=== PATIENT | male | born 1950 | race Caucasian/White ===

== ENCOUNTER → 2017-09-27 08:00 | Outpatient (CLI) | payer MEDICARE, SELFPAY ==
[2017-09-27 10:34] LABS: Erythrocyte Sedimentation Rate 2 mm/hr (0-20)
[2017-09-27 11:13] LABS: AST(SGOT) 20 U/L (15-37); Alanine Aminotransfer ALT/SGPT 24 U/L (16-61); Albumin, Serum 4.2 g/dL (3.2-5.0); Alkaline Phosphatase 73 U/L (45-117); Anion Gap 7 (5-15); BUN 11 mg/dL (7-18); BUN/Creat Ratio 14.1 RATIO (10-20); Bilirubin, Direct 0.26 mg/dL (0.00-0.30); CRP < 2.90 mg/L (0.0-3.0); Calcium,Total 9.2 mg/dL (8.5-10.1); Chloride 96 mmol/L (98-107); Cholesterol 201 mg/dL (200); Creatinine, Serum 0.78 mg/dL (0.70-1.30); EST Glomerular Filtration Rate 105 mL/min (>60); Est Glom Filt Rate - Afr Amer 127 mL/min (>60); Globulin 3.5 g/dL (2.2-4.2); Glucose 101 mg/dL (74-106); High Density Lipoprotein 72 mg/dL; Potassium 4.3 mmol/L (3.5-5.1); Protein, Total 7.7 g/dL (6.4-8.2); Sodium Level 134 mmol/L (136-145); Thyroid Stim Hormone (TSH) 2.61 uIU/mL (0.358-3.74); Triglycerides 58 mg/dL; Very Low Density Lipoprotein 12 mg/dL (5-40)
--- NOTE | 2017-09-27 13:57 | PFT ---
INTRODUCTION: The patient is a 67-year-old male currently under the care of Dr. Santosh Robbins the presents for pulmonary function testing secondary to a diagnosis of shortness of breath. Respiratory therapy reports good patient effort reports no other concerns. Bronchodilators were used during testing. INTERPRETATION: Forced expiration spirometry demonstrates the presence of a mild large airways obstructive ventilatory defect. There was a significant response to aerosolized bronchodilators, based upon overall change in FEV1. Spirograms are of good quality and do not plateau indicating slow emptying of the lungs. Body plethysmography was performed and reveals an increased TLC and RV, indicative of hyperinflation and air-trapping. Diffusing capacity by single breath CO is within normal limits. When compared to previous pulmonary function studies dated February 2009, there has been a 15% reduction in the patient's FEV1 and a 13% reduction in DLCO. IMPRESSION: These pulmonary function studies demonstrate the presence of a partially reversible mild large airways obstructive ventilatory defect with associated hyperinflation and air-trapping. There has been worsening in the patient's FEV1 and DLCO since PFTs were last completed in February 2009.
--- NOTE | 2017-09-27 14:00 | PFT_ITS ---
INTRODUCTION: The patient is a 67-year-old male currently under the care of Dr. Santosh Robbins the presents for pulmonary function testing secondary to a diagnosis of shortness of breath. Respiratory therapy reports good patient effort reports no other concerns. Bronchodilators were used during testing. INTERPRETATION: Forced expiration spirometry demonstrates the presence of a mild large airways obstructive ventilatory defect. There was a significant response to aerosolized bronchodilators, based upon overall change in FEV1. Spirograms are of good quality and do not plateau indicating slow emptying of the lungs. Body plethysmography was performed and reveals an increased TLC and RV, indicative of hyperinflation and air-trapping. Diffusing capacity by single breath CO is within normal limits. When compared to previous pulmonary function studies dated February 2009, there has been a 15% reduction in the patient's FEV1 and a 13 % reduction in DLCO. IMPRESSION: These pulmonary function studies demonstrate the presence of a partially reversible mild large airways obstructive ventilatory defect with associated hyperinflation and air-trapping. There has been worsening in the patient's FEV1 and DLCO since PFTs were last completed in February 2009.
== END ==
PROVIDERS: Internal Medicine Cardiovascular Disease; Family Provider Family Medicine; PCP Family Medicine; Visit Provider Orthopaedic Surgery
DX: I25.10 Atherosclerotic heart disease of native coronary artery without angina pectoris (principal); I10 Essential (primary) hypertension; E78.00 Pure hypercholesterolemia, unspecified; R06.02 Shortness of breath; M25.562 Pain in left knee; Z96.652 Presence of left artificial knee joint; M25.062 Hemarthrosis, left knee; Z79.899 Other long term (current) drug therapy
CPT/HCPCS: 36415; 80048; 80061; 80076; 84443; 85652; 86140; 94060; 94726; 94729

== ENCOUNTER 2018-01-24 05:58 | Inpatient (IN) | payer MEDICARE, SELFPAY ==
--- NOTE | 2018-01-05 10:33 | EKG12_ITS ---
Test Reason : Blood Pressure : / mmHG Vent. Rate : 064 BPM Atrial Rate : 064 BPM P-R Int : 152 ms QRS Dur : 140 ms QT Int : 436 ms P-R-T Axes : 012 -35 044 degrees QTc Int : 449 ms Normal sinus rhythm Left axis deviation Left bundle branch block Abnormal ECG Confirmed by PRESLEY PONCE, MARY ([id number]), features editor JUAN QUILES ([id number]) on 01/10/2018 6:31:25 PM Referred By: Maximilian Tucker Confirmed By:MARY SHERWOOD MD
[2018-01-05 13:59] LABS: Hemoglobin 14.5 g/dl (13.0-16.5); Mean Corpuscular Volume 97.4 fL (80-94); Red Blood Count 4.21 M/mm3 (4.6-6.2); White Blood Count 5.3 K/mm3 (4.4-11.0)
[2018-01-05 14:00] LABS: Absolute Lymphocyte Count 1.54 X10^3/ul (0.83-4.51); Absolute Neutrophil Count 2.6 X10^3/uL (2.0-7.7); Basophil% 1.3 % (0-1); Eosinophil# 0.27 X10^3/uL; Eosinophils% 5.1 % (0-5); Lymphocyte # 1.54 X10^3/ul (4.0); Lymphocyte % 29.1 % (19-41); Mean Corp Hgb Conc 35.4 g/gl (32-36); Mean Corpuscular Hgb 34.4 pg (27.0-32.0); Mean Platelet Vol. 9.4 fl (6.2-12.0); Monocyte# 0.84 X10^3/uL; Monocyte% 15.9 % (0-10); Neutrophil # 2.56 X10^3/uL (2.7-7.7); Neutrophil % 48.4 % (47-70); POSITIVE COUNT NO; POSITIVE DIFFERENTIAL NO; POSITIVE MORPHOLOGY NO; Platelet Count 307 K/mm3 (150-450); RBC Distribution Width CV 12.4 % (11.6-14.6); RBC Distribution Width SD 44.1 fl (35.1-43.9)
[2018-01-05 14:01] LABS: Basophil# 0.07 X10^3/uL
[2018-01-05 15:41] LABS: Anion Gap 12 (5-15); BUN 14 mg/dL (7-18); BUN/Creat Ratio 18.2 RATIO (10-20); Calcium,Total 9.1 mg/dL (8.5-10.1); Chloride 97 mmol/L (98-107); Creatinine, Serum 0.77 mg/dL (0.70-1.30); EST Glomerular Filtration Rate 107 mL/min (>60); Est Glom Filt Rate - Afr Amer 130 mL/min (>60); Glucose 90 mg/dL (74-106); Potassium 4.4 mmol/L (3.5-5.1); Sodium Level 135 mmol/L (136-145)
[2018-01-24] VITALS (11 sets, daily range): BP systolic 104–157; BP diastolic 60–88; PULSE 56–82; RESP 14–16; TEMP 35.9–36.6; O2SAT 94–99; BMI 27.7
[2018-01-24] MEDS: Acetaminophen 500 MG Tablet 1000 MG PO ×3 (07:00→21:45)
[2018-01-24] MEDS: Celecoxib 200 MG Capsule 400 MG PO (07:00)
[2018-01-24] MEDS: oxyCODONE HCl Cr 10 MG Tablet PO (07:00)
[2018-01-24] MEDS: Scopolamine 1mg/72hr Patch 1 PATCH TD (07:45)
--- NOTE | 2018-01-24 07:59 | RAD_ITS ---
STUDY: X-RAY - LEFT KNEE REASON FOR EXAM: Male, 67 years old. Total knee replacement. TECHNIQUE: AP and lateral view(s) of the knee. COMPARISON: None. FINDINGS: Normal visualized distal femur. Normal visualized proximal tibia and fibula. Normal proximal tibiofibular articulation. The patient is status post total knee replacement. There is good alignment. Postoperative soft tissue changes. RAD/Knee 1 or 2 Views IMPRESSION: Total knee replacement. There is good alignment. Postoperative soft tissue changes. Electronically Signed: Wilberto Powell MD at 10:00 EDT Tel [phone], Service support ,
[2018-01-24] MEDS: Cefazolin 2 GM in 0.9% Normal Saline 100 ML IV (08:00)
--- NOTE | 2018-01-24 08:51 | PCM.OPRPT ---
Report of Operation Date of Procedure: 01/24/18 Pre-Operative Diagnosis: Painful left total knee replacement with crepitus and cement debris Post-Operative Diagnosis: 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 newsagent: Tay Strauss Type of Anesthesia:: Spinal Anesthesiologist: Santosh Palafox Special Medications: 2 g Ancef, 1 g TXA at incision, 1 g TXA closure, 10 mg Decadron, joint cocktail (5 mg Duramorph, 30 mL of 0.5% Ropivicaine, 1000 units of epinephrine, 30 mg of Toradol) Specimen's removed: Cement debris Estimated Blood Loss (mL): 20 Fluids Replaced: 1 L crystalloid Description of Procedure: Brief history operative indications: 67-year-old male with left total knee replacement roughly 1 year ago with persistent lateral sided pain and crepitus. X-rays revealed an area of cement from the lateral condyle of the femur. Discussed with the patient I felt this was a source of pain and crepitus. Patient noted understanding and elected to proceed with revision of the knee polyethylene component and removal of the excess cement. Risks and benefits of the procedure were discussed with the patient including but not limited to blood loss, DVTs, PEs, neurovascular damage, infection, general risk of anesthesia including loss of life. Patient demonstrated understanding was able to sign for consent. Procedure: On the date of procedure patient's left lower extremity was marked in the preoperative area. The patient was then taken back to the operating room where the patient was placed on the table in the supine position. All bony prominences were identified a well-padded. Anesthesia assumed control of the C-spine and airway and remained controlled throughout the remainder of the procedure. A tourniquet was placed on the left upper thigh and the leg was prepped in a sterile fashion. The surgeon then scrubbed at this time .Upon reentering the room left lower extremity was draped in a standard orthopedic fashion. A timeout was then called and everyone agreed upon the side, the site, the procedure to be performed, patient's identity and antibiotics given. A midline skin incision was made and sharp dissection was taken down through skin subcutaneous tissue and fat. Appropriate medial lateral flaps were raised. The standard medial parapatellar incision was made and the patella was subluxed laterally. The standard deep MCL release was done and complete synovectomy was performed re-creating the medial gutter, lateral gutter and suprapatellar pouch. In the lateral gutter we noted significant irritation and atrophy of the synovium. Knee was taken through range of motion and the crepitus laterally was verified At this time an osteotome was used to remove the polyethylene component. Patella was then subluxed laterally exposing an irregular shaped pieces cement on the lateral distal femoral condyle which was irritating the tissue. Osteotome was used to remove this foreign body. Previous polyethylene was then put into place for a trial component. Knee was taken through range of motion and crepitus was no longer there. Trial polyethylene was removed hemostasis was obtained using bipolar. Wound was copiously irrigated out with 1 L normal saline. Tourniquet was let down. A size 7, 9 mm polyethylene component was placed. Once the final components were placed a 500 mL dilute Betadine 3 minute lavage was performed and the wound was copiously irrigated with normal saline solution and the remainder of the periarticular injection was given. The wound was closed in a layer mark fashion using #1 vicryl interrupted sutures for the arthrotomy, 2-0 interrupted Vicryl for the subcuticular layer and fab for final skin closure. A sterile compressive dressing was then placed. The patient was then awakened from anesthesia, transferred to [facility] and transferred to the PACU for recovery. Post op plan DVT ppx: ASA 81mg BID , thigh high compression stockings Follow up: in office in 2 weeks for wound check PT: to start POD #0 at hospital, outpatient PT should be arranged. Dr. Strauss played a vital role in this case. He was important during positioning the patient. He was important during protection of soft tissue structures. There was no other instruction assistant principal provided for me during this case therefore I used a another skilled set of hands. He was helpful and protecting soft tissues during the case as we used instrumentation at the neurovascular structures at risk. Finally he was helpful during final reduction of the polyethylene and closure of the wound. Grafts/Implants Used: [place] X3, 9 millimeters size 7 polyethylene PS - Complications None - Admit VTE Documentation VTE Present on Admission: No VTE Mechan Device Prophylaxis: SCD's, Thigh High DEJAN Hose VTE Pharm Prophylaxis ordered?: Yes
--- NOTE | 2018-01-24 09:00 | OP.PCM_ITS ---
Report of Operation Date of Procedure: 01/24/18 Pre-Operative Diagnosis: Painful left total knee replacement with crepitus and cement debris Post-Operative Diagnosis: 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 [employer] assistant principal: Tay Strauss Type of Anesthesia:: Spinal Anesthesiologist: Santosh Palafox Special Medications: 2 g Ancef, 1 g TXA at incision, 1 g TXA closure, 10 mg Decadron, joint cocktail (5 mg Duramorph, 30 mL of 0.5% Ropivicaine, 1000 units of epinephrine, 30 mg of Toradol) Specimen's removed: Cement debris Estimated Blood Loss (mL): 20 Fluids Replaced: 1 L crystalloid Description of Procedure: Brief history operative indications: 67-year-old male with left total knee replacement roughly 1 year ago with persistent lateral sided pain and crepitus. X-rays revealed an area of cement from the lateral condyle of the femur. Discussed with the patient I felt this was a source of pain and crepitus. Patient noted understanding and elected to proceed with revision of the knee polyethylene component and removal of the excess cement. Risks and benefits of the procedure were discussed with the patient including but not limited to blood loss, DVTs, PEs, neurovascular damage , infection, general risk of anesthesia including loss of life. Patient demonstrated understanding was able to sign for consent. Procedure: On the date of procedure patient's left lower extremity was marked in the preoperative area. The patient was then taken back to the operating room where the patient was placed on the table in the supine position. All bony prominences were identified a well-padded. Anesthesia assumed control of the C- spine and airway and remained controlled throughout the remainder of the procedure. A tourniquet was placed on the left upper thigh and the leg was prepped in a sterile fashion. The surgeon then scrubbed at this time .Upon reentering the room left lower extremity was draped in a standard orthopedic fashion. A timeout was then called and everyone agreed upon the side, the site, the procedure to be performed, patient's identity and antibiotics given. A midline skin incision was made and sharp dissection was taken down through skin subcutaneous tissue and fat. Appropriate medial lateral flaps were raised. The standard medial parapatellar incision was made and the patella was subluxed laterally. The standard deep MCL release was done and complete synovectomy was performed re-creating the medial gutter, lateral gutter and suprapatellar pouch. In the lateral gutter we noted significant irritation and atrophy of the synovium. Knee was taken through range of motion and the crepitus laterally was verified At this time an osteotome was used to remove the polyethylene component. Patella was then subluxed laterally exposing an irregular shaped pieces cement on the lateral distal femoral condyle which was irritating the tissue. Osteotome was used to remove this foreign body. Previous polyethylene was then put into place for a trial component. Knee was taken through range of motion and crepitus was no longer there. Trial polyethylene was removed hemostasis was obtained using bipolar. Wound was copiously irrigated out with 1 L normal saline. Tourniquet was let down. A size 7, 9 mm polyethylene component was placed. Once the final components were placed a 500 mL dilute Betadine 3 minute lavage was performed and the wound was copiously irrigated with normal saline solution and the remainder of the periarticular injection was given. The wound was closed in a layer mark fashion using #1 vicryl interrupted sutures for the arthrotomy, 2-0 interrupted Vicryl for the subcuticular layer and fab for final skin closure. A sterile compressive dressing was then placed. The patient was then awakened from anesthesia, transferred to the [facility] and transferred to the PACU for recovery. Post op plan DVT ppx: ASA 81mg BID , thigh high compression stockings Follow up: in office in 2 weeks for wound check PT: to start POD #0 at hospital, outpatient PT should be arranged. Dr. Strauss played a vital role in this case. He was important during positioning the patient. He was important during protection of soft tissue structures. There was no other training program assistant provided for me during this case therefore I used a another skilled set of hands. He was helpful and protecting soft tissues during the case as we used instrumentation at the neurovascular structures at risk. Finally he was helpful during final reduction of the polyethylene and closure of the wound. Grafts/Implants Used: [place] X3, 9 millimeters size 7 polyethylene PS - Complications None - Admit VTE Documentation VTE Present on Admission: No VTE Mechan Device Prophylaxis: SCD's, Thigh High DEJAN Hose VTE Pharm Prophylaxis ordered?: Yes
[2018-01-24] MEDS: Lactated Ringers 1,000 ML 999 ML IV (09:30)
[2018-01-24] MEDS: Aspirin 81 MG TAB.CHEW PO ×2 (13:32→18:48)
[2018-01-24] MEDS: Famotidine 20 MG Tablet PO (13:32)
[2018-01-24] MEDS: Senna/Docusate Sodium 1 Tablet 2 TABLET PO ×2 (13:32→21:46)
[2018-01-24] MEDS: Cefazolin 1 GM/50 ML BAG IV (16:24)
[2018-01-25] MEDS: Cefazolin 1 GM/50 ML BAG IV (00:31)
[2018-01-25] MEDS: 0.9% NaCl Peripheral Flush Adult/Peds IV (00:32)
[2018-01-25 02:08] VITALS: BP 149/48; PULSE 98; RESP 16; TEMP 36.5; O2SAT 98
[2018-01-25] MEDS: oxyCODONE 5 MG Tablet PO ×2 (02:23→09:58)
[2018-01-25 06:15] LABS: Hematocrit 35.6 % (40-54); Hemoglobin 12.9 g/dl (13.0-16.5); Mean Corp Hgb Conc 36.2 g/gl (32-36); Mean Corpuscular Hgb 35.6 pg (27.0-32.0); Mean Corpuscular Volume 98.3 fL (80-94); Mean Platelet Vol. 9.7 fl (6.2-12.0); Platelet Count 263 K/mm3 (150-450); RBC Distribution Width CV 11.5 % (11.6-14.6); Red Blood Count 3.62 M/mm3 (4.6-6.2); White Blood Count 13.1 K/mm3 (4.4-11.0)
[2018-01-25 06:22] LABS: Scan Indicated on CBC? Y/N NO
[2018-01-25 06:31] LABS: Anion Gap 8 (5-15); BUN 15 mg/dL (7-18); BUN/Creat Ratio 15.6 RATIO (10-20); Calcium,Total 8.7 mg/dL (8.5-10.1); Chloride 101 mmol/L (98-107); Creatinine, Serum 0.96 mg/dL (0.70-1.30); EST Glomerular Filtration Rate 83 mL/min (>60); Est Glom Filt Rate - Afr Amer 100 mL/min (>60); Estimated Creatinine Clearance 73.65 ml/min; Glucose 106 mg/dL (74-106); Potassium 3.9 mmol/L (3.5-5.1); Sodium Level 135 mmol/L (136-145)
[2018-01-25] MEDS: Acetaminophen 500 MG Tablet 1000 MG PO (06:53)
--- NOTE | 2018-01-25 08:56 | PCM.PN.ORT ---
Subjective: The patient was sitting in bed upon examination. Patient denies any chest pain, shortness of breath, dizziness, lightheadedness, nausea or vomiting, or calf pain. Pain is controlled on medications. No adverse overnight events. Patient is ready for discharge home this morning. Patient states the pain is well controlled. Objective: Vital signs stable and afebrile. Patient is able to plantarflex and dorsiflex actively. Sensation is intact to light touch to saphenous, sural, superficial and deep peroneal, and tibial distribution. Dressing is clean dry and intact. Negative Homans bilaterally, negative signs and symptoms of DVT. - Physical Exam General: Alert, Oriented x3, Cooperative, No apparent distress Vital Signs Temp Pulse Resp BP Pulse Ox 97.7 F L 98 16 149/48 H 98 01/25/18 02:08 01/25/18 02:08 01/25/18 02:08 01/25/18 02:08 01/25/18 02:08 Oxygen Delivery Method Room Air Weight: 85.275 kg Body Mass Index (BMI) 27.7 Intake and Output for Last 24 Hours 01/23/18 01/24/18 01/25/18 23:59 23:59 23:59 Intake Total 2982 / 2982 1048.6 / 1048.6 Output Total 250 / 250 Balance 2732 / 2732 1048.6 / 1048.6 Laboratory Tests Past 24 Hrs 01/25/18 01/25/18 05:45 05:45 WBC 13.1 H RBC 3.62 L Hgb 12.9 L Hct 35.6 L MCV 98.3 H MCH 35.6 H MCHC 36.2 H RDW 11.5 L RDW Differential 40.0 Plt Count 263 MPV 9.7 Sodium 135 L Potassium 3.9 Chloride 101 Carbon Dioxide 26.0 Anion Gap 8 BUN 15 Creatinine 0.96 Estim Creat Clear Calc 73.65 Est GFR (MDRD) Af Amer 100 Est GFR (MDRD) Non-Af 83 BUN/Creatinine Ratio 15.6 Glucose 106 Calcium 8.7 Medical Necessity - Tobacco Use Smoking Status: Former smoker Assessment/Plan All Active Problems (Last Reviewed 09/26/17 @ 10:53 by Ryan Benson MD) Precordial chest pain (Acute) 1. S/P left knee revision polyethylene tibial component with removal of foreign body POD #1 2. Continue Pain Medications: Tylenol and OxyIR 3. DVT Prophylaxis: Aspirin 81 mg twice daily 4. PT/OT: Weightbearing as tolerated 5. H & H: 12.9/35.6, asymptomatic 6. Leukocytosis: Currently 13.1, afebrile. Patient did receive Decadron intraoperatively 7. Encouraged Incentive Spirometry 8. Disposition: Plan will be for discharge home today. Prescriptions will be E scribed to [facility]. Patient will follow-up per postop instructions. Patient will need physical therapy scheduled outpatient.
--- NOTE | 2018-01-25 09:04 | PCM.DC.TKR ---
Discharge Diet: No Restrictions Discharge Activity: May Not Drive May shower in (days): 1 - Turned dressing away from water Ice area for (Minutes): 20 - every hour while awake. Weight Bearing Status: Weight bearing as tolerated Elevate: Operative Extremity Additional Activity Instructions:: Wear elastic stockings for 2 weeks after your surgery. Call your doctor if your incision/area has: Continuous Slow Oozing, Sudden Increased Bleeding, Increased Pain/ Swelling, Increased Redness, Foul Smelling Discharge Call your doctor if you observe: Fever of 101 or Higher, Coldness, Increased Pain, Numbness or Tingling, Change in Color, Calf discomfort, Uncontrolled pain Remove Dressing in (days):: 4 - Remove dressing on August 01, 2017 Additional Instructions: Follow [facility] postop instruction Allergies/Adverse Reactions: Allergies adhesive tape Allergy (Verified 09/22/17 10:38) Rash BEE STINGS Allergy (Uncoded 09/20/16 11:14) Anaphylaxis Medications to take at Discharge Multivitamin with Folic Acid [Thera Tablet] 1 each PO DAILY 09/20/16 cetirizine 10 mg capsule 10 mg PO QDAY cap 09/22/17 Umeclidinium Brm/Vilanterol Tr [Anoro Ellipta 62.5-25 Mcg INH] 1 puff INHALATION DAILY 01/24/18 Valsartan [Diovan] 160 mg PO DAILY 01/24/18 Acetaminophen [Tylenol] 1,000 mg PO Q8 #90 tab 01/25/18 Aspirin [Aspirin, Baby] 81 mg PO BIDCM #60 tab 01/25/18 Famotidine [Pepcid] 20 mg PO DAILY #30 tab 01/25/18 Meloxicam [Mobic] 7.5 mg PO BID #30 tab 01/25/18 Oxycodone [Oxyir] 5 - 10 mg PO Q4H PRN PRN 5 Days #60 tablet 01/25/18 Senna/Docusate Sodium [Senokot-S] 2 tab PO BID #20 tab 01/25/18 The following prescriptions were given: Oxycodone [Oxyir] 5 - 10 mg PO Q4H PRN PRN 5 Days #60 tablet PRN Reason: Mod-Severe Pain (4-05/09) Acetaminophen [Tylenol] 1,000 mg PO Q8 #90 tab Famotidine [Pepcid] 20 mg PO DAILY #30 tab Aspirin [Aspirin, Baby] 81 mg PO BIDCM #60 tab Meloxicam [Mobic] 7.5 mg PO BID #30 tab Senna/Docusate Sodium [Senokot-S] 2 tab PO BID #20 tab Primary Care Physician: Santosh Robbins MD [Primary Care Provider] - Please Follow Up With: Physical Therapy When: to be scheduled before leaving hospital Please Follow Up With: Isaac William PA-C When: 02/07/18 @ 9:00 am
[2018-01-25 09:47] VITALS: BP 152/77; PULSE 59; RESP 18; TEMP 36.7; O2SAT 100
[2018-01-25] MEDS: Famotidine 20 MG Tablet PO (09:59)
[2018-01-25] MEDS: Meloxicam 7.5 MG Tablet PO (09:59)
[2018-01-25] MEDS: Senna/Docusate Sodium 1 Tablet 2 TABLET PO (09:59)
[2018-01-25] MEDS: Aspirin 81 MG TAB.CHEW PO (09:59)
== END 2018-01-25 11:34 | disposition home or self-care (01) | DRG 482 ==
PROVIDERS: Admitting Provider Specialist; Family Provider Family Medicine; PCP Family Medicine; Visit Provider Specialist
PROC: 0SPD09Z Removal of Liner from Left Knee Joint, Open Approach (ICD-10-PCS; CPT 27301; principal; 2018-01-24 07:40)
DX: T84.84XA Pain due to internal orthopedic prosthetic devices, implants and grafts, initial encounter (principal); I10 Essential (primary) hypertension; T84.89XA Other specified complication of internal orthopedic prosthetic devices, implants and grafts, initial encounter; Z87.891 Personal history of nicotine dependence; E66.3 Overweight; Z68.27 Body mass index [BMI] 27.0-27.9, adult; Z96.653 Presence of artificial knee joint, bilateral; Y83.1 Surgical operation with implant of artificial internal device as the cause of abnormal reaction of the patient, or of later complication, without mention of misadventure at the time of the procedure
CPT/HCPCS: 36415; 73560; 80048; 85025; 85027; 87081; 93005; 97116; 97162; 97165; 97530; 97535; 99251; C1776; J7120; A4216; G0463

== ENCOUNTER → 2018-08-16 10:46 | Outpatient (CLI) | payer MEDICARE, SELFPAY ==
--- NOTE | 2018-08-16 10:53 | RAD_ITS ---
STUDY: X-RAY - CERVICAL SPINE REASON FOR EXAM: Male, 68 years old. Left arm weakness and tingling. TECHNIQUE: 5 view(s) of the cervical spine were obtained including oblique views. COMPARISON: None FINDINGS: Normal anterior atlantoaxial articulation. Normal odontoid process. Normal cervical lordosis. There is multi-level endplate spondylosis. There is multi-level degenerative disc disease with multilevel disc space narrowing. There is multi-level osseous foraminal stenosis. The soft tissue structures are unremarkable. RAD/Cerv Spine 4 or 5 Views IMPRESSION: Multilevel disc space narrowing and spondylosis. Multilevel foraminal stenosis. Electronically Signed: Wilberto Powell MD at 10:12 EST Tel [phone], Service support ,
[2018-08-16 14:10] LABS: Erythrocyte Sedimentation Rate 8 mm/hr (0-20)
[2018-08-16 14:16] LABS: Absolute Lymphocyte Count 1.57 X10^3/ul (0.83-4.51); Absolute Neutrophil Count 3.8 X10^3/uL (2.0-7.7); Basophil# 0.04 X10^3/uL; Basophil% 0.6 % (0-1); Eosinophil# 0.26 X10^3/uL; Hematocrit 40.9 % (40-54); Hemoglobin 14.2 g/dl (13.0-16.5); Lymphocyte # 1.57 X10^3/ul (4.0); Lymphocyte % 24.1 % (19-41); Mean Corp Hgb Conc 34.7 g/gl (32-36); Mean Corpuscular Hgb 34.4 pg (27.0-32.0); Mean Platelet Vol. 9.7 fl (6.2-12.0); Monocyte# 0.87 X10^3/uL; Monocyte% 13.3 % (0-10); Neutrophil # 3.77 X10^3/uL (2.7-7.7); Neutrophil % 57.8 % (47-70); POSITIVE COUNT NO; POSITIVE DIFFERENTIAL NO; POSITIVE MORPHOLOGY NO; Platelet Count 295 K/mm3 (150-450); RBC Distribution Width CV 12.4 % (11.6-14.6); RBC Distribution Width SD 45.1 fl (35.1-43.9); Red Blood Count 4.13 M/mm3 (4.6-6.2); White Blood Count 6.5 K/mm3 (4.4-11.0)
[2018-08-16 14:27] LABS: Vitamin B12 626 pg/mL (211-911)
[2018-08-16 14:58] LABS: ALB/GLOB Ratio 1.2 RATIO (0.9-2.4); AST(SGOT) 21 U/L (15-37); Alanine Aminotransfer ALT/SGPT 30 U/L (16-61); Albumin, Serum 3.9 g/dL (3.2-5.0); Alkaline Phosphatase 61 U/L (45-117); Anion Gap 8 (5-15); BUN 11 mg/dL (7-18); CRP 7.65 mg/L (0.0-3.0); Calcium,Total 9.1 mg/dL (8.5-10.1); Chloride 98 mmol/L (98-107); Creatinine, Serum 0.79 mg/dL (0.70-1.30); EST Glomerular Filtration Rate 104 mL/min (>60); Est Glom Filt Rate - Afr Amer 126 mL/min (>60); Ferritin 340 ng/mL (26-388); Globulin 3.3 g/dL (2.2-4.2); Glucose 95 mg/dL (74-106); Magnesium 2.1 mg/dL (1.6-2.6); Potassium 4.2 mmol/L (3.5-5.1); Protein, Total 7.2 g/dL (6.4-8.2); Sodium Level 133 mmol/L (136-145); Thyroid Stim Hormone (TSH) 2.33 uIU/mL (0.358-3.74)
[2018-08-17 16:12] LABS: PROEL- A/G Ratio 1.3 (0.7-1.7); PROEL- Albumin 3.9 g/dL (2.9-4.4); PROEL- Alpha-1 Globulin 0.2 g/dL (0.0-0.4); PROEL- Alpha-2 Globulin 0.7 g/dL (0.4-1.0); PROEL- Gamma Globulin 1.1 g/dL (0.4-1.8); PROEL- TOTAL PROTEIN 6.9 g/dL (6.0-8.5)
[2018-08-19 11:37] LABS: ANTINUCLEAR ANTIBODIES DIRECT Negative (Negative)
--- OUTSIDE RECORDS SUMMARY | 2018-10-21 01:36 | XMS RPT_ITS ---
:1950 Author Organization OHIP Support Name Relationship Address Phone R Unavailable Unavailable Unavailable EDDI MENDEZ Unavailable [address] + [place] [address] RON MENDEZ Unavailable Unavailable + [place] [address] NOT GIVEN Unavailable Unavailable Unavailable EDDI MENDEZ Unavailable [address] + [place] [address] EDDI MENDEZ Unavailable [address] [place] [address] NOT GIVEN Unavailable Unavailable Unavailable EDDI MENDEZ Unavailable [address] + [place], [place] [id number] EDDI MENDEZ Unavailable [address] Unavailable [place], [place] [id number] R Unavailable Unavailable Unavailable EDDI MENDEZ Unavailable [address] + [place] [address] RON MENDEZ Unavailable Unavailable + [place] [address] R Unavailable Unavailable Unavailable EDDI MENDEZ Unavailable [address] + [place] [address] RON MENDEZ Unavailable Unavailable + [place] [address] R Unavailable Unavailable Unavailable EDDI MENDEZ Unavailable [address] + [place] [address] RON MENDEZ Unavailable Unavailable + [place] [address] R Unavailable Unavailable Unavailable EDDI MENDEZ Unavailable [address] + [place] [address] RON MENDEZ Unavailable Unavailable + [place] [address] R Unavailable Unavailable Unavailable ZHOU MENDEZDIA Unavailable [address] + [place] [address] NOT GIVEN Unavailable Unavailable Unavailable ZHOU MENDEZDIA Unavailable [address] + [place], [place] [id number] ZHOU MENDEZDIA Unavailable [address] Unavailable [place], [place] [phone] R Unavailable Unavailable Unavailable ZHOU MENDEZDIA Unavailable [address] + [place] [address] Care Team Providers Name Role Phone HOUGHANNA Admitting Unavailable HOUGHANNA Attending Unavailable HOUGHANTONIOY Primary Care Unavailable CLAROS, ARMANDO J Consulting Unavailable PROVIDER, UNKNOWN Consulting Unavailable PROVIDER, UNKNOWN Consulting Unavailable PROVIDER, UNKNOWN Consulting Unavailable PHIL ROBBINSIC A Consulting Unavailable ANDREA, LUCÍA K Primary Care Unavailable ANDREA LUCÍA K Attending Unavailable ANDREA, LUCÍA K Admitting Unavailable PROVIDER, UNKNOWN Consulting Unavailable MAXIMILIAN DE LA PAZ MD Primary Care Unavailable MAXIMILIAN DE LA PAZ MD Attending Unavailable MAXIMILIAN DE LA PAZ MD Admitting Unavailable ROBBINSEUGENE A Consulting Unavailable PROVIDER, UNKNOWN Consulting Unavailable Robbins, Eugene Attending Unavailable Robbins, Eugene Referring Unavailable Robbins, Eugene Primary Care Unavailable Nurse, Surgery Attending Unavailable CLAROS, ARMANDO Referring Unavailable CLAROS, ARMANDO Primary Care Unavailable Kelley, Ryan Attending Unavailable CLAROS, ARMANDO Referring Unavailable Robbins, Eugene Primary Care Unavailable Robbins, Eugene Primary Care Unavailable Robbins, Eugene Referring Unavailable ANDREA, LUCÍA Attending Unavailable Kelley, [place] Consulting Unavailable Dylan Ivory D.O. Attending Unavailable Rosendo, Eugene Referring Unavailable Maximilian De La Paz Admitting Unavailable Maximilian De La Paz Attending Unavailable Maximilian De La Paz Referring Unavailable Robbins, Eugene Primary Care Unavailable Kelley, Ryan Attending Unavailable Maximilian De La Paz Referring Unavailable PROBLEMS PROBLEMS DATE TYPE CONDITION / CODE ATTENDING STATUS SOURCE Unknown M62.81 - Muscle weakness Eugene Robbins Active [facility] 9 (generalized) / Community M62.81(ICD-10) Hospital Repository Principle Allergic rhinitis, ANNA HOUGH Active [facility] Pomcathy 8 Diagnosis unspecified / [facility] J309(ICD-10) Hospital Repository Secondary Presence of left ANA CRISTINA, Active [facility] Pom[facility] 8 Diagnosis artificial knee joint / MAXIMILIAN PONCE [facility] T10808(ICD-10) Hospital Repository Admitting Aftercare following joint ANA CRISTINA, Active [facility] 8 Diagnosis replacement surgery / MAXIMILIAN PONCE [facility] Z471(ICD-10) Hospital Repository Principle Aftercare following joint ANA CRISTINA, Active [facility] Pom[place]ine 8 Diagnosis replacement surgery / MAXIMILIAN PONCE [facility] Z471(ICD-10) Hospital Repository Unknown T84.84XA - Pain due to Ana Cristina, Active [facility] 8 internal orthopedic [facility] prosthetic devices, Hospital implants and grafts, Repository initial encounter / T84.84XA(ICD-10) Unknown I10 - Essential (primary) Kelley, Ryan Active [facility] 8 hypertension / Community I10(ICD-10) Hospital Repository Unknown R94.31 - Abnormal Kelley, [place] Active [facility] 8 electrocardiogram [ECG] Community [EKG] / R94.31(ICD-10) Hospital Repository Unknown I44.7 - Left Kelley, [place] Active [facility] 8 bundle-branch block, Community unspecified / Hospital I44.7(ICD-10) Repository Unknown 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, [place]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 / Repository I25.10(ICD-10) Unknown Z79.899 - Other chcf Kelley, Ryan Active [facility] 8 (current) drug therapy / Community Z79.899(ICD-10) Hospital Repository Unknown E78.00 - Pure Kelley, [place] Active [facility] 8 hypercholesterolemia, Community unspecified / Hospital E78.00(ICD-10) Repository Unknown E78.0 - Pure Kelley, Ryan Active [facility] 8 hypercholesterolemia / Community E78.0(ICD-10) Hospital Repository Unknown I35.0 - Nonrheumatic Kelley, Ryan Active [facility] 8 aortic (valve) stenosis / Community I35.0(ICD-10) Hospital Repository Admitting Pain in left knee / ANDREALUCÍA MADRID Active [facility] 8 Diagnosis T70384(ICD-10) [facility] Repository Principle Pain in left knee / ANDREA, LUCÍA Powell Active [facility] 8 Diagnosis W33836(ICD-10) [facility] Repository PROCEDURES PROCEDURES No Procedure Records FoundRESULTS RESULTS ERYTHROCYTE SED RATE Collected: 08/16/2018 Status: F Source: [place] 11:35 AM [facility] REPOSITORY TYPE CODE TESTS RESULT OUT OF RANGE REFERENCE UNITS LAB L102.0000 0-20 mm/hr Normal SED RATE 8 Performed By: #### L101.9900, L100.0100, L501.9985, L503.0105, L509.1000, L500.4050, L501.5200, L501.9520, L503.6550, L506.0250 #### [facility] [address] [place], [place], [address] #### L3100.3450, L3100.5475 #### [facility] (refer to report for specific site) refer to report for address and phone number CBC W/DIFF, AUTOMATED Collected: 08/16/2018 Status: F Source: [place] 11:35 AM [facility] REPOSITORY TYPE CODE TESTS RESULT OUT OF RANGE REFERENCE UNITS LAB L100.1000 4.4-11.0 K/mm3 Normal WBC 6.5 LAB L100.1200 4.6-6.2 M/mm3 Low RBC 4.13 LAB L100.1300 13.0-16.5 g/dl Normal HGB 14.2 LAB L100.1400 40-54 % Normal HCT 40.9 LAB L100.1500 80-94 fL High MCV 99.0 LAB L100.1600 27.0-32.0 pg High MCH 34.4 LAB L100.1700 32-36 g/gl Normal MCHC 34.7 LAB L100.1810 11.6-14.6 % Normal RDW CV 12.4 LAB L100.1820 35.1-43.9 fl High RDW SD 45.1 LAB L100.1900 150-450 K/mm3 Normal PLT 295 LAB L100.2000 6.2-12.0 fl Normal MPV 9.7 LAB L100.2100 47-70 % Normal NEUT% 57.8 LAB L100.2200 19-41 % Normal LY% 24.1 LAB L100.2300 0-10 % High MONO% 13.3 LAB L100.2400 0-5 % Normal EO% 4.0 LAB L100.2500 0-1 % Normal BASO% 0.6 LAB L100.2550 0.0-0.9 % Normal IM GRAN % 0.200 Result Comment: IG% - Immature Granulocytes (promyelocytes, myelocytes and metamyelocytes) > 1% indicates that a LEFT SHIFT is Present. LAB L100.2620 2.0-7.7 X10 3/uL Normal Absolute Neut 3.8 LAB L100.2720 0.83-4.51 X10 3/ul Normal Absolute Lymph 1.57 Performed By: #### L101.9900, L100.0100, L501.9985, L503.0105, L509.1000, L500.4050, L501.5200, L501.9520, L503.6550, L506.0250 #### [facility] [address] [place], [address] #### L3100.3450, L3100.5475 #### [facility] (refer to report for specific site) refer to report for address and phone number HEMOGLOBIN A1C Collected: 08/16/2018 Status: F Source: [place] 11:35 AM [facility] REPOSITORY TYPE CODE TESTS RESULT OUT OF RANGE REFERENCE UNITS LAB L501.9985 4.2-6.3 % Normal HGB A1C 5.0 Performed By: #### L101.9900, L100.0100, L501.9985, L503.0105, L509.1000, L500.4050, L501.5200, L501.9520, L503.6550, L506.0250 #### [facility] [address] [facility] [place], [address] #### L3100.3450, L3100.5475 #### [facility] (refer to report for specific site) refer to report for address and phone number VITAMIN B12 Collected: 08/16/2018 Status: F Source: [place] 11:35 AM [facility] REPOSITORY TYPE CODE TESTS RESULT OUT OF RANGE REFERENCE UNITS LAB L503.0105 211-911 pg/mL Normal Vitamin B12 626 Performed By: #### L101.9900, L100.0100, L501.9985, L503.0105, L509.1000, L500.4050, L501.5200, L501.9520, L503.6550, L506.0250 #### [facility] [address] [place], [place], [address] #### L3100.3450, L3100.5475 #### [facility] (refer to report for specific site) refer to report for address and phone number PTHIN Collected: 08/16/2018 Status: F Source: [place] 11:35 AM [facility] REPOSITORY TYPE CODE TESTS RESULT OUT OF RANGE REFERENCE UNITS LAB L509.1000 18.4-80.1 pg/mL Normal PTHIN 19.0 Performed By: #### L101.9900, L100.0100, L501.9985, L503.0105, L509.1000, L500.4050, L501.5200, L501.9520, L503.6550, L506.0250 #### [facility] [address] [facility]. [place], [place], [id number] #### L3100.3450, L3100.5475 #### [facility] (refer to report for specific site) refer to report for address and phone number COMPREHENSIVE METABOLIC Collected: 08/16/2018 Status: F Source: [facility] 11:35 AM [facility] REPOSITORY Order Comment: Is Patient Taking Vitamins or Folic Acid Supplements? N TYPE CODE TESTS RESULT OUT OF RANGE REFERENCE UNITS LAB L501.0100 74-106 mg/dL Normal GLU 95 Result Comment: Please note revised GLUCOSE reference range effective 2017. LAB L501.1000 7-18 mg/dL Normal BUN 11 LAB L501.1100 0.70-1.30 mg/dL Normal CREAT,SERUM 0.79 Result Comment: The validity of the calculated GFR AND GFRAA in patients over 70 years has not been determined. Clinical correlation is essential. LAB L501.1110 >60 mL/min Normal EST GFR 104 Result Comment: Non- GFR Calc LAB L501.1115 >60 mL/min Normal EST GFR - AA 126 Result Comment: GFR Calc LAB L501.1300 10-20 RATIO Normal BUN/CRE 14.0 LAB L501.1500 6.4-8.2 g/dL T Normal PROT 7.2 LAB L501.1800 3.2-5.0 g/dL Normal ALB 3.9 LAB L501.1950 2.2-4.2 g/dL Normal GLOB 3.3 LAB L501.2000 0.9-2.4 RATIO Normal A/G 1.2 LAB L501.2200 8.5-10.1 mg/dL CA Normal 9.1 LAB L501.4100 15-37 U/L Normal AST 21 LAB L501.4305 45-117 U/L Normal ALK P 61 LAB L501.4405 16-61 U/L Normal ALT 30 LAB L501.4600 0.20-1.00 mg/dL High T BILI 1.40 LAB L501.5300 136-145 mmol/L Low NA 133 LAB L501.5600 3.5-5.1 mmol/L K Normal 4.2 LAB L501.5900 98-107 mmol/L CL Normal 98 LAB L501.6100 21.0-32.0 mmol/L Normal CO2 27.0 LAB L501.6200 5-15 Normal GAP 8 Performed By: #### L101.9900, L100.0100, L501.9985, L503.0105, L509.1000, L500.4050, L501.5200, L501.9520, L503.6550, L506.0250 #### [facility] [address] [place], [address] #### L3100.3450, L3100.5475 #### [facility] (refer to report for specific site) refer to report for address and phone number MAGNESIUM Collected: 08/16/2018 Status: F Source: [place] 11:35 AM [facility] REPOSITORY Order Comment: Is Patient Taking Vitamins or Folic Acid Supplements? N TYPE CODE TESTS RESULT OUT OF RANGE REFERENCE UNITS LAB L501.5200 1.6-2.6 mg/dL Normal MG 2.1 Performed By: #### L101.9900, L100.0100, L501.9985, L503.0105, L509.1000, L500.4050, L501.5200, L501.9520, L503.6550, L506.0250 #### [facility] [address] [facility]. [place], [place], [id number] #### L3100.3450, L3100.5475 #### [facility] (refer to report for specific site) refer to report for address and phone number THYROID STIM HORMONE Collected: 08/16/2018 Status: F Source: [place] ([facility]) 11:35 AM [facility] REPOSITORY Order Comment: Is Patient Taking Vitamins or Folic Acid Supplements? N TYPE CODE TESTS RESULT OUT OF RANGE REFERENCE UNITS LAB L501.9520 0.358-3.74 uIU/mL Normal TSH 2.33 Performed By: #### L101.9900, L100.0100, L501.9985, L503.0105, L509.1000, L500.4050, L501.5200, L501.9520, L503.6550, L506.0250 #### [facility] [address] [place] [address], [id number] #### L3100.3450, L3100.5475 #### [facility] (refer to report for specific site) refer to report for address and phone number FERRITIN Collected: 08/16/2018 Status: F Source: [place] 11:35 AM [facility] REPOSITORY Order Comment: Is Patient Taking Vitamins or Folic Acid Supplements? N TYPE CODE TESTS RESULT OUT OF RANGE REFERENCE UNITS LAB L503.6550 26-388 ng/mL Normal FERRITIN 340 Performed By: #### L101.9900, L100.0100, L501.9985, L503.0105, L509.1000, L500.4050, L501.5200, L501.9520, L503.6550, L506.0250 #### [facility] [address] [facility] [place], [id number] #### L3100.3450, L3100.5475 #### [facility] (refer to report for specific site) refer to report for address and phone number FOLATES, (FOLIC ACID) Collected: 08/16/2018 Status: F Source: [place] 11:35 AM [facility] REPOSITORY Order Comment: Is Patient Taking Vitamins or Folic Acid Supplements? N TYPE CODE TESTS RESULT OUT OF RANGE REFERENCE UNITS LAB L506.0250 3.1-55.4 ng/mL Normal FOLATES 35.10 Performed By: #### L101.9900, L100.0100, L501.9985, L503.0105, L509.1000, L500.4050, L501.5200, L501.9520, L503.6550, L506.0250 #### [facility] [address] [place] [address]. [place], [place], [address] #### L3100.3450, L3100.5475 #### [facility] (refer to report for specific site) refer to report for address and phone number PROTEIN ELECTROPH, S Collected: 08/16/2018 Status: F Source: [place] 11:35 AM [facility] REPOSITORY TYPE CODE TESTS RESULT OUT OF RANGE REFERENCE UNITS LAB L3100.3500 6.0-8.5 g/dL Normal PROTEIN,TOTAL 6.9 LAB L3100.3600 2.9-4.4 g/dL Normal ALBUMIN 3.9 LAB L3100.3700 0.0-0.4 g/dL Normal ALPHA-1 GLOBUL 0.2 LAB L3100.3800 0.4-1.0 g/dL Normal ALPHA-2 GLOBUL 0.7 LAB L3100.3900 0.7-1.3 g/dL Normal BETA GLOBULIN 1.0 LAB L3100.4000 0.4-1.8 g/dL Normal GAMMA GLOBULIN 1.1 LAB L3100.4110 Normal M-SPIKE Result Comment: Not Observed LAB L3100.4200 2.2-3.9 g/dL GLOBULIN, TOTAL Normal 3.0 LAB L3100.4300 0.7-1.7 A/G RATIO Normal 1.3 LAB L3100.4320 . INTERPRETATION Normal Comment Result Comment: Protein electrophoresis scan will follow via computer, mail, or rfid technician delivery. LAB L3100.4340 . Normal NOTE: Comment Result Comment: The SPE pattern appears essentially unremarkable. Evidence of monoclonal protein is not apparent. Performed at: [facility] [id number] Sprinkler Installer: Juan Hansen PhD, Phone: [phone] Performed By: #### L101.9900, L100.0100, L501.9985, L503.0105, L509.1000, L500.4050, L501.5200, L501.9520, L503.6550, L506.0250 #### [facility] [address] [place] [address]. [place], [address] #### L3100.3450, L3100.5475 #### [facility] (refer to report for specific site) refer to report for address and phone number ANTINUCLEAR ANTIBODIES Collected: 08/16/2018 Status: F Source: [place] DIRECT 11:35 AM [facility] REPOSITORY TYPE CODE TESTS RESULT OUT OF RANGE REFERENCE UNITS LAB L3100.5475 Negative Normal Negative DOV-DIRECT Result Comment: Performed at: [facility] [id number] Sprinkler Installer: Juan Hansen PhD, Phone: [phone] Performed By: #### L101.9900, L100.0100, L501.9985, L503.0105, L509.1000, L500.4050, L501.5200, L501.9520, L503.6550, L506.0250 #### [facility] [address] [facility] [place], [address] #### L3100.3450, L3100.5475 #### [facility] (refer to report for specific site) refer to report for address and phone number CRP Collected: 08/16/2018 Status: F Source: [place] 11:35 AM [facility] REPOSITORY Order Comment: Is Patient Taking Vitamins or Folic Acid Supplements? N TYPE CODE TESTS RESULT OUT OF RANGE REFERENCE UNITS LAB L501.6710 0.0-3.0 mg/L High 7.65 C-REACTIVE PROT Result Comment: C-Reactive Protein (CRP) provides useful information for the diagnosis, therapy and monitoring of inflammatory processes and associated diseases. For the evaluation of Relative Risk for Cardiovascular Disease, a High Sensitivity CRP (HSCRP) should be ordered. Performed By: #### L501.6710 #### [facility] [address] [place], [address] CERV SPINE 4 OR 5 Observed: 08/16/2018 Status: F Source: [place] VIEWS 10:56 AM [facility] REPOSITORY [facility] Imaging Services [address] [place] [address] Cerv Spine 4 or 5 Views MR#: [id number] Acct: [id number] Name: SYL MENDEZ Rep #: [id number] : 1950 M 68 From: Wilberto Powell MD PCP: Eugene Robbins MD Status: REG CLI Study: Cerv Spine 4 or 5 Views Date of Exam: 08/16/18 Exam# [id number] Ordering Dr: Eugene Robbins MD STUDY: X-RAY - CERVICAL SPINE REASON FOR EXAM: Male, 68 years old. Left arm weakness and tingling. TECHNIQUE: 5 view(s) of the cervical spine were obtained including oblique views. COMPARISON: None FINDINGS: Normal anterior atlantoaxial articulation. Normal odontoid process. Normal cervical lordosis. There is multi-level endplate spondylosis. There is multi-level degenerative disc disease with multilevel disc space narrowing. There is multi-level osseous foraminal stenosis. The soft tissue structures are unremarkable. RAD/Cerv Spine 4 or 5 Views IMPRESSION: Multilevel disc space narrowing and spondylosis. Multilevel foraminal stenosis. Electronically Signed: Wilberto Powell MD at 10:12 EST Tel [phone], Service support , CC: Eugene Robbins MD [place]: Signed DISCHARGE INSTRUCTION Observed: 01/25/2018 Status: F Source: [place] 9:06 AM [facility] REPOSITORY [facility] Medical Records Department [address] [place] [address] Instructions for Home/Discharge Instructions 01/25/18 0904 MR#: [id number] Acct: [id number] Name: SYL MENDEZ Rep #: [id number] : 1950 67 From: Isaac William PA-C PCP: Rosendo PONCE,Eugene Status: ADM IN Discharge Diet: No Restrictions Discharge Activity: May Not Drive May shower in (days): 1 - Turned dressing away from water Ice area for (Minutes): 20 - every hour while awake. Weight Bearing Status: Weight bearing as tolerated Elevate: Operative Extremity Additional Activity Instructions:: Wear elastic stockings for 2 weeks after your surgery. Call your doctor if your incision/area has: Continuous Slow Oozing, Sudden Increased Bleeding, Increased Pain/ Swelling, Increased Redness, Foul Smelling Discharge Call your doctor if you observe: Fever of 101 or Higher, Coldness, Increased Pain, Numbness or Tingling, Change in Color, Calf discomfort, Uncontrolled pain Remove Dressing in (days):: 4 - Remove dressing on August 01, 2017 Additional Instructions: Follow [facility] postop instruction Allergies/Adverse Reactions: Allergies adhesive tape Allergy (Verified 09/22/17 10:38) Rash BEE STINGS Allergy (Uncoded 09/20/16 11:14) Anaphylaxis Medications to take at Discharge Multivitamin with Folic Acid [Thera Tablet] 1 each PO DAILY 09/20/16 cetirizine 10 mg capsule 10 mg PO QDAY cap 09/22/17 Umeclidinium Brm/Vilanterol Tr [Anoro Ellipta 62.5-25 Mcg INH] 1 puff INHALATION DAILY 01/24/18 Valsartan [Diovan] 160 mg PO DAILY 01/24/18 Acetaminophen [Tylenol] 1,000 mg PO Q8 #90 tab 01/25/18 Aspirin [Aspirin, Baby] 81 mg PO BIDCM #60 tab 01/25/18 Famotidine [Pepcid] 20 mg PO DAILY #30 tab 01/25/18 Meloxicam [Mobic] 7.5 mg PO BID #30 tab 01/25/18 Oxycodone [Oxyir] 5 - 10 mg PO Q4H PRN PRN 5 Days #60 tablet 01/25/18 Senna/Docusate Sodium [Senokot-S] 2 tab PO BID #20 tab 01/25/18 The following prescriptions were given: Oxycodone [Oxyir] 5 - 10 mg PO Q4H PRN PRN 5 Days #60 tablet PRN Reason: Mod-Severe Pain (-05/09) Acetaminophen [Tylenol] 1,000 mg PO Q8 #90 tab Famotidine [Pepcid] 20 mg PO DAILY #30 tab Aspirin [Aspirin, Baby] 81 mg PO BIDCM #60 tab Meloxicam [Mobic] 7.5 mg PO BID #30 tab Senna/Docusate Sodium [Senokot-S] 2 tab PO BID #20 tab Primary Care Physician: Eugene Robbins MD [Primary Care Provider] - Please Follow Up With: Physical Therapy When: to be scheduled before leaving hospital Please Follow Up With: Isaac William PA-C When: 02/07/18 @ 9:00 am 01/25/18 09 <Electronically signed by Isaac William PA-C> Date Isaac William PA-C CC: Eugene Robbins MD CBC-COMPLETE BLOOD CNT Collected: 01/25/2018 Status: F Source: [place] NO DIFF 5:45 AM [facility] REPOSITORY TYPE CODE TESTS RESULT OUT OF RANGE REFERENCE UNITS LAB L100.1000 4.4-11.0 K/mm3 High WBC 13.1 LAB L100.1200 4.6-6.2 M/mm3 Low RBC 3.62 LAB L100.1300 13.0-16.5 g/dl Low HGB 12.9 LAB L100.1400 40-54 % Low HCT 35.6 LAB L100.1500 80-94 fL High MCV 98.3 LAB L100.1600 27.0-32.0 pg High MCH 35.6 LAB L100.1700 32-36 g/gl High MCHC 36.2 LAB L100.1810 11.6-14.6 % Low RDW CV 11.5 LAB L100.1820 35.1-43.9 fl Normal RDW SD 40.0 LAB L100.1900 150-450 K/mm3 Normal PLT 263 LAB L100.2000 6.2-12.0 fl Normal MPV 9.7 Performed By: #### L100.0500 #### [facility] [address] [facility] [place], [address] BASIC METABOLIC Collected: 01/25/2018 Status: F Source: [place] PROFILE (BMP) 5:45 AM [facility] REPOSITORY TYPE CODE TESTS RESULT OUT OF RANGE REFERENCE UNITS LAB L501.0100 74-106 mg/dL Normal GLU 106 Result Comment: Fasting Glucose result from 100 to 125 mg/dL suggests IMPAIRED HOMEOSTASIS per A.D.A. criteria. Please note revised GLUCOSE reference range effective 2017. LAB L501.1000 7-18 mg/dL Normal BUN 15 LAB L501.1100 0.70-1.30 mg/dL Normal CREAT,SERUM 0.96 Result Comment: The validity of the calculated GFR AND GFRAA in patients over 70 years has not been determined. Clinical correlation is essential. LAB L501.1110 >60 mL/min Normal EST GFR 83 Result Comment: Non- GFR Calc LAB L501.1115 >60 mL/min Normal EST GFR - AA 100 Result Comment: GFR Calc LAB L501.1255 ml/min Normal Estimated CRCL 73.65 LAB L501.1300 10-20 RATIO Normal BUN/CRE 15.6 LAB L501.2200 8.5-10 mg/dL Normal .1 CA 8.7 LAB L501.5300 136-14 mmol/L Low 5 NA 135 LAB L501.5600 3.5-5. mmol/L Normal 1 K 3.9 LAB L501.5900 98-107 mmol/L Normal CL 101 LAB L501.6100 21.0-3 mmol/L Normal 2.0 CO2 26.0 LAB L501.6200 5-15 Normal GAP 8 Performed By: #### L500.2500 #### [facility] [address] 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 social human services assistants: Tay Strauss Type of Anesthesia:: Spinal Anesthesiologist: Eugene Palafox Special Medications: 2 g Ancef, 1 g TXA at incision, 1 g TXA closure, 10 mg Decadron, joint cocktail (5 mg Duramorph, 30 mL of 0.5% Ropivicaine, 1000 units of epinephrine, 30 mg of Toradol) Specimen's removed: Cement debris Estimated Blood Loss (mL): 20 Fluids Replaced: 1 L crystalloid Description of Procedure: Brief history operative indications: 67-year-old male with left total knee replacement roughly 1 year ago with persistent lateral sided pain and crepitus. X-rays revealed an area of cement from the lateral condyle of the femur. Discussed with the patient I felt this was a source of pain and crepitus. Patient noted understanding and elected to proceed with revision of the knee polyethylene component and removal of the excess cement. Risks and benefits of the procedure were discussed with the patient including but not limited to blood loss, DVTs, PEs, neurovascular damage, infection, general risk of anesthesia including loss of life. Patient demonstrated understanding was able to sign for consent. Procedure: On the date of procedure patient's left lower extremity was marked in the preoperative area. The patient was then taken back to the operating room where the patient was placed on the table in the supine position. All bony prominences were identified a well-padded. Anesthesia assumed control of the C-spine and airway and remained controlled throughout the remainder of the procedure. A tourniquet was placed on the left upper thigh and the leg was prepped in a sterile fashion. The surgeon then scrubbed at this time .Upon reentering the room left lower extremity was draped in a standard orthopedic fashion. A timeout was then called and everyone agreed upon the side, the site, the procedure to be performed, patient's identity and antibiotics given. A midline skin incision was made and sharp dissection was taken down through skin subcutaneous tissue and fat. Appropriate medial lateral flaps were raised. The standard medial parapatellar incision was made and the patella was subluxed laterally. The standard deep MCL release was done and complete synovectomy was performed re- creating the medial gutter, lateral gutter and suprapatellar pouch. In the lateral gutter we noted significant irritation and atrophy of the synovium. Knee was taken through range of motion and the crepitus laterally was verified At this time an osteotome was used to remove the polyethylene component. Patella was then subluxed laterally exposing an irregular shaped pieces cement on the lateral distal femoral condyle which was irritating the tissue. Osteotome was used to remove this foreign body. Previous polyethylene was then put into place for a trial component. Knee was taken through range of motion and crepitus was no longer there. Trial polyethylene was removed hemostasis was obtained using bipolar. Wound was copiously irrigated out with 1 L normal saline. Tourniquet was let down. A size 7, 9 mm polyethylene component was placed. Once the final components were placed a 500 mL dilute Betadine 3 minute lavage was performed and the wound was copiously irrigated with normal saline solution and the remainder of the periarticular injection was given. The wound was closed in a layer mark fashion using #1 vicryl interrupted sutures for the arthrotomy, 2-0 interrupted Vicryl for the subcuticular layer and fab for final skin closure. A sterile compressive dressing was then placed. The patient was then awakened from anesthesia, transferred to the [facility] and transferred to the PACU for recovery. Post op plan DVT ppx: ASA 81mg BID , thigh high compression stockings Follow up: in office in 2 weeks for wound check PT: to start POD #0 at hospital, outpatient PT should be arranged. Dr. Strauss played a vital role in this case. He was important during positioning the patient. He was important during protection of soft tissue structures. There was no other web production assistant provided for me during this case therefore I used a another skilled set of hands. He was helpful and protecting soft tissues during the case as we used instrumentation at the neurovascular structures at risk. Finally he was helpful during final reduction of the polyethylene and closure of the wound. Grafts/Implants Used: [place] X3, 9 millimeters size 7 polyethylene PS - Complications None - Admit VTE Documentation VTE Present on Admission: No VTE Mechan Device Prophylaxis: SCD's, Thigh High DEJAN Hose VTE Pharm Prophylaxis ordered?: Yes 01/24/18 0900 <Electronically signed by Maximilian De La Paz MD> Date Maximilian De La Paz MD CC: Eugene Robbins MD; Maximilian De La Paz MD Signed KNEE 1 OR 2 VIEWS Observed: 01/24/2018 Status: F Source: [place] 8:02 AM [facility] REPOSITORY [facility] Imaging Services [address] [place] [address] Knee 1 or 2 Views MR#: [id number] Acct: [id number] Name: SYL MENDEZ Rep #: [id number] : 1950 M 67 From: Wilberto Powell MD PCP: Eugene Robbins MD Status: ADM IN Study: Knee 1 or 2 Views Date of Exam: 01/24/18 Exam# [id number] Ordering Dr: Maximilian De La Paz MD STUDY: X-RAY - LEFT KNEE REASON FOR EXAM: Male, 67 years old. Total knee replacement. TECHNIQUE: AP and lateral view(s) of the knee. COMPARISON: None. FINDINGS: Normal visualized distal femur. Normal visualized proximal tibia and fibula. Normal proximal tibiofibular articulation. The patient is status post total knee replacement. There is good alignment. Postoperative soft tissue changes. RAD/Knee 1 or 2 Views IMPRESSION: Total knee replacement. There is good alignment. Postoperative soft tissue changes. Electronically Signed: Wilberto Powell MD at 10:00 EDT Tel [phone], Service support , CC: Eugene Robbins MD; Maximilian De La Paz MD [place]: Signed 12 LEAD ELECTROCARDIOGRAM Observed: 01/15/2018 Status: F Source: [place] 8:47 AM [facility] REPOSITORY [facility] Cardiovascular Services [address] [place], [place] [address] [address] 12 Lead EKG 01/05/18 1033 MR#: [id number] Acct: [id number] Name: SYL MENDEZ Rep #: [id number] : 1950 67 From: Ryan Benson MD Attending Dr: Maximilian De La Paz MD Status: PRE IN Ordering Dr: Maximilian De La Paz MD Date: 01/05/18 [place] [facility] [place]: M C Admitted: Test Reason : Blood Pressure : / mmHG Vent. Rate : 064 BPM Atrial Rate : 064 BPM P-R Int : 152 ms QRS Dur : 140 ms QT Int : 436 ms P-R-T Axes : 012 -35 044 degrees QTc Int : 449 ms Normal sinus rhythm Left axis deviation Left bundle branch block Abnormal ECG Confirmed by RYAN BENSON MD ([id number]), editorial specialist JUAN QUILES ([id number]) on 01/10/2018 6:31:25 PM Referred By: Maximilian De La Paz Confirmed By:RYAN BENOSN MD 01/10/18 1831 Date Ryan Benson MD CC: Eugene Robbins MD; Maximilian De La Paz MD Signed CBC W/DIFF, AUTOMATED Collected: 01/05/2018 Status: F Source: [place] 11:47 AM [facility] REPOSITORY TYPE CODE TESTS RESULT OUT OF RANGE REFERENCE UNITS LAB L100.1000 4.4-11.0 K/mm3 Normal WBC 5.3 LAB L100.1200 4.6-6.2 M/mm3 Low RBC 4.21 LAB L100.1300 13.0-16.5 g/dl Normal HGB 14.5 LAB L100.1400 40-54 % Normal HCT 41.0 LAB L100.1500 80-94 fL High MCV 97.4 LAB L100.1600 27.0-32.0 pg High MCH 34.4 LAB L100.1700 32-36 g/gl Normal MCHC 35.4 LAB L100.1810 11.6-14.6 % Normal RDW CV 12.4 LAB L100.1820 35.1-43.9 fl High RDW SD 44.1 LAB L100.1900 150-450 K/mm3 Normal PLT 307 LAB L100.2000 6.2-12.0 fl Normal MPV 9.4 LAB L100.2100 47-70 % Normal NEUT% 48.4 LAB L100.2200 19-41 % Normal LY% 29.1 LAB L100.2300 0-10 % High MONO% 15.9 LAB L100.2400 0-5 % High EO% 5.1 LAB L100.2500 0-1 % High BASO% 1.3 LAB L100.2550 0.0-0.9 % Normal IM GRAN % 0.200 Result Comment: IG% - Immature Granulocytes (promyelocytes, myelocytes and metamyelocytes) > 1% indicates that a LEFT SHIFT is Present. LAB L100.2620 2.0-7.7 X10 3/uL Normal Absolute Neut 2.6 LAB L100.2720 0.83-4.51 X10 3/ul Normal Absolute Lymph 1.54 Performed By: #### L100.0100 #### [facility] [place], [address] BASIC METABOLIC Collected: 01/05/2018 Status: F Source: [place] PROFILE (BMP) 11:47 AM [facility] REPOSITORY Order Comment: 49 TYPE CODE TESTS RESULT OUT OF RANGE REFERENCE UNITS LAB L501.0100 74-106 mg/dL Normal GLU 90 Result Comment: Please note revised GLUCOSE reference range effective 2017. LAB L501.1000 7-18 mg/dL Normal BUN 14 LAB L501.1100 0.70-1.30 mg/dL Normal CREAT,SERUM 0.77 Result Comment: The validity of the calculated GFR AND GFRAA in patients over 70 years has not been determined. Clinical correlation is essential. LAB L501.1110 >60 mL/min Normal EST GFR 107 LAB L501.1115 >60 mL/min Normal EST GFR - AA 130 LAB L501.1300 10-20 RATIO Normal BUN/CRE 18.2 LAB L501.2200 8.5-10.1 mg/dL Normal CA 9.1 LAB L501.5300 136-145 mmol/L Low NA 135 LAB L501.5600 3.5-5.1 mmol/L Normal K 4.4 LAB L501.5900 98-107 mmol/L Low CL 97 LAB L501.6100 21.0-32.0 mmol/L Normal CO2 26.0 LAB L501.6200 5-15 Normal GAP 12 Performed By: #### L500.2500 #### [facility] [address] [place], [address] Observed: 01/05/2018 Status: F Source: [place] MRSA/SAID SCREEN 11:47 AM [facility] REPOSITORY MRSA/SAID SCRN S. AUREUS S. aureus Negative MRSA MRSA Negative Performed By: #### M100.651 #### [facility] [address] [place], [address] PULMONARY FUNCTION Observed: 09/27/2017 Status: F Source: [place] TEST 2:00 PM [facility] REPOSITORY [facility] Pulmonary Services/Neurology [address] [place] [address] MR#: [id number] Acct: [id number] Name: SYL MENDEZ Rep #: [id number] : 1950 67 From: Dylan Ivory DO Referring Dr: LUCÍA MENDEZ Status: REG CLI Ordering Dr: Date: Location: [facility] Sex: M C INTRODUCTION: The patient is a 67-year-old male currently under the care of Dr. Eugene Robbins the presents for pulmonary function testing secondary to a diagnosis of shortness of breath. Respiratory therapy reports good patient effort reports no other concerns. Bronchodilators were used during testing. INTERPRETATION: Forced expiration spirometry demonstrates the presence of a mild large airways obstructive ventilatory defect. There was a significant response to aerosolized bronchodilators, based upon overall change in FEV1. Spirograms are of good quality and do not plateau indicating slow emptying of the lungs. Body plethysmography was performed and reveals an increased TLC and RV, indicative of hyperinflation and air-trapping. Diffusing capacity by single breath CO is within normal limits. When compared to previous pulmonary function studies dated February 2009, there has been a 15% reduction in the patient's FEV1 and a 13% reduction in DLCO. IMPRESSION: These pulmonary function studies demonstrate the presence of a partially reversible mild large airways obstructive ventilatory defect with associated hyperinflation and air-trapping. There has been worsening in the patient's FEV1 and DLCO since PFTs were last completed in February 2009. 09/27/17 1400 <Electronically signed by Dylan Ivory DO> Date Dylan Ivory DO CC: Eugene Robbins MD Date Dictated: 09/27/17 1357 Date Transcribed: [id number]/27/[id number] [place]: MEDHAT Signed ERYTHROCYTE SED RATE Collected: 09/27/2017 Status: F Source: [place] 9:13 AM [facility] REPOSITORY Order Comment: CRP AND SED FOR DR ANDREA RODRIGUEZ TESTS RESULT OUT OF RANGE REFERENCE UNITS LAB L102.0000 0-20 mm/hr Normal SED RATE 2 Performed By: #### L101.9900 #### [facility] [address] [place], [address] BASIC METABOLIC Collected: 09/27/2017 Status: F Source: [place] PROFILE (BMP) 9:13 AM [facility] REPOSITORY Order Comment: CRP AND SED FOR DR ANDREA RODRIGUEZ TESTS RESULT OUT OF RANGE REFERENCE UNITS LAB L501.0100 74-106 mg/dL Normal GLU 101 Result Comment: Fasting Glucose result from 100 to 125 mg/dL suggests IMPAIRED HOMEOSTASIS per A.D.A. criteria. Please note revised GLUCOSE reference range effective 2017. LAB L501.1000 7-18 mg/dL Normal BUN 11 LAB L501.1100 0.70-1.30 mg/dL Normal CREAT,SERUM 0.78 Result Comment: The validity of the calculated GFR AND GFRAA in patients over 70 years has not been determined. Clinical correlation is essential. LAB L501.1110 >60 mL/min Normal EST GFR 105 Result Comment: Non- GFR Calc LAB L501.1115 >60 mL/min Normal EST GFR - AA 127 Result Comment: GFR Calc LAB L501.1300 10-20 RATIO Normal BUN/CRE 14.1 LAB L501.2200 8.5-10.1 mg/dL CA Normal 9.2 LAB L501.5300 136-145 mmol/L Low NA 134 LAB L501.5600 3.5-5.1 mmol/L K Normal 4.3 LAB L501.5900 98-107 mmol/L Low CL 96 LAB L501.6100 21.0-32.0 mmol/L Normal CO2 31.0 LAB L501.6200 5-15 Normal GAP 7 Performed By: #### L500.2500, L500.3400, L500.4100, L501.6710, L501.9520 #### [facility] [address] [place], [place], [id number] LIVER PROFILE Collected: 09/27/2017 Status: F Source: [place] 9:13 AM [facility] REPOSITORY Order Comment: CRP AND SED FOR DR MENDEZ TYPE CODE TESTS RESULT OUT OF RANGE REFERENCE UNITS LAB L501.1500 6.4-8.2 g/dL Normal T PROT 7.7 LAB L501.1800 3.2-5.0 g/dL Normal ALB 4.2 LAB L501.1950 2.2-4.2 g/dL Normal GLOB 3.5 LAB L501.4100 15-37 U/L Normal AST 20 LAB L501.4305 45-117 U/L Normal ALK P 73 LAB L501.4405 16-61 U/L Normal ALT 24 Result Comment: Please note revised ALT reference range effective 2017. LAB L501.4600 0.20-1.00 mg/dL High T BILI 1.40 LAB L501.4700 0.00-0.30 mg/dL Normal D BILI 0.26 Performed By: #### L500.2500, L500.3400, L500.4100, L501.6710, L501.9520 #### [facility] [address] [place], [place], [id number] LIPID PROFILE Collected: 09/27/2017 Status: F Source: [place] 9:13 AM [facility] REPOSITORY Order Comment: CRP AND SED FOR DR ANDREA RODRIGUEZ TESTS RESULT OUT OF RANGE REFERENCE UNITS LAB L501.4900 200 mg/dL High CHOL 201 Result Comment: <200 mg/dL Desirable 200-240 mg/dL Borderline >240 mg/dL High Risk LAB L501.5000 mg/dL Normal TRIG 58 Result Comment: The drugs N-Acetylcysteine and Metamizole may falsely depress this assay. Serum Triglycerides Reference Interval Normal <150 mg/dL Borderline high 150 - 199 mg/dL High 200 - 499 mg/dL Very High > or = 500 mg/dL LAB L501.6400 mg/dL Normal HDL 72 Result Comment: The drugs N-Acetylcysteine and Metamizole may falsely depress this assay. Reference Range HDL <40 mg/dL Low HDL Cholesterol HDL >or= 60 mg/dL High HDL Cholesterol LAB L501.6500 0-130 mg/dL Normal LDL 117 LAB L501.6600 5-40 mg/dL Normal VLDL 12 Performed By: #### L500.2500, L500.3400, L500.4100, L501.6710, L501.9520 #### [facility] [address] [place], [place], [id number] CRP Collected: 09/27/2017 Status: F Source: [place] 9:13 AM [facility] REPOSITORY Order Comment: CRP AND SED FOR DR ANDREA RODRIGUEZ TESTS RESULT OUT OF RANGE REFERENCE UNITS LAB L501.6710 0.0-3.0 mg/L Normal < 2.90 C-REACTIVE PROT Result Comment: C-Reactive Protein (CRP) provides useful information for the diagnosis, therapy and monitoring of inflammatory processes and associated diseases. For the evaluation of Relative Risk for Cardiovascular Disease, a High Sensitivity CRP (HSCRP) should be ordered. Performed By: #### L500.2500, L500.3400, L500.4100, L501.6710, L501.9520 #### [facility] [address] [place], [address] THYROID STIM HORMONE Collected: 09/27/2017 Status: F Source: [place] (TSH) 9:13 AM [facility] REPOSITORY Order Comment: CRP AND SED FOR DR MENDEZ TYPE CODE TESTS RESULT OUT OF RANGE REFERENCE UNITS LAB L501.9520 0.358-3.74 uIU/mL Normal TSH 2.61 Performed By: #### L500.2500, L500.3400, L500.4100, L501.6710, L501.9520 #### [facility] [address] [place], [address] CARDIOLOGY VISIT Observed: 09/26/2017 Status: F Source: [place] REPORT 11:14 AM [facility] REPOSITORY [facility] [address] [place] [address] OFFICE VISIT Date of Service: 09/26/17 MR#: [id number] Acct: [id number] Name: SYL MENDEZ Rep #: [id number] : 1950 Provider: Ryan Benson MD Age/Sex: 67/M [place] [facility] [place]: Signed [facility] Chief Complaint: Follow-up visit. Details: SYL MENDEZ, is a 67 M who presents to the office today for a follow-up visit. He is a gentleman with a history of no previous obstructive coronary disease history of hyperlipidemia hypertension who returns for follow-up visit. His left knee issues were sorted out after he saw the orthopedic surgeon who drained some blood. He has remained fairly active denying any dizziness shortness breath paroxysmal nocturnal dyspnea or pedal edema. As you know he does have mild aortic stenosis which is asymptomatic. His physical exam demonstrates clear lung rodrigez regular rate and rhythm and no pedal edema. Intake Vital Signs09/26/17 Height 5 ft 8 in 09/26/17 Weight: 189 lb 09/26/17 Body Mass Index (BMI) 28.7 09/26/17 Blood Pressure 120/60 Intake Visit Reasons: 1 Y FU Is patient in pain?: No Allergies adhesive tape Allergy (Verified 09/22/17 10:38) Rash BEE STINGS Allergy (Uncoded 09/20/16 11:14) Anaphylaxis Medications Multivitamin with Folic Acid [Thera Tablet] 1 ea PO DAILY 09/20/16 [History Confirmed 12/12/16] Valsartan [Diovan] 160 mg PO DAILY 09/20/16 [History Confirmed 09/21/17] aspirin 81 mg tablet,delayed release 81 mg PO .q day tab 09/22/17 [History Confirmed 09/22/17] cetirizine 10 mg capsule 10 mg PO QDAY PRN cap 09/22/17 [History Confirmed 09/22/17] Ejection fraction %: 55 to 59 PFSH Medical History Atherosclerotic heart disease of [place] coronary artery without angina pectoris (Chronic) Other chcf (current) drug therapy (Chronic) Hypertension (Chronic) Hyperlipidemia (Chronic) Left bundle branch block (Chronic) Palpitations (Inactive) Nonspecific abnormal unspecified cardiovascular function study (Inactive) Surgical History History of left heart catheterization (Chronic) Family History Father , age 90, complications of dementia Dementia Mother Cardiac pacemaker in situ Social History Smoking Status: Former smoker quit date: 07/31/04 ROS Const Const: Negative for fatigue, weakness, body ache, fever(s), headache(s), chills, frequent falls, night sweats, daytime sleepiness, difficulty sleeping, excessive sweating, weight gain, weight loss, increased appetite, poor appetite, anorexia or other Eyes Eyes: Negative for blind spots, loss of peripheral vision, transient loss of vision, blurry vision, change in vision, double vision, floaters, tunnel vision or other ENT ENT: Negative for headache(s), dizziness, hearing loss, tinnitus, Nosebleed/epistaxis, balance problems, post nasal drip, lip swelling, tongue swelling, bleeding gums, hoarseness, neck pain, dry mouth or other Cardio Chest Pain: No Resp Respiratory: Negative for SOB with activity, SOB at rest, SOB orthopnea\SOB lying down, Coughing up blood/hemoptysis, chest congestion, pain on inspiration, snoring, stridor, wheezing, crackles, paroxysmal nocturnal dyspnea or other GI GI: Negative nausea, vomiting, heartburn, constipation, belching, bloating, cramping, vomiting blood/hematemesis, bright, red blood in stools, black,tarry stools, loose stools, Difficulty Swallowing or other : Negative for hematuria, frequent nighttime urination/ nocturia, erectile dysfunction or abnormal vaginal bleeding Musc Musc: Negative for balance problems, muscle aches/ myalgia, muscle weakness or joint pain Skin Skin: Negative redness, non-healing lesions, rash, unusual bruising, skin ulcer, wounds, jaundice or other Neuro Neuro: Negative for weakness, headache(s), frequent falls, blurry vision, double vision, dizziness, lightheadedness, near syncope, syncope, orthostatic symptoms, confusion, memory loss, restless legs, vertigo, seizures, lack of coordination or other Lucio Hematologic/Lymphatic: Negative for easy bleeding, easy bruising, enlarged lymph nodes or other Endo Endo: Negative for fatigue, excessive sweating, cold intolerance, heat intolerance, flushing, increased thirst/drinking, increased hunger, hair loss, hair growth or other Psych Psych: Negative for anxiety, depression, thoughts of harming anyone, thoughts of harming yourself, visual hallucinations, panic attacks or audible hallucinations Allergy Allergy/Immunology: Negative for lip swelling, Negative for tongue swelling, Negative for rash, Negative for throat swelling, Negative for hives Cardiology Exam Const Appearance: cooperative, healthy appearing, well developed, well groomed and no acute distress Nutritional Appearance: well nourished and average body habitus Orientation: alert, awake and oriented x3 Head Head: normal to inspection, normocephalic and atraumatic Ears: hearing grossly normal bilaterally and external ears normal Nose: external nose normal, nasal mucous membranes and turbinates normal, nares normal, septum normal, no nasal discharge Face and Sinus: face symmetric Mouth: oral mucosae normal, tongue normal, oropharynx normal and moist mucous membranes Teeth and gingiva: dentition normal Throat: posterior oropharynx normal, tonsils normal and uvula midline Eyes General: appearance normal, both eyes and all related structures Eyelids: eyelids normal Conjunctivae: conjunctivae normal Pupils: PERRL, normal by confrontation and accommodation normal EOM: EOM intact bilaterally Neck Neck: normal visual inspection, trachea midline and no JVD JVD: +5 Carotids: normal carotid upstroke and bounding pulses Chest Chest inspection: normal inspection of the chest, symmetric chest movement and normal respiratory effort Auscultation: Bilateral: Clear to Auscultation Cardio Palpation: normal PMI Rate: regular rate Rhythm: regular rhythm Heart sounds: S1 normal, S2 normal and normal, physiologic split S2; negative rub, gallop or murmur GI GI: normal to inspection, soft, no hepatosplenomegaly and bowel sounds present Neuro General: alert, awake, oriented x3, no focal sensory deficit, gait normal and moves all extremities Skin Skin: no rashes or lesions noted Extremities Pulses: Normal: Right Femoral Pulse, Left Femoral Pulse, Right Dorsalis Pedis Pulse, Left Dorsalis Pedis Pulse, Right Posterior Tibial Pulse, Left Posterior Tibial Pulse, Right Radial Pulse, Left Radial Pulse Lower Extremity Edema: None: Bilateral Musculoskel Musculoskeletal: No joint tenderness Psych Psychological: normal affect Assessment AND Plan 1. Essential hypertension I10 Plan His blood pressure is under good control on the current medical therapy with the valsartan my recommendation was for him to remain on the same. In addition I am asking him to hold off on the aspirin for at least a month as he did appear to have a hematoma in his knee. Orders Orders: 2. Pure hypercholesterolemia E78.00; E78.0 Plan He is due to have a repeat lipid profile and this would be obtained at this visit. Orders Orders: 3. Aortic stenosis I35.0 Plan He does have a history of mild aortic stenosis with preserved ejection fraction but no heart failure symptoms. At this time as he is asymptomatic I do not think there is a reason to repeat this. I would recommend that we obtain this at his next visit in a year. Plan Detail Other Orders Orders: Follow Up 1 Year (buck swamper) 6 Months Coding Level of Care Code Off vis,est,level 3 Diagnoses Essential hypertension I10 Hypertension type: essential hypertension Pure hypercholesterolemia E78.00; E78.0 Hyperlipidemia type: pure hypercholesterolemia Aortic stenosis I35.0 Coding Level of Care Code Off vis,est,level 3 Diagnoses Essential hypertension I10 Hypertension type: essential hypertension Pure hypercholesterolemia E78.00; E78.0 Hyperlipidemia type: pure hypercholesterolemia Aortic stenosis I35.0 09/26/17 1114 <Electronically signed by Ryan Benson MD> Date Ryan Tejadaigner Signature: Date (if applicable) CC: Eugene Robbins MD ALLERGIES ALLERGIES DATE TYPE / CODE NAME / CODE REACTION SEVERITY SOURCE 09/22/2017 Drug adhesive Rash Unknown Cathleen Allergy/[id number]( tape/[id number] [facility] SNOMED CT) 54(RXNORM) Hospital Repository 09/20/2016 Miscellaneous BEE STINGS Anaphylaxis Unknown Cathleen Allergy/[id number]( [facility]) Hospital Repository ENCOUNTERS ENCOUNTERS ADMIT/DISCHARGE ACCOUNT ADMITTING ENCOUNTER LOCATION SOURCE NUMBER CLASS 08/16/2018 [id number] Ambulatory Cathleen [place] 0 [facility] ing:MTRAD Repository 04/18/2018 [id number] ANNA HOUGH Ambulatory [facility] Repository 01/29/2018/ [id number] ANA CRISTINA Ambulatory [address] Repository 01/24/2018/ [id number] Ana Cristina, Inpatient Cathleen [place] 8 3 [facility] ing:OI3Ttci: Repository CM206Psi: 1 01/05/2018/ [id number] Ambulatory BMSBuilding:W [place] 8 2 [facility] Repository 09/27/2017 [id number] Ambulatory Cathleen [place] 7 [facility] ing:PSN Repository 09/27/2017 [id number] Ambulatory BMSBuilding:W Cathleen 8 [facility] Repository 09/26/2017/ [id number] Ambulatory BMSBuilding:B [place] [facility] 09/01/2017/ [id number] LUCÍA MENDEZ Ambulatory [address] Repository 08/31/2017/ [id number] Ambulatory BMSBuilding:B Cathleen 8 4 [facility] Repository PAYERS PAYERS ENCOUNTER GUARANTOR PAYER SUBSCRIBER SOURCE 08/16/2018 SYL Casillas Primary Insurance:JEANE [id number] [employer]IME [employer] RAMSEYERDOB: [address] Number: [id number] [facility] [place] [address]Ezm: [id number] Repository Date:8810-61-74FC [address]) [address], [place] [address]ZG: 08/16/2018 Secondary NOT GIVENUNK Cathleen Insurance:SELF PAY [facility] Number: Effective Repository Date:2018-08-16 04/18/2018 SYL Casillas Primary SYL Davies RAMSEYERDOB: Insurance:PRIMETIME RAMSEYERDOB: [facility] MEDICARE [id number] [facility] EL[address] OUTPAT[address]Policy [address] Repository [address] [place] [address], Number: [address], [place] [id number] [id number]: Date:Plan Name: () 01/29/2018 SYL Casillas Primary SYL Davies RAMSEYERDOB: Insurance:PRIMETIME RAMSEYERDOB: [facility] [id number] MEDICARE [id number] [facility] [address] RT RECUR[facility]Pol[facility] [address] Repository [address] [place] [address], Number: [place], [place] [id number] [place] [phone] [id number]: Date:Plan Name:P1 () 01/24/2018 SLY Casillas Primary Insurance:JEANE Connolly [id number] [employer]AN RAMSEYERDOB: [address] Number: [id number] [facility] [place] [address]Mqh: [id number] Repository Date:8742-28-50NJ [address] ([address]) [address], [place] [address]OV: 01/24/2018 Secondary NOT GIVENUNK Cathleen Insurance:SELF PAY [facility] Number: Effective Repository Date:2017-11-16 01/05/2018 SYL Casillas Primary Insurance:JEANE Casillas [place] [id number] [facility] [address] Number: [id number] [address]Hto: [id number] Repository Date:9718-05-53SJ [address]) [address], [place] [address]AZ: 01/05/2018 Secondary NOT GIVENUNK [place] Insurance:SELF PAY [facility] Number: Effective Repository Date:2018-01-05 09/27/2017 SYL Casillas Primary Insurance:JEANE Casillas Cathleen [id number] [facility]: [address] Number: [id number] Medical Center [address]Xdx: [id number] Repository [phone] Date:5107-35-07VM [address] ([address]) [address], [place] [address]XF: 09/27/2017 Secondary NOT GIVENUNK [place] Insurance:SELF PAY [facility] Number: Effective Repository Date:2017-09-01 09/27/2017 SYL Casillas Primary Insurance:JEANE Salesoster [id number] [facility] [address] Number: [id number] Medical Center [address]Kxf: [id number] Repository Date:1742-29-46ZV [address] ([address]) [address] [address]AA: 09/27/2017 Secondary NOT GIVENUNK Cathleen Insurance:SELF PAY [facility] Number: Effective Repository Date:2017-09-27 09/26/2017 SYL Primary Insurance:JEANE [facility]LMay[facility] HospitalSEYER9419 [facility] HEALTH PLAN BEAVERTONERDOB: [address] Number: [id number] Medical Center [address]Zfz: [id number] Repository [phone] Date:6910-36-09QZ [address] () [address] [address]HF: 09/26/2017 Secondary NOT GIVENUNK [place] Insurance:SELF PAY [facility] Number: Effective Repository Date:2017-07-06 09/01/2017 SYL Casillas Primary SYL [place] [facility] Insurance:PRIMETIME RAMLAKESIDE WOMEN[facility] – OKLA[facility]OMA CITYERB: [facility] [id number] MEDICARE [id number] [facility] 9 [facility] Repository [address] [place] [address], Number: [place], [place] [id number] [place] [phone] [id number]: Date:Plan Name:P1 () 08/31/2017 SYL Altamirano Insurance:SELF NOT GIVENUNK [place] [id number] [facility] ROUTE Number: Effective Hospital [address] [place] [address], Date:2017-08-[address] [place] [id number]: ()
== END ==
PROVIDERS: Family Provider Family Medicine; PCP Family Medicine; Referring Provider Family Medicine; Visit Provider Family Medicine
DX: M62.81 Muscle weakness (generalized) (principal); M25.50 Pain in unspecified joint; R20.2 Paresthesia of skin
CPT/HCPCS: 36415; 72050; 80053; 82607; 82728; 82746; 83036; 83735; 83970; 84165; 84443; 85025; 85652; 86038; 86140

== ENCOUNTER → 2018-08-27 13:05 | Outpatient (CLI) | payer MEDICARE, SELFPAY ==
--- NOTE | 2018-08-27 13:23 | MRI_ITS ---
STUDY: MRI CERVICAL SPINE WITHOUT CONTRAST REASON FOR EXAM: Male, 68 years old. Left upper kidney weakness and bilateral hand paresthesias with neck stiffness for 3 months TECHNIQUE: Standardized fat and water weighted pulse sequences were obtained in the sagittal and axial planes. COMPARISON: Radiographs 08/16/2018 FINDINGS: Normal foramen magnum and brainstem-cervical cord junction. Normal craniovertebral junction. There are degenerative changes of the anterior atlantoaxial articulation. Normal odontoid process. Normal cervical lordosis. Normal vertebral bodies and posterior osseous elements. C2-3: Disc osteophyte complex with severe left foraminal stenosis. C3-4: Disc osteophyte complex with mild central canal and severe bilateral foraminal stenoses. C4-5: Disc osteophyte complex with moderate to severe central canal and severe bilateral foraminal stenoses. C5-6: Disc osteophyte complex with severe central canal stenosis and severe bilateral foraminal stenoses. Mild cord compression. C6-7: Disc osteophyte complex with moderate to severe central canal and severe bilateral foraminal stenoses. C7-T1: Disc osteophyte complex with mild central canal and severe bilateral foraminal stenoses. No intrinsic cord signal abnormalities are seen at this time. Normal visualized soft tissue structures. MRI/Spine Cervical (Routine) IMPRESSION: Multilevel degenerative disease as described. Severe foraminal stenoses on the left at C2-3 and bilaterally from C3-4 through C7-T1. Severe central canal stenosis at C5-6 with mild cord compression. Electronically Signed: Hitesh Reid MD at 15:14 EST Tel , Service support ,
== END ==
PROVIDERS: Family Provider Family Medicine; PCP Family Medicine; Referring Provider Family Medicine; Visit Provider Family Medicine
DX: M62.81 Muscle weakness (generalized) (principal); R20.2 Paresthesia of skin
CPT/HCPCS: 72141

== ENCOUNTER → 2018-11-06 09:37 | Outpatient (CLI) | payer MEDICARE, SELFPAY ==
[2018-10-12 11:28] VITALS: BMI 29.3
--- NOTE | 2018-11-06 09:39 | ECHOD_ITS ---
Reason For Study: ABN EKG Procedure This was a 2D Doppler, Color Flow transthoracic echocardiogram. Exam performed in department. Left Ventricle Normal LV size. Left ventricular systolic function is normal. The estimated ejection fraction is 55 %. Stage 1 diastolic dysfunction. No regional wall motion abnormalities noted. Right Ventricle Normal RV size. Normal systolic function. Atria Normal left atrium. Normal right atrium. Mitral Valve Normal mitral valve. Tricuspid Valve Normal tricuspid valve. Mild (1+) tricuspid valve insufficiency. Pulmonary artery systolic pressure is 24 mmHg. Aortic Valve Trisinus/trileaflet aortic valve. Mild focal aortic valve calcification. Peak aortic valve gradient 28 mmHg. Mean aortic valve gradient 17 mmHg. Mild to moderate aortic stenosis. Pulmonic Valve Normal pulmonic valve. Great Vessels Normal aortic root. The pulmonary artery is normal size. Normal inferior vena cava. Pericardium/Pleural No pericardial effusion. MMode/2D Measurements & Calculations LVIDd: 4.9 cm IVSd: 1.3 cm LVOT diam: 2.0 cm LVIDs: 3.8 cm LVPWd: 1.1 cm LVOT area: 3.1 cm2 RVDd: 3.0 cm FS: 22.2 % Ao root diam: 3.9 cm LAV(MOD-bp): 57.3 ml EDV(MOD-sp4): 114.1 ml LAV(MOD-bp) Indexed: 28.5 ml/m2 ESV(MOD-sp4): 54.8 ml LAV(MOD-sp2): 69.4 ml EF(MOD-sp4): 52.0 % LAV(MOD-sp4): 46.3 ml SV(MOD-sp4): 59.3 ml Aortic Valve Planimetry: 1.8 cm2 LA A4 area: 17.2 cm2 LA dimension(2D): 4.0 cm RA A4 area: 17.1 cm2 Time Measurements MV dec time: 0.31 sec Doppler Measurements & Calculations MV E max ryan: 44.8 cm/sec Lat Peak E' Ryan: 6.8 cm/sec Med Peak E' Ryan: 3.9 cm/sec MV A max ryan: 67.5 cm/sec E/E' lat: 6.6 E/E' med: 11.4 MV E/A: 0.66 Ao V2 max: 264.1 cm/sec LV V1 max: 87.9 cm/sec SV(LVOT): 66.4 ml Ao max P.9 mmHg LV V1 max P.1 mmHg Ao V2 mean: 200.8 cm/sec LV V1 mean P.9 mmHg Ao mean P.3 mmHg LV V1 mean: 65.2 cm/sec Ao V2 VTI: 59.5 cm LV V1 VTI: 21.2 cm SAYDA(I,D): 1.1 cm2 SAYDA(V,D): 1.0 cm2 TR max ryan: 228.8 cm/sec TR max P.9 mmHg Interpretation Summary Normal LV size. Left ventricular systolic function is normal. The estimated ejection fraction is 55 %. Stage 1 diastolic dysfunction. Mild focal aortic valve calcification. Mean aortic valve gradient 17 mmHg. Mild to moderate aortic stenosis. Ordering Physician: Ryan Benson Referring Physician: EUGENE SWANSON Performed By: Aga Trujillo, RDCS, RVT
== END ==
PROVIDERS: Family Provider Family Medicine; PCP Family Medicine; Referring Provider Internal Medicine Cardiovascular Disease; Visit Provider Internal Medicine Cardiovascular Disease
DX: Z01.810 Encounter for preprocedural cardiovascular examination (principal); I10 Essential (primary) hypertension; I35.0 Nonrheumatic aortic (valve) stenosis; I44.7 Left bundle-branch block, unspecified; E78.00 Pure hypercholesterolemia, unspecified
CPT/HCPCS: 93306

== ENCOUNTER → 2019-04-10 12:12 | Outpatient (CLI) | payer MEDICARE, SELFPAY ==
[2019-04-10 08:13] VITALS: BMI 27.9
--- NOTE | 2019-04-10 12:15 | CT_ITS ---
We are attempting to reach an attending provider to discuss findings. An addendum with communication details will be sent when the communication is complete. STUDY: CT CHEST WITH CONTRAST REASON FOR EXAM: Male, 68 years old. Follow-up bacterial pneumonia [place]. COPD. RADIATION DOSAGE (If Supplied By Facility): CTDIvol = ( 12.04 ) mGy, DLP = ( 458.91 ) mGycm TECHNIQUE: Transaxial imaging was performed following intravenous administration of 100 IV Isovue 300. Multiplanar coronal and sagittal images were reformatted. Individualized dose optimization techniques were used for this CT. COMPARISON: None. FINDINGS: HEART: Coronary artery disease. No pericardial effusion. Trace fluid within the pericardial sleeve. AORTA/GREAT VESSELS: Normal caliber aorta. Vascular calcifications. No dissection. PULMONARY ARTERIES: Normal caliber central pulmonary arteries. Mild narrowing of the left lower lobe pulmonary artery secondary to lesion (axial image 59 series 1002). LUNGS/AIRWAYS: Left perihilar lesion measuring 3.4 cm x 4.7 cm x 3.7 cm (coronal image 54 series 601 and axial image 58 series 1004). Lesion extends across the left pleural surface involving the upper and lower lobes. Adjacent airway narrowing and vascular narrowing secondary to the lesions mass effect. No obvious vascular occlusion given contrast phase. No airway occlusion identified. Right upper lobe nodule measuring 2.6 x 1 cm (axial image 42 series 1002). COPD. Mild bronchiectasis. No additional lesions identified. Mild atelectasis/scar. PLEURA: No pleural effusion. No pneumothorax. MEDIASTINUM/THYROID: Normal thyroid. Subcarinal mildly enlarged lymph node measuring up to 1.2 cm (axial image 54 series 1002). SOFT TISSUES: No acute soft tissue process. OSSEOUS STRUCTURES: Multilevel degenerative changes at the spine. Chronic appearing L2 vertebral body compression deformity (sagittal image 84 series 602). No acute process. UPPER ABDOMEN/ESOPHAGUS: Large centrally hypodense right hepatic lobe lesion measuring 6.8 cm x 6 m (axial image 122 series, 2). Mild hepatic steatosis. Left hepatic lobe lesion measuring 1.5 cm (axial image 23 series 1002). Both of the aforementioned lesions demonstrate somewhat nodular peripheral enhancement. Bilateral symmetric renal parenchymal enhancement. CT/Chest WITH Contrast IMPRESSION: Left perihilar lesion with adjacent mass effect concerning for potential lung neoplasm/metastatic disease (PET/CT and biopsy recommended) Right upper lobe large nodule concerning for possible lung neoplasm/metastatic disease (PET CT and biopsy recommended) Large hepatic lesions with peripheral nodularity with differential diagnosis for large hemangiomas versus metastatic disease (multiphasic CT/MRI recommended for further characterization) Mildly enlarged subcarinal lymph node Mild COPD Electronically Signed: Santosh Hammond DO at 14:12 EDT Tel , Service support ,
[2019-04-10 13:00] LABS: CREATININE FINGERSTICK 0.8 mg/dL (0.70-1.30); EGFR FINGERSTICK > 60.0000 mL/min (>60)
== END ==
PROVIDERS: Family Provider Family Medicine; PCP Family Medicine; Referring Provider Internal Medicine Cardiovascular Disease; Visit Provider Internal Medicine Cardiovascular Disease
DX: I35.0 Nonrheumatic aortic (valve) stenosis (principal)
CPT/HCPCS: 71260; Q9967

== ENCOUNTER → 2019-04-19 08:32 | Outpatient (CLI) | payer MEDICARE, SELFPAY ==
[2019-04-12 10:07] VITALS: BMI 27.4
[2019-04-19] VITALS (11 sets, daily range): BP systolic 126–164; BP diastolic 56–89; PULSE 64–71; RESP 16–18; TEMP 36.6–36.7; O2SAT 94–99; BMI 28.1
--- NOTE | 2019-04-19 | IMM_PTH ---
PATIENT: SYL MENDEZ LOC: CT U#:[id number] AGE/SX: 74/M ROOM: RE04/19/[address]: Dr. Morris Morejon MD : 1950 BED: DIS: SPEC #: [id number] RECD: 04/22/19 11:45 STATUS: YUMIKO REQ #: [id number] PONCHO: 04/19/19 00:[address]: Morris Morejon DEPT: IMMUNOHISTOCHEMISTRY RECD BY: Ingrid Mueller ENTERED: 04/22/19 11:46 SP TYPE: IMMUNO OTHR DR: Dr. Santosh Robbins MD Tissues: Liver, NOS Procedures: RCC (add) NAPSIN A (add) CK20 (add) CK5-6 (add) CK7 (add) CK8 (add) HEP PAR (add) TTF1 (add) Pankeratin (initial) P40 (add) PSAP (add) PHYSICIAN & INSTITUTION [place] [phone] SPECIMEN INFORMATION: Tissue Source: Liver, CT-guided core biopsy Clinical Info: Liver mass Specimen Number: [id number] CPT code: 33188, 23300 x10 METHODOLOGY: Deparaffinized sections of prefer/formalin-fixed tissue or PAP/DQ stained slides are incubated with monoclonal/polyclonal antibodies/oligonucleotide probes. Localization is made via biotin free immunoperoxidase method. Appropriate controls are performed and reacted as expected. Results on target cell population are indicated in the following table: RESULTS: ANTIBODY / CLONE RESULT AE1-3 (AE1/AE3/PCK26) positive CK7 (OV-TL12/30) positive CK8 (33njncH10) positive CK20 (KS20.8) negative TTF-1 (8G7G3/1) positive, focal Napsin A (Rabbit Polyclonal) positive HepPar (OCh1E5) negative RCC (PN-15) negative PSAP (PASE/4LJ) negative CK5-6 (D5 & 1684) positive, rare cells P40 (BC28) negative These tests were developed and their performance characteristics determined by [facility]. They may not have been cleared or approved by the U.S. Food and Drug Administration. The FDA has determined that such clearance or approval is not necessary. INTERPRETATION: Liver, CT-guided core biopsy: Metastatic poorly differentiated non-small cell carcinoma, favor adenocarcinoma. See comment. Chelita 04/22/19 Comment: IHC profile favors lung primary. Clinical correlation necessary. Case has been reviewed in consultation with Dr. Christina who concurs with the above diagnosis. IDC:AM
--- NOTE | 2019-04-19 | ASPIGT_PTH ---
PATIENT: SYL MENDEZ LOC: AL U#:[id number] AGE/SX: 74/M ROOM: RE04/19/[address]: Dr. Morris Morejon MD : 1950 BED: DIS: SPEC #: [id number] RECD: 04/19/19 13:00 STATUS: YUMIKO ANGELA #: [id number] PONCHO: 04/19/19 00:[address]: Morris Morejon DEPT: SURGICAL PATHOLOGY RECD BY: Cristhian Steele ENTERED: 04/19/19 13:01 SP TYPE: ASP RAD OTHR DR: Dr. Santosh Robbins MD Tissues: Liver, NOS Procedures: FNA Specimen Adequacy Special Stain Group II Surgery Specimen Level V Imprint (control) HEADER OPERATION: Liver mass, CT-guided core biopsy PRE-OP DIAGNOSIS: Liver mass TISSUE SUBMITTED: Liver 18 gauge core MICROSCOPIC DIAGNOSIS Liver mass, CT-guided core biopsy: Metastatic poorly differentiated non-small cell carcinoma, favor adenocarcinoma. SJ:patricia 04/22/19 COMMENT The specimen is evaluated at the time of biopsy by Dr. Loya. Immediate Evaluation = Malignant cells present derived from non-small cell carcinoma. This case was reviewed and diagnosis discussed with Dr. Morejon on 04/24/19. Immunohistochemistry ([id number]) supports the above diagnosis and favors lung primary. Molecular studies on the tumor can be performed, if clinically indicated. Please notify the laboratory if they are needed. Correlation with clinical, endoscopic findings and appropriate follow up are necessary. Case has been reviewed in consultation with Dr. Christina who concurs with the above diagnosis. IDC:AM MICROSCOPIC DESCRIPTION Slides are reviewed. GROSS DESCRIPTION Received in fixative is one container labeled with the patient's name and designated liver, CT-guided core biopsy. The specimen consists of three fragments of dominguez soft tissue each measuring 1.3 cm in length and 0.1 cm in diameter. The entire specimen is submitted in one cassette. / JACQUES:patricia 04/19/19 TC:0 [facility]: [id number], [id number] ADDENDUM ADDENDUM ADDENDUM ADDENDUM ADDENDUM ADDENDUM ADDENDUM 05/06/2019 12:32 ADDENDUM 05/31/2019 08:54 ADDENDUM 08/18/2020 08:47 ADDENDUM 05/06/2019 12:32 ADDENDUM 05/06/2019 12:32 ADDENDUM 05/06/2019 12:32 ADDENDUM 05/06/2019 12:32 PD-L1 (KEYTRUDA) [facility]STRY [facility] INTERPRETATION: High expression Tumor proportion score: 80% Please see complete report in e-chart or EMR for complete details [facility] KERI/MARTHA REFLEX TO BRAF KRAS RESULTS: KRAS mutation was identified in the provided specimen. KRAS RESULTS: No NRAS mutation was detected in the provided specimen. ALK FISH REFLEX RET + ROS1 FISH RESULT: No result INTERPRETATION: Repeated FISH testing on the sample submitted was unsuccessful. RET + ROS1 ONCOLOGY FISH FISH RESULT: No result INTERPRETATION: Repeated FISH testing on the sample submitted was unsuccessful. EGFR ONCOLOGY FISH FISH RESULT: No EGFR amplification observed INTERPRETATION: Low trisomy Please see complete report in e-chart or EMR for further details ONKOSIT NGS SOLID TUMOR SEQUENCING REPORT FROM [employer] RESULT SUMMARY: Abnormal DETECTED GENOMIC ALTERATIONS: Tier II: Variants of Potential Clinical Significance KRAS p.Pbv12Rgq TP53 p.Jgx029Sijmz*10 Tier III: Variants of Unknown Clinical Significance PTEN p.Xyj905Ibj PERTINENT NEGATIVE RESULTS: The following genes are NEGATIVE for clinically relevant mutations. Mutational hotspots and surrounding exonic regions were interrogated for DNA level point mutations and indels (fusions not assayed). AKT1, ALK, BRAF, CTNNB1, DDR2, EGFR, EPHA2, ERBB2, ESR1, FGFR1, FGFR2, FGFR3, GNA11, GNAQ, HRAS, IDH1, IDH2, KIT, MAP2K1, MET, MTOR, NOTCH1, NRAS, PDGFRA, PIK3CA, RAC1, RET, ROS1. Please see complete report in e-chart or EMR
--- NOTE | 2019-04-19 08:43 | CT_ITS ---
PROCEDURE: CT DIRECTED CORE LIVER BIOPSY INDICATION: Male, 68 years old. Patient has a mass in the right lobe of the liver. PHYSICIAN: Dr. Powell. CONSENT: Written informed consent was obtained having explained the risks, benefits and alternatives in detail with the patient who accepted the risks and agreed to proceed. Laboratory review and clinical assessment was performed. CONSCIOUS SEDATION PROTOCOL: The Drugs used were: 2 mg Versed, IV., and 50 mcg Fentanyl, IV. The sedation time was: 5 minutes. Conscious sedation was started at 9:55 AM and terminated at 10:00 AM. The conscious sedation protocol was independently monitored. RADIATION DOSAGE (If Supplied By Facility): CTDIvol = ( 10 ) mGy, DLP = ( 382.53 ) mGycm Individualized dose optimization techniques were used for this CT. TECHNIQUE: Using CT image guidance with image documentation, a suitable location in the right lobe of the liver was identified. Using a right anterior approach, puncture of the liver was uneventful with an 18-gauge core needle system. 3, 18-gauge core samples were obtained, and submitted in formalin to the pathologist for further assessment. Followup CT scan revealed no distinct sequelae. CT/Biopsy/Inj or Needle Placement IMPRESSION: 1. CT directed core needle biopsy of the liver, using CT image guidance with image documentation as described. 2. Conscious Sedation protocol utilized with independent monitoring. Electronically Signed: Wilberto Powell, at 10:58 EDT , Service support ,
[2019-04-19 08:47] LABS: Absolute Lymphocyte Count 1.96 X10^3/uL (0.83-4.51); Absolute Neutrophil Count 3.1 X10^3/uL (2.0-7.7); Basophil# 0.08 X10^3/uL; Basophil% 1.2 % (0-1); Eosinophil# 0.42 X10^3/uL; Eosinophils% 6.5 % (0-5); Hematocrit 42.3 % (40-54); Hemoglobin 14.7 g/dL (13.0-16.5); Lymphocyte # 1.96 X10^3/ul (4.0); Lymphocyte % 30.2 % (19-41); Mean Corp Hgb Conc 34.8 g/dL (32-36); Mean Corpuscular Hgb 33.9 pg (27.0-32.0); Mean Corpuscular Volume 97.7 fL (80-94); Mean Platelet Vol. 8.8 fl (6.2-12.0); Monocyte# 0.95 X10^3/uL; Monocyte% 14.7 % (0-10); NRBC Flagged by Analyzer 0 % (0-5); Neutrophil # 3.06 X10^3/uL (2.7-7.7); Neutrophil % 47.2 % (47-70); Platelet Count 302 K/mm3 (150-450); RBC Distribution Width CV 12.1 % (11.6-14.6); RBC Distribution Width SD 43.8 fl (35.1-43.9); Red Blood Count 4.33 M/mm3 (4.6-6.2); White Blood Count 6.5 K/mm3 (4.4-11.0)
[2019-04-19 08:54] LABS: Prothrombin Time (Protime)PT. 13.4 SECONDS (11.7-14.9)
[2019-04-19 08:55] LABS: Partial Thromboplast Time 32.5 Seconds (24.1-36.2)
[2019-04-19] MEDS: Midazolam 2 MG/2 ML Syringe IV (09:54)
[2019-04-19] MEDS: fentaNYL 100 MCG/2 ML Ampul IV (09:54)
== END ==
PROVIDERS: Family Provider Family Medicine; PCP Family Medicine; Referring Provider Internal Medicine Medical Oncology; Visit Provider Internal Medicine Medical Oncology
DX: Z01.818 Encounter for other preprocedural examination (principal); C78.7 Secondary malignant neoplasm of liver and intrahepatic bile duct; R91.1 Solitary pulmonary nodule; I25.10 Atherosclerotic heart disease of native coronary artery without angina pectoris; J44.9 Chronic obstructive pulmonary disease, unspecified; I10 Essential (primary) hypertension; E78.5 Hyperlipidemia, unspecified; M19.90 Unspecified osteoarthritis, unspecified site
CPT/HCPCS: 47000; 36415; 77012; 85025; 85610; 85730; 88172; 88305; 88307; 88313; 88341; 88342; 99156; J7040

== ENCOUNTER → 2019-04-25 09:37 | Outpatient (CLI) | payer MEDICARE, SELFPAY ==
[2019-04-12 10:07] VITALS: BMI 27.4
[2019-04-19 09:01] VITALS: BMI 28.1
--- NOTE | 2019-04-25 09:47 | MRI_ITS ---
STUDY: MRI BRAIN WITH AND WITHOUT CONTRAST REASON FOR EXAM: Male, 68 years old. New cancer diagnosis. Staging of bronchogenic carcinoma. TECHNIQUE: Standardized multiplanar fat and water weighted pulse sequences were obtained. 17 ml of IV Dotarem was administered for the contrast portion of the examination. COMPARISON: Prior comparable comparison studies are not available for review at this time. FINDINGS: There is mild cerebral atrophy with widening of the extra-axial spaces and ventricular dilatation. There are a limited number of small white matter hyperintensities, distributed throughout the deep white matter tracts of the cerebral hemispheres, consistent with mild chronic white matter ischemic changes. Normal T2* images of the brain without demonstrated susceptibility artifact. There is no demonstrated hemosiderin stain. There is no evidence for recent intracranial ischemia or other cause of cytotoxic edema on diffusion weighted imaging (DWI). Normal bilateral basal ganglia. Normal thalami. There is no extra-axial fluid accumulation. Normal flow voids within the major intracranial circulation suggesting patency by spin echo criteria. Normal venous enhancement. There is no enhancing intra-axial or extra-axial abnormality. Normal sella turcica, pituitary gland, infundibular stalk, optic chiasm and hypothalamus. Normal tectal plate and pineal gland. Normal midbrain, azam and medulla. Normal cerebellum. Normal basal cisterns. Normal bilateral temporal bones. Normal bilateral internal auditory canals. No demonstrated orbital abnormality, within the constraints of a routine brain study. There is mucoperiosteal thickening present in the maxillary sinuses. Normal calvarium and skull base. Normal visualized soft tissue structures. Normal visualized upper cervical spine. MRI/Brain W/WO Contrast IMPRESSION: 1. Involutional changes of the brain, as described above. 2. No MR evidence for acute infarcts or metastasis. Electronically Signed: Radha Barrera MD at 12:07 EDT , Service support ,
== END ==
PROVIDERS: Family Provider Family Medicine; PCP Family Medicine; Referring Provider Internal Medicine Medical Oncology; Visit Provider Internal Medicine Medical Oncology
DX: K76.89 Other specified diseases of liver (principal); R91.8 Other nonspecific abnormal finding of lung field
CPT/HCPCS: 70553; A9575

== ENCOUNTER 2019-05-17 05:34 | Day surgery (SDC) | payer MEDICARE, SELFPAY ==
[2019-05-03 08:56] VITALS: BMI 27.7
--- NOTE | 2019-05-04 09:28 | HP_ITS ---
Intake Vital Signs 05/03/19 Height 5 ft 8.5 in 05/03/19 Weight: 185 lb 05/03/19 Body Mass Index (BMI) 27.7 05/03/19 Blood Pressure 130/75 H 05/03/19 Blood Pressure Location Lt brachial 05/03/19 Blood Pressure Position Sitting 05/03/19 Respiratory Rate 18 04/25/19 Body Mass Index (BMI) 28.1 Intake Visit Reasons: Port Placement Consult Chief Complaint: F/U for chemotherapy and Keytruda. Offset Press Assistant Required: No Is patient in pain?: No Allergies adhesive tape Allergy (Verified 05/03/19 08:57) Rash BEE STINGS Allergy (Uncoded 05/03/19 08:57) Anaphylaxis Medications Multivitamin with Folic Acid [Thera Tablet] 1 ea PO DAILY 09/20/16 [History Confirmed 05/03/19] Umeclidinium Brm/Vilanterol Tr [Anoro Ellipta 62.5-25 Mcg INH] 1 puff INHALATION DAILY 01/24/18 [History Confirmed 05/03/19] Acetaminophen [Tylenol] 1,000 mg PO Q8 #90 tab 01/25/18 [Rx Confirmed 05/03/19] aspirin 81 mg chewable tablet 81 mg PO DAILY tab 04/10/19 [History Confirmed 05/03/19] cetirizine 10 mg capsule 10 mg PO QDAY PRN cap 04/10/19 [History Confirmed 05/03/19] losartan 100 mg tablet 100 mg PO DAILY #90 tab 04/10/19 [Rx Confirmed 05/03/19] Folic Acid 1 mg PO DAILY #120 tab 04/25/19 [Rx Confirmed 05/03/19] Dexamethasone [Decadron] 4 mg PO BID 21 Days #3 tab 04/29/19 [Rx Confirmed 05/03/19] Ondansetron [Ondansetron Odt] 8 mg PO Q8H PRN PRN 10 Days #30 tab.rapdis 04/29/19 [Rx Confirmed 05/03/19] PFSH Medical History Lung cancer, primary, with metastasis from lung to other site (Chronic) Disseminated malignancy (Chronic) Non-rheumatic aortic stenosis (Chronic) Essential (primary) hypertension (Chronic) Atherosclerotic heart disease of [place] coronary artery without angina pectoris (Chronic) Hyperlipidemia (Chronic) Left bundle branch block (Chronic) AC (acromioclavicular) joint bone spurs (Chronic) COPD (chronic obstructive pulmonary disease) (Chronic) Osteoarthritis (Chronic) Abnormal CT scan of lung (Inactive) Lung mass (Inactive) Nonspecific abnormal unspecified cardiovascular function study (Inactive) Palpitations (Inactive) Surgical History H/O arthroscopic knee surgery (Resolved) History of back surgery (Resolved) History of carpal tunnel release (Resolved) History of herniorrhaphy (Resolved) History of left heart catheterization (Resolved 03/25/09) History of right knee joint replacement (Resolved) Family History Father , age 90, complications of dementia Dementia Mother Cardiac pacemaker in situ Social History (Updated 05/04/19 @ 09:28 by Enrico Valentin MD) Smoking Status: Former smoker quit date: 07/31/04 Tobacco: How many years used: 30 HPI HPI HPI: SYL MENDEZ, is a 68 M who presents to the office today for HPI HPI Surgical H&P: Yes HPI: SYL MENDEZ, is a 68 M who presents to the office today for Evaluation for port placement. Patient was diagnosed with lung cancer and will be starting chemotherapy and will need to have his port placed approximately 05 14-05 20 of this month. ROS General General: Yes fatigue; no weight change, appetite, colon cancer, breast cancer or weakness HEENT HEENT: No difficulty swallowing, eye injury, eye surgery, swollen glands or hoarseness Endo Endocrine: No thyroid disease, diabetes mellitus, thyroid cancer, Hair loss, heat intolerance or cold intolerance Skin Skin: Yes rash; no changing moles Breast Breast: No left breast lump, right breast lump, nipple discharge, breast pain, abnormal mammogram, abnormal US or breast enlargement Musc Musculoskeletal: Yes arthritis; no back problems, rheumatoid arthritis, gout or joint pain Cardio Cardiovascular: Yes murmur and high blood pressure; no pacemaker, heart disease, atrial fibrillation, heart attack, heart stent, palpitations, shortness of breat with exertion or chest pain Psych Psychiatric: No depression, anxiety or hearing voices Resp Respiratory: Yes shortness of breath, No sleep apnea, Yes cough, Yes COPD, No asthma, Yes emphysema, No wheezing Gastro Gastrointestinal: No abdominal pain, No nausea or vomiting, No diarrhea, Yes constipation, No blood in stool, No acid reflux, Yes hemorrhoids, No ulcers, No gallbladder problem, No black,tarry stools Lucio Hematologic: No blood thinners, No blood disorders, No bleeding, No anemia, No blood clots Neuro Neurologic: No system reviewed and no additional complaints, except as docu, No as per HPI, No abnormal walking, No abnormal hearing, No abnormal movements, No abnormal speech, No behavioral changes, No burning sensations, No confusion, No seizure-like activity, No unsteadiness, No dizziness, No localized weakness, No frequent falls, No headache(s), No lack of coordination, No loss of vision, No memory loss, No numbness, No other visual disturbances, No radiating pain, No restless legs, No sensory deficit, No fainting, No tingling, No tremor(s), No weakness, No other Exam Const General: no acute distress, well developed, well hydrated Orientation: oriented to person, oriented to place, oriented to time [facility] Head: normocephalic, atraumatic Ears: external ears normal Mouth: moist mucous membranes Eyes Sclera: sclerae normal Pupils: normal by confrontation Neck Neck: no lymphadenopathy noted Neck mass: No Thyroid: thyroid normal, symmetrical Chest Chest palpation & inspection: normal inspection of the chest Breast Palpation: No nipple discharge Resp Effort & Inspection: normal respiratory effort Auscultation: clear to auscultation bilaterally Percussion: percussion normal Cardio Rate: regular rate Rhythm: regular rhythm Heart Sounds: murmur GI Palpation: soft, no hepatosplenomegaly, no masses, nontender Rectal Exam: other Other: Rectal exam deferred. Extrem General: normal to inspection, no clubbing, cyanosis or edema Assessment & Plan Problems 1. Vascular catheter fitting or adjustment Z45.2 Plan I have discussed above with the patient- Port-a-Cath placement. Patient has been counseled as to the risks/benefits of the procedure. I have explained the risks of the surgery, including but not limited to: infection, bleeding, injury to any blood vessels/nerves, injury to lungs (such as pneumothorax or hemothorax and need for chest tube), not having any access, nonfunctioning of port due to thrombosis, infection of port, etc. the patient understands and agrees to proceed. I have answered all the patient's questions to the patient?s satisfaction and the patient has no further questions. Coding Level of Care Code Off vis,est,level 3 Diagnoses Vascular catheter fitting or adjustment Z45.2 05/04/19 0928 <Electronically signed by Enrico porras MD> Date _ Enrico Valentin MD I have re-examined the patient. There are no clinical changes since date of exam.
[2019-05-13 10:22] VITALS: BMI 27.7
[2019-05-17 05:54] VITALS: BP 143/73; PULSE 72; RESP 16; TEMP 36.6; O2SAT 99; BMI 28.0
[2019-05-17] MEDS: Lactated Ringers 1,000 ML 100 ML IV (06:03)
[2019-05-17] MEDS: Cefazolin 2 GM in 0.9% Normal Saline 100 ML IV (07:22)
[2019-05-17] MEDS: Bupivacaine Mpf 0.5% 30 ML VIAL (07:34)
--- NOTE | 2019-05-17 07:50 | PCM.OPRPT ---
Problem List (1) Encounter for adjustment and management of vascular access device Status: Acute Report of Operation Date of Procedure: 05/17/19 Pre-Operative Diagnosis: Vascular fitting and adjustment Post-Operative Diagnosis: Same Surgery/Procedure Performed:: Placement of a right IJ PowerPort reference #[id number] lot number [id number] Type of Anesthesia:: Local MAC Anesthesiologist: Jamel Ghotra Estimated Blood Loss (mL): < 5 cc Description of Procedure: She was brought into the operating room. Placed in the supine position. Ultrasound was used to identify the internal jugular vein the neck and chest were then marked then sterilely prepped and draped in usual fashion local was injected into the neck Seldinger's technique was used to gain access into the internal jugular vein. Guidewire was placed through the needle needle was removed fluoroscopy was used to confirm placement of the wire. I injected local in the chest made an incision created a pocket for the port with the use of electrocautery injected local over the collarbone into the neck skin renato was made into the neck dilator and sheath were placed over the guidewire the guidewire and dilator were removed single lumen catheter was placed through the sheath and the sheath was removed. I used fluoroscopy to confirm proper length. I tunneled from the pocket on the chest over the collarbone into the neck and brought the catheter down I cut to length. I placed the locking up on the catheter. I placed the port under the catheter. The tube was secured with a locking hub. It was flushed and irrigated with 4 cc of heparin flush. It flushed well. It was sutured into the pocket created with 2 sutures of 0 Prolene skin incisions were brought together with deep dermal stitches of 3-0 Vicryl then running 4-0 Monocryl. Dermabond was applied sterile dressings were applied and the patient tolerated the procedure well. - Admit VTE Documentation VTE Present on Admission: No VTE Mechan Device Prophylaxis: SCD's VTE Pharm Prophylaxis ordered?: No Reason prophylaxis not ordered:: Treatment Not Indicated
--- NOTE | 2019-05-17 07:54 | DCINST_ITS ---
Discharge Diet: No Restrictions - Pain medication may cause nausea. You should typically eat light foods as you take your pain medication. Discharge Activity: May Shower - with the bandage in place 1-2 days after surgery. DO NOT SHOWER WHEN YOUR PORT IS ACCESSED. Additional Activity Instructions:: May not drive, work with heavy equipment, or sign legal documents for [address] if you are no longer taking narcotic pain medications. You may drive when you are no longer taking pain medications. Additional Dressing/Incision Instructions:: Leave the bandage on for 2-3 days. When you remove the bandage, leave the steri-strips intact until they fall off. Allergies/Adverse Reactions: Allergies adhesive tape Allergy (Verified 05/17/19 05:46) Rash BEE STINGS Allergy (Uncoded 05/17/19 05:46) Anaphylaxis Medications to take at Discharge Multivitamin with Folic Acid [Thera Tablet] 1 ea PO DAILY 09/20/16 Umeclidinium Brm/Vilanterol Tr [Anoro Ellipta 62.5-25 Mcg INH] 1 puff INHALATION DAILY 01/24/18 aspirin 81 mg chewable tablet 81 mg PO DAILY tab 04/10/19 cetirizine 10 mg capsule 10 mg PO QDAY PRN cap 04/10/19 losartan 100 mg tablet 100 mg PO DAILY #90 tab 04/10/19 Folic Acid 1 mg PO DAILY #120 tab 04/25/19 Dexamethasone [Decadron] 4 mg PO BID 21 Days #3 tab 04/29/19 Ondansetron [Ondansetron Odt] 8 mg PO Q8H PRN PRN 10 Days #30 tab.rapdis 04/29/19 Dexamethasone [Decadron] 4 mg PO BIDCM 3 Days #6 tab 05/13/19 Oxycodone HCl/Acetaminophen [Percocet 5/325] 1 - 2 tab PO Q4H PRN PRN 6 Days #30 tab 05/17/19 The following prescriptions were given: Oxycodone HCl/Acetaminophen [Percocet 5/325] 1 - 2 tab PO Q4H PRN PRN 6 Days #30 tab PRN Reason: Pain Prescription Printed Primary Care Physician: Santosh Robbins MD [Primary Care Provider] - Test Results: Test results from this visit will be discussed in further detail at your follow- up appointment, if applicable. Please Follow Up With: Morris Morejon MD - [phone] When: Please plan to follow up in 7 days in the office.
--- NOTE | 2019-05-17 07:55 | RAD_ITS ---
STUDY: X-RAY CHEST REASON FOR EXAM: Male, 68 years old. Port placement. TECHNIQUE: Single AP portable view of the chest. COMPARISON: None. FINDINGS: A right-sided portacatheter has been placed. The tip is in the midportion of the superior vena cava. EKG electrodes are seen. Hyperinflation. The lungs are clear. There is no demonstrated pleural abnormality. Normal size heart. Normal mediastinum and merlyn. Normal visualized pulmonary arteries. There is atherosclerotic tortuosity of the aortic arch and descending thoracic aorta. Normal visualized thoracic spine. Normal visualized ribs, clavicles, and shoulders. There is no demonstrated abnormality of the visualized soft tissue structures of the upper abdomen. RAD/CXR for Line Placement IMPRESSION: A right-sided portacatheter has been placed. The tip is in the midportion of the superior vena cava. Electronically Signed: Wilberto Powell, at 8:35 EDT , Service support ,
[2019-05-17 08:12] VITALS: BP 132/78; BP 143/73; PULSE 68; RESP 16; TEMP 36.1; O2SAT 96
[2019-05-17 08:15] VITALS: BP 141/76; BP 143/73; PULSE 65; RESP 16; O2SAT 95
[2019-05-17 08:20] VITALS: BP 142/77; BP 143/73; PULSE 63; RESP 16; O2SAT 95
[2019-05-17 08:25] VITALS: BP 129/71; BP 143/73; PULSE 61; RESP 16; TEMP 36.2; O2SAT 97
[2019-05-17 09:08] VITALS: BP 143/73
== END 2019-05-17 09:21 | disposition home or self-care (01) ==
LOC: SDC 05:34 → AC 05:35
PROVIDERS: Family Provider Family Medicine; PCP Family Medicine; Referring Provider Surgery; Visit Provider Surgery
PROC: (CPT 36561; principal; 2019-05-17 07:00)
DX: Z45.2 Encounter for adjustment and management of vascular access device (principal); C34.90 Malignant neoplasm of unspecified part of unspecified bronchus or lung; C79.9 Secondary malignant neoplasm of unspecified site; I25.10 Atherosclerotic heart disease of native coronary artery without angina pectoris; I35.0 Nonrheumatic aortic (valve) stenosis; I44.7 Left bundle-branch block, unspecified; J44.9 Chronic obstructive pulmonary disease, unspecified; I10 Essential (primary) hypertension; E78.5 Hyperlipidemia, unspecified; M19.90 Unspecified osteoarthritis, unspecified site; Z79.82 Long term (current) use of aspirin; Z79.899 Other long term (current) drug therapy; Z87.891 Personal history of nicotine dependence; Z86.718 Personal history of other venous thrombosis and embolism
CPT/HCPCS: 36561; 71045; 77001; J7120; C1788

== ENCOUNTER → 2019-06-03 16:21 | Outpatient (CLI) | payer MEDICARE, SELFPAY ==
[2019-05-20 10:30] VITALS: BMI 28.1
[2019-06-03 14:57] VITALS: BMI 28.0
--- NOTE | 2019-06-03 16:22 | CT_ITS ---
STUDY: CT ABDOMEN AND PELVIS WITH CONTRAST REASON FOR EXAM: Male, 68 years old. Restaging of nonsquamous cell lung cancer RADIATION DOSAGE (If Supplied By Facility): CTDIvol = ( 12.81 ) mGy, DLP = ( 1184.31 ) mGycm TECHNIQUE: Transaxial images were obtained from the dome of the diaphragm to the symphysis pubis without oral contrast. IV Isovue 300 100 was administered. Sagittal and coronal images were reconstructed. Individualized dose optimization techniques were used for this CT. COMPARISON: None. FINDINGS: The visualized lung bases are unremarkable. The visualized portions of the heart are within normal limits. There is a low-density lesion with minimal peripheral enhancement of the inferior right hepatic lobe measuring 4.1 x 4.1 cm. Normal gallbladder and extrahepatic biliary system. Normal spleen. Normal pancreas. Normal bilateral adrenal glands. Normal right kidney. Left renal parapelvic cysts. Normal visualized stomach. Normal small intestine. Normal colon. The appendix is visualized and appears normal. There are calcified plaques of the abdominal aorta and common iliac arteries. Normal inferior vena cava. Normal retroperitoneum. There is a moderately well filled urinary bladder. There is diffuse bladder wall thickening. The prostate is mildly enlarged and contains dense calcifications. There is a moderate-sized fat-containing left femoral hernia. There are findings suggestive of right abdominal wall/right inguinal hernia repair. There is a tiny fat-containing umbilical hernia. There are diffuse degenerative changes of the visualized thoracolumbar spine. There is a grade 1 anterolisthesis of L5 relative to S1 with no associated spondylolysis. There is old compression deformity at L2. CT/Abdomen/Pelvis W IV Cont ONLY IMPRESSION: 1. Low-density lesion with minimal peripheral enhancement of the inferior right hepatic lobe measuring 4.1 x 4.1 cm. The differential diagnosis would include but not be limited to hemangioma and metastatic lesion. Ultrasound and/or MRI correlation may be helpful. 2. Left renal parapelvic cysts. 3. Diffuse bladder wall thickening. 4. Enlarged prostate containing dense calcifications. 5. Diffuse degenerative changes of the visualized thoracolumbar spine. Grade 1 anterolisthesis of L5 relative to S1 with no associated spondylolysis. Old compression deformity of L2. Electronically Signed: Phu Petty MD at 21:04 EST , Service support ,
--- NOTE | 2019-06-03 16:22 | CT_ITS ---
STUDY: CT CHEST WITH CONTRAST REASON FOR EXAM: Male, 68 years old. Nonsquamous cell lung cancer restaging RADIATION DOSAGE (If Supplied By Facility): CTDIvol = ( 12.81 ) mGy, DLP = ( 1184.31 ) mGycm TECHNIQUE: Transaxial imaging was performed following intravenous administration of IV Isovue 300 100. Individualized dose optimization techniques were used for this CT. COMPARISON: 15 April 2019, 10 April 2019 FINDINGS: There is a 1.5 cm elongated right upper lobe posterior superior segment nodule with extensions to the adjacent fissure and pleura. There is a left upper lobe perihilar spiculated nodule with an approximate central 1.2 cm solid core. However, due to spiculated appearance exact size measurements are imprecise. There is broad contact with the pleura and extensions are cross the pleura into the left lower lobe. Remainder of the lungs are clear with minor scattered atelectasis. There are no pleural effusions. There are barely perceptible multiple foci of right pleural thickening. These are too small to measure and characterize and can be seen with prior inflammatory change versus pleural tumor spread. Central airways are patent. Mediastinal contents are normal with lymph nodes measuring less than 1 cm and nonpathologic by CT criteria. Previous PET demonstrated metabolically active malignancy in the merlyn. Compared to March 2019 the left upper lobe tumor and hilar lymph nodes have decreased more than 50% in size. Right upper lobe nodule is stable. Aorta and pulmonary arteries are patent and normal. There is at least moderate coronary artery disease. Cardiac chambers are normal in size and shape. Infusion port is present in the right upper chest entering the jugular and terminating with its tip at the junction of the right atrium and SVC. Osseous structures are intact with expected degenerative changes in the thoracic spine. Refer to separate abdominal report for details regarding status of abdominal disease. CT/Chest WITH Contrast IMPRESSION: 1. Partial treatment response. 2. More than 50% reduction in size of left upper lobe tumor and adjacent hilar lymphadenopathy. 3. Refer to CT PET for evaluation of metabolic response which can be discordant with anatomic CT findings. 4. Questionable findings in the right pleura, this can be assessed at the time of the subsequent scheduled follow-up. Electronically Signed: Vida Crockett, at 17:30 EST Tel , Service support ,
== END ==
PROVIDERS: Family Provider Family Medicine; PCP Family Medicine; Referring Provider Internal Medicine Medical Oncology; Visit Provider Internal Medicine Medical Oncology
DX: C34.90 Malignant neoplasm of unspecified part of unspecified bronchus or lung (principal)
CPT/HCPCS: 71260; 74177; 80053; 83615; 85025; Q9967; A4216

== ENCOUNTER 2019-06-23 19:43 | Emergency (ER) | payer MEDICARE, SELFPAY ==
[2019-06-10 15:29] VITALS: BMI 28.6
[2019-06-23 19:43] VITALS: BP 165/76; PULSE 104; RESP 16; TEMP 38.2; O2SAT 95; BMI 29.6
[2019-06-23 20:53] LABS: Absolute Lymphocyte Count 0.64 X10^3/uL (0.83-4.51); Absolute Neutrophil Count 1.9 X10^3/uL (2.0-7.7); Basophil# 0.01 X10^3/uL; Basophil% 0.3 % (0-1); Eosinophil# 0.02 X10^3/uL; Eosinophils% 0.7 % (0-5); Hematocrit 33.8 % (40-54); Hemoglobin 12.4 g/dL (13.0-16.5); Lymphocyte # 0.64 X10^3/ul (4.0); Mean Corp Hgb Conc 36.7 g/dL (32-36); Mean Corpuscular Hgb 34.7 pg (27.0-32.0); Mean Corpuscular Volume 94.7 fL (80-94); Mean Platelet Vol. 9.2 fl (6.2-12.0); Monocyte# 0.34 X10^3/uL; Monocyte% 11.7 % (0-10); NRBC Flagged by Analyzer 0 % (0-5); Neutrophil # 1.89 X10^3/uL (2.7-7.7); POSITIVE COUNT YES; Platelet Count 99 K/mm3 (150-450); RBC Distribution Width CV 12.9 % (11.6-14.6); RBC Distribution Width SD 43.6 fl (35.1-43.9); Red Blood Count 3.57 M/mm3 (4.6-6.2); White Blood Count 2.9 K/mm3 (4.4-11.0)
[2019-06-23 20:54] LABS: Bacteria 0 SEEN /hpf (None Seen); Mucous, Urine 0 SEEN /hpf (<or=2+); Squamous Epithelial Cells - UA 0 SEEN /hpf (0-5)
[2019-06-23 21:03] LABS: Differential Indicated SCAN CRITERIA MET
[2019-06-23 21:03] LABS: Color, Urine Yellow (Yellow); Glucose, Dipstick Normal (Normal); Ketone-Dipstick Negative (Negative); Leukocyte Esterase-Dipstick 25 /ul (Negative); Nitrite-Dipstick Negative (Negative); Occult Blood-Urine 10 /ul (Negative); Protein-Dipstick 15 mg/dl (Negative); Specific Gravity, Urine 1.015 (1.002-1.030); Urine Bilirubin Dipstick Negative (Negative); Urine Clarity Clear (Clear); Urine Urobilinogen Normal (Normal)
[2019-06-23 21:09] LABS: AST(SGOT) 49 U/L (15-37); Alanine Aminotransfer ALT/SGPT 90 U/L (16-61); Albumin, Serum 3.5 g/dL (3.2-5.0); Alkaline Phosphatase 94 U/L (45-117); Anion Gap 8 (5-15); BUN 18 mg/dL (7-18); BUN/Creat Ratio 19.9 RATIO (10-20); Chloride 99 mmol/L (98-107); EST Glomerular Filtration Rate 88 mL/min (>60); Est Glom Filt Rate - Afr Amer 107 mL/min (>60); Estimated Creatinine Clearance 74.94 ml/min; Globulin 3.5 g/dL (2.2-4.2); Glucose 109 mg/dL (74-106); Sodium Level 134 mmol/L (136-145)
[2019-06-23 21:13] LABS: Red Blood Cells-Urine 0-5 SEEN /hpf (0-5); White Blood Cells 0-5 SEEN /hpf (0-5)
[2019-06-23 21:18] VITALS: BP 157/71; PULSE 92; RESP 16; TEMP 39.3; O2SAT 94
[2019-06-23 21:30] LABS: Differential Comment SCANNED
--- NOTE | 2019-06-23 21:30 | RAD_ITS ---
STUDY: X-RAY CHEST REASON FOR EXAM: Male, 68 years old. Fever. TECHNIQUE: PA and lateral views of the chest. COMPARISON: May 17, 2019. FINDINGS: There is a stable left perihilar ill-defined opacity. The lungs remain hyperinflated. There is a vague nodular opacity within the right posterior upper lung. There is no new focal consolidation. There is a right-sided Mediport in place terminating within the superior vena cava. Normal size heart. Normal mediastinum and merlyn. Normal visualized pulmonary arteries. Normal visualized aortic arch and descending thoracic aorta. There are diffuse degenerative changes of the visualized thoracic spine. Normal visualized ribs, clavicles, and shoulders. There is no demonstrated abnormality of the visualized soft tissue structures of the upper abdomen. RAD/Chest PA and Lateral IMPRESSION: No new focal consolidation. Ill-defined opacities within the right upper and left perihilar region may be secondary to an underlying neoplastic process. Electronically Signed: Emili Byrne MD at 22:16 EST Tel , Service support ,
[2019-06-23 21:31] LABS: Platelet Estimate MOD DEC (ADEQ)
[2019-06-23 21:45] LABS: Lactic Acid 0.8 mmol/L (0.4-2.0)
[2019-06-23 22:10] VITALS: BP 158/82; PULSE 90; RESP 18; TEMP 38.7; O2SAT 97
--- NOTE | 2019-06-23 22:18 | ED.RN ---
DR CHUGN MADE AWARE PT TRIGGERED THE SEPSIS ALERT.
[2019-06-23] MEDS: Acetaminophen 500 MG Tablet 1000 MG PO (22:25)
--- NOTE | 2019-06-23 23:00 | ED.DCSUM_ITS ---
- ER Visit Summary Date of Service: 06/23/19 Chief Complaint: Fever History of Present Illness: The patient is a 68 M who presents with a fever that began last night. Patient states his fever was up to 102 at home. Patient is on chemotherapy for stage IV lung cancer. Patient called his oncologist who ref erred him to the emergency department for further evaluation. Patient admits to some nausea and some rhinorrhea. Patient admits to myalgias. Patient also admits to a headache. Physical Examination: Vital signs are stable. Patient has a temperature 100.7 here. Patient is in no acute distress. Oral mucosa is pink and moist. Neck is supple. Trachea is midline. There is no JVD. Heart was regular rate and rhythm. Lungs are clear and equal bilaterally. Abdomen is soft and nontender. Cranial nerves II through XII are intact. There are no focal motor or sensory deficits noted. Test Results: CBC shows a white blood cell count of 2.9 with an absolute neutrophil count of 1.9. Comprehensive metabolic profile was essentially within normal limits. Urinalysis does not show any evidence of urinary tract infection. Lactate was normal at 0.8. PA and lateral chest x-ray was obtained. There is no acute infiltrate. This was interpreted by the radiologist and myself. Emergency Department Course and Treatment: Patient was given a dose of Tylenol here. Case was discussed with Dr. Morejon. He recommended giving the patient a dose of Cipro here. He also recommended obtaining respiratory swabs for viral infections. This was obtained. Patient was given a prescription for Cipro. Patient was instructed to follow-up with Dr. Morejon tomorrow as scheduled. Patient understood and was agreeable with the plan. All questions were answered. Disposition: Discharge home Impression: 1. Fever This note was generated with ivi[employer] dictation software. It may contain incorrect words, spelling, and punctuation that were not noted in review of the chart prior to signing ED Disposition - Plan for ED Patient: Disposition: Home or Assisted Living Diagnosis: Fever Instructions: FEBRILE ILLNESS, Uncertain Cause (Adult) Prescriptions: Ciprofloxacin [Cipro] 500 mg PO BID #20 tab Prescription Printed Referrals: Santosh Robbins MD [Primary Care Provider] - Morris Morejon MD [NON-STAFF] - Keep Garret appointment
[2019-06-23] MEDS: Ciprofloxacin 250 MG Tablet 500 MG PO (23:16)
[2019-06-23 23:17] VITALS: BP 149/67; PULSE 90; RESP 18; TEMP 38.3; O2SAT 94
[2019-06-23 23:33] VITALS: BP 149/67; PULSE 90; RESP 18; TEMP 38.3; O2SAT 99
== END 2019-06-23 23:36 | disposition home or self-care (01) ==
PROVIDERS: Emergency Provider Emergency Medicine; Family Provider Family Medicine; PCP Family Medicine
DX: R50.9 Fever, unspecified (principal); C34.90 Malignant neoplasm of unspecified part of unspecified bronchus or lung; I10 Essential (primary) hypertension; R51 Headache; M79.10 Myalgia, unspecified site; Z79.899 Other long term (current) drug therapy; Z87.891 Personal history of nicotine dependence
CPT/HCPCS: 36415; 71046; 80053; 81001; 83605; 85025; 87040; 87633; 87804; 99282; A4216

== ENCOUNTER → 2019-07-15 07:59 | Outpatient (CLI) | payer MEDICARE, SELFPAY ==
[2019-07-01 08:32] VITALS: BMI 28.0
--- NOTE | 2019-07-15 08:00 | CT_ITS ---
HISTORY: Chemotherapy surveillance. Last chemotherapy 2 weeks ago. Lung cancer. Hernia surgery. Emphysema. Hypertension. Previous smoking history TECHNIQUE: Helically acquired images were obtained of the abdomen and pelvis following the intravenous administration of 100 ML of Isovue-370 Iodinated contrast. Delayed helical images through the kidneys ureters and bladder. 2D reformats. Oral contrast was administered. A radiation dose optimization technique was used for this scan. COMPARISON: Most recent comparison CT scan of the abdomen and pelvis is June 03, 2019 FINDINGS: # of images incl. paperwork: [id number] LUNG BASES: Just above the left hemidiaphragm, within the left lower lobe there is a 4 mm pulmonary nodule. This was present previously but is more conspicuous on today's study due to imaging differences, not due to an increasing growth in size. CT abdomen: Multilevel degenerative disc disease. Severe facet arthropathy at the L5-S1 level with anterior subluxation of L5 on S1 that is chronic. Superior endplate fracture to the L2 vertebral body is unchanged. Some degenerative disease with Modic type sclerosis is present within the abutting endplates of the T11-T12 level. That was present previously. The gallbladder remains. Within the posterior segment of the right hepatic lobe there remains a well-defined hypodense lesion. On the axial images, on today's study, I measure it at 3.4 x 3.5 cm, with a central density of 63 Hounsfield units. It is the same in appearance since the previous study in the same in size. Within the lateral segment of the left hepatic lobe, anteriorly, within a subcapsular location, there is a rim-enhancing hypodense lesion centrally measuring 14 mm in diameter. On delayed imaging this lesion becomes isodense to the adjacent parenchyma. It was more uniformly hyperdense on the previous study. On the previous study there was also smaller. On the April 19, 2019 CT scan, the lesion within the right hepatic lobe was larger. The left hepatic lobe lesion was hypodense and present. PET CT from April 15, 2019 fail to demonstrate any pathological increased activity within the lesion within the left hepatic lobe, but did demonstrate activity within the lesion within the right hepatic lobe. This lesion remains of unknown etiology, but possibly a benign hemangioma. The spleen, pancreas, and adrenal glands, are normal. Prominent left extrarenal pelvis with mild left hydronephrosis is the same. No hydroureter.. The aorta is degenerative atherosclerotic plaque within the abdominal aorta without aneurysm or dissection is similar.. CT pelvis: No ascites is present. The prostate gland contains dystrophic calcifications and is slightly enlarged, but unchanged. The appendix is normal. Series 3 image 72. The patient has had a hernia repair left inguinal region with a mesh. A fatty hernia remains on the other side of the mesh. This is unchanged.. The bladder is normal. The ingested oral contrast is all the way to the rectum. No bowel obstruction. CT/Abdomen/Pelvis WITH Contrast IMPRESSION: Stable appearance to the metastatic lesion within the posterior segment of right hepatic lobe. Rim-enhancing appearance slightly larger to the lesion within the anterior segment of the left hepatic lobe that was more uniformly filling in the later stage of the contrast bolus from the June 03, 2019 study, on today's study is isodense to adjacent hepatic parenchyma on the delayed imaging, and did not demonstrate abnormal increased activity on the PET/CT of April 15, 2019, this may represent a benign hemangioma. Metastatic disease is still within the differential, but considered much less likely. Individualized dose optimization techniques were used for this CT. at 0132 Reported and signed by: Alil Wooten MD Electronically Signed: Alli Wooten MD at 1:31 EST Tel , Service support ,
--- NOTE | 2019-07-15 08:00 | CT_ITS ---
HISTORY: CHEMO SURVIELANCE--LAST CHEMO X2 WKS AGO LUNG CASURG-DOUBLE HERNIAHX-EMPHYSEMA,HTNPRIOR SMOKER TECHNIQUE: Helically acquired images were obtained of the chest following the intravenous administration of 100 ML of Isovue-370 Iodinated contrast. as per pulmonary angiogram protocol with 2D MIP reconstructions. A radiation dose optimization technique was used for this scan. COMPARISON: CT scan of the abdomen and pelvis from June 03, 2019, and PET/CT from April 15, 2019. Chest CT is also available from April 10, 2019 FINDINGS: # of images incl. paperwork: [phone] Within the left upper lobe, perihilar region, abutting the pleura, series 6 image 61, there is a spiculated pulmonary nodule. It appears to penetrate through the fissure into the left lower lobe. It measures 2 x 1.4 cm. It has significantly diminished in size since the PET/CT and the April [address] It is lower than was imaged on the June 03, 2019 study. Within the right upper lobe there is another spiculated nodule. This nodule measures 1.6 x 0.8 cm. It is also smaller than the previous study of April 10, 2019, and smaller than the PET/CT of April 15. Minimal basilar scarring. Pulmonary hyperexpansion. . No effusions. Within the thoracic spinethere is a mild kyphosis. Multilevel degenerative disc disease with endplate sclerosis, Schmorl's node invaginations, and small anterior enthesophytes. Vertebral body height mostly preserved with minimal midthoracic wedging Facets are well aligned. No rib lesions are perceived. Heart is borderline enlarged. The left ventricle may be slightly dilated. It is similar in appearance to April 10, 2019. Thoracic aorta diseased with calcific atherosclerotic plaque in the elongated. No aneurysms, stenoses, dissections, nor occlusions. Lymph nodes are present within the mediastinum. Lymphoid tissue is present within the left hilum. The mediastinal lymph nodes are smaller. The left hilar tissue is much less prominent. No pulmonary emboli. The 2 liver lesions are again demonstrated. The right hepatic lobe lesion is similar to that of June 03, 2019. The left hepatic lobe lesion has some peripheral enhancement with central lucency. This could be due to necrosis and response to chemotherapy, or due to differences in timing of bolus and that it is a hemangioma. More inferiorly within the left hepatic lobe, series 2 image 122 there is a tiny focus of hyperenhancing tissue not perceived on the previous CT of June 03, 2019. End is not perceived on the CT of April 15, [address] portion of the study, and not perceived on the arterial phase imaging of April 10, 2019, when the left hepatic lobe lesion was demonstrated with peripheral enhancement. CT/Chest WITH Contrast IMPRESSION: No pulmonary embolism, aortic aneurysm, or aortic dissection. Decrease in size of left hilar region now with a smaller left upper lobe pulmonary nodule that does extend across the fissure and to the left lower lobe. Decrease in size of metastatic lesion within the right upper lobe. Decrease in size since the initial imaging, but stable since most recent CT of the right hepatic lobe metastatic lesion. Similar appearance to the CT of April 10, 2019 and a rim-enhancing lesion within the left hepatic lobe that was not discerned as avid on the PET/CT. New 3 mm area of enhancement within the lateral segment left hepatic lobe more inferiorly. This third liver lesion is not identified on the portal venous phase imaging of the CT scan of the abdomen and pelvis from today, and not identified on the delayed imaging of the CT scan of the abdomen and pelvis performed today. It is not identified on that CT scan and pelvis from June 03, 2019, which was performed at a different phase of imaging. It is not identified on the CT scan of the chest from April 10, 2019 which was a similar arterial phase of imaging. It is feasible that this is a new metastasis. Individualized dose optimization techniques were used for this CT. at 0147 Reported and signed by: Alli Wooten MD Electronically Signed: Alli Wooten MD at 1:46 EST Tel , Service support ,
[2019-07-15] MEDS: 0.9% Saline Lock 10 ML Syringe IV (08:40)
== END ==
PROVIDERS: Family Provider Family Medicine; PCP Family Medicine; Referring Provider Internal Medicine Medical Oncology; Visit Provider Internal Medicine Medical Oncology
DX: C34.12 Malignant neoplasm of upper lobe, left bronchus or lung (principal)
CPT/HCPCS: 71260; 74177; Q9967; A4216

== ENCOUNTER → 2019-12-02 08:17 | Outpatient (CLI) | payer MEDICARE, SELFPAY ==
[2019-11-25 09:16] VITALS: BMI 29.3
--- NOTE | 2019-12-02 08:19 | CT_ITS ---
STUDY: CT CHEST WITH CONTRAST REASON FOR EXAM: Male, 69 years old. R SIDED ABD PAIN, HX-LUNG CA WITH CHEMO, LAST CHEMO JUN 2019, PREV SMOKER-QUIT 16 YRS AGO, HTN, EMPHYSEMA, HTN, SURG-HERNIA REPAIR RADIATION DOSAGE (If Supplied By Facility): CTDIvol = ( 16.7 ) mGy, DLP = ( 1410.49 ) mGycm TECHNIQUE: Transaxial imaging was performed following intravenous administration of Oral and amp; IV Readi-CAT and amp; 100mL Isovue-300. Multiplanar coronal and sagittal images were reformatted. Individualized dose optimization techniques were used for this CT. COMPARISON: Comparison is made with prior examination dated July 15, 2019. FINDINGS: A right-sided portacatheter is seen with the tip in the superior vena cava. Stable small benign-appearing bilateral axillary lymph nodes. Stable mild degree of emphysematous changes. There is a persistent 1.7 cm x 0.9 cm stellate nodule in the left upper lobe as seen on axial image #54. This abuts the left major fissure. This has decreased in size as compared to prior study. It previously measured 2 cm x 1.4 cm. There is a stable 1.3 cm spiculated nodule in the posterior aspect of the right upper lobe. This is seen on axial image #43. There is no demonstrated pleural abnormality. There are calcifications of the coronary arteries. Normal mediastinum. Normal hilar regions. Normal enhanced pulmonary arteries. Normal aorta arch and descending thoracic aorta. There are multi-level degenerative changes of the thoracic spine. Stable 9.4 mm hypodense nodule in the anterior left lobe of the liver with peripheral enhancement suggestive of a small hemangioma. CT/Chest WITH Contrast IMPRESSION: The previously seen spiculated nodule in the left upper lobe abutting the left major fissure has further decreased in size. Stable appearance of the spiculated nodule in the right upper lobe. Stable tiny nodule in the left lobe of the liver. Electronically Signed: Wilberto Powell, at 9:25 EDT , Service support ,
--- NOTE | 2019-12-02 08:19 | CT_ITS ---
STUDY: CT ABDOMEN AND PELVIS WITH CONTRAST REASON FOR EXAM: Male, 69 years old. R SIDED ABD PAIN, HX-LUNG CA WITH CHEMO, LAST CHEMO JUN 2019, PREV SMOKER-QUIT 16 YRS AGO, HTN, EMPHYSEMA, HTN, SURG-HERNIA REPAIR RADIATION DOSAGE (If Supplied By Facility): CTDIvol = ( 16.7 ) mGy, DLP = ( 1410.49 ) mGycm TECHNIQUE: Transaxial images were obtained from the dome of the diaphragm to the symphysis pubis with oral contrast. Oral and amp; IV Readi-CAT and amp; 100mL Isovue-300 was administered. Sagittal and coronal images were reconstructed. Individualized dose optimization techniques were used for this CT. COMPARISON: Comparison is made with prior examination dated July 15, 2019. FINDINGS: Stable 4 mm nodule in the left lower lobe just above the left hemidiaphragm. Coronary artery calcification. Stable 8.8 mm hypodensity in the anterior aspect of the left lobe of the liver with peripheral enhancement. There is a 2.6 cm x 2.5 cm hypodense nodule in the inferior aspect of the right lobe of the liver with minimal peripheral enhancement. This has decreased in size as compared to prior study. It previously measured 3.4 cm x 3.5 cm. Normal gallbladder and extrahepatic biliary system. Normal spleen. Normal pancreas. Normal bilateral adrenal glands. Normal right kidney. Normal left kidney. There is a small hiatal hernia. Normal small intestine. There are scattered colonic diverticula consistent with diverticulosis. The appendix is visualized and appears normal. There is diffuse atherosclerotic calcification of the abdominal aorta, without a demonstrated aneurysm. Normal inferior vena cava. Normal retroperitoneum. Mild degree of diffuse bladder wall thickening. There are prostatic calcifications. Stable enlargement of the prostate. There is a small umbilical hernia containing fat. Small left inguinal hernia containing fat. Normal osseous structures. CT/Abdomen/Pelvis WITH Contrast IMPRESSION: Since prior study, there has been a decrease in size of the hypodense nodule in the inferior aspect of the right lobe of the liver. The remainder of the examination is unchanged. Electronically Signed: Wilberot Powell, at 9:29 EDT , Service support ,
[2019-12-02] MEDS: 0.9% Saline Lock 10 ML Syringe IV (08:40)
== END ==
PROVIDERS: PCP Family Medicine; Referring Provider Internal Medicine Medical Oncology; Visit Provider Internal Medicine Medical Oncology
DX: C34.12 Malignant neoplasm of upper lobe, left bronchus or lung (principal); R10.11 Right upper quadrant pain
CPT/HCPCS: 71260; 74177; Q9967; A4216

== ENCOUNTER → 2020-02-11 10:36 | Outpatient (CLI) | payer MEDICARE, SELFPAY ==
[2020-01-27 10:04] VITALS: BMI 28.8
--- NOTE | 2020-02-11 10:37 | RAD_ITS ---
STUDY: X-RAY - RIGHT HAND REASON FOR EXAM: Middle finger triggers bilaterally. TECHNIQUE: 3 view(s) of the hand. COMPARISON: None. FINDINGS: Normal radiocarpal articulation. Normal distal radioulnar joint. Normal visualized carpal bones. Normal carpal articulations There is mild joint space narrowing of the carpometacarpal articulation of the thumb. Normal second through fifth carpometacarpal joints. Normal metacarpi. Normal metacarpophalangeal joint of the thumb. Normal interphalangeal joint of the thumb. Normal proximal and distal phalanges of the thumb. Normal metacarpophalangeal joints of the second through fifth fingers. Normal proximal and distal interphalangeal joints of the second through fifth fingers. Normal phalanges of the second through fifth fingers. The soft tissue structures are unremarkable. RAD/Hand Min 3 Views IMPRESSION: Mild arthrosis of the first carpometacarpal joint. Electronically Signed: Dionisio Mar MD at 15:26 EDT Tel , Service support ,
--- NOTE | 2020-02-11 10:37 | RAD_ITS ---
STUDY: X-RAY - LEFT HAND REASON FOR EXAM: Middle finger triggers bilaterally. TECHNIQUE: 3 view(s) of the hand. COMPARISON: None. FINDINGS: Normal radiocarpal articulation. Normal distal radioulnar joint. Normal visualized carpal bones. Normal carpal articulations There is moderate joint space narrowing of the carpometacarpal articulation of the thumb. Normal second through fifth carpometacarpal joints. Normal metacarpi. Normal metacarpophalangeal joint of the thumb. Normal interphalangeal joint of the thumb. Normal proximal and distal phalanges of the thumb. Normal metacarpophalangeal joints of the second through fifth fingers. Normal proximal and distal interphalangeal joints of the second through fifth fingers. Normal phalanges of the second through fifth fingers. There is a small capsular calcification at the radial base of the third proximal phalanx. RAD/Hand Min 3 Views IMPRESSION: Arthrosis of the first carpometacarpal joint. Small capsular calcification at the radial aspect of the third metacarpophalangeal joint. Electronically Signed: Dionisio Mar MD at 15:30 EDT Tel , Service support ,
== END ==
PROVIDERS: PCP Family Medicine; Referring Provider Orthopaedic Surgery; Visit Provider Orthopaedic Surgery
DX: M79.641 Pain in right hand (principal); M79.642 Pain in left hand
CPT/HCPCS: 73130

== ENCOUNTER → 2020-03-23 07:13 | Outpatient (CLI) | payer MEDICARE, SELFPAY ==
[2020-03-09 09:54] VITALS: BMI 28.3
--- NOTE | 2020-03-23 07:14 | CT_ITS ---
STUDY: CT CHEST WITH CONTRAST REASON FOR EXAM: Male, 69 years old. LUNG CA FOLLOW UP RADIATION DOSAGE (If Supplied By Facility): CTDIvol = ( 14.25 ) mGy, DLP = ( 1958.24 ) mGycm TECHNIQUE: Transaxial imaging was performed following intravenous administration of IV 100mL Isovue-370. Multiplanar coronal and sagittal images were reformatted. Individualized dose optimization techniques were used for this CT. COMPARISON: 12/02/[address], 09/02/2019 PET scan FINDINGS: Right jugular chest port identified with tip extending to the cavoatrial junction. 8 x 11 mm noncalcified nodule in the posterior left upper lobe abutting the left major fissure (with anterior pleural retraction) on image 56 of series 6 has decreased in size since the prior study (previously measured 17 x 9 mm). 7 x 13 mm noncalcified nodule in the posterior right upper lobe on image 40 of series 6 is stable since the prior study. No new pulmonary nodule. No pleural effusion or pleural mass. Normal heart and pericardium. There are calcifications of the coronary arteries. Normal mediastinum. Normal hilar regions. Normal enhanced pulmonary arteries. There is mild atherosclerosis of the thoracic aorta. No destructive bony process. Upper abdomen described on abdomen/pelvis CT, performed concurrently. CT/Chest WITH Contrast IMPRESSION: 1. Since 12/02/2019, FAVORABLE change. DECREASED size of posterior left upper lobe nodule. 2. STABLE right upper lobe pulmonary nodule. Electronically Signed: Jovany Bell MD (Brooks) at 8:08 EDT , Service support ,
--- NOTE | 2020-03-23 07:14 | CT_ITS ---
STUDY: CT ABDOMEN AND PELVIS WITH CONTRAST REASON FOR EXAM: Male, 69 years old. LUNG CA FOLLOW UP RADIATION DOSAGE (If Supplied By Facility): CTDIvol = ( 14.25 ) mGy, DLP = ( 1958.24 ) mGycm TECHNIQUE: Transaxial images were obtained from the dome of the diaphragm to the symphysis pubis with oral contrast. IV 100mL Isovue-370 was administered. Sagittal and coronal images were reconstructed. Individualized dose optimization techniques were used for this CT. COMPARISON: 11/2019 abdomen/pelvis CT and 07/15/2019. FINDINGS: Base of the chest described on chest CT report. Hypodense nodule in the left hepatic lobe with peripheral (right lateral dominant) enhancement measures 8 mm, stable since the prior study, compatible with a small hemangioma, stable since 07/15/2019 hypodense lesion in the posterior right hepatic lobe on image 21 of series 3 measuring 2.1 x 2.1 cm (previously measured 2.6 x 2.5 cm) and is inconspicuous on delayed imaging, stable. Normal gallbladder and extrahepatic biliary system. Normal spleen. Normal pancreas. Normal bilateral adrenal glands. Normal right kidney. Benign parapelvic cyst of the left kidney are stable. Benign, incidental finding; no specific imaging workup recommended according to current ACR guidelines. Normal visualized stomach. Normal small intestine. Normal colon. The appendix is visualized and appears normal. There is diffuse atherosclerotic calcification of the abdominal aorta, without a demonstrated aneurysm. Normal inferior vena cava. Normal retroperitoneum. Urinary bladder is not well distended. Bladder wall thickening cannot be excluded. There are prostatic calcifications. There are operative changes of the anterior abdominal wall. Left inguinal fat-containing hernia is stable. No destructive bony process. There are degenerative changes of the lumbar spine with stable anterolisthesis of L5-S1 due to facet arthropathy. CT/Abdomen/Pelvis W IV Cont ONLY IMPRESSION: 1. Since 12/02/2019, stable exam. Mild decreased hypodense lesion of the right hepatic lobe measuring 2.1 x 2.1 cm on the current exam. Electronically Signed: Jovany Bell MD ([place]) at 8:15 EDT , Service support ,
[2020-03-23] MEDS: 0.9% Saline Lock 10 ML Syringe IV (07:35)
== END ==
PROVIDERS: PCP Family Medicine; Referring Provider Nurse Practitioner Family; Visit Provider Nurse Practitioner Family
DX: C34.90 Malignant neoplasm of unspecified part of unspecified bronchus or lung (principal); C79.9 Secondary malignant neoplasm of unspecified site
CPT/HCPCS: 71260; 74177; Q9967; A4216

== ENCOUNTER → 2020-05-08 11:12 | Outpatient (CLI) | payer MEDICARE, SELFPAY ==
[2020-04-28 13:30] VITALS: BMI 28.6
[2020-05-06 12:59] VITALS: BMI 28.3
--- NOTE | 2020-05-08 11:23 | MRI_ITS ---
STUDY: MRI LEFT SHOULDER REASON FOR EXAM: Left shoulder pain after lifting a heavy object. TECHNIQUE: Standardized fat and water weighted pulse sequences were obtained in all 3 orthogonal planes. COMPARISON: Radiographs 04/28/2020. FINDINGS: There is supraspinatus and infraspinatus tendinosis (T2 coronal images 7-15) without discrete tendon tear. Normal subscapularis tendon. Normal teres minor tendon. Normal supraspinatus muscle. There is mild atrophy with mild partial fat replacement of the infraspinatus muscle (T2 axial image 11). Normal subscapularis muscle. There is atrophy with partial fat replacement of the teres minor muscle (T2 axial image 19). There is a very small glenohumeral joint effusion. There is a small subchondral cyst in the posterior superior glenoid. There is a small cyst in the posterior aspect of the greater tuberosity. Normal biceps labral complex. There is tendinosis of the intracapsular long biceps tendon (T2 sagittal images 13-16) and a small intrasubstance partial tear of the extracapsular long biceps tendon (T2 coronal image 6). There is a tear of the posterior labrum (proton-density axial images 15-18) with a very small paralabral cyst (T2 axial image 13). Normal capsulo- ligamentous complex. There is acromioclavicular arthrosis with capsular thickening effacing the subacromial fat (T2 sagittal image 12). There is a Type II morphology (curved), with a neutral orientation. There is a signal void in the subacromial-subdeltoid bursa at the anterior aspect of the greater tuberosity measuring 0.8 cm in length (T2 coronal image 4) consistent with calcific bursitis. There is thickening of the coracoacromial ligament (T2 sagittal image 15). Normal deltoid muscle. Normal trapezius muscle. MRI/Upper Ext Joint Only(Routine) IMPRESSION: Supraspinatus and infraspinatus tendinosis without demonstrated rotator cuff tear. Atrophy of the teres minor muscle and mild atrophy of the infraspinatus muscle. Tendinosis of the long biceps tendon and small intrasubstance partial tear of the extracapsular long biceps tendon. Posterior labral tear. Acromioclavicular arthrosis. Anterior subacromial-subdeltoid calcific bursitis. Thickening of the coracoacromial ligament. Electronically Signed: Dionisio Mar MD at 12:52 EDT Tel , Service support ,
== END ==
PROVIDERS: PCP Family Medicine; Referring Provider Orthopaedic Surgery; Visit Provider Orthopaedic Surgery
DX: M75.32 Calcific tendinitis of left shoulder (principal)
CPT/HCPCS: 73221

== ENCOUNTER → 2020-05-22 10:45 | Outpatient (CLI) | payer MEDICARE, SELFPAY ==
[2020-05-06 12:59] VITALS: BMI 28.3
[2020-05-11 10:29] VITALS: BMI 28.3
--- NOTE | 2020-05-22 10:47 | ECHODONC_ITS ---
Reason For Study: MURMUR Procedure This was a 2D Doppler, Color Flow transthoracic echocardiogram. Myocardial strain analysis was performed in this exam to aid in the assessment of cardiac function. Exam performed in department. Left Ventricle Normal LV size. Mid cavitary false tendon noted. Left ventricular systolic function is lower limits of normal. The estimated ejection fraction is 50 %. Stage 1 diastolic dysfunction. No regional wall motion abnormalities noted. Right Ventricle Normal RV size. Normal systolic function. Atria Normal left atrium. Normal right atrium. Mitral Valve Normal mitral valve. Mild (1+) mitral valve insufficiency. Tricuspid Valve Normal tricuspid valve. Mild tricuspid valve insufficiency. Pulmonary artery systolic pressure is 35 mmHg. Aortic Valve Trisinus/trileaflet aortic valve. Moderate focal aortic valve calcification. Peak aortic valve gradient 62 mmHg. Mean aortic valve gradient 40 mmHg. Moderate aortic stenosis. Trivial aortic valve insufficiency. Pulmonic Valve Normal pulmonic valve. Trivial pulmonic valve insufficiency identified. Great Vessels Mildly dilated aortic root. The pulmonary artery is normal size. Inferior vena cava collapse with respiration. Pericardium/Pleural No pericardial effusion. MMode/2D Measurements & Calculations LVIDd: 4.8 cm IVSd: 1.3 cm LVOT diam: 2.0 cm LVIDs: 3.4 cm LVPWd: 1.1 cm LVOT area: 3.0 cm2 RVDd: 2.7 cm FS: 28.4 % Ao root diam: 4.1 cm LAV(MOD-bp): 42.3 ml LVAd ap4: 35.5 cm2 LAV(MOD-bp) Indexed: 21.0 ml/m2 EDV(MOD-sp4): 111.8 ml LAV(MOD-sp2): 55.6 ml EDV(sp4-el): 114.4 ml LAV(MOD-sp4): 32.4 ml LVAs ap4: 23.1 cm2 ESV(MOD-sp4): 59.3 ml ESV(sp4-el): 58.6 ml EF(MOD-sp4): 46.9 % EF(sp4-el): 48.7 % SV(MOD-sp4): 52.5 ml SV(sp4-el): 55.7 ml LA A4 area: 13.5 cm2 LA dimension(2D): 4.4 cm RA A4 area: 13.0 cm2 Time Measurements MV dec time: 0.26 sec Doppler Measurements & Calculations MV E max ryan: 54.9 cm/sec Lat Peak E' Ryan: 7.0 cm/sec Med Peak E' Ryan: 2.9 cm/sec MV A max ryan: 98.4 cm/sec E/E' lat: 7.9 E/E' med: 18.9 MV E/A: 0.56 Ao V2 max: 395.7 cm/sec LV V1 max: 91.4 cm/sec SV(LVOT): 59.9 ml Ao max P.7 mmHg LV V1 max P.3 mmHg Ao V2 mean: 306.1 cm/sec LV V1 mean P.1 mmHg Ao mean P.0 mmHg LV V1 mean: 67.1 cm/sec Ao V2 VTI: 92.0 cm LV V1 VTI: 19.9 cm SAYDA(I,D): 0.65 cm2 SAYDA(V,D): 0.70 cm2 PA V2 max: 104.7 cm/sec TR max ryan: 281.4 cm/sec TR max P.7 mmHg Interpretation Summary Normal LV size. Left ventricular systolic function is lower limits of normal. The estimated ejection fraction is 50 %. Stage 1 diastolic dysfunction. Mean aortic valve gradient 40 mmHg. Moderate aortic stenosis. Compared to the previous the is mildly worse. Moderate focal aortic valve calcification. The global longitudinal strain = -15.6% (abnormal). Ordering Physician: Ryan Benson Referring Physician: EUGENE SWANSON Performed By: Aga Trujillo, RDCS, RVT
== END ==
PROVIDERS: PCP Family Medicine; Referring Provider Internal Medicine Cardiovascular Disease; Visit Provider Internal Medicine Cardiovascular Disease
DX: I25.10 Atherosclerotic heart disease of native coronary artery without angina pectoris (principal); C34.90 Malignant neoplasm of unspecified part of unspecified bronchus or lung; C80.0 Disseminated malignant neoplasm, unspecified; E78.5 Hyperlipidemia, unspecified; I10 Essential (primary) hypertension; I35.0 Nonrheumatic aortic (valve) stenosis; I44.7 Left bundle-branch block, unspecified; M75.32 Calcific tendinitis of left shoulder; R10.9 Unspecified abdominal pain; R68.2 Dry mouth, unspecified; Z29.8 Encounter for other specified prophylactic measures
CPT/HCPCS: 93306; 93356

== ENCOUNTER → 2020-07-09 07:43 | Outpatient (CLI) | payer MEDICARE, SELFPAY ==
[2020-05-25 16:09] VITALS: BMI 28.6
--- NOTE | 2020-07-09 07:45 | CT_ITS ---
STUDY: CT ABDOMEN WITH CONTRAST REASON FOR EXAM: Male, 69 years old. LUNG CA-CHEMO CHECK, LUNG CA WITH LIVER METS, SURG-HERNIA REPAIR X 2, HTN RADIATION DOSAGE (If Supplied By Facility): CTDIvol = ( 15.27 ) mGy, DLP = ( 1053.67 ) mGycm TECHNIQUE: Transaxial images were obtained post I.V. administration of IV 100mL Isovue-300, and oral contrast. Sagittal and coronal images were reconstructed. Individualized dose optimization techniques were used for this CT. COMPARISON: Comparison is made with prior study dated 03/23/2020. FINDINGS: The visualized lung bases are unremarkable. Coronary artery calcification. Stable 8 mm hypodense nodule with peripheral enhancement is seen in the anterior aspect of the left lobe of the liver. Stable 2.1 cm x 2.2 cm hypodense nodule in the posterior aspect of the right lobe of the liver as seen on axial image #22. Normal gallbladder and extrahepatic biliary system. Normal spleen. Normal pancreas. Normal bilateral adrenal glands. Normal right kidney. Stable left parapelvic cysts. Normal visualized stomach. Normal small intestine. Normal colon. The appendix is visualized and appears normal. There is diffuse atherosclerotic calcification of the abdominal aorta, without a demonstrated aneurysm. Normal inferior vena cava. Normal retroperitoneum. There is a small umbilical hernia containing fat. There are degenerative changes of the visualized lumbar spine. Stable mild anterior listhesis of L5 on S1 most likely secondary to facet joint osteoarthritis. CT/Abdomen WITH IV Contrast IMPRESSION: Stable examination. Electronically Signed: Wilberto Powell, at 9:06 EST , Service support ,
--- NOTE | 2020-07-09 07:45 | CT_ITS ---
STUDY: CT CHEST WITH CONTRAST REASON FOR EXAM: Male, 69 years old. LUNG CA-CHEMO CHECK, LUNG CA WITH LIVER METS, SURG-HERNIA REPAIR X 2, HTN RADIATION DOSAGE (If Supplied By Facility): CTDIvol = ( 15.27 ) mGy, DLP = ( 1053.67 ) mGycm TECHNIQUE: Transaxial imaging was performed following intravenous administration of IV 100mL Isovue-300. Multiplanar coronal and sagittal images were reformatted. Individualized dose optimization techniques were used for this CT. COMPARISON: Comparison is made with prior study dated 03/23/2020. FINDINGS: A right-sided portacatheter is seen with the tip in the superior vena cava. Since prior study, there has been increased size of the irregular nodule in the posterior aspect of the right upper lobe as seen on axial image #44 and coronal image #165. It presently measures 1.4 cm x 1.8 cm by 1.1 cm. Minimal decrease in size of the spiculated nodule in the posterior medial aspect of the left upper lobe as seen on axial image #60 and coronal image #139. It presently measures 7.2 mm. There is no demonstrated pleural abnormality. There are calcifications of the coronary arteries. Normal mediastinum. Normal hilar regions. Normal enhanced pulmonary arteries. Mild atherosclerotic calcification. There are degenerative changes of the thoracic spine. Liver findings are described on the concurrent CT scan of the abdomen and pelvis. CT/Chest WITH Contrast IMPRESSION: Since prior study, there has been an increase in size of the irregular nodule in the posterior aspect of the right upper lobe presently measuring 1.4 cm x 1.8 cm x 1.1 cm. Minimal decreased size of the previously seen nodule in the posterior medial aspect of the left upper lobe. Electronically Signed: Wilberto Powell, at 9:12 EST , Service support ,
[2020-07-09] MEDS: 0.9% Saline Lock 10 ML Syringe IV (08:10)
== END ==
PROVIDERS: PCP Family Medicine; Referring Provider Internal Medicine Medical Oncology; Visit Provider Internal Medicine Medical Oncology
DX: C34.12 Malignant neoplasm of upper lobe, left bronchus or lung (principal); C78.7 Secondary malignant neoplasm of liver and intrahepatic bile duct; Z79.899 Other long term (current) drug therapy; I10 Essential (primary) hypertension
CPT/HCPCS: 71260; 74160; Q9967; A4216

== ENCOUNTER → 2020-08-11 08:09 | Outpatient (CLI) | payer MEDICARE, SELFPAY ==
[2020-08-03 10:47] VITALS: BMI 27.8
[2020-08-11] VITALS (10 sets, daily range): BP systolic 122–162; BP diastolic 71–94; PULSE 62–86; RESP 12–20; TEMP 36.7; O2SAT 93–100; BMI 28.5
--- NOTE | 2020-08-11 | IMM_PTH ---
PATIENT: SYL MENDEZ LOC: CT U#:[id number] AGE/SX: 74/M ROOM: RE08/11/[address]: Dr. Morris Morejon MD : 1950 BED: DIS: SPEC #: [id number] RECD: 08/12/20 10:15 STATUS: YUMIKO REQ #: [id number] PONCHO: 08/11/20 00:[address]: Morris Morejon DEPT: IMMUNOHISTOCHEMISTRY RECD BY: Ingrid Mueller ENTERED: 08/12/20 10:17 SP TYPE: IMMUNO OTHR DR: Dr. Rosemary Warren DO Tissues: Right lung, NOS Procedures: RCC (add) NAPSIN A (add) CK20 (add) CK5-6 (add) CK7 (add) CK8 (add) HEP PAR (add) TTF1 (add) Pankeratin (initial) P40 (add) PSAP (add) PHYSICIAN & [address] [address] SPECIMEN INFORMATION: Tissue Source: Right upper lung Clinical Info: Mass Specimen Number: [id number] CPT code: 91250, 14352 x8 METHODOLOGY: Deparaffinized sections of prefer/formalin-fixed tissue or PAP/DQ stained slides are incubated with monoclonal/polyclonal antibodies/oligonucleotide probes. Localization is made via biotin free immunoperoxidase method. Appropriate controls are performed and reacted as expected. Results on target cell population are indicated in the following table: RESULTS: ANTIBODY / CLONE RESULT AE1-3 (AE1/AE3/PCK26) positive CK7 (OV-TL12/30) positive CK8 (76scchS76) positive CK20 (KS20.8) negative TTF-1 (8G7G3/1) positive Napsin A (Rabbit Polyclonal) positive HepPar (OCh1E5) positive RCC (PN-15) negative PSAP (PASE/4LJ) negative CK5-6 (D5 & 1684) negative P40 (BC28) negative These tests were developed and their performance characteristics determined by [facility]. They may not have been cleared or approved by the U.S. Food and Drug Administration. The FDA has determined that such clearance or approval is not necessary. The above immunohistochemical/dualISH markers are ordered and reviewed by the Pathologist. INTERPRETATION: Right upper lung, CT-guided core biopsy: Non-small cell carcinoma, favor adenocarcinoma, consistent with lung primary. See comment. SJ:patricia 08/13/2020 Comment: Aberrant HepPar staining is noted. Case has been reviewed in consultation with Dr. Christina who concurs with the above diagnosis. IDC:AM
--- NOTE | 2020-08-11 08:24 | CT_ITS ---
PROCEDURE: CT GUIDED CORE NEEDLE BIOPSY OF A right upper lobe LUNG LESION INDICATION: Male, 70 years old. Right lung mass biopsy PHYSICIAN: Dr. FRANSISCO Bowman CONSENT: Written informed consent was obtained having explained the risks, benefits and alternatives in detail with the patient who accepted the risks and agreed to proceed. Laboratory review and clinical assessment was performed. CONSCIOUS SEDATION PROTOCOL: The Drugs used were: 2 mg Versed, IV., and 50 mcg Fentanyl, IV. The sedation time was: 18 minutes. Conscious sedation was started at 9:20 AM and terminated at 9:38 AM. The conscious sedation protocol was independently monitored. RADIATION DOSAGE (If Supplied By Facility): CTDIvol = ( 18.5 ) mGy, DLP = ( 412.04 ) mGycm. Individualized dose optimization techniques were utilized. Individualized dose optimization techniques were used for this CT. TECHNIQUE: The patient was placed in the prone position. A noncontrast CT was performed to localize the lesion in the posterior aspect of the right upper lobe . The skin surface was prepped and draped in a sterile fashion. 1% lidocaine was used for local anesthesia. Using CT guidance, a 20-gauge coaxial biopsy device was advanced to the periphery of the lesion. A total of 4 core specimens were obtained. The specimens were placed in a formalin solution. A post procedure CT demonstrated no adverse sequelae or pneumothorax. The patient tolerated the procedure well without adverse event. A negative biopsy does not exclude malignancy. Further imaging or clinical followup based on patient condition and degree of clinical suspicion for malignancy. Suggest rebiopsy, if biopsy results do not match with clinical scenario. CT/Biopsy/Inj or Needle Placement IMPRESSION: 1. CT directed core needle biopsy of the right upper lobe pulmonary nodule using CT image guidance with image documentation as described. Pathology results are pending. 2. Conscious Sedation protocol utilized with independent monitoring. Electronically Signed: Wilberto Powell, at 10:24 EST , Service support ,
[2020-08-11 08:27] LABS: Absolute Lymphocyte Count 1.96 X10^3/uL (0.83-4.51); Absolute Neutrophil Count 1.8 X10^3/uL (2.0-7.7); Basophil# 0.09 X10^3/uL; Basophil% 1.7 % (0-1); Eosinophil# 0.75 X10^3/uL; Eosinophils% 14.3 % (0-5); Hematocrit 40.8 % (40-54); Hemoglobin 14.6 g/dL (13.0-16.5); Lymphocyte # 1.96 X10^3/ul (4.0); Lymphocyte % 37.3 % (19-41); Mean Corp Hgb Conc 35.8 g/dL (32-36); Mean Corpuscular Hgb 35.1 pg (27.0-32.0); Mean Corpuscular Volume 98.1 fL (80-94); Mean Platelet Vol. 8.9 fl (6.2-12.0); Monocyte# 0.69 X10^3/uL; Monocyte% 13.1 % (0-10); NRBC Flagged by Analyzer 0 % (0-5); Neutrophil # 1.76 X10^3/uL (2.7-7.7); Neutrophil % 33.4 % (47-70); Platelet Count 256 K/mm3 (150-450); RBC Distribution Width CV 11.6 % (11.6-14.6); RBC Distribution Width SD 41.8 fl (35.1-43.9); Red Blood Count 4.16 M/mm3 (4.6-6.2); White Blood Count 5.3 K/mm3 (4.4-11.0)
[2020-08-11 08:42] LABS: Prothrombin Time (Protime)PT. 12.6 SECONDS (11.7-14.9)
[2020-08-11] MEDS: Midazolam 2 MG/2 ML Syringe IV (09:20)
[2020-08-11] MEDS: fentaNYL 100 MCG/2 ML Ampul IV (09:22)
--- NOTE | 2020-08-11 09:45 | RAD_ITS ---
STUDY: X-RAY CHEST REASON FOR EXAM: Male, 70 years old. Immediate post lung biopsy right upper TECHNIQUE: AP inspiration and expiration views. COMPARISON: None. FINDINGS: No evidence of a pneumothorax following the right lung biopsy. RAD/Chest Insp/Exp 2 View IMPRESSION: No evidence of pneumothorax on the immediate post right lung biopsy radiograph. Electronically Signed: Wilberto Powell, at 14:01 EST , Service support ,
--- NOTE | 2020-08-11 10:00 | ASPIGT_PTH ---
PATIENT: SYL MENDEZ LOC: [place] U#:[id number] AGE/SX: 74/M ROOM: RE08/11/[address]: Dr. Morris Morejon MD : 1950 BED: DIS: SPEC #: [id number] RECD: 08/11/20 10:20 STATUS: YUMIKO RERosetta #: [id number] PONCHO: 08/11/20 10:[address]: Morris Morejon DEPT: SURGICAL PATHOLOGY RECD BY: Dasia Singer ENTERED: 08/11/20 10:20 SP TYPE: ASP RAD OTHR DR: Dr. Rosemary Warren DO Tissues: Lung, NOS Procedures: FNA Specimen Adequacy Special Stain Group II Surgery Specimen Level IV Imprint (control) HEADER OPERATION: CT-guided right lung biopsy PRE-OP DIAGNOSIS: Mass TISSUE SUBMITTED: Right upper lung 20-gauge core x4 MICROSCOPIC DIAGNOSIS Right upper lung mass, CT-guided core biopsy: Non-small cell carcinoma, favor adenocarcinoma, consistent with lung primary. See comment. JACQUES:patricia 08/12/2020 COMMENT The specimen is evaluated at the time of biopsy by Dr. Loya. Immediate Evaluation = Atypical cells noted. Immunohistochemistry ([id number]) supports the above diagnosis. Molecular studies on the tumor can be performed if clinically indicated. Please notify the laboratory if they are needed. Please make reference to previous specimen ([id number]) liver mass, CT-guided core biopsy with diagnosis of metastatic poorly differentiated non-small cell carcinoma, favor adenocarcinoma. Case has been reviewed in consultation with Dr. Chrsitina who concurs with the above diagnosis. IDC:AM MICROSCOPIC DESCRIPTION Slides are reviewed. GROSS DESCRIPTION Received in fixative is one container labeled with the patient's name and designated right upper lung. The specimen consists of multiple irregular fragments of dominguez soft tissue that in aggregate measure 1 x 0.1 x 0.1 cm. The specimen is totally submitted in one cassette. Two touch imprints are prepared at the time of core biopsy. / JACQUES:patricia 1/12/21 TC:0 CPT: 12111, 15679 ADDENDUM ADDENDUM ADDENDUM ADDENDUM ADDENDUM ADDENDUM ADDENDUM ADDENDUM ADDENDUM ADDENDUM ADDENDUM ADDENDUM ADDENDUM 09/08/2020 10:39 ADDENDUM 09/08/2020 10:39 ADDENDUM 09/08/2020 10:39 ADDENDUM 09/08/2020 10:39 ADDENDUM 09/08/2020 10:39 [facility] GENE FUSION PANEL FROM [place] INTERPRETATION: NEGATIVE: No pathogenic gene fusions detected involving AKT1, ALK, BENJAMÍN, BRAF, CCND1, EGFR, FGFR1, FGFR2, FGFR3, MET, NRG1, NTRK1, NTRK2, NTRK3, PPARG, RAF1, RET, ROS1 or THADA. RESULTS: Tumor Cellularity: 10-20% PD-L1 (KEYTRUDA) IMMUNOHISTOCHEMICAL ANALYSIS Test canceled due to insufficient tumor cells. Please see complete report in e-chart or EMR
--- NOTE | 2020-08-11 11:55 | RAD_ITS ---
STUDY: X-RAY CHEST REASON FOR EXAM: Male, 70 years old. 2 hrs post lung bx TECHNIQUE: AP inspiration and expiration views. COMPARISON: Comparison is made with prior examination done earlier today. FINDINGS: No evidence of pneumothorax on the delayed postright lung biopsy radiographs. RAD/Chest Insp/Exp 2 View IMPRESSION: No evidence of pneumothorax. Electronically Signed: Wilberto Powell, at 14:00 EST , Service support ,
[2020-08-11] MEDS: 0.9% Saline Lock 10 ML Syringe IV (12:06)
== END ==
PROVIDERS: PCP Family Medicine; Referring Provider Internal Medicine Medical Oncology; Visit Provider Internal Medicine Medical Oncology
DX: Z01.818 Encounter for other preprocedural examination (principal); C34.92 Malignant neoplasm of unspecified part of left bronchus or lung; Z87.891 Personal history of nicotine dependence
CPT/HCPCS: 32408; 36415; 71046; 77012; 85025; 85610; 85730; 88172; 88305; 88313; 88341; 88342; 99155; 99156; 99157; J7040; A4216

== ENCOUNTER → 2020-09-22 08:07 | Outpatient (CLI) | payer MEDICARE, SELFPAY ==
[2020-09-14 10:01] VITALS: BMI 28.2
--- NOTE | 2020-09-22 08:07 | CT_ITS ---
STUDY: CT CHEST WITH CONTRAST REASON FOR EXAM: Male, 70 years old. Lung cancer follow up, currently getting infusions, lung biopsy 07/2020, [facility]. RADIATION DOSAGE (If Supplied By Facility): CTDIvol = ( 13.01 ) mGy, DLP = ( 496.53 ) mGycm TECHNIQUE: Transaxial imaging was performed following intravenous administration of IV 100mL Isovue-300. Multiplanar coronal and sagittal images were reformatted. Individualized dose optimization techniques were used for this CT. COMPARISON: Comparison is made with prior examination dated 07/09/2020. FINDINGS: A right-sided portacatheter is seen with the tip in the superior vena cava. Mild degree of emphysematous changes in the upper lobes. Since prior study, there has been mild increased size of the irregular spiculated nodule in the posterior aspect of the right upper lobe as seen on axial image #42 and coronal image #164. It presently measures 1.7 cm x 1.8 cm by 2.3 cm. There has been a slight increase in size of the spiculated nodule in the posterior medial aspect of the left upper lobe abutting the major fissure. This is seen on axial image #60 and coronal image #142. It presently measures 1 cm x 0.8 cm. There are calcifications of the coronary arteries. Normal mediastinum. Normal hilar regions. Normal enhanced pulmonary arteries. Normal aorta arch and descending thoracic aorta. There are degenerative changes of the thoracic spine. There is a 2 cm x 2.2 cm enhancing nodule in the inferior aspect of the right lobe of the liver. CT/Chest WITH Contrast IMPRESSION: Slight increase in size of the previously seen nodule in the right upper lobe as well as in the posterior aspect of the left upper lobe. Electronically Signed: Wilberto Powell MD at 9:57 EST , Service support ,
[2020-09-22] MEDS: 0.9% Saline Lock 10 ML Syringe IV (08:25)
== END ==
PROVIDERS: PCP Family Medicine; Referring Provider Internal Medicine Medical Oncology; Visit Provider Internal Medicine Medical Oncology
DX: C34.12 Malignant neoplasm of upper lobe, left bronchus or lung (principal)
CPT/HCPCS: 71260; Q9967; A4216

== ENCOUNTER → 2020-11-11 09:58 | Outpatient (CLI) | payer MEDICARE, SELFPAY ==
[2020-11-02 09:48] VITALS: BMI 27.5
--- NOTE | 2020-11-11 09:59 | ECHODONC_ITS ---
Version 2 Reason For Study: Valve Evaluation Procedure This was a 2D Doppler, Color Flow transthoracic echocardiogram. Myocardial strain analysis was performed in this exam to aid in the assessment of cardiac function. Exam performed in department. Left Ventricle Normal LV size. Moderate concentric left ventricular hypertrophy. The estimated ejection fraction is 50 %. Stage 1 diastolic dysfunction. No regional wall motion abnormalities noted. Right Ventricle Normal RV size. Normal systolic function. Atria Normal left atrium. Normal right atrium. Mitral Valve Normal mitral valve. Tricuspid Valve Normal tricuspid valve. Mild to moderate (1-2+) tricuspid valve insufficiency. Pulmonary artery systolic pressure is 53 mmHg. Aortic Valve Trisinus/trileaflet aortic valve. Severe focal aortic valve calcification. Peak aortic valve gradient 65 mmHg. Mean aortic valve gradient 42 mmHg. Severe aortic stenosis. Pulmonic Valve Normal pulmonic valve. Great Vessels Normal aortic root. The pulmonary artery is normal size. Normal inferior vena cava. Pericardium/Pleural No pericardial effusion. MMode/2D Measurements & Calculations LVIDd: 4.4 cm IVSd: 1.8 cm LVOT diam: 2.0 cm LVIDs: 3.2 cm LVPWd: 1.3 cm LVOT area: 3.0 cm2 FS: 28.7 % Ao root diam: 4.1 cm LAV(MOD-bp): 41.8 ml LA A4 area: 14.7 cm2 LA dimension: 3.8 cm LAV(MOD-bp) Indexed: 21.1 ml/m2 LAV(MOD-sp2): 47.6 ml LAV(MOD-sp4): 38.1 ml RA A4 area: 13.2 cm2 Time Measurements MV dec time: 0.31 sec Doppler Measurements & Calculations MV E max ryan: 45.0 cm/sec Lat Peak E' Ryan: 5.8 cm/sec Med Peak E' Ryan: 4.3 cm/sec MV A max ryan: 80.2 cm/sec E/E' lat: 7.7 E/E' med: 10.6 MV E/A: 0.56 MV V2 max: 85.4 cm/sec MV P1/2t max ryan: 52.4 cm/sec Ao V2 max: 403.5 cm/sec MV max P.9 mmHg MV P1/2t: 104.3 msec Ao max P.1 mmHg MV V2 mean: 42.7 cm/sec MV dec slope: 147.2 cm/sec2 Ao V2 mean: 308.5 cm/sec MV mean P.88 mmHg Ao mean P.0 mmHg MV V2 VTI: 21.4 cm MVA(P1/2t): 2.1 cm2 Ao V2 VTI: 103.5 cm MVA(VTI): 2.9 cm2 SAYDA(I,D): 0.60 cm2 SAYDA(V,D): 0.60 cm2 LV V1 max: 79.5 cm/sec SV(LVOT): 62.6 ml PA V2 max: 94.4 cm/sec LV V1 max P.5 mmHg LV V1 mean P.4 mmHg LV V1 mean: 55.3 cm/sec LV V1 VTI: 20.7 cm TR max ryan: 352.7 cm/sec TR max P.7 mmHg ECHO/ONC Echo Complete Interpretation Summary Normal LV size. The estimated ejection fraction is 50 %. Trisinus/trileaflet aortic valve. Severe focal aortic valve calcification. Moderate concentric left ventricular hypertrophy. Stage 1 diastolic dysfunction. Severe aortic stenosis. Mean aortic valve gradient 42 mmHg. Compared to the previous the aortic valve gradient is minimally worse. The ejec tion fraction is the same. The global longitudinal strain is moderately abnormal. The global longitu dinal strain = -13.4% (abnormal). Ordering Physician: Ryan Benson Referring Physician: Ryan Benson Performed By: Crow Fry RCS
== END ==
PROVIDERS: PCP Family Medicine; Referring Provider Internal Medicine Cardiovascular Disease; Visit Provider Internal Medicine Cardiovascular Disease
DX: I35.0 Nonrheumatic aortic (valve) stenosis (principal); C34.90 Malignant neoplasm of unspecified part of unspecified bronchus or lung; C80.0 Disseminated malignant neoplasm, unspecified; E78.5 Hyperlipidemia, unspecified; I10 Essential (primary) hypertension; I25.10 Atherosclerotic heart disease of native coronary artery without angina pectoris; I44.7 Left bundle-branch block, unspecified
CPT/HCPCS: 93306; 93356

== ENCOUNTER → 2020-11-18 08:25 | Outpatient (CLI) | payer MEDICARE, SELFPAY ==
[2020-11-02 09:48] VITALS: BMI 27.5
--- NOTE | 2020-11-18 08:29 | CT_ITS ---
STUDY: CT ABDOMEN WITH CONTRAST REASON FOR EXAM: Male, 70 years old. ASSESS TREATMENT RESPONCE-LUNG CANCER RADIATION DOSAGE (If Supplied By Facility): CTDIvol = ( 13.46 ) mGy, DLP = ( 885.46 ) mGycm TECHNIQUE: Transaxial images were obtained post I.V. administration of IV 100mL Isovue-300, and without oral contrast. Sagittal and coronal images were reconstructed. Individualized dose optimization techniques were used for this CT. COMPARISON: None. FINDINGS: The visualized lung bases are unremarkable. The visualized portions of the heart are within normal limits. There is a 1.3 cm right hepatic nodule, slightly smaller than on previous study. A relatively stable 9 mm left hepatic nodule is also noted. Normal gallbladder and extrahepatic biliary system. Normal spleen. Normal pancreas. Normal bilateral adrenal glands. Normal right kidney. Dilated pelvicalyceal system or parapelvic cysts of the left kidney. Normal visualized stomach. Normal visualized small intestine and colon. The appendix is visualized and appears normal. Calcified abdominal aorta. Normal inferior vena cava. Normal retroperitoneum. Normal abdominal wall. Degenerative vertebral changes. Grade 1 spondylolisthesis at L5-S1. Mild compression of L2. CT/Abdomen WITH IV Contrast IMPRESSION: Slightly smaller right hepatic nodule. Stable left hepatic nodule. Electronically Signed: Sal Apodaca DO at 22:48 EDT Tel [phone], Service support ,
--- NOTE | 2020-11-18 08:29 | CT_ITS ---
STUDY: CT CHEST WITH CONTRAST REASON FOR EXAM: Male, 70 years old. ASSESS TREATMENT RESPONCE-LUNG CANCER RADIATION DOSAGE (If Supplied By Facility): CTDIvol = ( 13.46 ) mGy, DLP = ( 885.46 ) mGycm TECHNIQUE: Transaxial imaging was performed following intravenous administration of IV 100mL Isovue-300. Individualized dose optimization techniques were used for this CT. COMPARISON: None. FINDINGS: The lungs are expanded. A speculated right upper lobe 1.3 x 1.9 x 1.4 cm nodule is noted, minimally smaller than on previous study. A spiculated left upper lobe nodule along the major fissure appears stable measuring approximately 9 x 10 mm since the previous study. Normal heart and pericardium. Normal mediastinum. Normal hilar regions. Normal enhanced pulmonary arteries. Normal aorta arch and descending thoracic aorta. Normal osseous structures. CT/Chest WITH Contrast IMPRESSION: Minimally smaller right upper lobe spiculated nodule since the previous study.. Stable left upper lobe nodule. Electronically Signed: Sal Apodaca DO at 23:47 EDT Tel [phone], Service support ,
[2020-11-18] MEDS: 0.9% Saline Lock 10 ML Syringe IV (09:21)
== END ==
PROVIDERS: PCP Family Medicine; Referring Provider Internal Medicine Medical Oncology; Visit Provider Internal Medicine Medical Oncology
DX: C34.12 Malignant neoplasm of upper lobe, left bronchus or lung (principal); C78.7 Secondary malignant neoplasm of liver and intrahepatic bile duct
CPT/HCPCS: 71260; 74160; Q9967; A4216

== ENCOUNTER → 2021-01-18 08:08 | Outpatient (CLI) | payer MEDICARE, SELFPAY ==
[2020-12-21 09:53] VITALS: BMI 28.5
[2021-01-11 09:35] VITALS: BMI 28.1
--- NOTE | 2021-01-18 08:13 | CT_ITS ---
STUDY: CT CHEST T ABDOMEN WITH CONTRAST REASON FOR EXAM: Male, 70 years old. Assess treatment response RADIATION DOSAGE (If Supplied By Facility): CTDIvol = ( 14.83 ) mGy, DLP = ( 1010.08 ) mGycm TECHNIQUE: Transaxial imaging was performed following intravenous administration of IV 100mL Isovue-300. Individualized dose optimization techniques were used for this CT. COMPARISON: 11/18/2020 FINDINGS: CHEST The previously described spiculated lesion in the right upper lobe is still noted without significant change so is the spiculated lesion in the left midlung field that showed no evidence of any change as well. Otherwise no evidence of consolidation or atelectasis in either lung rodrigez. No pleural effusion or pneumothorax. The cardiac silhouette is not enlarged. ABDOMEN The liver is not enlarged but the previously described enhancing lesion in the right lobe measures 2 cm and within the left lobe that measures 1.5 cm felt to represent hemangiomas these did not change significantly since the previous examination. The gallbladder is unremarkable. The pancreas is within normal limits. The spleen is not enlarged. The adrenal glands and both kidneys are normal in size, shape and position no hydronephrosis on the right but there is a fullness of the collecting system and renal pelvis on the left. Calcified atheromas is noted within the abdominal aorta. The IVC is unremarkable. There are a few small para-aortic lymphadenopathy. Minimal diverticulosis present but no diverticulitis. The appendix is visualized. The pelvis is not included in the study Hypertrophic degenerative changes involving the lumbar spine with loss of volume involving L2 Minimal slippage noted of L5 on S1 with tiny calcified disc at this. CT/CT Chest AND Abd W/ Contrast IMPRESSION: No significant change in the spiculated lesions involving both right and left lung rodrigez. No significant change in the enhancing lesions involving the right and left lobe of the liver which are felt to represent hemangiomas. Electronically Signed: Damion Morales, at 12:40 EDT Tel , Service support ,
[2021-01-18] MEDS: 0.9% Saline Lock 10 ML Syringe IV (08:35)
== END ==
PROVIDERS: PCP Family Medicine; Referring Provider Nurse Practitioner Family; Visit Provider Nurse Practitioner Family
DX: C34.90 Malignant neoplasm of unspecified part of unspecified bronchus or lung (principal)
CPT/HCPCS: 71260; 74160; Q9967; A4216

== ENCOUNTER → 2021-02-09 08:49 | Outpatient (CLI) | payer MEDICARE, SELFPAY ==
[2021-02-02 10:36] VITALS: BMI 28.2
[2021-02-09] VITALS (13 sets, daily range): BP systolic 127–172; BP diastolic 51–98; PULSE 60–78; RESP 10–22; TEMP 36.7; O2SAT 92–99; BMI 28.1
--- NOTE | 2021-02-09 | ASPIGT_PTH ---
PATIENT: SYL MENDEZ LOC: [place] U#:[id number] AGE/SX: 74/M ROOM: RE02/09/[address]: Dr. Morris Morejon MD : 1950 BED: DIS: SPEC #: [id number] RECD: 02/09/21 11:22 STATUS: YUMIKO ANGELA #: [id number] PONCHO: 02/09/21 00:[address]: Morris Morejon DEPT: SURGICAL PATHOLOGY RECD BY: Adina Quiroz ENTERED: 02/09/21 11:23 SP TYPE: ASP RAD OTHR DR: Dr. Rosemary Warren DO Tissues: Lung, NOS Procedures: FNA Specimen Adequacy Special Stain Group II Surgery Specimen Level IV Imprint (control) HEADER OPERATION: Right lung, CT-guided biopsy PRE-OP DIAGNOSIS: Right lung nodule TISSUE SUBMITTED: Right lung nodule, 20-gauge x4 MICROSCOPIC DIAGNOSIS Right lung mass, CT-guided biopsy: Adenocarcinoma consistent with lung primary. See comment. AM:patricia 02/10/2021 COMMENT The specimen is evaluated at the time of biopsy by Dr. Christina. Immediate Evaluation = Non-small cell carcinoma, adenocarcinoma. Immunohistochemistry ([id number]) supports the above diagnosis. Block has been submitted for PD-L1 study. Reference is made to the patient's previous right upper lobe lung mass, CT-guided biopsy ([id number]) in which non-small cell carcinoma, favor adenocarcinoma consistent with lung primary was identified. Case has been reviewed in consultation with Dr. Loya who concurs with the above diagnosis. IDC:SJ MICROSCOPIC DESCRIPTION Slides are reviewed. GROSS DESCRIPTION Received in fixative is one container labeled with the patient's name and designated right lung. The specimen consists of multiple irregular and elongated fragments of light dominguez soft tissue that in aggregate measure 1 x 0.5 x <0.1 cm. The specimen is totally submitted in one cassette. 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
--- NOTE | 2021-02-09 | IMM_PTH ---
PATIENT: SYL MENDEZ LOC: CT U#:[id number] AGE/SX: 74/M ROOM: RE02/09/[address]: Dr. Morris Morejon MD : 1950 BED: DIS: SPEC #: [id number] RECD: 02/10/21 14:03 STATUS: YUMIKO RERosetta #: [id number] PONCHO: 02/09/21 00:[address]: Morris Morejon DEPT: IMMUNOHISTOCHEMISTRY RECD BY: Ingrid Mueller ENTERED: 02/10/21 14:04 SP TYPE: IMMUNO OTHR DR: Dr. Rosemary Warren DO Tissues: Right lung, NOS Procedures: NAPSIN A (add) CK20 (add) CK7 (add) TTF1 (initial) PHYSICIAN & INSTITUTION [place] [id number] SPECIMEN INFORMATION: Tissue Source: Right lung nodule Clinical Info: Right lung nodule Specimen Number: [id number] CPT code: 99267, 83313 x3 METHODOLOGY: Deparaffinized sections of prefer/formalin-fixed tissue or PAP/DQ stained slides are incubated with monoclonal/polyclonal antibodies/oligonucleotide probes. Localization is made via biotin free immunoperoxidase method. Appropriate controls are performed and reacted as expected. Results on target cell population are indicated in the following table: RESULTS: ANTIBODY / CLONE RESULT TTF-1 (8G7G3/1) positive Napsin A (Rabbit Polyclonal) positive CK7 (OV-TL12/30) positive CK20 (KS20.8) negative These tests were developed and their performance characteristics determined by [facility]. They may not have been cleared or approved by the U.S. Food and Drug Administration. The FDA has determined that such clearance or approval is not necessary. The above immunohistochemical/dualISH markers are ordered and reviewed by the Pathologist. INTERPRETATION: Right lung nodule, CT-guided biopsy: Consistent with adenocarcinoma of lung origin. AM:patricia 02/11/2021
--- NOTE | 2021-02-09 08:09 | RAD_ITS ---
STUDY: X-RAY CHEST REASON FOR EXAM: Male, 70 years old. PNEUMOTHORAX -- 2 hours post lung biopsy TECHNIQUE: AP inspiration and expiration views. COMPARISON: Comparison is made with prior examination done earlier today. FINDINGS: There is a tiny right apical pneumothorax. The patient is asymptomatic. RAD/Chest Insp/Exp 2 View IMPRESSION: Tiny right apical pneumothorax. Electronically Signed: Wilberto Powell MD at 13:24 EDT , Service support ,
--- NOTE | 2021-02-09 08:52 | CT_ITS ---
PROCEDURE: CT GUIDED CORE NEEDLE BIOPSY OF A left upper lobe LUNG LESION INDICATION: Male, 70 years old. RIGHT LUNG NODULE BX PHYSICIAN: Dr. FRANSISCO Bowman CONSENT: Written informed consent was obtained having explained the risks, benefits and alternatives in detail with the patient who accepted the risks and agreed to proceed. Laboratory review and clinical assessment was performed. CONSCIOUS SEDATION PROTOCOL: The Drugs used were: 2 mg Versed, IV., and 50 mcg Fentanyl, IV. The sedation time was: 18 minutes. Conscious sedation was started at 10:31 AM and terminated at 10:49 AM. The conscious sedation protocol was independently monitored. RADIATION DOSAGE (If Supplied By Facility): CTDIvol = ( 18 ) mGy, DLP = ( 363.04 ) mGycm Individualized dose optimization techniques were used for this CT. TECHNIQUE: The patient was placed in the prone position. A noncontrast CT was performed to localize the lesion in the posterior right upper lobe . The skin surface was prepped and draped in a sterile fashion. 1% lidocaine was used for local anesthesia. Using CT guidance, a 20-gauge coaxial biopsy device was advanced to the periphery of the lesion. A total of 4 core specimens were obtained. The specimens were placed in a formalin solution. A post procedure CT demonstrated no adverse sequelae or pneumothorax. The patient tolerated the procedure well without adverse event. A negative biopsy does not exclude malignancy. Further imaging or clinical followup based on patient condition and degree of clinical suspicion for malignancy. Suggest rebiopsy, if biopsy results do not match with clinical scenario. CT/Biopsy/Inj or Needle Placement IMPRESSION: 1. CT directed core needle biopsy of the posterior right upper lobe using CT image guidance with image documentation as described. Pathology results are pending. 2. Conscious Sedation protocol utilized with independent monitoring. Electronically Signed: Wilberto Powell MD at 11:24 EDT , Service support ,
[2021-02-09 09:12] LABS: Absolute Lymphocyte Count 1.39 X10^3/uL (0.83-4.51); Absolute Neutrophil Count 1.7 X10^3/uL (2.0-7.7); Basophil# 0.07 X10^3/uL; Basophil% 1.6 % (0-1); Eosinophil# 0.47 X10^3/uL; Eosinophils% 10.9 % (0-5); Hematocrit 39.9 % (40-54); Lymphocyte # 1.39 X10^3/ul (0.83-4.51); Lymphocyte % 32.2 % (19-41); Mean Corp Hgb Conc 35.1 g/dL (32-36); Mean Corpuscular Hgb 36.6 pg (27.0-32.0); Mean Corpuscular Volume 104.5 fL (80-94); Mean Platelet Vol. 8.7 fl (6.2-12.0); Monocyte% 16.2 % (0-10); NRBC Flagged by Analyzer 0 % (0-5); Neutrophil # 1.69 X10^3/uL (2.7-7.7); Neutrophil % 39.1 % (47-70); Platelet Count 273 K/mm3 (150-450); RBC Distribution Width CV 12.9 % (11.6-14.6); RBC Distribution Width SD 49.9 fl (35.1-43.9); Red Blood Count 3.82 M/mm3 (4.6-6.2); White Blood Count 4.3 K/mm3 (4.4-11.0)
[2021-02-09 09:23] LABS: Prothrombin Time (Protime)PT. 12.7 SECONDS (11.7-14.9)
[2021-02-09 09:27] LABS: Partial Thromboplast Time 32.5 Seconds (24.1-36.2)
[2021-02-09] MEDS: Midazolam 2 MG/2 ML Syringe IV (10:31)
[2021-02-09] MEDS: fentaNYL 100 MCG/2 ML Ampul IV (10:33)
[2021-02-09] MEDS: Lidocaine 2% (20 ml mdv) 20 ML Vial INFILT (10:35)
--- NOTE | 2021-02-09 11:00 | RAD_ITS ---
STUDY: X-RAY CHEST REASON FOR EXAM: Male, 70 years old. PNEUMOTHORAX -- immediately post lung biopsy TECHNIQUE: AP inspiration and expiration views. COMPARISON: Comparison is made with prior study dated 08/11/2020. FINDINGS: Immediate postright lung biopsy radiographs. No evidence of pneumothorax. RAD/Chest Insp/Exp 2 View IMPRESSION: No evidence of pneumothorax on the immediate post right lung biopsy radiographs. Electronically Signed: Wilberto Powell MD at 13:15 EDT , Service support ,
[2021-02-09] MEDS: 0.9% Saline Lock 10 ML Syringe IV (13:14)
--- NOTE | 2021-02-10 13:53 | NURSING ---
Pt reports heaviness and pressure in chest are feeling better than yesterday, took Aleve today.
== END | disposition home or self-care (01) ==
PROVIDERS: Nurse Practitioner Family; PCP Family Medicine; Referring Provider Internal Medicine Medical Oncology; Visit Provider Internal Medicine Medical Oncology
DX: Z01.818 Encounter for other preprocedural examination (principal); C34.92 Malignant neoplasm of unspecified part of left bronchus or lung; R91.1 Solitary pulmonary nodule; Z79.82 Long term (current) use of aspirin
CPT/HCPCS: 32408; 71046; 77012; 85025; 85610; 85730; 88172; 88305; 88313; 88341; 88342; 99156; J7040; A4216

== ENCOUNTER → 2021-02-12 07:55 | Outpatient (CLI) | payer MEDICARE, SELFPAY ==
[2021-02-02 10:36] VITALS: BMI 28.2
[2021-02-09 09:32] VITALS: BMI 28.1
--- NOTE | 2021-02-12 07:55 | MRI_ITS ---
STUDY: MRI BRAIN WITH AND WITHOUT CONTRAST REASON FOR EXAM: Male, 70 years old. LUNG CANCER-HEADACHES TECHNIQUE: Standardized multiplanar fat and water weighted pulse sequences were obtained. IV 17ml Dotarem was administered for the contrast portion of the examination. COMPARISON: April 25 2019 FINDINGS: There are minor scattered white matter age-related/ischemic lytic foci. There is no acute infarct, mass effect, shift or hydrocephalus. There are no metastases. MRI/Brain W/WO Contrast IMPRESSION: 1. No acute findings. 2. No intracranial metastases. 3. Unremarkable brain. Electronically Signed: Vida Crockett MD at 17:42 EDT Tel , Service support ,
[2021-02-12] MEDS: 0.9% Saline Lock 10 ML Syringe IV (09:05)
== END ==
PROVIDERS: PCP Family Medicine; Referring Provider Internal Medicine Medical Oncology; Visit Provider Internal Medicine Medical Oncology
DX: R51.9 Headache, unspecified (principal); C34.90 Malignant neoplasm of unspecified part of unspecified bronchus or lung
CPT/HCPCS: 70553; A9575; A4216

== ENCOUNTER → 2021-05-10 08:20 | Outpatient (CLI) | payer MEDICARE, SELFPAY ==
--- NOTE | 2021-05-10 08:25 | CT_ITS ---
STUDY: CT CHEST WITH CONTRAST REASON FOR EXAM: Male, 70 years old. MONITORING LUNG CANCER RADIATION DOSAGE (If Supplied By Facility): CTDIvol = ( 13.03 ) mGy, DLP = ( 472.40 ) mGycm TECHNIQUE: Transaxial imaging was performed following intravenous administration of 100CC ISOVUE 300. Multiplanar coronal and sagittal images were reformatted. Individualized dose optimization techniques were used for this CT. COMPARISON: Comparison is made with prior study dated 01/18/2021. FINDINGS: A right-sided portacatheter is once again seen with the tip in the superior vena cava. Persistent 1.7 cm x 1.3 cm spiculated nodule in the posterior aspect of the right upper lobe abutting the right major fissure as seen on axial image #41 and coronal image #159. This has increased slightly in size as compared to prior examination. Stable 9 mm nodule in the posterior medial aspect of the left upper lobe abutting the left major fissure. There is no demonstrated pleural abnormality. There are calcifications of the coronary arteries. Normal mediastinum. Normal hilar regions. Normal enhanced pulmonary arteries. Normal aorta arch and descending thoracic aorta. There are multi-level degenerative changes of the thoracic spine. Stable 1.7 cm enhancing nodule in the inferior aspect of the right lobe of the liver as well as a 9 mm enhancing nodule in the anterior aspect of the left lobe of the liver. CT/Chest WITH Contrast IMPRESSION: Slight increase in size of the spiculated nodule in the posterior aspect of the right upper lobe abutting the major fissure. The remainder of the examination is unchanged. Electronically Signed: Wilberto Powell MD at 9:33 EDT , Service support ,
[2021-05-10 08:56] LABS: CREATININE FINGERSTICK 0.6 mg/dL (0.70-1.30); EGFR FINGERSTICK > 60.0000 mL/min (>60)
[2021-05-10] MEDS: 0.9% Saline Lock 10 ML Syringe IV (09:05)
== END ==
PROVIDERS: PCP Family Medicine; Referring Provider Internal Medicine Medical Oncology; Visit Provider Internal Medicine Medical Oncology
DX: Z01.812 Encounter for preprocedural laboratory examination (principal); C34.90 Malignant neoplasm of unspecified part of unspecified bronchus or lung; C34.12 Malignant neoplasm of upper lobe, left bronchus or lung
CPT/HCPCS: 71260; Q9967; A4216

== ENCOUNTER → 2021-07-05 07:12 | Outpatient (CLI) | payer MEDICARE, SELFPAY ==
--- NOTE | 2021-07-05 07:12 | MRI_ITS ---
STUDY: MRI BRAIN WITH AND WITHOUT CONTRAST REASON FOR EXAM: Male, 70 years old. HEADACHES TECHNIQUE: Standardized multiplanar fat and water weighted pulse sequences were obtained. IV Yes YES was administered for the contrast portion of the examination. COMPARISON: 02/12/2021 FINDINGS: Normal size of the ventricles and extra-axial spaces for the patient''s age. There are a limited number of small white matter hyperintensities, distributed throughout the deep white matter tracts of the cerebral hemispheres, consistent with mild chronic white matter ischemic changes. Normal bilateral basal ganglia. Normal thalami. There is no extra-axial fluid accumulation. There is no enhancing intra-axial or extra-axial abnormality. Normal sella turcica, pituitary gland, infundibular stalk, optic chiasm and hypothalamus. Normal tectal plate and pineal gland. Normal midbrain, azam and medulla. Normal cerebellum. MRI/Brain W/WO Contrast IMPRESSION: No acute intracranial abnormality or masses. Mild chronic microvascular ischemic changes. Electronically Signed: Josias Lynch MD at 15:22 EST Tel , Service support ,
[2021-07-05 08:05] LABS: CREATININE FINGERSTICK 0.9 mg/dL (0.70-1.30); EGFR FINGERSTICK > 60.0000 mL/min (>60)
[2021-07-05] MEDS: 0.9% Saline Lock 10 ML Syringe IV (08:40)
== END ==
PROVIDERS: PCP Family Medicine; Referring Provider Internal Medicine Medical Oncology; Visit Provider Internal Medicine Medical Oncology
DX: R51.9 Headache, unspecified (principal); C34.92 Malignant neoplasm of unspecified part of left bronchus or lung
CPT/HCPCS: 70553; A9575; A4216

== ENCOUNTER → 2021-07-19 10:56 | Outpatient (CLI) | payer MEDICARE, SELFPAY ==
--- NOTE | 2021-07-19 10:57 | ECHOD_ITS ---
Reason For Study: HTN Procedure This was a 2D Doppler, Color Flow transthoracic echocardiogram. Exam performed in department. Left Ventricle Normal LV size. Mid cavitary false tendon noted. Moderate concentric left ventricular hypertrophy. Left ventricular systolic function is lower limits of normal. Stage 1 diastolic dysfunction. No regional wall motion abnormalities noted. Right Ventricle Normal RV size. Normal systolic function. Atria Normal left atrium. Normal right atrium. Mitral Valve Normal mitral valve. Mild (1+) eccentric mitral valve insufficiency. Tricuspid Valve Normal tricuspid valve. Aortic Valve Trisinus/trileaflet aortic valve. Moderate focal aortic valve calcification. Peak aortic valve gradient 91 mmHg. Mean aortic valve gradient 55 mmHg. Critical aortic stenosis. Pulmonic Valve Normal pulmonic valve. Great Vessels Normal aortic root. The pulmonary artery is normal size. Normal inferior vena cava. Pericardium/Pleural No pericardial effusion. MMode/2D Measurements & Calculations LVIDd: 4.5 cm IVSd: 1.6 cm LVOT diam: 2.0 cm LVIDs: 3.6 cm LVPWd: 1.3 cm LVOT area: 3.0 cm2 RVDd: 3.0 cm FS: 20.3 % Ao root diam: 3.5 cm LAV(MOD-bp): 55.8 ml LVAd ap4: 35.3 cm2 LAV(MOD-bp) Indexed: 28.0 ml/m2 LVLd ap4: 9.1 cm LAV(MOD-sp2): 58.4 ml EDV(MOD-sp4): 111.1 ml LAV(MOD-sp4): 45.6 ml EDV(sp4-el): 116.6 ml LVAs ap4: 23.0 cm2 LVLs ap4: 8.0 cm ESV(MOD-sp4): 57.5 ml ESV(sp4-el): 55.8 ml EF(MOD-sp4): 48.3 % EF(sp4-el): 52.2 % LVAd ap2: 31.7 cm2 SV(MOD-sp4): 53.7 ml SV(MOD-sp2): 41.1 ml LVLd ap2: 8.6 cm EDV(MOD-sp2): 95.6 ml EDV(sp2-el): 98.9 ml LVAs ap2: 21.0 cm2 LVLs ap2: 7.4 cm ESV(MOD-sp2): 54.5 ml ESV(sp2-el): 50.8 ml EF(MOD-sp2): 43.0 % SV(sp4-el): 60.8 ml LA dimension(2D): 4.4 cm LA A4 area: 15.6 cm2 RA A4 area: 16.6 cm2 Doppler Measurements & Calculations MV E max ryan: 42.2 cm/sec Lat Peak E' Ryan: 4.1 cm/sec Med Peak E' Ryna: 5.5 cm/sec MV A max ryan: 87.5 cm/sec E/E' lat: 10.4 E/E' med: 7.7 MV E/A: 0.48 Ao V2 max: 476.8 cm/sec LV V1 max: 95.8 cm/sec SV(LVOT): 66.0 ml Ao max P.1 mmHg LV V1 max P.7 mmHg Ao V2 mean: 353.9 cm/sec LV V1 mean P.2 mmHg Ao mean P.1 mmHg LV V1 mean: 71.4 cm/sec Ao V2 VTI: 111.6 cm LV V1 VTI: 22.0 cm SAYDA(I,D): 0.59 cm2 SAYDA(V,D): 0.60 cm2 ECHO/Echo Complete Interpretation Summary Left ventricular systolic function is lower limits of normal. Normal LV size. Moderate concentric left ventricular hypertrophy. Stage 1 diastolic dysfunction. Moderate focal aortic valve calcification. Critical aortic stenosis. Mean aortic valve gradient 55 mmHg. The global longitudinal strain is moderately abnormal. The global longitudinal strain = -10.2% (abnormal). Ordering Physician: Ryan Benson Referring Physician: Ryan Benson Performed By: Halina Pickering, RDCS, RVT
== END ==
PROVIDERS: PCP Family Medicine; Referring Provider Internal Medicine Cardiovascular Disease; Visit Provider Internal Medicine Cardiovascular Disease
DX: I44.7 Left bundle-branch block, unspecified (principal); I10 Essential (primary) hypertension
CPT/HCPCS: 93306

== ENCOUNTER → 2021-07-26 11:48 | Outpatient (CLI) | payer MEDICARE, SELFPAY ==
[2021-07-26 12:41] LABS: Absolute Neutrophil Count 2.3 X10^3/uL (2.0-7.7); Basophil# 0.12 X10^3/uL; Basophil% 2.2 % (0-1); Eosinophil# 1.02 X10^3/uL; Eosinophils% 18.3 % (0-5); Hematocrit 39.6 % (40-54); Lymphocyte % 25.2 % (19-41); Mean Corp Hgb Conc 35.4 g/dL (32-36); Mean Corpuscular Hgb 35.2 pg (27.0-32.0); Mean Corpuscular Volume 99.5 fL (80-94); Mean Platelet Vol. 8.7 fl (6.2-12.0); Monocyte# 0.69 X10^3/uL; Monocyte% 12.4 % (0-10); NRBC Flagged by Analyzer 0 % (0-5); Neutrophil # 2.32 X10^3/uL (2.7-7.7); Neutrophil % 41.7 % (47-70); Platelet Count 320 K/mm3 (150-450); RBC Distribution Width CV 11.1 % (11.6-14.6); RBC Distribution Width SD 41.1 fl (35.1-43.9); Red Blood Count 3.98 M/mm3 (4.6-6.2); White Blood Count 5.6 K/mm3 (4.4-11.0)
[2021-07-26 12:58] LABS: AST(SGOT) 22 U/L (15-37); Alanine Aminotransfer ALT/SGPT 30 U/L (16-61); Albumin, Serum 3.4 g/dL (3.2-5.0); Alkaline Phosphatase 66 U/L (45-117); Anion Gap 6 (5-15); BUN 15 mg/dL (7-18); BUN/Creat Ratio 16.8 RATIO (10-20); Bilirubin, Direct 0.24 mg/dL (0.00-0.30); Calcium,Total 9.6 mg/dL (8.5-10.1); Chloride 96 mmol/L (98-107); Creatinine, Serum 0.89 mg/dL (0.70-1.30); EST Glomerular Filtration Rate 89 mL/min (>60); Est Glom Filt Rate - Afr Amer 108 mL/min (>60); Globulin 3.5 g/dL (2.2-4.2); Glucose 105 mg/dL (74-106); Potassium 4.3 mmol/L (3.5-5.1); Protein, Total 6.9 g/dL (6.4-8.2); Sodium Level 132 mmol/L (136-145)
== END ==
PROVIDERS: PCP Family Medicine; Referring Provider Internal Medicine Cardiovascular Disease; Visit Provider Internal Medicine Cardiovascular Disease
DX: I10 Essential (primary) hypertension (principal); E78.00 Pure hypercholesterolemia, unspecified; I25.10 Atherosclerotic heart disease of native coronary artery without angina pectoris; I27.21 Secondary pulmonary arterial hypertension; I35.0 Nonrheumatic aortic (valve) stenosis; I44.7 Left bundle-branch block, unspecified
CPT/HCPCS: 36415; 80048; 80076; 85025; 96523; A4216

== ENCOUNTER 2021-08-02 08:59 | Day surgery (SDC) | payer MEDICARE, SELFPAY ==
[2021-07-29 07:30] VITALS: BMI 29.6
[2021-08-02 09:42] LABS: Anion Gap 5 (5-15); BUN 10 mg/dL (7-18); BUN/Creat Ratio 14.1 RATIO (10-20); Calcium,Total 9.2 mg/dL (8.5-10.1); Chloride 95 mmol/L (98-107); Cholesterol 210 mg/dL (200); Creatinine, Serum 0.71 mg/dL (0.70-1.30); EST Glomerular Filtration Rate 116 mL/min (>60); Est Glom Filt Rate - Afr Amer 140 mL/min (>60); Glucose 92 mg/dL (74-106); High Density Lipoprotein 70 mg/dL; Potassium 4.5 mmol/L (3.5-5.1); Sodium Level 131 mmol/L (136-145); Triglycerides 57 mg/dL; Very Low Density Lipoprotein 11 mg/dL (5-40)
--- NOTE | 2021-08-02 11:05 | CL.D_ITS ---
Patient Name: SYL MENDEZ Study Date: 08/02/2021 Performing: Ryan Benson MD Ht: 68.11 inches 173 cm : 1950 Wt: 194.01 lbs 88 kg Age: 71 Gender: male BSA: 2.02 PROCEDURE(S) PERFORMED DC02-(39310)LHC/COR DC11-(36656)AO ROOT ANGIO WITH HEART CATH CLINICAL PROFILE AND INDICATIONS Indications: Valvular Disease Heart Failure: None Stress/Imaging Stress/Image Study Performed: No CAD Presentations: Symptom unlikely to be ischemic. CONCLUSIONS Non obstructive coronary arteries RECOMMENDATIONS TAVR consideration. DESCRIPTION OF PROCEDURE The patient arrived to the procedure lab. The risks and benefits of the procedure as well as a full d escription of our services here and current unavailability of surgical backup were fully explained to the patient and/or their significant other prior to the catheterization. The Timeout was completed, verifying the correct patient and procedure. The patient's procedural site was prepped and draped in the usual fashion. Local anesthetic was given subcutaneously to right radial region with Lidocaine 2% . Using a modified Seldinger technique, arterial access was obtained via the right radial artery, a 6 Fr sheath was inserted. Right Coronary Artery selective angiography was then performed in multiple v iews using a 5 Fr. 4.0 Stillmore catheter. Left Coronary Artery selective angiography was performed in mu ltiple views using a 5 Fr. 4.0 Stillmore catheter. Left Coronary Artery selective angiography was perform ed in multiple views using a 5 Fr. JL4 catheter.The arterial sheath was pulled and a TR Band was applied for hemostasis CORONARY ANGIOGRAPHY DOMINANCE: Right Dominant LEFT HEART ASSESSMENT Left Ventricular Ejection Fraction: by Echo 65 % Normal LV wall motion Normal Left Ventricular systolic function LEFT MAIN: Mild calcification, Mild luminal irregularities LEFT ANTERIOR DESCENDING ARTERY: Moderate calcification, Mild luminal irregularities CIRCUMFLEX ARTERY: Mild luminal irregularities less than 30% RIGHT CORONARY ARTERY: No significant disease noted VALVE FINDINGS: Aortic Valve Calcification - severe Aortic Valve Insufficiency: Grade 2 Aortic Valve Stenosis - severe AORTIC ROOT: Dilated COMPLICATIONS No Complications PROCEDURE MEDICATIONS Fentanyl 50 mcg IV Versed 1 mg IV Versed 1 mg IV Oxygen: 2 L/min via nasal cannula Heparin given IA 08/02/2021 10:35:39 SUMMARY OF HEMODYNAMIC DATA Time AIR REST ECG 09:28:07 ECG 09:28:45 Art 123/48 (75) 10:23:17 AO 122/49 (77) SA 10:36:42 AO 122/54 (80) 10:36:55 RM AIR REST 11:00:05 Signed By Ryan Benson MD On 08/02/2021 11:04:01 AM Ryan Benson MD
== END 2021-08-02 23:59 | disposition home or self-care (01) ==
LOC: CLSP 09:00
PROVIDERS: PCP Family Medicine; Visit Provider Internal Medicine Cardiovascular Disease
DX: I35.2 Nonrheumatic aortic (valve) stenosis with insufficiency (principal); C34.90 Malignant neoplasm of unspecified part of unspecified bronchus or lung; J44.9 Chronic obstructive pulmonary disease, unspecified; I27.21 Secondary pulmonary arterial hypertension; I25.10 Atherosclerotic heart disease of native coronary artery without angina pectoris; I10 Essential (primary) hypertension; E78.5 Hyperlipidemia, unspecified; Z79.899 Other long term (current) drug therapy; M19.90 Unspecified osteoarthritis, unspecified site; Z96.651 Presence of right artificial knee joint; Z87.891 Personal history of nicotine dependence
CPT/HCPCS: 36415; 80048; 80061; 93454; 93567; 99152; 99153; J7040; Q9967; C1769; C1894

== ENCOUNTER 2021-09-17 09:33 | Outpatient (CLI) | payer MEDICARE, SELFPAY | END 2021-09-17 23:59 | disposition home or self-care (01) | LOC: PSN 09:33 | PROVIDERS: PCP Family Medicine; Referring Provider Internal Medicine Cardiovascular Disease; Visit Provider Internal Medicine Cardiovascular Disease | DX: R00.2 Palpitations (principal); I35.2 Nonrheumatic aortic (valve) stenosis with insufficiency; I25.10 Atherosclerotic heart disease of native coronary artery without angina pectoris; Z95.2 Presence of prosthetic heart valve | CPT/HCPCS: 93225; 93226 ==

== ENCOUNTER 2021-10-29 10:01 | Outpatient (CLI) | payer MEDICARE, SELFPAY ==
--- NOTE | 2021-10-29 10:04 | ECHOD_ITS ---
Reason For Study: S/P TAVR Procedure This was a 2D Doppler, Color Flow transthoracic echocardiogram. Exam performed in department. Left Ventricle Normal LV size. Mild concentric left ventricular hypertrophy. Left ventricular systolic function is normal. Stage 1 diastolic dysfunction. The estimated ejection fraction is 60 %. No regional wall motion abnormalities noted. Right Ventricle Normal RV size. Normal systolic function. Atria Normal left atrium. Normal right atrium. Mitral Valve Normal mitral valve. Trivial mitral valve insufficiency. Tricuspid Valve Normal tricuspid valve. Mild (1+) tricuspid valve insufficiency. Pulmonary artery systolic pressure is 33 mmHg. Aortic Valve Peak aortic valve gradient 27 mmHg. Mean aortic valve gradient 16 mmHg. Stable appearing bioprosthetic aortic valve apparatus. Pulmonic Valve Normal pulmonic valve. Great Vessels Mildly dilated aortic root. The pulmonary artery is normal size. Normal inferior vena cava. Pericardium/Pleural No pericardial effusion. MMode/2D Measurements & Calculations LVIDd: 4.5 cm IVSd: 1.3 cm LVOT diam: 2.0 cm RVDd: 3.5 cm LVPWd: 1.2 cm LVOT area: 3.1 cm2 Ao root diam: 4.4 cm LAV(MOD-bp): 46.7 ml LVAd ap4: 33.3 cm2 LAV(MOD-bp) Indexed: 23.3 ml/m2 LVLd ap4: 9.3 cm LAV(MOD-sp2): 49.9 ml EDV(MOD-sp4): 98.7 ml LAV(MOD-sp4): 42.7 ml EDV(sp4-el): 101.4 ml LVAs ap4: 20.2 cm2 LVLs ap4: 7.7 cm ESV(MOD-sp4): 47.8 ml ESV(sp4-el): 45.3 ml EF(MOD-sp4): 51.6 % EF(sp4-el): 55.3 % SV(MOD-sp4): 50.9 ml SV(sp4-el): 56.0 ml LA A4 area: 16.0 cm2 LA dimension(2D): 4.2 cm RA A4 area: 14.0 cm2 Doppler Measurements & Calculations MV E max ryan: 82.6 cm/sec Lat Peak E' Ryan: 8.7 cm/sec Med Peak E' Ryan: 5.5 cm/sec MV A max ryan: 119.8 cm/sec E/E' lat: 9.5 E/E' med: 15.1 MV E/A: 0.69 Ao V2 max: 263.2 cm/sec LV V1 max: 105.3 cm/sec SV(LVOT): 66.3 ml Ao max P.7 mmHg LV V1 max P.4 mmHg Ao V2 mean: 192.4 cm/sec LV V1 mean P.6 mmHg Ao mean P.0 mmHg LV V1 mean: 77.1 cm/sec Ao V2 VTI: 53.8 cm LV V1 VTI: 21.6 cm SAYDA(I,D): 1.2 cm2 SAYDA(V,D): 1.2 cm2 PA V2 max: 133.7 cm/sec TR max ryan: 273.4 cm/sec TR max P.0 mmHg ECHO/Echo Complete Interpretation Summary Normal LV size. Left ventricular systolic function is normal. Trivial mitral valve insufficiency. Stable appearing bioprosthetic aortic valve apparatus. Stage 1 diastolic dysfunction. Compared to the previous echo there has been an interval replacement of his aor tic valve which is well-functioning. Mild concentric left ventricular hypertrophy. The global longitudinal strain is borderline abnormal. The global longitudinal strain = -16.5% (abnormal). Ordering Physician: Ryan Benson Referring Physician: DAPHNE CURRAN Performed By: Aga Trujillo, RDCS, RVT
== END 2021-10-29 23:59 | disposition home or self-care (01) ==
LOC: CVS 10:02
PROVIDERS: PCP Family Medicine; Referring Provider Internal Medicine Cardiovascular Disease; Visit Provider Internal Medicine Cardiovascular Disease
DX: I35.2 Nonrheumatic aortic (valve) stenosis with insufficiency (principal); I27.21 Secondary pulmonary arterial hypertension; I25.10 Atherosclerotic heart disease of native coronary artery without angina pectoris; Z95.2 Presence of prosthetic heart valve
CPT/HCPCS: 93306

== ENCOUNTER → 2022-01-13 | Outpatient (CLI) | payer MEDICARE, SELFPAY ==
--- NOTE | 2022-01-13 13:55 | CT_ITS ---
STUDY: CT CHEST T ABDOMEN WITH CONTRAST REASON FOR EXAM: Male, 71 years old. MONITORING LUNG CANCER. New onset of cough. RADIATION DOSAGE (If Supplied By Facility): CTDIvol = ( 12.98 ) mGy, DLP = ( 799.77 ) mGycm TECHNIQUE: Transaxial imaging was performed following intravenous administration of 100 CC ISOVUE 300 . Multiplanar coronal and sagittal images were reformatted. Individualized dose optimization techniques were used for this CT. COMPARISON: Comparison is made with prior study dated 05/10/2021. FINDINGS: A right-sided portacatheter is seen with the tip in the superior vena cava. CHEST There is a new small to moderate size right pleural effusion as compared to prior study. The previously seen mass lesion in the right upper lobe has increased in size. It presently measures 3.5 cm x 2 cm. Is also evidence of a new 1.7 cm x 0.8 cm nodule in the anterior aspect of the right middle lobe. There is also evidence of a 2 adjacent nodular density in the medial aspect of the right middle lobe measuring 1.8 cm x 1.2 cm. These are new as compared to prior study. Increased reticular nodular density also seen in the medial aspect of the right middle lobe adjacent to the cardiac border. This measures 2.2 cm x 1.2 cm. Mild degree of atelectasis at the right lung base. Normal heart and pericardium. The patient is status post aortic valve replacement. Coronary calcification. Normal mediastinum. Normal hilar regions. Normal unenhanced pulmonary arteries. There is atherosclerotic calcification of the aortic arch with tortuosity and elongation of the aortic arch and descending thoracic aorta. There are multi-level degenerative changes of the thoracic spine. There is no demonstrated abnormality of the visualized upper abdomen. ABDOMEN Normal liver. Normal gallbladder and extrahepatic biliary system. Normal spleen. Normal pancreas. Normal bilateral adrenal glands. Normal right kidney. Left parapelvic renal cysts. Normal visualized stomach. Normal small intestine. Normal colon. The appendix is visualized and appears normal. There is diffuse atherosclerotic calcification of the abdominal aorta, without a demonstrated aneurysm. Normal inferior vena cava. Normal retroperitoneum. Normal abdominal wall. There are mild degenerative changes of the visualized lumbar spine. 50% loss of height of the superior endplate of the L2 vertebrae. CT/CT Chest AND Abd W/ Contrast IMPRESSION: There is a new small to moderate size right pleural effusion with right basilar atelectasis. Progressive size of the previously seen nodular density in the right upper lobe with new nodular densities in the right lung as described. Electronically Signed: Wilberto Powell MD at 15:04 EDT ,
[2022-01-13 14:25] LABS: CREATININE FINGERSTICK < 0.9 mg/dL (0.70-1.30); EGFR FINGERSTICK > 60.0000 mL/min (>60)
[2022-01-13] MEDS: 0.9% Saline Lock 10 ML Syringe IV (14:32)
== END | disposition home or self-care (01) ==
LOC: CT 13:53
PROVIDERS: PCP Family Medicine; Referring Provider Internal Medicine Medical Oncology; Visit Provider Internal Medicine Medical Oncology
DX: C34.90 Malignant neoplasm of unspecified part of unspecified bronchus or lung (principal); R05.9 Cough, unspecified
CPT/HCPCS: 71260; 74160; Q9967; A4216

== ENCOUNTER → 2022-04-11 | Outpatient (CLI) | payer MEDICARE, SELFPAY ==
--- NOTE | 2022-04-11 12:45 | CT_ITS ---
STUDY: CT CHEST T ABDOMEN WITH CONTRAST REASON FOR EXAM: Male, 71 years old. MONITOR LUNG CA-IV ONLY RADIATION DOSAGE (If Supplied By Facility): CTDIvol = ( 14.08 ) mGy, DLP = ( 1058.79 ) mGycm TECHNIQUE: Transaxial imaging was performed following intravenous administration of IV 100mL Isovue-370. Multiplanar coronal and sagittal images were reformatted. Individualized dose optimization techniques were used for this CT. COMPARISON: Comparison is made with prior study dated 01/13/2022. FINDINGS: CHEST A right-sided portacatheter is in place with the tip in the superior vena cava. There now is evidence of a large right pleural effusion with almost complete collapse of the right lower lobe. There is evidence of a 5.1 cm x 2.7 cm mass in the medial right upper lobe. There is also evidence of a 2.1 cm x 1.8 cm nodule in the medial aspect of the right middle lobe. This is increased in size as compared to prior study. Prior aortic valve replacement. Normal mediastinum. Enlargement of a right hilar lymph node. Normal unenhanced pulmonary arteries. Normal aorta arch and descending thoracic aorta. There are multi-level degenerative changes of the thoracic spine. ABDOMEN Stable 8.2 mm hypodense nodule in the medial aspect of the left lobe of the liver. The previously seen 1.7 cm enhancing nodule in the inferior aspect of the right lobe of the liver is almost completely resolved.. Normal gallbladder and extrahepatic biliary system. Normal spleen. Normal pancreas. Normal bilateral adrenal glands. Normal right kidney. Normal left kidney. Normal visualized stomach. Normal small intestine. Normal colon. The appendix is visualized and appears normal. There is diffuse atherosclerotic calcification of the abdominal aorta, without a demonstrated aneurysm. Normal inferior vena cava. There is borderline retroperitoneal lymphadenopathy with enlarged nodes no greater than 10mm in the short axis diameter. Normal abdominal wall. There are diffuse degenerative changes of the visualized lumbar spine. CT/CT Chest AND Abd W/ Contrast IMPRESSION: Large right pleural effusion with almost complete collapse of the right lower lobe. Enlarging nodules in the right middle lobe and right upper lobe. Electronically Signed: Wilberto Powell MD at 10:35 EDT ,
[2022-04-11] MEDS: 0.9% Saline Lock 10 ML Syringe IV (13:10)
== END | disposition home or self-care (01) ==
LOC: CT 12:44
PROVIDERS: PCP Family Medicine; Referring Provider Internal Medicine Medical Oncology; Visit Provider Internal Medicine Medical Oncology
DX: C34.90 Malignant neoplasm of unspecified part of unspecified bronchus or lung (principal)
CPT/HCPCS: 71260; 74160; Q9967; A4216

== ENCOUNTER → 2022-04-13 | Outpatient (CLI) | payer MEDICARE, SELFPAY ==
--- NOTE | 2022-04-13 | IMM_PTH ---
PATIENT: SYL MENDEZ LOC: U#:[id number] AGE/SX: 71/M ROOM: RE04/13/[address]: Dr. oMrris Morejon MD : 1950 BED: DIS: 04/13/2022 SPEC #: [id number] RECD: 04/15/22 13:31 STATUS: YUMIKO REQ #: [id number] PONCHO: 04/13/22 00:[address]: Morris Morejon DEPT: IMMUNOHISTOCHEMISTRY RECD BY: Ingrid Mueller ENTERED: 04/15/22 13:33 SP TYPE: IMMUNO OTHR DR: Dr. Rosemary Warren, DO Tissues: THORACIC FLUID Procedures: RCC (add) NAPSIN A (add) Yaakov Ret (add) CK20 (add) CK5-6 (add) CK7 (add) CK8 (add) HEP PAR (add) HER2 HOOD (add) MACRO (add) TTF1 (add) Vimentin (add) Pankeratin (initial) P40 (add) PSAP (add) PHYSICIAN & [address] [address] SPECIMEN INFORMATION: Tissue Source: Thoracentesis fluid Clinical Info: Right pleural effusion Specimen Number: [id number] CPT code: 00420, 47591 x14 METHODOLOGY: Deparaffinized sections of prefer/formalin-fixed tissue or PAP/DQ stained slides are incubated with monoclonal/polyclonal antibodies/oligonucleotide probes. Localization is made via biotin free immunoperoxidase method. Appropriate controls are performed and reacted as expected. Results on target cell population are indicated in the following table: RESULTS: ANTIBODY / CLONE RESULT AE1-3 (AE1/AE3/PCK26) positive CK7 (OV-TL12/30) positive CK8 (00mfupJ98) positive CK20 (KS20.8) negative Vimentin (V9) negative Macro (HAM-56) negative TTF-1 (8G7G3/1) negative Napsin A (Rabbit Polyclonal) positive HepPar (OCh1E5) positive RCC (PN-15) negative PSAP (PASE/4LJ) negative CALRET (polyclonal) negative CK5-6 (D5 & 1684) negative P40 (BC28) negative These tests were developed and their performance characteristics determined by [facility]. They may not have been cleared or approved by the U.S. Food and Drug Administration. The FDA has determined that such clearance or approval is not necessary. The above immunohistochemical/dualISH markers are ordered and reviewed by the Pathologist. INTERPRETATION: Thoracentesis fluid (cell block): Malignant cells present derived from non-small cell carcinoma, favor adenocarcinoma. See comment. SJ:rg 04/18/2022 Comment: IHC profile is compatible with clinical impression of lung primary. Case has been reviewed in consultation with Dr. Christina who concurs with the above diagnosis. IDC:AM ADDENDUM ADDENDUM ADDENDUM ADDENDUM ADDENDUM ADDENDUM ADDENDUM ADDENDUM ADDENDUM ADDENDUM ADDENDUM 05/17/2022 13:09 ADDENDUM 05/17/2022 13:09 ADDENDUM 05/17/2022 13:09 ADDENDUM 05/17/2022 13:09 ADDENDUM 05/17/2022 13:09 ANTIBODY / CLONE RESULT Her-2neu (CB11) negative (0) The above immunohistochemical/dualISH marker is ordered by Dr. Morejon and reviewed by the pathologist. SJ:patricia 05/17/2022 Case has been reviewed in consultation with Dr. Christina who concurs with the above diagnosis. IDC:AM
--- NOTE | 2022-04-13 | FLU_PTH ---
PATIENT: SYL MENDEZ LOC: U#:[id number] AGE/SX: 71/M ROOM: RE04/13/[address]: Dr. Morris Morejon MD : 1950 BED: DIS: 04/13/2022 SPEC #: [id number] RECD: 04/13/22 14:39 STATUS: YUMIKO RERosetta #: [id number] PONCHO: 04/13/22 00:[address]: Morris Morejon DEPT: CYTOLOGY RECD BY: Dasia Singer ENTERED: 04/14/22 08:00 SP TYPE: Fluid OTHR DR: Dr. Rosemary Warren, DO Tissues: THORACIC FLUID Procedures: Special Stain Group II Surgery Specimen Level IV Cytospin Fluid HEADER OPERATION: Ultrasound-guided thoracentesis right PRE-OP DIAGNOSIS: Right pleural effusion TISSUE SUBMITTED: Thoracentesis fluid for cytology DIAGNOSIS CYTOLOGY Thoracentesis fluid for cytology (cytospin and cell block): Malignant cells present derived from metastatic non-small cell carcinoma, favor adenocarcinoma. See comment. SJ:patricia 04/15/2022 COMMENT Immunohistochemistry ([id number]) supports the above diagnosis. IHC profile is compatible with clinical impression of lung primary Please make reference to previous specimens ([id number]) liver mass, CT-guided core biopsy with diagnosis of ?metastatic poorly differentiated non-small cell carcinoma, favor adenocarcinoma? and (S2198) right upper lung mass, CT-guided core biopsy with diagnosis of ?non-small cell carcinoma, favor adenocarcinoma, consistent with lung primary? and ([id number]) right lung mass, CT-guided biopsy with diagnosis of ?adenocarcinoma, consistent with lung primary.? Case has been reviewed in consultation with Dr. Christina who concurs with the above diagnosis. IDC:AM CYTOLOGY STUDY Slides are reviewed. CYTOLOGY GROSS Received is 100 ml of shwetha cloudy fluid labeled with the patient's name and and designated per the requisition as thoracentesis. Submitted for cytology preparation including cell block. / patricia 04/14/2022 TC:0 CPT: 82405, 53118 ADDENDUM ADDENDUM ADDENDUM ADDENDUM ADDENDUM ADDENDUM ADDENDUM ADDENDUM ADDENDUM ADDENDUM ADDENDUM ADDENDUM ADDENDUM ADDENDUM ADDENDUM ADDENDUM 05/09/2022 09:55 ADDENDUM 05/09/2022 09:55 ADDENDUM 05/09/2022 09:55 ADDENDUM 05/09/2022 09:55 ADDENDUM 05/09/2022 09:55 ONKOSIGHT ADVANCED LUNG CANCER NGS REPORT FROM [employer] RESULT SUMMARY: Normal IMMUNOTHERAPY BIOMARKERS: Tumor Mutation [place]: Low (1.6 Mutations / MB) Microsatellite Instability: MSI Negative PERTINENT NEGATIVE RESULTS: The following genes are NEGATIVE for clinically relevant mutations. Mutational hotspots and surrounding exonic regions were interrogated for DNA level point mutations and indels (fusions not assayed). AKT1, ALK, ATR, BRAF, CHEK1, DDR2, EGFR, ERBB2, ERBB3, FGFR1, KRAS, MAP2K1, MET, NRAS, NTRK1, PIK3CA, POLD1, POLE, ROS1, STK11, TERT, TP53 Please see complete report in e-chart or EMR
--- NOTE | 2022-04-13 13:56 | US_ITS ---
PROCEDURE: ULTRASOUND GUIDED THORACENTESIS. DATE: 04/13/2022. INDICATION: Male, 71 years old. Right pleural effusion. PHYSICIAN: Wilberto Powell M.D. PROCEDURE: The risks, benefits, and alternatives to the procedure were explained to the patient. The specific risks of bleeding, infection, and pneumothorax requiring chest tube insertion were discussed and accepted. Written informed consent was obtained. Ultrasonographic evaluation of the right lower pleural space was carried out. An adequate pocket was identified. The patient was placed in the sitting, upright position. The overlying skin was prepped and draped in sterile fashion. 1% lidocaine was administered subcutaneously for local anesthesia. Under ultrasound guidance, a 5 Colombian thoracentesis needle/catheter system was advanced into the right posterior lower pleural fluid collection. Approximately 1650 mL of shwetha-colored fluid was drained. The catheter was removed, and a sterile dressing was applied. A specimen was collected and sent to the laboratory for analysis, as requested by the referring clinician. The patient tolerated the procedure well. A chest x-ray was ordered. US/Thoracentesis W US IMPRESSION: Ultrasound-guided right thoracentesis. Electronically Signed: Wilberto Powell MD at 15:08 EDT ,
[2022-04-13 14:20] VITALS: BP 150/77; BP 156/87; BP 165/76; BP 169/76; BP 188/85; PULSE 61; PULSE 68; PULSE 70; PULSE 71; RESP 16; RESP 18; TEMP 36.3; O2SAT 96; O2SAT 97; O2SAT 98
[2022-04-13 14:39] LABS: Cytology, Body Fluid / CSF SEE PATHOLOGY REPORT
--- NOTE | 2022-04-13 14:40 | RAD_ITS ---
STUDY: X-RAY CHEST REASON FOR EXAM: Male, 71 years old. Post thoracentesis TECHNIQUE: AP inspiration and expiration views. COMPARISON: Comparison is made with prior study dated 02/09/2021. FINDINGS: A right-sided portacatheter is seen with the tip at the junction of the superior vena cava and right atrium. No evidence of pneumothorax on the posterior right thoracentesis image. Residual pleural parenchymal changes at the right lung base. RAD/Chest Insp/Exp 2 View IMPRESSION: Status post right thoracentesis. No evidence of pneumothorax. Residual pleural parenchymal changes at the right lung base. Electronically Signed: Wilberto Powell MD at 15:05 EDT ,
== END | disposition home or self-care (01) ==
PROVIDERS: PCP Family Medicine; Referring Provider Internal Medicine Medical Oncology; Visit Provider Internal Medicine Medical Oncology
DX: J90 Pleural effusion, not elsewhere classified (principal); C34.92 Malignant neoplasm of unspecified part of left bronchus or lung; C34.11 Malignant neoplasm of upper lobe, right bronchus or lung
CPT/HCPCS: 32555; 36591; 71046; 80053; 83615; 85025; 88108; 88305; 88313; 88341; 88342; A4216

== ENCOUNTER → 2022-04-20 | Outpatient (CLI) | payer MEDICARE, SELFPAY ==
--- NOTE | 2022-04-20 09:00 | US_ITS ---
PROCEDURE: ULTRASOUND GUIDED THORACENTESIS. CLINICAL INDICATION: Right pleural fluid.. PHYSICIAN: Clarence Napier MD MEDICATIONS: 1% lidocaine administered subcutaneously for local anesthesia. ACCESS SITE: Right lower thorax, posterior approach. CATHETER: 5 Togolese thoracentesis needle/catheter system. FLUID: Approximately 1700 mL of straw-colored right pleural fluid removed. COMPLICATIONS: None immediate. The risks, benefits, and alternatives to the procedure and sedation were explained to the patient. The specific risks of bleeding, infection, and pneumothorax requiring chest tube insertion were discussed and accepted. Written informed consent was obtained. PROCEDURE: Ultrasonographic evaluation of the right lower pleural space was carried out. An adequate pocket was identified. The patient was placed in the sitting, upright position. The overlying skin was prepped and draped in sterile fashion. 1% lidocaine was administered subcutaneously for local anesthesia. Under ultrasound guidance, a 5 Togolese thoracentesis needle/catheter system was advanced into the right posterior lower pleural fluid collection. The inner stylet was removed and there was spontaneous flow of pleural fluid. Approximately 1700 mL of fluid was manually aspirated. The catheter was removed. Hemostasis was achieved and a sterile dressing was applied. A specimen was collected and sent to the laboratory for analysis, as requested by the referring clinician. The patient tolerated the procedure well, without immediate complications. A chest x-ray was ordered. US/Thoracentesis W US IMPRESSION: Successful ultrasound-guided right thoracentesis. Electronically Signed: Leonel Napier MD at 15:16 EDT ,
--- NOTE | 2022-04-20 09:10 | RAD_ITS ---
INDICATION: POST THORACENTISIS EXAMINATION/TECHNIQUE: X-RAY - XR Chest 2 Views COMPARISON: 04/13/2022. FINDINGS: LINES/DEVICES: Right chest port visualized with catheter tip in the SVC. LUNGS: Peribronchial cuffing bilateral hilar prominence is seen. Prominence of the bronchovascular interstitial lung markings is visualized bilaterally, large right pleural effusion is seen that demonstrates slight prominence in comparison to the prior study. 2.3 cm soft tissue density/masses visualized in the left upper lung field is suboptimally evaluated due to superimposed the chest port. No evidence of left pleural effusion is seen. No evidence of pneumothorax is seen. MEDIASTINUM AND CARDIOVASCULAR STRUCTURES: Cardiac silhouette not enlarged. Cardiac valvular prosthesis is seen. BONES AND SOFT TISSUES: Unremarkable. RAD/Chest PA and Lateral IMPRESSION: Right pleural fluid demonstrates prominence in comparison to the prior study. 2. 0.3 cm soft tissue density/mass in the left upper lobe is seen. Electronically Signed: Leonel Napier MD at 12:07 EDT ,
[2022-04-20 12:37] VITALS: BP 116/73; BP 122/74; BP 126/78; BP 133/80; BP 141/67; BP 145/81; BP 145/82; BP 158/82; PULSE 76; PULSE 77; PULSE 78; PULSE 80; PULSE 81; PULSE 83; RESP 16; TEMP 36.3; O2SAT 95; O2SAT 96; O2SAT 97
[2022-04-20] MEDS: Lidocaine 2% (10 ml mdv) 10 ML Vial INFILT (12:49)
--- NOTE | 2022-04-20 13:05 | RAD_ITS ---
INDICATION: post thoracentesis EXAMINATION/TECHNIQUE: X-RAY - XR Chest 2 Views COMPARISON: 04/13/2022.. FINDINGS: LINES/DEVICES: Right chest port visualizes catheter tip in the SVC. LUNGS: Right pleural effusion is visualized that demonstrates decrease in comparison to the prior study. No evidence of pneumothorax is seen. Peribronchial cuffing bilateral hilar prominence is seen more prominent in the right hilar region. No evidence of left pleural effusion. MEDIASTINUM AND CARDIOVASCULAR STRUCTURES: Cardiac silhouette is unremarkable in size. BONES AND SOFT TISSUES: Unremarkable. RAD/Chest Insp/Exp 2 View IMPRESSION: Decreased right pleural effusion is seen in comparison to the prior study. No evidence of right pneumothorax is seen. Electronically Signed: Leonel Napier MD at 13:49 EDT ,
== END | disposition home or self-care (01) ==
PROVIDERS: PCP Family Medicine; Referring Provider Internal Medicine Medical Oncology; Visit Provider Internal Medicine Medical Oncology
DX: J90 Pleural effusion, not elsewhere classified (principal); C34.92 Malignant neoplasm of unspecified part of left bronchus or lung; E87.1 Hypo-osmolality and hyponatremia
CPT/HCPCS: 32555; 36591; 71046; 80053; 83615; 83930; 84550; 85025; A4216

== ENCOUNTER → 2022-05-04 | Outpatient (CLI) | payer MEDICARE, SELFPAY ==
--- NOTE | 2022-05-04 | FLU_PTH ---
PATIENT: SYL MENDEZ LOC: U#:[id number] AGE/SX: 71/M ROOM: RE05/04/[address]: Dr. Morris Morejon MD : 1950 BED: DIS: 05/04/2022 SPEC #: [id number] RECD: 05/04/22 13:05 STATUS: YUMIKO ANGELA #: [id number] PONCHO: 05/04/22 00:[address]: Morris Morejon DEPT: CYTOLOGY RECD BY: Dasia Singer ENTERED: 05/04/22 13:27 SP TYPE: Fluid OTHR DR: Dr. Rosemary Warren, DO Tissues: THORACIC FLUID Procedures: Special Stain Group II Mucicarmine Stain (control) Surgery Specimen Level IV Cytospin Fluid HEADER OPERATION: Ultrasound-guided right thoracentesis PRE-OP DIAGNOSIS: Right pleural effusion TISSUE SUBMITTED: Thoracentesis fluid for cytology DIAGNOSIS CYTOLOGY Thoracentesis fluid for cytology (cytospin and cell block): Positive for malignant cells. See comment. AM:patricia 05/05/2022 COMMENT Immunohistochemical profile ([id number]) is consistent with metastatic non-small cell carcinoma. A lung primary is favored. Mucin stain with matched control was used in the evaluation of this case and is positive in tumor cells. Case has been reviewed in consultation with Dr. Loya who concurs with the above diagnosis. IDC:SJ CYTOLOGY STUDY Slides are reviewed. CYTOLOGY GROSS Received is 50 ml of yellow cloudy fluid labeled with the patient's name and and designated per the requisition as thoracentesis. Submitted for cytology preparation including cell block. / patricia 05/04/2022 TC:0 CPT: 00102, 69703, 58231
--- NOTE | 2022-05-04 | IMM_PTH ---
PATIENT: SYL MENDEZ LOC: U#:[id number] AGE/SX: 71/M ROOM: RE05/04/[address]: Dr. Morris Morejon MD : 1950 BED: DIS: 05/04/2022 SPEC #: [id number] RECD: 05/05/22 11:30 STATUS: YUMIKO REQ #: [id number] PONCHO: 05/04/22 00:[address]: Morris Morejon DEPT: IMMUNOHISTOCHEMISTRY RECD BY: Ingrid Mueller ENTERED: 05/05/22 11:33 SP TYPE: IMMUNO OTHR DR: Dr. Rosemary Warren, DO Tissues: THORACIC FLUID Procedures: NAPSIN A (add) CK20 (add) CK7 (add) P53 (add) TTF1 (add) Pankeratin (initial) PSAP (add) S-100 (add) PHYSICIAN & INSTITUTION [place] [address] SPECIMEN INFORMATION: Tissue Source: Thoracentesis fluid Clinical Info: Right pleural effusion Specimen Number: [id number] CPT code: 82796, 32897 x7 METHODOLOGY: Deparaffinized sections of prefer/formalin-fixed tissue or PAP/DQ stained slides are incubated with monoclonal/polyclonal antibodies/oligonucleotide probes. Localization is made via biotin free immunoperoxidase method. Appropriate controls are performed and reacted as expected. Results on target cell population are indicated in the following table: RESULTS: ANTIBODY / CLONE RESULT AE1-3 (AE1/AE3/PCK26) positive CK7 (OV-TL12/30) positive CK20 (KS20.8) negative S-100 (4C4.9) negative TTF-1 (8G7G3/1) negative Napsin A (Rabbit Polyclonal) positive PSAP (PASE/4LJ) negative P53 (DO-7) negative These tests were developed and their performance characteristics determined by [facility]. They may not have been cleared or approved by the U.S. Food and Drug Administration. The FDA has determined that such clearance or approval is not necessary. The above immunohistochemical/dualISH markers are ordered and reviewed by the Pathologist. INTERPRETATION: Thoracentesis fluid (cell block): Metastatic non-small cell carcinoma. See comment. AM:patricia 05/06/2022 Comment: A lung primary is favored.
--- NOTE | 2022-05-04 08:18 | US_ITS ---
PROCEDURE: ULTRASOUND GUIDED THORACENTESIS. DATE: 05/04/2022. INDICATION: Male, 71 years old. Right pleural effusion. PHYSICIAN: Wilberto Powell M.D. PROCEDURE: The risks, benefits, and alternatives to the procedure were explained to the patient. The specific risks of bleeding, infection, and pneumothorax requiring chest tube insertion were discussed and accepted. Written informed consent was obtained. Ultrasonographic evaluation of the right lower pleural space was carried out. An adequate pocket was identified. The patient was placed in the sitting, upright position. The overlying skin was prepped and draped in sterile fashion. 1% lidocaine was administered subcutaneously for local anesthesia. Under ultrasound guidance, a 5 Turkish thoracentesis needle/catheter system was advanced into the right posterior lower pleural fluid collection. Approximately 1550 mL of shwetha-colored fluid was drained. The catheter was removed, and a sterile dressing was applied. A specimen was collected and sent to the laboratory for analysis, as requested by the referring clinician. The patient tolerated the procedure well. A chest x-ray was ordered. US/Thoracentesis W US IMPRESSION: Ultrasound-guided right thoracentesis. Electronically Signed: Wilberto Powell MD at 13:59 EDT ,
--- NOTE | 2022-05-04 09:30 | RAD_ITS ---
STUDY: X-RAY CHEST REASON FOR EXAM: Male, 71 years old. MONITOR PLEURAL EFFUSION TECHNIQUE: PA and lateral views of the chest. COMPARISON: Comparison is made with prior study dated 04/20/2022. FINDINGS: A right-sided portacatheter is seen with the tip at the junction of the superior vena cava and right atrium. Since prior study, there is increasing right pleural effusion with right basilar infiltration and/or atelectasis. Stable soft tissue density in the right midlung. The left lung is clear. There is no demonstrated pleural abnormality. Normal size heart. Normal mediastinum and merlyn. Normal visualized pulmonary arteries. There is atherosclerotic tortuosity of the aortic arch and descending thoracic aorta. There are diffuse degenerative changes of the visualized thoracic spine. Normal visualized ribs, clavicles, and shoulders. There is no demonstrated abnormality of the visualized soft tissue structures of the upper abdomen. RAD/Chest PA and Lateral IMPRESSION: Increasing right pleural effusion with right basilar atelectasis and/or infiltration. Soft tissue density in the right midlung. Electronically Signed: Wilberto Powell MD at 8:46 EDT ,
[2022-05-04 12:40] VITALS: BP 140/71; BP 154/98; BP 158/85; PULSE 71; PULSE 73; PULSE 74; RESP 16; RESP 18; O2SAT 97; O2SAT 98
[2022-05-04] MEDS: Lidocaine 2% (10 ml mdv) 10 ML Vial INFILT (12:40)
--- NOTE | 2022-05-04 12:55 | RAD_ITS ---
STUDY: X-RAY CHEST REASON FOR EXAM: Male, 71 years old. Pneumothorax -- immediately post thoracentesis TECHNIQUE: AP inspiration and expiration views. COMPARISON: Comparison is made with prior study done earlier today. FINDINGS: The patient is status post right thoracentesis. There is no evidence of pneumothorax. Mild degree of residual pleural-parenchymal changes persist at the right lung base. The left lung is clear. RAD/Chest Insp/Exp 2 View IMPRESSION: Status post right thoracentesis. No evidence of pneumothorax. Mild degree of residual pleural parenchymal changes at the right lung base. Electronically Signed: Wilberto Powell MD at 13:09 EDT ,
== END | disposition home or self-care (01) ==
PROVIDERS: PCP Family Medicine; Referring Provider Internal Medicine Medical Oncology; Visit Provider Internal Medicine Medical Oncology
DX: C34.90 Malignant neoplasm of unspecified part of unspecified bronchus or lung (principal); J91.0 Malignant pleural effusion
CPT/HCPCS: 32555; 71046; 88108; 88305; 88313; 88341; 88342

== ENCOUNTER → 2022-05-11 | Outpatient (CLI) | payer MEDICARE, SELFPAY ==
--- NOTE | 2022-05-11 08:52 | RAD_ITS ---
STUDY: X-RAY CHEST REASON FOR EXAM: Male, 71 years old. LUNG CA TECHNIQUE: PA and lateral views of the chest. COMPARISON: Comparison is made with prior examination dated 05/04/2022. FINDINGS: A right-sided yana catheter seen with the tip at the junction of the superior vena cava and right atrium. Persistent pleural-parenchymal changes at the right lung base. The right pleural effusion as increased slightly as compared to prior study. The left lung is clear. Normal size heart. Normal mediastinum and merlyn. Normal visualized pulmonary arteries. There is atherosclerotic calcification of the aortic arch with tortuosity. There are diffuse degenerative changes of the visualized thoracic spine. Normal visualized ribs, clavicles, and shoulders. There is no demonstrated abnormality of the visualized soft tissue structures of the upper abdomen. RAD/Chest PA and Lateral IMPRESSION: Slight increase in the right pleural effusion. Electronically Signed: Wilberto Powell MD at 9:02 EDT ,
== END | disposition home or self-care (01) ==
LOC: US 08:50
PROVIDERS: PCP Family Medicine; Referring Provider Internal Medicine Medical Oncology; Visit Provider Internal Medicine Medical Oncology
DX: C34.90 Malignant neoplasm of unspecified part of unspecified bronchus or lung (principal)
CPT/HCPCS: 71046

== ENCOUNTER → 2022-05-25 | Outpatient (CLI) | payer MEDICARE, SELFPAY ==
--- NOTE | 2022-05-25 | FLU_PTH ---
PATIENT: SYL MENDEZ LOC: [facility]#:[id number] AGE/SX: 71/M ROOM: RE05/25/[address]: Dr. Morris Morejon MD : 1950 BED: DIS: 05/25/2022 SPEC #: [id number] RECD: 05/25/22 15:33 STATUS: YUMIOK RERosetta #: [id number] PONCHO: 05/25/22 00:[address]: Morris Morejon DEPT: CYTOLOGY RECD BY: Vasyl Mayo ENTERED: 05/26/22 08:41 SP TYPE: Fluid OTHR DR: Dr. Rosemary Warren, DO Tissues: THORACIC FLUID Procedures: Special Stain Group II Surgery Specimen Level IV Cytospin Fluid HEADER OPERATION: Ultrasound-guided thoracentesis PRE-OP DIAGNOSIS: Right pleural effusion TISSUE SUBMITTED: Thoracentesis fluid for cytology DIAGNOSIS CYTOLOGY Thoracentesis fluid for cytology (cytospin and cell block): Positive for malignant cells consistent with metastatic non-small cell carcinoma. See comment. AM:patricia 05/27/2022 COMMENT Immunohistochemistry ([id number]) supports the above diagnosis. A lung primary is favored. Reference is made to the patient?s right lung CT guided biopsy ([id number]) in which adenocarcinoma consistent with lung primary was identified. CYTOLOGY STUDY Slides are reviewed. CYTOLOGY GROSS Received is 45 ml of red cloudy fluid labeled with the patient's name and and designated per the requisition as thoracentesis. Submitted for cytology preparation including cell block. / patricia 05/26/2022 TC:0 CPT: 32642, 36645
--- NOTE | 2022-05-25 | IMM_PTH ---
PATIENT: SYL MENDEZ LOC: U#:[id number] AGE/SX: 71/M ROOM: RE05/25/[address]: Dr. Morris Morejon MD : 1950 BED: DIS: 05/25/2022 SPEC #: [id number] RECD: 05/27/22 11:11 STATUS: YUMIKO REQ #: [id number] PONCHO: 05/25/22 00:[address]: Morris Morejon DEPT: IMMUNOHISTOCHEMISTRY RECD BY: Ingrid Mueller ENTERED: 05/27/22 11:13 SP TYPE: IMMUNO OTHR DR: Dr. Rosemary Warren, DO Tissues: THORACIC FLUID Procedures: NAPSIN A (add) CK20 (add) CK5-6 (add) CK7 (add) CK8 (add) KI-67 (add) P53 (add) TTF1 (add) Pankeratin (initial) P40 (add) PHYSICIAN & [address] [address] SPECIMEN INFORMATION: Tissue Source: Thoracentesis fluid Clinical Info: Right pleural effusion Specimen Number: [id number] CPT code: 51044, 40311 x9 METHODOLOGY: Deparaffinized sections of prefer/formalin-fixed tissue or PAP/DQ stained slides are incubated with monoclonal/polyclonal antibodies/oligonucleotide probes. Localization is made via biotin free immunoperoxidase method. Appropriate controls are performed and reacted as expected. Results on target cell population are indicated in the following table: RESULTS: ANTIBODY / CLONE RESULT AE1-3 (AE1/AE3/PCK26) positive CK7 (OV-TL12/30) positive CK8 (24yesaF90) positive CK20 (KS20.8) negative TTF-1 (8G7G3/1) negative Napsin A (Rabbit Polyclonal) positive CK5-6 (D5 & 1684) negative P40 (BC28) negative P53 (DO-7) negative Ki-67 (30-9) negative These tests were developed and their performance characteristics determined by [facility]. They may not have been cleared or approved by the U.S. Food and Drug Administration. The FDA has determined that such clearance or approval is not necessary. The above immunohistochemical/dualISH markers are ordered and reviewed by the Pathologist. INTERPRETATION: Thoracentesis fluid (cell block): Positive for malignant cells consistent with non-small cell carcinoma. See comment. AM:patricia 05/30/2022 Comment: A lung primary is favored.
--- NOTE | 2022-05-25 14:47 | US_ITS ---
PROCEDURE: ULTRASOUND GUIDED THORACENTESIS. DATE: 05/25/2022. INDICATION: Male, 71 years old. Right pleural effusion PHYSICIAN: Wilberto Powell M.D. PROCEDURE: The risks, benefits, and alternatives to the procedure were explained to the patient. The specific risks of bleeding, infection, and pneumothorax requiring chest tube insertion were discussed and accepted. Written informed consent was obtained. Ultrasonographic evaluation of the right lower pleural space was carried out. An adequate pocket was identified. The patient was placed in the sitting, upright position. The overlying skin was prepped and draped in sterile fashion. 1% lidocaine was administered subcutaneously for local anesthesia. Under ultrasound guidance, a 5 Argentine thoracentesis needle/catheter system was advanced into the right posterior lower pleural fluid collection. Approximately 1950 mL of shwetha-colored fluid was drained. The catheter was removed, and a sterile dressing was applied. A specimen was collected and sent to the laboratory for analysis, as requested by the referring clinician. The patient tolerated the procedure well. A chest x-ray was ordered. US/Thoracentesis W US IMPRESSION: Ultrasound-guided right thoracentesis. Electronically Signed: Wilberto Powell MD at 15:50 EDT ,
[2022-05-25 15:00] VITALS: BP 135/78; BP 139/76; BP 172/99; PULSE 69; PULSE 75; PULSE 76; RESP 18; TEMP 36.6; TEMP 36.8; O2SAT 95; O2SAT 96
[2022-05-25] MEDS: Lidocaine 2% (20 ml mdv) 20 ML Vial (15:04)
--- NOTE | 2022-05-25 15:15 | RAD_ITS ---
STUDY: X-RAY CHEST REASON FOR EXAM: Male, 71 years old. Post thora TECHNIQUE: AP inspiration and expiration views. COMPARISON: Comparison is made with prior study done earlier today. FINDINGS: There is evidence of a loculated right-sided pneumothorax. The right pleural effusion has cleared. The patient is asymptomatic at this time. RAD/Chest Insp/Exp 2 View IMPRESSION: Status post right thoracentesis. Loculated right-sided pneumothorax. Electronically Signed: Wilberto Powell MD at 15:37 EDT ,
== END | disposition home or self-care (01) ==
LOC: US 14:45
PROVIDERS: PCP Family Medicine; Referring Provider Internal Medicine Medical Oncology; Visit Provider Internal Medicine Medical Oncology
DX: J90 Pleural effusion, not elsewhere classified (principal)
CPT/HCPCS: 32555; 71046; 88108; 88305; 88313; 88341; 88342

== ENCOUNTER 2022-05-29 11:12 | Inpatient (IN) | payer MEDICARE, SELFPAY ==
[2022-05-29] VITALS (10 sets, daily range): BP systolic 144–153; BP diastolic 65–99; PULSE 73–106; RESP 13–24; TEMP 36.1–37.3; O2SAT 93–99; BMI 26.6
--- NOTE | 2022-05-29 11:43 | EKG12_ITS ---
Test Reason : CHEST PAIN Blood Pressure : / mmHG Vent. Rate : 088 BPM Atrial Rate : 088 BPM P-R Int : 146 ms QRS Dur : 138 ms QT Int : 368 ms P-R-T Axes : 035 -26 111 degrees QTc Int : 445 ms Normal sinus rhythm Left bundle branch block Abnormal ECG Confirmed by MARIELLE PONCE, BALDO ([id number]), online editor RAFA CORONA ([id number]) on 05/31/2022 1:03:58 PM Referred By: SHELDON/HUGO Confirmed By:BALDO PALOMARES MD
--- NOTE | 2022-05-29 11:50 | RAD_ITS ---
ACR Level 3 findings have been noted. An addendum which confirms receipt of the report will follow. HISTORY: SOB, chest pain, recent thoracentesis. TECHNIQUE: XR Chest 2 Views. COMPARISON: 05/25/2022. FINDINGS: LINES/TUBES: Right chest wall port with catheter tip at the superior vena cava again seen. CARDIOMEDIASTINAL BORDERS: Stable in size and position with valve replacement noted. LUNGS: Focal opacities in the right lung again seen. PLEURA: Moderate right hydropneumothorax increased in size from prior. RAD/Chest PA and Lateral IMPRESSION: Increased size of moderate right hydropneumothorax. Persistent opacities in the right lung. Electronically Signed: Ivonne Laura MD at 12:19 EDT ,
[2022-05-29 11:56] LABS: Hematocrit 35.7 % (40-54); Mean Corp Hgb Conc 36.4 g/dL (32-36); Mean Corpuscular Hgb 34.4 pg (27.0-32.0); Mean Corpuscular Volume 94.4 fL (80-94); POSITIVE COUNT YES; POSITIVE DIFFERENTIAL YES; POSITIVE MORPHOLOGY YES; Platelet Count 177 K/mm3 (150-450); RBC Distribution Width CV 12.2 % (11.6-14.6); RBC Distribution Width SD 42.4 fl (35.1-43.9); Red Blood Count 3.78 M/mm3 (4.6-6.2); White Blood Count 7.1 K/mm3 (4.4-11.0)
[2022-05-29 12:00] LABS: Differential Indicated MANUAL DIFF
[2022-05-29 12:10] LABS: Anion Gap 8 (5-15); BUN 10 mg/dL (7-18); BUN/Creat Ratio 16.1 RATIO (10-20); Calcium,Total 9.3 mg/dL (8.5-10.1); Chloride 93 mmol/L (98-107); Creatinine, Serum 0.62 mg/dL (0.70-1.30); EST Glomerular Filtration Rate 135 mL/min (>60); Est Glom Filt Rate - Afr Amer 163 mL/min (>60); Glucose 121 mg/dL (74-106); Potassium 4.4 mmol/L (3.5-5.1); Sodium Level 128 mmol/L (136-145); Troponin-I HS 43 pg/mL (3.0-78.0)
[2022-05-29 12:20] LABS: Eosinophil 1 % (0-5); Lymphocyte 2 % (19-41); Metamyelocyte 5 % (0-1); Monocyte 3 % (0-10); Myelocyte 5 % (0-0); Neutrophil-Band 8 % (0-5); Neutrophil-Segmented 76 % (47-70); Total Cells Counted 100 (MANUAL DIFF)
[2022-05-29 12:21] LABS: Absolute Lymphocyte Count 0.14 X10^3/uL (0.83-4.51); Lymphocyte # 0.14 X10^3/ul (0.83-4.51); Neutrophil # 5.99 X10^3/uL (2.7-7.7); Plasma Cell 7.1 %; Platelet Estimate ADEQUATE (ADEQ); Red Cell Morphology NORM C+C NORMAL (NORM C&C); Toxic Granulation 1+
[2022-05-29] MEDS: Ondansetron 4 MG/2 ML Vial IV (12:44)
[2022-05-29] MEDS: Ketorolac 15 MG/ML Vial IV (12:44)
[2022-05-29] MEDS: Midazolam 2 MG/2 ML Syringe IV (14:27)
[2022-05-29] MEDS: Lidocaine 1% (20 ml mdv) 20 ML Vial INFILT (14:27)
--- NOTE | 2022-05-29 14:36 | RAD_ITS ---
HISTORY: s/p pigtail, right pneumothorax. TECHNIQUE: XR Chest 1 View. COMPARISON: 12:10. FINDINGS: LINES/TUBES: Right chest wall port again seen. Right pigtail catheter placed CARDIOMEDIASTINAL BORDERS: Stable with valve replacement. LUNGS: Improved expansion of the right lung with persistent opacities in the right mid and lower lung. PLEURA: Decreased size of right pneumothorax with right pleural fluid again noted. RAD/Chest 1 View (Portable) IMPRESSION: Mildly decreased size of moderate right hydropneumothorax post chest tube placement. Electronically Signed: Ivonne Laura MD at 15:01 EDT ,
--- NOTE | 2022-05-29 16:20 | PCM.HP.STD ---
HPI - General General Date of Admission: 05/29/22 HPI Narrative SYL MENDEZ, is a 71 M who presents to the hospital with increased shortness of breath. He had a thoracentesis done on Monday secondary to malignant effusion from stage IV lung cancer due to adenocarcinoma. He had a thoracentesis done and post procedure had a pneumothorax at that time he was discharged home and told that if he had increased shortness of breath return to the hospital. He came in today secondary to increased chest pain on the right side likely from his lung collapse. His pneumothorax has increased in size since the procedure. Pigtail catheter was placed by the ED physician and there has not been complete resolution of the pneumothorax. But he does feel better. [facility] Medical History Abnormal CT scan of lung AC (acromioclavicular) joint bone spurs Calcific tendonitis of left shoulder Cancer Chemotherapy management, encounter for COPD (chronic obstructive pulmonary disease) Depression Disseminated malignancy Emphysema of lung Essential (primary) hypertension Former smoker Hearing loss, left Hearing loss, right Hyperlipidemia Hypertension Hyponatremia Impingement syndrome, shoulder, left Left bundle branch block Lung cancer, primary, with metastasis from lung to other site Lung mass Nonobstructive atherosclerosis of coronary artery Nonrheumatic aortic (valve) stenosis with insufficiency Nonspecific abnormal unspecified cardiovascular function study Osteoarthritis Spinal stenosis in cervical region Trigger finger of both hands Xerostomia Home Medications ascorbic acid (vitamin C) 1,000 mg tablet 1,000 mg PO DAILY 03/09/20 [History Last Taken 08/10/20] multivitamin with minerals 1 ea PO DAILY 06/01/20 [History Last Taken 08/10/20] aspirin 81 mg tablet,delayed release (Adult Low Dose Aspirin) 81 mg PO DAILY 09/15/21 [History Last Taken Unknown] metoprolol succinate 25 mg tablet,extended release 24 hr 25 mg PO DAILY #90 tabs 09/20/21 [Rx Last Taken Unknown] umeclidinium 62.5 mcg-vilanterol 25 mcg/actuation powdr for inhalation 1 ea inhalation DAILY 12/01/21 [History Last Taken Unknown] clobetasol 0.05 % topical ointment 1 applic topical QAM AND QPM #60 grams 02/02/22 [Rx Last Taken Unknown] lisinopril 10 mg tablet 10 mg PO DAILY 02/23/22 [History Last Taken Unknown] sotorasib 120 mg tablet (Lumakras) 960 mg PO DAILY 02/23/22 [History Last Taken Unknown] spironolactone 50 mg tablet 50 mg PO DAILY #30 tabs 04/13/22 [Rx Last Taken Unknown] sodium chloride 1 gram tablet 1,000 mg PO BID electrolyte replenishment #90 tabs 04/20/22 [Rx Last Taken Unknown] mirtazapine 15 mg tablet (Remeron) 15 mg PO QHS 30 days #30 tabs 05/25/22 [Rx Last Taken Unknown] Allergy/AdvReac Type Severity Reaction Status Date / Time adhesive tape Allergy Rash Verified 05/29/22 11:16 bee venom protein (honey bee) Allergy Anaphylaxis Verified 05/29/22 11:16 Family History Father , age 90, complications of dementia Dementia Mother Cardiac pacemaker in situ Surgical History H/O arthroscopic knee surgery History of back surgery History of basal cell carcinoma (BCC) excision History of carpal tunnel release History of herniorrhaphy History of left heart catheterization (08/02/21) History of right knee joint replacement History of transcatheter aortic valve replacement (TAVR) (09/13/21) Social History Smoking Status: Former smoker quit date: 07/31/04 Tobacco: How many years used: 30 ROS Constitutional Constitutional: Denies chills, fatigue, fever(s) or malaise Eyes Eyes: Denies blurry vision ENT HEENT: Denies headache(s) or nasal discharge Cardiovascular Cardiovascular: Denies chest pain, dyspnea on exertion or syncope Respiratory/Chest Respiratory/Chest: Reports shortness of breath at rest; Denies cough or shortness of breath with exertion Gastrointestinal Gastrointestinal: Denies constipation, diarrhea, nausea or vomiting Genitourinary Genitourinary: Denies dysuria Neurologic Neurologic: Denies focal weakness, numbness or tremor(s) Psychiatric Psychiatric: Denies anxiety or depression Vital Signs Vital Signs Vital Signs: 05/29/22 11:13 05/29/22 11:52 05/29/22 13:23 Temperature 97 F L Temperature Source Temporal Pulse Rate 106 H 74 Respiratory Rate 20 H 16 Blood Pressure 153/99 H Blood Pressure Mean 117 Pulse Ox 99 97 Oxygen Delivery Method Room Air Room Air Room Air 05/29/22 14:00 05/29/22 15:00 05/29/22 16:17 Temperature Temperature Source Pulse Rate 73 74 85 Respiratory Rate 15 13 24 H Blood Pressure Blood Pressure Mean Pulse Ox 93 98 96 Oxygen Delivery Method Room Air Room Air Room Air Weight Weight: 175 lb Body Mass Index (BMI) 26.6 Physical Exam Narrative General: Alert, Oriented x3, Cooperative, No apparent distress HEENT: Atraumatic, PERRLA, EOMI, Normocephalic Oral: Moist Mucosa Neck: Supple, No JVD Lungs: Diminished on the right compared to the left, Normal air movement, No rhonchi, No wheeze, No rales Cardiovascular: Regular rate, Regular Rhythm, Normal S1, Normal S2, No murmurs Abdomen: Soft, Non Tender, Non-Distended, No Hepato-splenomegaly Extremities: No edema, Capillary Refill Less than 3 Seconds Skin: No rashes, No breakdown Musculoskeletal: No Tenderness to Palpation of Joints or Extremities Neurological: Cranial nerves II-XII grossly intact, Motor Exam 5/5 strength throughout, Sensory exam intact to light touch and pain Psych/Mental Status: Normal Affect, Appropriate Results Lab / Micro Data Result Diagrams: 05/29/22 11:40 05/29/22 11:40 Labs: Laboratory Results - last 24 hr 05/29/22 11:40: WBC 7.1, RBC 3.78 L, Hgb 13.0, Hct 35.7 L, MCV 94.4 H, MCH 34.4 H, MCHC 36.4 H, RDW Std Deviation 42.4, RDW Coeff of Griffin 12.2, Plt Count 177, MPV 9.0, Neut % (Auto) Not Reportable, Absolute Neuts (auto) 6.0, Absolute Lymphs (auto) 0.14 L, Total Counted 100, Neutrophils % (Manual) 76 H, Band Neutrophils % 8 H, Lymphocytes % (Manual) 2 L, Monocytes % (Manual) 3, Eosinophils % (Manual) 1, Metamyelocytes % 5 H, Myelocytes % 5 H, Plasma Cell % (Manual) 7.1, Diff Path Review May foll, Toxic Granulation 1+, Platelet Estimate ADEQUATE, RBC Morphology NORM C+C 05/29/22 11:40: Sodium 128 L, Potassium 4.4, Chloride 93 L, Carbon Dioxide 27.0, Anion Gap 8, BUN 10, Creatinine 0.62 L, Estim Creat Clear Calc 64.60, Est GFR (MDRD) Af Amer 163, Est GFR (MDRD) Non-Af 135, BUN/Creatinine Ratio 16.1, Glucose 121 H, Calcium 9.3, Troponin I High Sens 43 Radiology Impression Chest X-Ray 05/29/22 11:50 IMPRESSION: Increased size of moderate right hydropneumothorax. Persistent opacities in the right lung. Electronically Signed: Ivonne Laura MD at 12:19 EDT , ADDENDUM: 05/29/22 1234 IMPRESSION: Increased size of moderate right hydropneumothorax. Persistent opacities in the right lung. N.B. : Salena Peters RN, confirmed on 05/29/2022 12:28:02 (ET) that the healthcare facility has received the radiology report. Electronically Signed: Ivonne Laura MD at 12:19 EDT Reading Location ID and State: [facility] / [place] Tel , Service support , Chest X-Ray 05/29/22 14:36 IMPRESSION: Mildly decreased size of moderate right hydropneumothorax post chest tube placement. Electronically Signed: Ivonne Laura MD at 15:01 EDT , Assessment & Plan Assessment/Plan (1) Hydropneumothorax: PLAN: Plan 1. Right-sided pneumothorax secondary to a thoracentesis for 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 due to adenocarcinoma ? Pigtail catheter was placed we will consult general surgery for management ? We will repeat chest x-ray in the morning, will place him on suction ? He states that he is aware that he has stage IV cancer and the current chemotherapy is for cure, I did discuss with him for 20 minutes about advance care planning options in terms of doing palliative care in the setting of significant side effects from chemotherapy, at this time he feels okay ? Continue with Remeron 2. HTN ? Blood pressures are currently stable ? Can resume his home blood pressure medications ? Continue with aspirin 3. Chronic hyponatremia ? His sodium is at baseline ? Continue with his home sodium tab DVT: Lovenox Charges/Coding Visit Charges Inpatient E&M: 29164 Init Hosp L2
--- NOTE | 2022-05-29 16:28 | ED.VIS.CHEST ---
HPI History of Present Illness Chief Complaint: Chest Pain Informant: patient Narrative Narrative: Patient is a 71-year-old male with complex medical history including metastatic lung cancer with recurrent right pleural effusions. He had thoracentesis 4 days ago as well as new chemotherapy regimen. For the past 3 days he has been having episodes of stabbing right-sided chest pain. Today the pain woke him up around 4 AM and he had increased frequency of the pain. He takes ibuprofen with some relief of the pain. He is on any oral anticoagulants. He does take 81 mg aspirin. His oncologist is Dr. Morejon. His breathing is not quite right. Patient thoracentesis was complicated by a pneumothorax however he was sent home with conservative management and just informed to return if his symptoms worsen. Patient reports and started his new chemotherapy regimen he has been having side effects including diarrhea, nausea, headache and neuropathy. [facility] Medical History Abnormal CT scan of lung AC (acromioclavicular) joint bone spurs Calcific tendonitis of left shoulder Chemotherapy management, encounter for COPD (chronic obstructive pulmonary disease) Disseminated malignancy Essential (primary) hypertension Hyperlipidemia Hyponatremia Impingement syndrome, shoulder, left Left bundle branch block Lung cancer, primary, with metastasis from lung to other site Lung mass Nonobstructive atherosclerosis of coronary artery Nonrheumatic aortic (valve) stenosis with insufficiency Nonspecific abnormal unspecified cardiovascular function study Osteoarthritis Spinal stenosis in cervical region Trigger finger of both hands Xerostomia Home Medications ascorbic acid (vitamin C) 1,000 mg tablet 1,000 mg PO DAILY 03/09/20 [History Last Taken 08/10/20] multivitamin with minerals 1 ea PO DAILY 06/01/20 [History Last Taken 08/10/20] aspirin 81 mg tablet,delayed release (Adult Low Dose Aspirin) 81 mg PO DAILY 09/15/21 [History Last Taken Unknown] metoprolol succinate 25 mg tablet,extended release 24 hr 25 mg PO DAILY #90 tabs 09/20/21 [Rx Last Taken Unknown] umeclidinium 62.5 mcg-vilanterol 25 mcg/actuation powdr for inhalation 1 ea inhalation DAILY 12/01/21 [History Last Taken Unknown] clobetasol 0.05 % topical ointment 1 applic topical QAM AND QPM #60 grams 02/02/22 [Rx Last Taken Unknown] lisinopril 10 mg tablet 10 mg PO DAILY 02/23/22 [History Last Taken Unknown] sotorasib 120 mg tablet (Lumakras) 960 mg PO DAILY 02/23/22 [History Last Taken Unknown] spironolactone 50 mg tablet 50 mg PO DAILY #30 tabs 04/13/22 [Rx Last Taken Unknown] sodium chloride 1 gram tablet 1,000 mg PO BID electrolyte replenishment #90 tabs 04/20/22 [Rx Last Taken Unknown] mirtazapine 15 mg tablet (Remeron) 15 mg PO QHS 30 days #30 tabs 05/25/22 [Rx Last Taken Unknown] Allergy/AdvReac Type Severity Reaction Status Date / Time adhesive tape Allergy Rash Verified 05/29/22 11:16 bee venom protein (honey bee) Allergy Anaphylaxis Verified 05/29/22 11:16 Family History Father , age 90, complications of dementia Dementia Mother Cardiac pacemaker in situ Surgical History H/O arthroscopic knee surgery History of back surgery History of basal cell carcinoma (BCC) excision History of carpal tunnel release History of herniorrhaphy History of left heart catheterization (08/02/21) History of right knee joint replacement History of transcatheter aortic valve replacement (TAVR) (09/13/21) Social History Smoking Status: Former smoker quit date: 07/31/04 Tobacco: How many years used: 30 ROS ROS ED Constitutional Constitutional ED: Denies chills or fever(s) Eyes Eyes: Denies change in vision ENT ENT ED: Denies rhinorrhea or sore throat Cardiovascular Cardiovascular: Reports as per HPI and chest pain Respiratory/Chest Respiratory/Chest: Reports cough and dyspnea Gastrointestinal Gastrointestinal: Reports diarrhea, nausea and vomiting; Denies abdominal pain Genitourinary Genitourinary ED: Denies dysuria or hematuria Musculoskeletal Musculoskeletal: Denies arthralgias or myalgias Integumentary Denies rash Neurologic Neurologic: Reports paresthesias; Denies headache(s) Psychiatric Psychiatric: Denies anxiety or depression Hematologic/Lymphatic Hematologic/Lymphatic: Denies easy bleeding or easy bruising EXAM Physical Exam Const Vital Signs: 05/29/22 11:13 05/29/22 11:52 05/29/22 13:23 Temperature 97 F L Temperature Source Temporal Pulse Rate 106 H 74 Respiratory Rate 20 H 16 Blood Pressure 153/99 H Blood Pressure Mean 117 Pulse Ox 99 97 Oxygen Delivery Method Room Air Room Air Room Air 05/29/22 14:00 05/29/22 15:00 05/29/22 16:17 Temperature Temperature Source Pulse Rate 73 74 85 Respiratory Rate 15 13 24 H Blood Pressure Blood Pressure Mean Pulse Ox 93 98 96 Oxygen Delivery Method Room Air Room Air Room Air Positive well nourished and well developed General Appearance ED: well developed and NAD HEENT Reports moist mucous membranes normocephalic and atraumatic Eyes PERRL and EOMs intact bilaterally Neck no JVD Neck Narrative: Trachea is midline Chest Wall inspection of chest normal and palpation of chest normal Resp normal respiratory effort Effort and Inspection: pain with movement Auscultation: diminished lung sounds right Cardio regular rate, regular rhythm and no murmurs GI normal to inspection, nondistended, normoactive bowel sounds and soft to palpation Back/Spine no CVA tenderness Extremity normal to inspection Neuro oriented x3 Sensorium / Orientation: awake and alert Motor Exam: Negative for general weakness Psych mental status grossly normal Skin no rashes or lesions noted MDM MDM MDM Narrative Medical decision making narrative: Patient is evaluated for right-sided chest pain. It is sharp in nature. EKG shows normal sinus rhythm with a left bundle branch block and no acute changes. His high-sensitivity troponin is 43. Chest x-ray 2 view interpreted by myself as well as radiology shows a hydropneumothorax. Pneumothorax appears to be worsening compared to prior chest x-ray. Patient CBC does not show any significant abnormalities. Spoke with surgery on-call, Dr. Rose, who feels that placing a pigtail catheter in the ER is indicated. I am in agreement. This performed by myself. See procedure note. Patient has approximately 100 cc of serosanguineous fluid out as well as persistent air leak with deep breathing and coughing. Patient will be admitted to the hospital service for further observation overnight. Patient and are agreeable with this plan of care. I did discuss the case with Ishaan Bailey, who is aware as well. Patient does have improvement after placement of pigtail catheter. Lab Data Labs: Laboratory Results - last 24 hr 05/29/22 05/29/22 11:40 11:40 WBC 7.1 RBC 3.78 L Hgb 13.0 Hct 35.7 L MCV 94.4 H MCH 34.4 H MCHC 36.4 H RDW Std Deviation 42.4 RDW Coeff of Griffin 12.2 Plt Count 177 MPV 9.0 Neut % (Auto) Not Reportable Absolute Neuts (auto) 6.0 Absolute Lymphs (auto) 0.14 L Total Counted 100 Neutrophils % (Manual) 76 H Band Neutrophils % 8 H Lymphocytes % (Manual) 2 L Monocytes % (Manual) 3 Eosinophils % (Manual) 1 Metamyelocytes % 5 H Myelocytes % 5 H Plasma Cell % (Manual) 7.1 Diff Path Review May foll Toxic Granulation 1+ Platelet Estimate ADEQUATE RBC Morphology NORM C+C Sodium 128 L Potassium 4.4 Chloride 93 L Carbon Dioxide 27.0 Anion Gap 8 BUN 10 Creatinine 0.62 L Estim Creat Clear Calc 64.60 Est GFR (MDRD) Af Amer 163 Est GFR (MDRD) Non-Af 135 BUN/Creatinine Ratio 16.1 Glucose 121 H Calcium 9.3 Troponin I High Sens 43 Radiography Chest X-Ray - ED: 2 View, Read by ED Physician, Read by Radiologist and No Acute Disease Diagnostic Testing: Clinical Impression(s) from Imaging Studies Chest X-Ray 05/29/22 11:50 IMPRESSION: Increased size of moderate right hydropneumothorax. Persistent opacities in the right lung. Electronically Signed: Ivonne Laura MD at 12:19 EDT , ADDENDUM: 05/29/22 1234 IMPRESSION: Increased size of moderate right hydropneumothorax. Persistent opacities in the right lung. N.B. : Salena Peters RN, confirmed on 05/29/2022 12:28:02 (ET) that the healthcare facility has received the radiology report. Electronically Signed: Ivonne Laura MD at 12:19 EDT , Chest X-Ray 05/29/22 14:36 IMPRESSION: Mildly decreased size of moderate right hydropneumothorax post chest tube placement. Electronically Signed: Ivonne Laura MD at 15:01 EDT , Rhythm Strip Rhythm Strip: Sinus Rhythm Rate: 88 Ectopy: None EKG Initial EKG: Attestation: I personally reviewed and interpreted this EKG as follows: Interpretation: Sinus Rhythm Comments: Normal sinus rhythm at a rate of 88 Left bundle branch block No acute abnormalities No change prior to prior EKG on 04/19/2019 Procedures Other Procedures Procedure(s): Pigtail catheter placement?right chest Patient placed on continuous telemetry monitoring and end-tidal CO2. He is given 5 mg IV Versed. Area prepped and draped in normal sterile fashion. Skin cleansed with ChloraPrep. Area anesthetized with 10 cc of 1% lidocaine. Fourth intercostal space anterior clavicular line used. A small stab incision made with a #11 blade. Trocar advanced and once air return achieved with negative pressure, catheter is advanced fully. Catheter secured with sutures. Catheter then hooked up to continuous suction. Patient tolerated procedure well with no immediate complications. Discharge Plan Triage Chief Complaint: Chest Pain ED Provider: Claudia Chatterjee Dx/Rx/DC Orders Clinical Impression: Hydropneumothorax, Lung cancer, primary, with metastasis from lung to other site, Pleural effusion, right, Chest pain Prescriptions: No Action clobetasol 0.05 % ointment 1 applic topical QAM AND QPM Qty: 60 0RF lisinopril 10 mg tablet 10 mg PO DAILY Lumakras 120 mg tablet 960 mg PO DAILY spironolactone 50 mg tablet 50 mg PO DAILY Qty: 30 1RF sodium chloride 1 gram tablet 1,000 mg PO BID Qty: 90 2RF mirtazapine [Remeron] 15 mg tablet 15 mg PO QHS 30 Days Qty: 30 0RF Rx Instructions: 15mg every other day for 2-3 days then daily. ascorbic acid (vitamin C) 1,000 MG tablet 1,000 mg PO DAILY multivitamin with minerals 1 EACH tablet 1 ea PO DAILY umeclidinium-vilanterol 62.5-25 mcg/actuation blister with device 1 ea inhalation DAILY aspirin [Adult Low Dose Aspirin] 81 mg tablet,delayed release (DR/EC) 81 mg PO DAILY metoprolol succinate 25 mg tablet extended release 24 hr 25 mg PO DAILY Qty: 90 3RF Primary Care Provider: Rosemary Warren Referrals: Rosemary Warren DO [Primary Care Provider] - Disposition Disposition: Acute Care Hospital [facility]
--- NOTE | 2022-05-29 18:05 | ED.RN ---
Cannot chart DISPO, Sabine Aldridge in pt chart.
[2022-05-29] MEDS: Ipratropium/Albuterol Sulfate 3 ML AMPUL.NEB INHALATION (20:30)
[2022-05-29] MEDS: Acetaminophen 325 MG Tablet 650 MG PO (22:00)
[2022-05-29] MEDS: MELATONIN 3 MG TABLET PO (22:00)
[2022-05-29] MEDS: Mirtazapine 15 MG Tablet PO (22:01)
[2022-05-29] MEDS: Sodium Chloride 1 GM Tablet PO (22:12)
[2022-05-29] MEDS: 0.9% Saline Lock 10 ML Syringe IV (22:14)
[2022-05-30 03:15] VITALS: BP 147/62; PULSE 75; RESP 18; TEMP 36.6; O2SAT 97
--- NOTE | 2022-05-30 05:55 | RAD_ITS ---
STUDY: X-RAY CHEST REASON FOR EXAM: Male, 71 years old. Right pneumothorax TECHNIQUE: PA and lateral views of the chest. COMPARISON: Comparison is made with prior study 05/29/2022. FINDINGS: A small caliber chest tube is seen in the lower lateral aspect of the right hemithorax. A Port-A-Cath is seen with the tip at the junction of the superior vena cava and right atrium. Essentially stable right-sided pneumothorax. The right pleural effusion has decreased as compared to prior study. Improved aeration at the right lung base. RAD/Chest PA and Lateral IMPRESSION: Stable small right pneumothorax. Interval decrease in size of the right pleural effusion as well as improved aeration at the right lung base. Electronically Signed: Wilberto Powell MD at 11:09 EDT ,
[2022-05-30 06:44] VITALS: PULSE 89; RESP 16; O2SAT 96
[2022-05-30] MEDS: Ipratropium/Albuterol Sulfate 3 ML AMPUL.NEB INHALATION (06:44)
[2022-05-30 06:54] LABS: Hematocrit 36.6 % (40-54); Hemoglobin 12.8 g/dL (13.0-16.5); Mean Corpuscular Hgb 34.2 pg (27.0-32.0); Mean Corpuscular Volume 97.9 fL (80-94); Mean Platelet Vol. 9.7 fl (6.2-12.0); POSITIVE COUNT YES; POSITIVE MORPHOLOGY YES; Platelet Count 197 K/mm3 (150-450); RBC Distribution Width CV 12.4 % (11.6-14.6); RBC Distribution Width SD 44.8 fl (35.1-43.9); Red Blood Count 3.74 M/mm3 (4.6-6.2); White Blood Count 3.7 K/mm3 (4.4-11.0)
[2022-05-30 06:56] LABS: Differential Indicated MANUAL DIFF
[2022-05-30] MEDS: Acetaminophen 325 MG Tablet 650 MG PO ×2 (06:56→22:37)
--- NOTE | 2022-05-30 07:09 | EX.PCM.CON.S ---
Assessment & Plan Assessment/Plan (1) Lung cancer, primary, with metastasis from lung to other site: QUALIFIERS: Laterality: left Qualified Code(s): C34.92 - Malignant neoplasm of unspecified part of left bronchus or lung (2) Pneumothorax after biopsy: PLAN: Plan Patient's percutaneous chest tube has drained about 500 cc of serosanguineous fluid. Patient does not have a leak with deep breathing but does have bubbles with cough. Awaiting morning chest x-ray. We will plan to compare to previous. Addendum: Patient's morning chest x-ray does appear to be better expanded. Patient's superior/middle lobe may always be collapsed when looking back at previous CT due to cancer. We will plan to get chest CT to better evaluate. The chest tube does appear to be pulled out from initial placement but still in the chest. Addendum: Patient CT did show pneumothorax however it is very likely part of the lungs never reexpands completely. 5% pneumo was called. Difficult to see patient's actual baseline for expansion as last CT of the chest had quite a bit of fluid which does not allow the lung to expand as well. Rhonda Rose M.D. Pager: [phone] [facility] [address] [place] [address], [facility], [address] [place] [address] Office: [phone] HPI Consult Data Date of Consult: 05/31/22 HPI Narrative HPI Narrative: SYL MENDEZ, is a 71 M who presents to the ER due to chest pain. Patient previously had thoracentesis due to stage IV lung cancer done on 05/25/2022 where he did have a postoperative pneumothorax. Patient was sent home and told to return if he had pain or any difficulty breathing. Patient's x-ray showed a large pneumothorax partial collapsed lung on the right in the ER. A 8 Bahamian percutaneous chest tube was placed in the ER which did reexpand the lung partially. Patient also got about 500 cc in the Pleur-evac. Patient did have initial leak per ER doctor and still had bubbles with coughing this morning. Patient is complaining of increased pain at the chest tube site this morning. Patient states the pain was not that bad last night. Did appear that the Pleurx tubing was pulling on the 8 Bahamian percutaneous catheter. Patient also had chemotherapy on 05-16-2022 which would preclude any major surgeries due to wound healing. [facility] Medical History (Updated 05/30/22 @ 08:[address] Anushka Gonzalez MD) Abnormal CT scan of lung AC (acromioclavicular) joint bone spurs Calcific tendonitis of left shoulder Cancer Chemotherapy management, encounter for COPD (chronic obstructive pulmonary disease) Depression Disseminated malignancy Emphysema of lung Essential (primary) hypertension Former smoker Hearing loss, left Hearing loss, right Hyperlipidemia Hypertension Hyponatremia Impingement syndrome, shoulder, left Left bundle branch block Lung cancer, primary, with metastasis from lung to other site Lung mass Nonobstructive atherosclerosis of coronary artery Nonrheumatic aortic (valve) stenosis with insufficiency Nonspecific abnormal unspecified cardiovascular function study Osteoarthritis Spinal stenosis in cervical region Trigger finger of both hands Xerostomia Home Medications ascorbic acid (vitamin C) 1,000 mg tablet 1,000 mg PO DAILY 03/09/20 [History Last Taken 08/10/20] multivitamin with minerals 1 ea PO DAILY 06/01/20 [History Last Taken 08/10/20] aspirin 81 mg tablet,delayed release (Adult Low Dose Aspirin) 81 mg PO DAILY 09/15/21 [History Last Taken Unknown] metoprolol succinate 25 mg tablet,extended release 24 hr 25 mg PO DAILY #90 tabs 09/20/21 [Rx Last Taken Unknown] umeclidinium 62.5 mcg-vilanterol 25 mcg/actuation powdr for inhalation 1 ea inhalation DAILY 12/01/21 [History Last Taken Unknown] clobetasol 0.05 % topical ointment 1 applic topical QAM AND QPM #60 grams 02/02/22 [Rx Last Taken Unknown] lisinopril 10 mg tablet 10 mg PO DAILY 02/23/22 [History Last Taken Unknown] sotorasib 120 mg tablet (Lumakras) 960 mg PO DAILY 02/23/22 [History Last Taken Unknown] spironolactone 50 mg tablet 50 mg PO DAILY #30 tabs 04/13/22 [Rx Last Taken Unknown] sodium chloride 1 gram tablet 1,000 mg PO BID electrolyte replenishment #90 tabs 04/20/22 [Rx Last Taken Unknown] mirtazapine 15 mg tablet (Remeron) 15 mg PO QHS 30 days #30 tabs 05/25/22 [Rx Last Taken Unknown] Allergy/AdvReac Type Severity Reaction Status Date / Time adhesive tape Allergy Rash Verified 05/29/22 11:16 bee venom protein (honey bee) Allergy Anaphylaxis Verified 05/29/22 11:16 Family History Father , age 90, complications of dementia Dementia Mother Cardiac pacemaker in situ Surgical History H/O arthroscopic knee surgery History of back surgery History of basal cell carcinoma (BCC) excision History of carpal tunnel release History of herniorrhaphy History of left heart catheterization (08/02/21) History of right knee joint replacement History of transcatheter aortic valve replacement (TAVR) (09/13/21) Social History Smoking Status: Former smoker quit date: 07/31/04 Tobacco: How many years used: 30 ROS Constitutional Constitutional: Denies anorexia or fever(s) Eyes Eyes: Denies blurry vision ENT HEENT: Denies dysphagia Cardiovascular Cardiovascular: Reports chest pain Respiratory/Chest Respiratory/Chest: Reports other Details: Shortness of breath and pain at chest tube site on the right Gastrointestinal Gastrointestinal: Denies abdominal pain Genitourinary Genitourinary: Denies dysuria Musculoskeletal Musculoskeletal: Denies muscle weakness Integumentary Integumentary: Denies jaundice Neurologic Neurologic: Denies dizziness Psychiatric Psychiatric: Denies depression Physical Exam Const alert, oriented x3 and no apparent distress HEENT normocephalic and head/scalp atraumatic Resp normal respiratory effort Resp Narrative: Right chest tube in place, -20 on Pleur-evac, air leak with coughing, no air leak with deep breathing Cardio regular rate GI soft to palpation and non-tender; Negative for non-distended Palpation: Negative for guarding Extremity no clubbing, cyanosis or edema Neuro CN's II-XII intact bilaterally Psych mental status grossly normal Lab / Micro Data Result Diagrams: 05/31/22 04:20 05/31/22 04:20 Labs: Laboratory Results - last 24 hr 05/29/22 11:40: WBC 7.1, RBC 3.78 L, Hgb 13.0, Hct 35.7 L, MCV 94.4 H, MCH 34.4 H, MCHC 36.4 H, RDW Std Deviation 42.4, RDW Coeff of Griffin 12.2, Plt Count 177, MPV 9.0, Neut % (Auto) Not Reportable, Absolute Neuts (auto) 6.0, Absolute Lymphs (auto) 0.14 L, Total Counted 100, Neutrophils % (Manual) 76 H, Band Neutrophils % 8 H, Lymphocytes % (Manual) 2 L, Monocytes % (Manual) 3, Eosinophils % (Manual) 1, Metamyelocytes % 5 H, Myelocytes % 5 H, Plasma Cell % (Manual) 7.1, Diff Path Review May foll, Toxic Granulation 1+, Platelet Estimate ADEQUATE, RBC Morphology NORM C+C 05/29/22 11:40: Sodium 128 L, Potassium 4.4, Chloride 93 L, Carbon Dioxide 27.0, Anion Gap 8, BUN 10, Creatinine 0.62 L, Estim Creat Clear Calc 64.60, Est GFR (MDRD) Af Amer 163, Est GFR (MDRD) Non-Af 135, BUN/Creatinine Ratio 16.1, Glucose 121 H, Calcium 9.3, Troponin I High Sens 43 05/30/22 05:05: WBC 3.7 L, RBC 3.74 L, Hgb 12.8 L, Hct 36.6 L, MCV 97.9 H, MCH 34.2 H, MCHC 35.0, RDW Std Deviation 44.8 H, RDW Coeff of Griffin 12.4, Plt Count 197, MPV 9.7, Neut % (Auto) Not Reportable Rhythm Strip Rhythm Strip: Sinus Rhythm Rate: 88 Ectopy: None Radiology Impression Chest X-Ray 05/29/22 11:50 IMPRESSION: Increased size of moderate right hydropneumothorax. Persistent opacities in the right lung. Electronically Signed: Ivonne Laura MD at 12:19 EDT , ADDENDUM: 05/29/22 2353 IMPRESSION: Increased size of moderate right hydropneumothorax. Persistent opacities in the right lung. N.B. : Salena Peters RN, confirmed on 05/29/2022 12:28:02 (ET) that the healthcare facility has received the radiology report. Electronically Signed: Ivonne Laura MD at 12:19 EDT , Chest X-Ray 05/29/22 14:36 IMPRESSION: Mildly decreased size of moderate right hydropneumothorax post chest tube placement. Electronically Signed: Ivonne Laura MD at 15:01 EDT , Charges/Coding Visit Charges Inpatient E&M: 50765 Init Hosp L3
[2022-05-30 07:14] LABS: Anion Gap 6 (5-15); BUN 11 mg/dL (7-18); BUN/Creat Ratio 17.2 RATIO (10-20); Calcium,Total 9.2 mg/dL (8.5-10.1); Chloride 95 mmol/L (98-107); Creatinine, Serum 0.64 mg/dL (0.70-1.30); EST Glomerular Filtration Rate 131 mL/min (>60); Est Glom Filt Rate - Afr Amer 158 mL/min (>60); Glucose 93 mg/dL (74-106); Sodium Level 131 mmol/L (136-145)
--- NOTE | 2022-05-30 07:29 | PN.HOSP_ITS ---
Subjective Subjective DOS: 05/30/2022 CC:Shortness of breath Mr. Gonzáles reports not feeling very well this morning. Chest tube has been in place, But reports continued shortness of breath. He reports he was told he may need to be seen by thoracic surgeon. Eating and sitting up in bed during exam. Objective Data Objective Data Vital Signs: Vital Signs Temp Pulse Resp BP Pulse Ox O2 Del Method 97.9 F 89 16 147/62 H 96 Room Air 05/30/22 03:15 05/30/22 06:44 05/30/22 06:44 05/30/22 03:15 05/30/22 06:44 05/30/22 06:44 Oxygen Delivery Method Room Air Weight: 79.379 kg Body Mass Index (BMI) 26.6 Intake & Output: Intake and Output for Last 24 Hours 05/28/22 05/29/22 05/30/22 23:59 23:59 23:59 Intake Total 500 / 500 Output Total 250 / 650 530 / 530 Balance -250 / -650 -30 / -30 Lab / Micro Data Result Diagrams: 05/30/22 05:05 05/30/22 05:05 Labs: Laboratory Results - last 24 hr 05/29/22 11:40: WBC 7.1, RBC 3.78 L, Hgb 13.0, Hct 35.7 L, MCV 94.4 H, MCH 34.4 H, MCHC 36.4 H, RDW Std Deviation 42.4, RDW Coeff of Griffin 12.2, Plt Count 177, MPV 9.0, Neut % (Auto) Not Reportable, Absolute Neuts (auto) 6.0, Absolute Lymphs (auto) 0.14 L, Total Counted 100, Neutrophils % (Manual) 76 H, Band Neutrophils % 8 H, Lymphocytes % (Manual) 2 L, Monocytes % (Manual) 3, Eosinophils % (Manual) 1, Metamyelocytes % 5 H, Myelocytes % 5 H, Plasma Cell % (Manual) 7.1, Diff Path Review May foll, Toxic Granulation 1+, Platelet Estimate ADEQUATE, RBC Morphology NORM C+C 05/29/22 11:40: Sodium 128 L, Potassium 4.4, Chloride 93 L, Carbon Dioxide 27.0, Anion Gap 8, BUN 10, Creatinine 0.62 L, Estim Creat Clear Calc 64.60, Est GFR (MDRD) Af Amer 163, Est GFR (MDRD) Non-Af 135, BUN/Creatinine Ratio 16.1, Glucose 121 H, Calcium 9.3, Troponin I High Sens 43 05/30/22 05:05: WBC 3.7 L, RBC 3.74 L, Hgb 12.8 L, Hct 36.6 L, MCV 97.9 H, MCH 34.2 H, MCHC 35.0, RDW Std Deviation 44.8 H, RDW Coeff of Griffin 12.4, Plt Count 197, MPV 9.7, Neut % (Auto) Not Reportable 05/30/22 05:05: Sodium 131 L, Potassium 5.0, Chloride 95 L, Carbon Dioxide 30.0, Anion Gap 6, BUN 11, Creatinine 0.64 L, Estim Creat Clear Calc 64.60, Est GFR (MDRD) Af Amer 158, Est GFR (MDRD) Non-Af 131, BUN/Creatinine Ratio 17.2, Glucose 93, Calcium 9.2 Radiography Diagnostic Testing: Radiology Impression Chest X-Ray 05/29/22 11:50 IMPRESSION: Increased size of moderate right hydropneumothorax. Persistent opacities in the right lung. Electronically Signed: Ivonne Laura MD at 12:19 EDT Reading Location ID and State: [facility] / [place] Tel , Service support , ADDENDUM: 05/29/22 1234 IMPRESSION: Increased size of moderate right hydropneumothorax. Persistent opacities in the right lung. N.B. : Salena Peters RN, confirmed on 05/29/2022 12:28:02 (ET) that the healthcare facility has received the radiology report. Electronically Signed: Ivonne Laura MD at 12:19 EDT , Chest X-Ray 05/29/22 14:36 IMPRESSION: Mildly decreased size of moderate right hydropneumothorax post chest tube placement. Electronically Signed: Ivonne Laura MD at 15:01 EDT , Rhythm Strip Rhythm Strip: Sinus Rhythm Rate: 88 Ectopy: None Physical Exam Const alert and oriented x3 General Appearance: cooperative and comfortable HEENT head/scalp atraumatic Eyes EOMs intact bilaterally Neck supple Resp normal respiratory effort Resp Narrative: Diminished at the base on the right side, somewhat coarse Cardio regular rate and regular rhythm GI non-distended Extremity Extremity Narrative: Moving all extremities Neuro Neuro Narrative: No overt focal deficits noted Psych affect normal Assessment & Plan Assessment/Plan (1) Lung cancer, primary, with metastasis from lung to other site: QUALIFIERS: Laterality: left Qualified Code(s): C34.92 - Malignant neoplasm of unspecified part of left bronchus or lung (2) Pneumothorax after biopsy: PLAN: Plan 71-year-old male with history of COPD, hypertension, lung cancer with metastasis and OA who presented to the hospital 05/29 with increased shortness of breath. Had thoracentesis 05/25 due to malignant effusion from stage IV lung cancer secondary to adenocarcinoma. He had a pneumothorax at the time was discharged home but was told if he had increased shortness of breath to return the hospital. On day of presentation had increased chest pain on the right side and his pneumothorax was found to be increased. Pigtail catheter placed by ED. #1 right-sided pneumothorax secondary to thoracentesis for 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 2/2 adenocarcinoma Pigtail catheter has been placed and general surgery was consulted He was placed on suction Repeat chest x-ray this a.m. pending Awaiting surgery recommendations #2 hypertension Blood pressure currently stable Continue lisinopril, metoprolol, Aldactone #Chronic hyponatremia Sodium at baseline Continue home salt tabs #DVT ppx: Yazan Gonzalez MD Charges/Coding Visit Charges Inpatient E&M: 68955 Subs Hosp L2
[2022-05-30 08:16] LABS: Basophil 1 % (0-1); Eosinophil 2 % (0-5); Lymphocyte 26 % (19-41); Monocyte 7 % (0-10); Neutrophil-Band 4 % (0-5); Neutrophil-Segmented 60 % (47-70); Platelet Estimate ADEQUATE (ADEQ); Red Cell Morphology NORM C+C NORMAL (NORM C&C); Total Cells Counted 100 (MANUAL DIFF)
[2022-05-30 08:17] LABS: Absolute Neutrophil Count 2.4 X10^3/uL (2.0-7.7)
[2022-05-30 08:58] VITALS: BP 141/86; PULSE 109; RESP 18; TEMP 37.2; O2SAT 96
[2022-05-30] MEDS: Spironolactone 50 MG Tablet PO (09:22)
[2022-05-30] MEDS: Enoxaparin 40 MG/0.4 ML Syringe SC (09:23)
[2022-05-30] MEDS: Sodium Chloride 1 GM Tablet PO ×2 (09:23→22:36)
[2022-05-30 09:24] VITALS: PULSE 109
[2022-05-30] MEDS: Lisinopril 10 MG Tablet PO (09:24)
[2022-05-30] MEDS: Metoprolol(XL)Succ 25 MG Tablet PO (09:24)
--- NOTE | 2022-05-30 09:58 | CASEMGMT ---
According to [facility] website, the following tertiary facilities are in network: [facility], [facility], [facility], [place], [facility], , and [facility].
--- NOTE | 2022-05-30 11:12 | NURSING ---
pt to ct scan via bed
--- NOTE | 2022-05-30 11:15 | CT_ITS ---
STUDY: CT CHEST without CONTRAST REASON FOR EXAM: Male, 71 years old. Right pneumothorax RADIATION DOSAGE (If Supplied By Facility): CTDIvol = ( 10.22 ) mGy, DLP = ( 385.46 ) mGycm TECHNIQUE: Transaxial imaging was performed without intravenous contrast administration. Multiplanar coronal and sagittal images were reformatted. Individualized dose optimization techniques were used for this CT. COMPARISON: Comparison is made with prior study 04/11/2022. FINDINGS: CHEST A right-sided portacatheter is seen. A small caliber chest tube is seen in the lateral aspect of the right lower hemithorax. There is evidence of an approximate 5% right-sided pneumothorax. Small residual right pleural effusion. Persistent 2.6 x 3.8 cm mass in the right upper lobe. This also evidence of atelectasis with areas of confluence in the anterior aspect of the right lower lobe. Prior aortic valve replacement. There are calcifications of the coronary arteries. Normal mediastinum. Normal hilar regions. Normal unenhanced pulmonary arteries. There is atherosclerotic calcification of the aortic arch with tortuosity and elongation of the aortic arch and descending thoracic aorta. There are multi-level degenerative changes of the thoracic spine. There is a 1.7 cm calcified nodule in the inferior aspect of the right lobe of the liver. Questionable faint 1.1 cm hypodense nodule in the anterior left lobe of the liver. CT/Chest without Contrast IMPRESSION: Small right pneumothorax with small right pleural effusion. Persistent 6 cm x 3.8 cm mass in the anterior aspect of the right upper lobe with atelectasis in the anterior aspect of the right lower lobe. Electronically Signed: Wilberto Powell MD at 12:05 EDT ,
[2022-05-30 12:03] LABS: Pathologist Review Reviewed
[2022-05-30 12:07] LABS: Pathologist Review Reviewed
[2022-05-30] MEDS: oxyCODONE 5 MG Tablet PO ×3 (14:11→22:38)
[2022-05-30 14:18] VITALS: BP 140/70; PULSE 91; RESP 16; TEMP 37.1; O2SAT 96
--- NOTE | 2022-05-30 14:21 | OP.PCM_ITS ---
Report of Operation Date of Procedure: 05/30/22 Pre-Operative Diagnosis: Right pneumothorax, right lung cancer Post-Operative Diagnosis: Same Surgery/Procedure Performed:: Exchange of right 8 Lithuanian chest tube Surgeon: Rhonda Rose Type of Anesthesia: Local Description of Procedure: Patient's 8 Lithuanian right chest tube was prepped and draped in usual sterile fashion with chlorhexidine. Straight guidewire was placed inside the chest tube as the previous right chest tube was removed. The new 8 Lithuanian right chest tube was slid over the guidewire into place. This was sutured to the skin with 0 silk suture. The stopcock and catheter were connected to the Pleur-evac. There was initial airleak. This did become intermittent and did only occur with coughing after several minutes. Patient tolerated procedure well. Chest tube dressing was placed with 4 x 4's and tape. Chest x-ray ordered.
--- NOTE | 2022-05-30 14:25 | RAD_ITS ---
STUDY: X-RAY CHEST REASON FOR EXAM: Male, 71 years old. Chest tube TECHNIQUE: Single AP portable view of the chest. COMPARISON: Comparison is made with prior study 05/30/2022 at 8:03 AM. FINDINGS: The small-caliber right-sided chest tube has been replaced. The tip is in the mid lateral aspect of the right hemithorax. The right-sided pneumothorax has improved. Minimal pneumothorax persists. Persistent low density is seen in the right midlung. RAD/Chest 1 View (Portable) IMPRESSION: Placement of a new small caliber chest tube in the right hemithorax as described. Tiny residual right pneumothorax is seen. Electronically Signed: Wilberto Powell MD at 14:53 EDT ,
--- NOTE | 2022-05-30 15:45 | CASEMGMT ---
RAFAEL HUBBARD Assessment: Face to Face with pt for initial transition planning/care coordination assessment. RAFAEL HUBBARD introduced self and role at [facility], pt voices understanding and consents to assessment. Pt is A/O x4 and answers all questions appropriately at this time. Pt in bed. , of 48 years, sitting at bedsite. Care providers, pharmacy, and demographics verified/updated. Admitting Dx: Right Pneumothorax. PCP: Kelvin. Specialists: [facility], Cardiology; [facility], Oncology. [facility] Insurance: [employer]. Prescription Benefit: yes. LW/HPOA: Pt has LW/HPOA on file at [facility]. is POA. LNOK: Nivia Morrow, . Chuy Gonzáles, son. Living Arrangements: Pt lives with in a one story home. Home has two steps to get into the home with no railing. Pt reports being I in ADLs. Transportation: Pt drives self and denies concerns with transportation. can assist if needed. DME/HHC/SNF: Pt and said they built the home and it does have a shower bench and grab bars. No other DME reported. Pt had PT in the home years ago after a knee replacement. The PT was a neighbor that stopped by out of courtesy. Pt denied any SNF stays. Pt states no concerns with going home at time of dc. Pt states no further concerns/needs. CM to follow. Advised pt to ask CM if any further question/concerns/needs arise, voices understanding. Pt Goal: Home. Plan: Home.
[2022-05-30 22:30] VITALS: BP 151/77; PULSE 89; RESP 20; TEMP 37; O2SAT 96
[2022-05-30] MEDS: Mirtazapine 15 MG Tablet PO (22:36)
[2022-05-30] MEDS: MELATONIN 3 MG TABLET PO (22:37)
[2022-05-31] VITALS (7 sets, daily range): BP systolic 121–136; BP diastolic 75–83; PULSE 65–100; RESP 16–18; TEMP 36.8–37; O2SAT 93–95
[2022-05-31 05:51] LABS: Absolute Lymphocyte Count 1.32 X10^3/uL (0.83-4.51); Basophil# 0.08 X10^3/uL; Basophil% 0.9 % (0-1); Eosinophil# 0.17 X10^3/uL; Eosinophils% 1.9 % (0-5); Hematocrit 35.4 % (40-54); Hemoglobin 12.6 g/dL (13.0-16.5); Lymphocyte # 1.32 X10^3/ul (0.83-4.51); Lymphocyte % 14.9 % (19-41); Mean Corp Hgb Conc 35.6 g/dL (32-36); Mean Corpuscular Hgb 33.8 pg (27.0-32.0); Mean Corpuscular Volume 94.9 fL (80-94); Mean Platelet Vol. 9.5 fl (6.2-12.0); Monocyte# 1.14 X10^3/uL; Monocyte% 12.9 % (0-10); NRBC Flagged by Analyzer 0 % (0-5); Neutrophil % 67.7 % (47-70); POSITIVE MORPHOLOGY YES; Platelet Count 245 K/mm3 (150-450); RBC Distribution Width CV 12.1 % (11.6-14.6); RBC Distribution Width SD 42.4 fl (35.1-43.9); Red Blood Count 3.73 M/mm3 (4.6-6.2); White Blood Count 8.9 K/mm3 (4.4-11.0)
--- NOTE | 2022-05-31 05:55 | RAD_ITS ---
STUDY: X-RAY CHEST REASON FOR EXAM: Male, 71 years old. Chest tube -- portable TECHNIQUE: Single AP portable view of the chest. COMPARISON: Comparison is made with prior study dated 05/30/2022 at 2:19 PM. FINDINGS: A small caliber chest tube is seen in the inferior lateral aspect of the right hemithorax. This is unchanged. Tiny residual right pneumothorax. Stable blunting of the left costophrenic angle with the increased markings at the right lung base. Normal size heart. Normal mediastinum and merlyn. Normal visualized pulmonary arteries. There is atherosclerotic tortuosity of the aortic arch and descending thoracic aorta. Normal visualized thoracic spine. Normal visualized ribs, clavicles, and shoulders. There is no demonstrated abnormality of the visualized soft tissue structures of the upper abdomen. RAD/Chest 1 View (Portable) IMPRESSION: Tiny residual right pneumothorax. Electronically Signed: Wilberto Powell MD at 8:14 EDT ,
[2022-05-31 06:00] LABS: Differential Indicated SCAN CRITERIA MET
[2022-05-31 06:22] LABS: Macrocytosis RARE
[2022-05-31 06:29] LABS: ALB/GLOB Ratio 0.7 RATIO (0.9-2.4); AST(SGOT) 21 U/L (15-37); Alanine Aminotransfer ALT/SGPT 23 U/L (16-61); Albumin, Serum 2.6 g/dL (3.2-5.0); Alkaline Phosphatase 82 U/L (45-117); Anion Gap 5 (5-15); BUN 10 mg/dL (7-18); BUN/Creat Ratio 13.7 RATIO (10-20); Calcium,Total 9.1 mg/dL (8.5-10.1); Chloride 95 mmol/L (98-107); Creatinine, Serum 0.73 mg/dL (0.70-1.30); EST Glomerular Filtration Rate 112 mL/min (>60); Est Glom Filt Rate - Afr Amer 135 mL/min (>60); Globulin 3.7 g/dL (2.2-4.2); Glucose 87 mg/dL (74-106); Potassium 4.6 mmol/L (3.5-5.1); Protein, Total 6.3 g/dL (6.4-8.2); Sodium Level 129 mmol/L (136-145)
--- NOTE | 2022-05-31 07:20 | PCM.PN.HOSP ---
Subjective Subjective DOS: 04/30/2022 CC: Pain near chest tube Reports overall he is feeling better, has intermittently had no breathing pain on the right side. Additionally intermittently has been coughing. Has noted blood when he blows his nose as well as drainage with that which she reports has been present since has been getting the chemo. Does note that earlier he coughed up some material that appeared bloody. Has not happened since. Has been eating. Denies any overt chest pain. No other complaints this a.m. Objective Data Objective Data Vital Signs: Vital Signs Temp Pulse Resp BP Pulse Ox O2 Del Method 98.6 F 65 18 136/75 H 94 Room Air 05/31/22 04:15 05/31/22 04:15 05/31/22 04:15 05/31/22 04:15 05/31/22 06:44 05/31/22 06:44 Oxygen Delivery Method Room Air Weight: 79.379 kg Body Mass Index (BMI) 26.6 Intake & Output: Intake and Output for Last 24 Hours 05/29/22 05/30/22 05/31/22 23:59 23:59 23:59 Intake Total 1000 / 1000 Output Total 250 / 650 594 / 594 40 / 40 Balance -250 / -650 406 / 406 -40 / -40 Lab / Micro Data Result Diagrams: 05/31/22 04:20 05/31/22 04:20 Labs: Laboratory Results - last 24 hr 05/29/22 11:40: Diff Path Review Reviewed 05/30/22 05:05: Absolute Neuts (auto) 2.4, Absolute Lymphs (auto) 1.00, Total Counted 100, Neutrophils % (Manual) 60, Band Neutrophils % 4, Lymphocytes % (Manual) 26, Monocytes % (Manual) 7, Eosinophils % (Manual) 2, Basophils % (Manual) 1, Diff Path Review Reviewed, Platelet Estimate ADEQUATE, RBC Morphology NORM C+C 05/31/22 04:20: WBC 8.9, RBC 3.73 L, Hgb 12.6 L, Hct 35.4 L, MCV 94.9 H, MCH 33.8 H, MCHC 35.6, RDW Std Deviation 42.4, RDW Coeff of Griffin 12.1, Plt Count 245, MPV 9.5, Immature Gran % (Auto) 1.700 H, Neut % (Auto) 67.7, Lymph % (Auto) 14.9 L, [place] % (Auto) 12.9 H, Eos % (Auto) 1.9, Baso % (Auto) 0.9, Absolute Neuts (auto) 6.0, Absolute Lymphs (auto) 1.32, Nucleated RBC % 0, Macrocytosis RARE 05/31/22 04:20: Sodium 129 L, Potassium 4.6, Chloride 95 L, Carbon Dioxide 29.0, Anion Gap 5, BUN 10, Creatinine 0.73, Estim Creat Clear Calc 64.60, Est GFR (MDRD) Af Amer 135, Est GFR (MDRD) Non-Af 112, BUN/Creatinine Ratio 13.7, Glucose 87, Calcium 9.1, Total Bilirubin 0.50, AST 21, ALT 23, Alkaline Phosphatase 82, Total Protein 6.3 L, Albumin 2.6 L, Globulin 3.7, Albumin/Globulin Ratio 0.7 L Radiography Diagnostic Testing: Radiology Impression Chest X-Ray 05/30/22 05:55 IMPRESSION: Stable small right pneumothorax. Interval decrease in size of the right pleural effusion as well as improved aeration at the right lung base. Electronically Signed: Wilberto Powell MD at 11:09 EDT , Chest CT 05/30/22 11:15 IMPRESSION: Small right pneumothorax with small right pleural effusion. Persistent 6 cm x 3.8 cm mass in the anterior aspect of the right upper lobe with atelectasis in the anterior aspect of the right lower lobe. Electronically Signed: Wilberto Powell MD at 12:05 EDT , Chest X-Ray 05/30/22 14:25 IMPRESSION: Placement of a new small caliber chest tube in the right hemithorax as described. Tiny residual right pneumothorax is seen. Electronically Signed: Wilberto Powell MD at 14:53 EDT , Rhythm Strip Rhythm Strip: Sinus Rhythm Rate: 88 Ectopy: None Physical Exam Const alert and oriented x3 General Appearance: cooperative and comfortable HEENT head/scalp atraumatic Eyes EOMs intact bilaterally Neck supple Resp normal respiratory effort Resp Narrative: Diminished at the base on the right side, somewhat coarse Cardio regular rate and regular rhythm GI non-distended Extremity Extremity Narrative: Moving all extremities Neuro Neuro Narrative: No overt focal deficits noted Psych affect normal Assessment & Plan Assessment/Plan (1) Lung cancer, primary, with metastasis from lung to other site: QUALIFIERS: Laterality: left Qualified Code(s): C34.92 - Malignant neoplasm of unspecified part of left bronchus or lung (2) Pneumothorax after biopsy: PLAN: Plan 71-year-old male with history of COPD, hypertension, lung cancer with metastasis and OA who presented to the hospital 05/29 with increased shortness of breath. Had thoracentesis 05/25 due to malignant effusion from stage IV lung cancer secondary to adenocarcinoma. He had a pneumothorax at the time was discharged home but was told if he had increased shortness of breath to return the hospital. On day of presentation had increased chest pain on the right side and his pneumothorax was found to be increased. Pigtail catheter placed by ED. #1 right-sided pneumothorax secondary to thoracentesis for 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 / adenocarcinoma Had chest tube that was replaced yesterday by surgery A.m. chest x-ray pending Chest tube management per surgery Appreciate recommendations Did speak with his oncologist yesterday about plan, will follow up with him upon discharge #2 hypertension Blood pressure currently stable Continue lisinopril, metoprolol, Aldactone #Chronic hyponatremia Sodium at baseline Continue home salt tabs #DVT ppx: Yazan Gonzalez MD Charges/Coding Visit Charges Inpatient E&M: 80042 Subs Hosp L2
[2022-05-31] MEDS: oxyCODONE 5 MG Tablet PO ×2 (08:01→21:06)
--- NOTE | 2022-05-31 08:30 | PN.SURG_ITS ---
Subjective Subjective Patient states the chest tube discomfort is tolerable, he did have quite a bit of coughing overnight did have some blood that he coughed up but he also had blood sounds like from sinuses. Small leak in chest tube, 80 cc in the Pleur- evac on -20. Morning x-ray looks pretty well-expanded as lung may not completely expand due to cancer. Objective Data Objective Data Vital Signs: Vital Signs Temp Pulse Resp BP Pulse Ox O2 Del Method 98.3 F 89 16 125/81 H 93 Room Air 05/31/22 07:54 05/31/22 07:54 05/31/22 07:54 05/31/22 07:54 05/31/22 07:54 05/31/22 07:54 Oxygen Delivery Method Room Air Weight: 175 lb Body Mass Index (BMI) 26.6 Intake & Output: Intake and Output for Last 24 Hours 05/29/22 05/30/22 05/31/22 23:59 23:59 23:59 Intake Total 1000 / 1000 Output Total 250 / 650 594 / 594 40 / 40 Balance -250 / -650 406 / 406 -40 / -40 Lab / Micro Data Result Diagrams: 05/31/22 04:20 05/31/22 04:20 Labs: Laboratory Results - last 24 hr 05/29/22 11:40: Diff Path Review Reviewed 05/30/22 05:05: Diff Path Review Reviewed 05/31/22 04:20: WBC 8.9, RBC 3.73 L, Hgb 12.6 L, Hct 35.4 L, MCV 94.9 H, MCH 33.8 H, MCHC 35.6, RDW Std Deviation 42.4, RDW Coeff of Griffin 12.1, Plt Count 245, MPV 9.5, Immature Gran % (Auto) 1.700 H, Neut % (Auto) 67.7, Lymph % (Auto) 14.9 L, [place] % (Auto) 12.9 H, Eos % (Auto) 1.9, Baso % (Auto) 0.9, Absolute Neuts (auto) 6.0, Absolute Lymphs (auto) 1.32, Nucleated RBC % 0, Macrocytosis RARE 05/31/22 04:20: Sodium 129 L, Potassium 4.6, Chloride 95 L, Carbon Dioxide 29.0, Anion Gap 5, BUN 10, Creatinine 0.73, Estim Creat Clear Calc 64.60, Est GFR (MDRD) Af Amer 135, Est GFR (MDRD) Non-Af 112, BUN/Creatinine Ratio 13.7, Glucose 87, Calcium 9.1, Total Bilirubin 0.50, AST 21, ALT 23, Alkaline Phosphatase 82, Total Protein 6.3 L, Albumin 2.6 L, Globulin 3.7, Albumin/Globulin Ratio 0.7 L Radiography Diagnostic Testing: Radiology Impression Chest X-Ray 05/30/22 05:55 IMPRESSION: Stable small right pneumothorax. Interval decrease in size of the right pleural effusion as well as improved aeration at the right lung base. Electronically Signed: Wilberto Powell MD at 11:09 EDT , Chest CT 05/30/22 11:15 IMPRESSION: Small right pneumothorax with small right pleural effusion. Persistent 6 cm x 3.8 cm mass in the anterior aspect of the right upper lobe with atelectasis in the anterior aspect of the right lower lobe. Electronically Signed: Wilberto Powell MD at 12:05 EDT , Chest X-Ray 05/30/22 14:25 IMPRESSION: Placement of a new small caliber chest tube in the right hemithorax as described. Tiny residual right pneumothorax is seen. Electronically Signed: Wilberto Powell MD at 14:53 EDT , Chest X-Ray 05/31/22 05:55 IMPRESSION: Tiny residual right pneumothorax. Electronically Signed: Wilberto Powell MD at 8:14 EDT , Rhythm Strip Rhythm Strip: Sinus Rhythm Rate: 88 Ectopy: None Physical Exam Const oriented x3 and no apparent distress Resp normal respiratory effort Resp Narrative: Right chest tube small leak, -20 Assessment & Plan Assessment/Plan (1) Pneumothorax after biopsy: (2) Lung cancer, primary, with metastasis from lung to other site: QUALIFIERS: Laterality: left Qualified Code(s): C34.92 - Malignant neoplasm of unspecified part of left bronchus or lung (3) Pleural effusion, right: PLAN: Plan Patient does still have a small air leak with 8 Malay chest tube. Normally would upsize the tube however due to patient's recent chemotherapy and affects to wound healing unsure that changing the tube currently will do much could currently be chest x-ray does show that the lung looks to be expanded. We will continue with -20 suction. Rhonda Rose M.D. Pager: [phone] [facility] [address] [place] [address], [facility] [place], [address] [place] [address] Office: [phone] Charges/Coding Visit Charges Inpatient E&M: 20900 Subs Hosp L2
[2022-05-31] MEDS: Spironolactone 50 MG Tablet PO (09:14)
[2022-05-31] MEDS: Lisinopril 10 MG Tablet PO (09:19)
[2022-05-31] MEDS: Sodium Chloride 1 GM Tablet PO ×2 (09:20→21:07)
[2022-05-31] MEDS: Metoprolol(XL)Succ 25 MG Tablet PO (09:23)
[2022-05-31] MEDS: Enoxaparin 40 MG/0.4 ML Syringe SC (09:24)
[2022-05-31] MEDS: Acetaminophen 325 MG Tablet 650 MG PO ×2 (14:25→21:06)
[2022-05-31] MEDS: MELATONIN 3 MG TABLET PO (21:06)
[2022-05-31] MEDS: Mirtazapine 15 MG Tablet PO (21:06)
[2022-06-01] VITALS (8 sets, daily range): BP systolic 131–141; BP diastolic 61–83; PULSE 70–98; RESP 16–20; TEMP 36.4–36.9; O2SAT 95–96
[2022-06-01 06:10] LABS: Hematocrit 35.4 % (40-54); Hemoglobin 12.4 g/dL (13.0-16.5); Mean Platelet Vol. 9.2 fl (6.2-12.0); POSITIVE COUNT YES; POSITIVE DIFFERENTIAL YES; POSITIVE MORPHOLOGY YES; Platelet Count 257 K/mm3 (150-450); RBC Distribution Width CV 12.3 % (11.6-14.6); Red Blood Count 3.65 M/mm3 (4.6-6.2); White Blood Count 17.2 K/mm3 (4.4-11.0)
[2022-06-01 06:24] LABS: Differential Indicated MANUAL DIFF
[2022-06-01 06:38] LABS: Anion Gap 7 (5-15); BUN 10 mg/dL (7-18); BUN/Creat Ratio 14.1 RATIO (10-20); Calcium,Total 9.2 mg/dL (8.5-10.1); Chloride 96 mmol/L (98-107); Creatinine, Serum 0.71 mg/dL (0.70-1.30); EST Glomerular Filtration Rate 116 mL/min (>60); Est Glom Filt Rate - Afr Amer 140 mL/min (>60); Glucose 96 mg/dL (74-106); Macrocytosis 1+; Potassium 4.5 mmol/L (3.5-5.1); Sodium Level 130 mmol/L (136-145)
[2022-06-01 06:44] LABS: Absolute Lymphocyte Count 1.72 X10^3/uL (0.83-4.51); Absolute Neutrophil Count 5.3 X10^3/uL (2.0-7.7); Total Cells Counted 100 (MANUAL DIFF)
[2022-06-01 06:45] LABS: Eosinophil 1 % (0-5); Lymphocyte 10 % (19-41); Monocyte 10 % (0-10); Myelocyte 6 % (0-0); Neutrophil-Band 8 % (0-5); Neutrophil-Segmented 65 % (47-70); Platelet Estimate ADEQUATE (ADEQ)
--- NOTE | 2022-06-01 07:35 | PCM.PN.HOSP ---
Subjective Subjective DOS: 06/01/2022 CC: [] [] Objective Data Objective Data Vital Signs: Vital Signs Temp Pulse Resp BP Pulse Ox O2 Del Method 97.9 F 80 16 141/83 H 96 Room Air 06/01/22 02:54 06/01/22 02:54 06/01/22 02:54 06/01/22 02:54 06/01/22 02:54 06/01/22 02:54 Oxygen Delivery Method Room Air Weight: 79.379 kg Body Mass Index (BMI) 26.6 Intake & Output: Intake and Output for Last 24 Hours 05/30/22 05/31/22 06/01/22 23:59 23:59 23:59 Intake Total 1000 / 1000 Output Total 594 / 594 Balance 406 / 406 - Lab / Micro Data Result Diagrams: 06/01/22 05:35 06/01/22 05:35 Labs: Laboratory Results - last 24 hr 06/01/22 05:35: WBC 17.2 H, RBC 3.65 L, Hgb 12.4 L, Hct 35.4 L, MCV 97.0 H, MCH 34.0 H, MCHC 35.0, RDW Std Deviation 44.0 H, RDW Coeff of Griffin 12.3, Plt Count 257, MPV 9.2, Neut % (Auto) Not Reportable, Absolute Neuts (auto) 5.3, Absolute Lymphs (auto) 1.72, Total Counted 100, Neutrophils % (Manual) 65, Band Neutrophils % 8 H, Lymphocytes % (Manual) 10 L, Monocytes % (Manual) 10, Eosinophils % (Manual) 1, Myelocytes % 6 H, Diff Path Review November, Platelet Estimate ADEQUATE, Macrocytosis 1+ 06/01/22 05:35: Sodium 130 L, Potassium 4.5, Chloride 96 L, Carbon Dioxide 27.0, Anion Gap 7, BUN 10, Creatinine 0.71, Estim Creat Clear Calc 64.60, Est GFR (MDRD) Af Amer 140, Est GFR (MDRD) Non-Af 116, BUN/Creatinine Ratio 14.1, Glucose 96, Calcium 9.2 Radiography Diagnostic Testing: Radiology Impression Chest X-Ray 05/31/22 05:55 IMPRESSION: Tiny residual right pneumothorax. Electronically Signed: Wilberto Powell MD at 8:14 EDT , Rhythm Strip Rhythm Strip: Sinus Rhythm Rate: 88 Ectopy: None Physical Exam Const alert and oriented x3 General Appearance: cooperative and comfortable HEENT head/scalp atraumatic Eyes EOMs intact bilaterally Neck supple Resp normal respiratory effort Resp Narrative: Diminished at the base on the right side, somewhat coarse Cardio regular rate and regular rhythm GI non-distended Extremity Extremity Narrative: Moving all extremities Neuro Neuro Narrative: No overt focal deficits noted Psych affect normal Assessment & Plan Assessment/Plan (1) Lung cancer, primary, with metastasis from lung to other site: QUALIFIERS: Laterality: left Qualified Code(s): C34.92 - Malignant neoplasm of unspecified part of left bronchus or lung (2) Pneumothorax after biopsy: PLAN: Plan 71-year-old male with history of COPD, hypertension, lung cancer with metastasis and OA who presented to the hospital 05/29 with increased shortness of breath. Had thoracentesis 05/25 due to malignant effusion from stage IV lung cancer secondary to adenocarcinoma. He had a pneumothorax at the time was discharged home but was told if he had increased shortness of breath to return the hospital. On day of presentation had increased chest pain on the right side and his pneumothorax was found to be increased. Pigtail catheter placed by ED. #1 right-sided pneumothorax secondary to thoracentesis for 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 2/ adenocarcinoma Had chest tube that was replaced yesterday by surgery A.m. chest x-ray pending Chest tube management per surgery Appreciate recommendations Did speak with his oncologist yesterday about plan, will follow up with him upon discharge #2 hypertension Blood pressure currently stable Continue lisinopril, metoprolol, Aldactone #Chronic hyponatremia Sodium at baseline Continue home salt tabs #DVT ppx: Yazan Gonzalez MD
--- NOTE | 2022-06-01 07:38 | RAD_ITS ---
STUDY: X-RAY CHEST REASON FOR EXAM: Male, 71 years old. Chest tube TECHNIQUE: Single frontal view of the chest. COMPARISON: 05/31/2022. FINDINGS: There is a stable right-sided pneumothorax. There is a right sided chest tube in place projecting over the lateral mid lung. There is a stable right pleural effusion. Normal size heart. There is a central venous catheter placed with its tip terminating within the expected region of the superior vena cava. Normal mediastinum and merlyn. Normal visualized pulmonary arteries. Normal visualized aortic arch and descending thoracic aorta. Normal visualized thoracic spine. Normal visualized ribs, clavicles, and shoulders. There is no demonstrated abnormality of the visualized soft tissue structures of the upper abdomen. RAD/Chest 1 View (Portable) IMPRESSION: Stable right pneumothorax. Stable right pleural effusion. Electronically Signed: Emili Byrne MD at 8:18 EDT ,
--- NOTE | 2022-06-01 09:03 | PN.SURG_ITS ---
Subjective Subjective Patient's morning x-ray lungs to look pretty well-expanded. Small pneumothorax versus nonfilled space due to chronically contracted lung. Patient is on room air. No leak with cough this morning. Objective Data Objective Data Vital Signs: Vital Signs Temp Pulse Resp BP Pulse Ox O2 Del Method 97.5 F L 85 18 133/73 H 96 Room Air 06/01/22 08:30 06/01/22 08:30 06/01/22 08:30 06/01/22 08:30 06/01/22 08:30 06/01/22 08:30 Oxygen Delivery Method Room Air Weight: 175 lb Body Mass Index (BMI) 26.6 Intake & Output: Intake and Output for Last 24 Hours 05/30/22 05/31/22 06/01/22 23:59 23:59 23:59 Intake Total 1000 / 1000 Output Total 594 / 594 / Balance 406 / 406 - / -71 Lab / Micro Data Result Diagrams: 06/01/22 05:35 06/01/22 05:35 Labs: Laboratory Results - last 24 hr 06/01/22 05:35: WBC 17.2 H, RBC 3.65 L, Hgb 12.4 L, Hct 35.4 L, MCV 97.0 H, MCH 34.0 H, MCHC 35.0, RDW Std Deviation 44.0 H, RDW Coeff of Griffin 12.3, Plt Count 257, MPV 9.2, Neut % (Auto) Not Reportable, Absolute Neuts (auto) 5.3, Absolute Lymphs (auto) 1.72, Total Counted 100, Neutrophils % (Manual) 65, Band Neutrophils % 8 H, Lymphocytes % (Manual) 10 L, Monocytes % (Manual) 10, Eosinophils % (Manual) 1, Myelocytes % 6 H, Diff Path Review November, Platelet Estimate ADEQUATE, Macrocytosis 1+ 06/01/22 05:35: Sodium 130 L, Potassium 4.5, Chloride 96 L, Carbon Dioxide 27.0, Anion Gap 7, BUN 10, Creatinine 0.71, Estim Creat Clear Calc 64.60, Est GFR (MDRD) Af Amer 140, Est GFR (MDRD) Non-Af 116, BUN/Creatinine Ratio 14.1, G [place] 96, Calcium 9.2 Radiography Diagnostic Testing: Radiology Impression Chest X-Ray 06/01/22 07:38 IMPRESSION: Stable right pneumothorax. Stable right pleural effusion. Electronically Signed: Emili Byrne MD at 8:18 EDT , Rhythm Strip Rhythm Strip: Sinus Rhythm Rate: 88 Ectopy: None Physical Exam Const oriented x3 and no apparent distress Resp normal respiratory effort Resp Narrative: Right chest tube no leak with coughing, -20 Assessment & Plan Assessment/Plan (1) Pneumothorax after biopsy: (2) Lung cancer, primary, with metastasis from lung to other site: QUALIFIERS: Laterality: left Qualified Code(s): C34.92 - Malignant neoplasm of unspecified part of left bronchus or lung (3) Pleural effusion, right: PLAN: Plan Patient not have a leak with coughing this morning. We will continue to suction as patient will likely have reduced wound healing due to patient's current chemotherapy regimen and timing as he got chemotherapy on 05/16/2022. Patient's chest x-ray does show a small pneumothorax however patient does have a chronically collapsed lung due to cancer. And chest tube is in place on x-ray. Discussed with patient that if we did stop the suction we may be starting over at the beginning with waiting for this area to try to heal. Patient was agreeable plan. Rhonda Rose M.D. Pager: [phone] [facility] [address] [place] [address], [facility], [address] [place] [address] Office: [phone] Charges/Coding Visit Charges Inpatient E&M: 35707 Subs Hosp L2
--- NOTE | 2022-06-01 09:33 | PN.HOSP_ITS ---
Subjective Subjective DOS: 06/01/2022 CC: Cough Reports he continues to feel better overall, cough is improving as is shortness of breath. No chest pain, no burning on urination. No further incident of coughing up blood. No change in sputum production otherwise. Denies any other concerns. Eating well, no nausea Objective Data Objective Data Vital Signs: Vital Signs Temp Pulse Resp BP Pulse Ox O2 Del Method 97.5 F L 85 18 133/73 H 96 Room Air 06/01/22 08:30 06/01/22 08:30 06/01/22 08:30 06/01/22 08:30 06/01/22 08:30 06/01/22 08:30 Oxygen Delivery Method Room Air Weight: 79.379 kg Body Mass Index (BMI) 26.6 Intake & Output: Intake and Output for Last 24 Hours 05/30/22 05/31/22 06/01/22 23:59 23:59 23:59 Intake Total 1000 / 1000 Output Total 594 / 594 Balance 406 / 406 - / Lab / Micro Data Result Diagrams: 06/01/22 05:35 06/01/22 05:35 Labs: Laboratory Results - last 24 hr 06/01/22 05:35: WBC 17.2 H, RBC 3.65 L, Hgb 12.4 L, Hct 35.4 L, MCV 97.0 H, MCH 34.0 H, MCHC 35.0, RDW Std Deviation 44.0 H, RDW Coeff of Griffin 12.3, Plt Count 257, MPV 9.2, Neut % (Auto) Not Reportable, Absolute Neuts (auto) 5.3, Absolute Lymphs (auto) 1.72, Total Counted 100, Neutrophils % (Manual) 65, Band Neutrophils % 8 H, Lymphocytes % (Manual) 10 L, Monocytes % (Manual) 10, Eosinophils % (Manual) 1, Myelocytes % 6 H, Diff Path Review November, Platelet Estimate ADEQUATE, Macrocytosis 1+ 06/01/22 05:35: Sodium 130 L, Potassium 4.5, Chloride 96 L, Carbon Dioxide 27.0, Anion Gap 7, BUN 10, Creatinine 0.71, Estim Creat Clear Calc 64.60, Est GFR (MDRD) Af Amer 140, Est GFR (MDRD) Non-Af 116, BUN/Creatinine Ratio 14.1, Gluc ose 96, Calcium 9.2 Radiography Diagnostic Testing: Radiology Impression Chest X-Ray 06/01/22 07:38 IMPRESSION: Stable right pneumothorax. Stable right pleural effusion. Electronically Signed: Emili Byrne MD at 8:18 EDT , Rhythm Strip Rhythm Strip: Sinus Rhythm Rate: 88 Ectopy: None Physical Exam Const alert and oriented x3 General Appearance: cooperative and comfortable HEENT head/scalp atraumatic Eyes EOMs intact bilaterally Neck supple Resp normal respiratory effort Resp Narrative: Improving aeration Cardio regular rate and regular rhythm GI non-distended Extremity Extremity Narrative: Moving all extremities Neuro Neuro Narrative: No overt focal deficits noted Psych affect normal Assessment & Plan Assessment/Plan (1) Lung cancer, primary, with metastasis from lung to other site: QUALIFIERS: Laterality: left Qualified Code(s): C34.92 - Malignant neoplasm of unspecified part of left bronchus or lung (2) Pneumothorax after biopsy: PLAN: Plan 71-year-old male with history of COPD, hypertension, lung cancer with metastasis and OA who presented to the hospital 05/29 with increased shortness of breath.? Had thoracentesis 05/25 due to malignant effusion from stage IV lung cancer se condary to adenocarcinoma.? He had a pneumothorax at the time was discharged home but was told if he had increased shortness of breath to return the hospital.? On day of presentation had increased chest pain on the right side and his pneumothorax was found to be increased.? Pigtail catheter placed by ED. #1 right-sided pneumothorax secondary to thoracentesis for 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 09/01 adenocarcinoma Had chest tube that was replaced yesterday by surgery A.m. chest x-ray pending Chest tube management per surgery Appreciate recommendations Did speak with his oncologist yesterday about plan, will follow up with him upon discharge 06/01/2022: Beginning to do better today, chest tube in place. Will be left on suction overnight and reevaluate tomorrow a.m. He is aware of the plan and is agreeable #Leukocytosis Count 17.2 today, no new signs or symptoms of infection, afebrile. Vitally stable. Will obtain Pro-Yaakov to assess for underlying infection. Low threshold to start antibiotics #2 hypertension Blood pressure currently stable Continue lisinopril, metoprolol, Aldactone #Chronic hyponatremia Sodium at baseline Continue home salt tabs #DVT ppx: Yazan Gonzalez MD Charges/Coding Visit Charges Inpatient E&M: 02710 Subs Hosp L2
[2022-06-01] MEDS: Acetaminophen 325 MG Tablet 650 MG PO ×2 (10:30→21:13)
[2022-06-01] MEDS: Spironolactone 50 MG Tablet PO (10:31)
[2022-06-01] MEDS: Metoprolol(XL)Succ 25 MG Tablet PO (10:31)
[2022-06-01] MEDS: Sodium Chloride 1 GM Tablet PO ×2 (10:31→21:13)
[2022-06-01] MEDS: Enoxaparin 40 MG/0.4 ML Syringe SC (10:31)
[2022-06-01] MEDS: Lisinopril 10 MG Tablet PO (10:32)
[2022-06-01 10:44] LABS: Procalcitonin 0.14 ng/mL (0.00-0.09)
[2022-06-01] MEDS: oxyCODONE 5 MG Tablet PO ×2 (17:00→21:13)
[2022-06-01] MEDS: Mirtazapine 15 MG Tablet PO (21:13)
[2022-06-01] MEDS: MELATONIN 3 MG TABLET PO (21:14)
[2022-06-02 03:00] VITALS: BP 123/66; PULSE 72; RESP 16; TEMP 36.6; O2SAT 97
--- NOTE | 2022-06-02 05:55 | RAD_ITS ---
STUDY: X-RAY CHEST REASON FOR EXAM: Male, 71 years old. Chest tube -- portable TECHNIQUE: Single AP portable view of the chest. COMPARISON: Comparison is made with prior study 06/01/2022. FINDINGS: Stable appearance of the small caliber right-sided chest tube. A right-sided portacatheter is seen with the tip at the junction of the superior vena cava and right atrium. Tiny residual right apical pneumothorax. Tiny right pleural effusion with right basilar atelectasis. Linear atelectasis is also seen at the left lung base Prior aortic valve replacement. Normal mediastinum and merlyn. Normal visualized pulmonary arteries. Normal visualized aortic arch and descending thoracic aorta. There are diffuse degenerative changes of the visualized thoracic spine. Normal visualized ribs, clavicles, and shoulders. There is no demonstrated abnormality of the visualized soft tissue structures of the upper abdomen. RAD/Chest 1 View (Portable) IMPRESSION: Tiny residual right apical pneumothorax. Small right pleural effusion with bibasilar atelectasis slightly worse on the right side Electronically Signed: Wilberto Powell MD at 8:43 EDT ,
[2022-06-02 06:36] LABS: Hematocrit 34.8 % (40-54); Hemoglobin 12.2 g/dL (13.0-16.5); Mean Corp Hgb Conc 35.1 g/dL (32-36); Mean Corpuscular Hgb 34.2 pg (27.0-32.0); Mean Corpuscular Volume 97.5 fL (80-94); Mean Platelet Vol. 9.2 fl (6.2-12.0); POSITIVE COUNT YES; POSITIVE DIFFERENTIAL YES; POSITIVE MORPHOLOGY YES; Platelet Count 282 K/mm3 (150-450); RBC Distribution Width CV 12.4 % (11.6-14.6); RBC Distribution Width SD 44.5 fl (35.1-43.9); Red Blood Count 3.57 M/mm3 (4.6-6.2); White Blood Count 22.9 K/mm3 (4.4-11.0)
[2022-06-02 06:45] LABS: Differential Indicated MANUAL DIFF
[2022-06-02 07:04] LABS: Macrocytosis 1+
[2022-06-02 07:05] LABS: Anion Gap 4 (5-15); BUN 11 mg/dL (7-18); BUN/Creat Ratio 13.3 RATIO (10-20); Calcium,Total 9.1 mg/dL (8.5-10.1); Chloride 95 mmol/L (98-107); Creatinine, Serum 0.83 mg/dL (0.70-1.30); EST Glomerular Filtration Rate 97 mL/min (>60); Est Glom Filt Rate - Afr Amer 117 mL/min (>60); Estimated Creatinine Clearance 77.83 ml/min; Glucose 85 mg/dL (74-106); Potassium 4.6 mmol/L (3.5-5.1); Sodium Level 130 mmol/L (136-145)
[2022-06-02 07:07] LABS: Absolute Neutrophil Count 17.1 X10^3/uL (2.0-7.7)
[2022-06-02 07:08] LABS: Absolute Lymphocyte Count 2.97 X10^3/uL (0.83-4.51); Atypical Lymphocyte 1+ %; Eosinophil 1 % (0-5); Lymphocyte 13 % (19-41); Monocyte 8 % (0-10); Myelocyte 3 % (0-0); Neutrophil-Band 20 % (0-5); Neutrophil-Segmented 55 % (47-70); Platelet Estimate ADEQUATE (ADEQ); Total Cells Counted 100 (MANUAL DIFF)
--- NOTE | 2022-06-02 07:34 | PCM.PN.HOSP ---
Subjective Subjective DOS: 06/02/2022 CC: Follow-up chest tube Doing better today, breathing stable, cough improving, minimal sputum production. Still has dry nose with some blood which is chronic. Denies no other complaints this morning Objective Data Objective Data Vital Signs: Vital Signs Temp Pulse Resp BP Pulse Ox O2 Del Method 97.9 F 72 16 123/66 H 97 Room Air 06/02/22 03:00 06/02/22 03:00 06/02/22 03:00 06/02/22 03:00 06/02/22 03:00 06/02/22 03:00 Oxygen Delivery Method Room Air Weight: 79.379 kg Body Mass Index (BMI) 26.6 Intake & Output: Intake and Output for Last 24 Hours 05/31/22 06/01/22 06/02/22 23:59 23:59 23:59 Intake Total 1250 / 1250 Output Total Balance -71 / -71 1220 / 1220 Lab / Micro Data Result Diagrams: 06/02/22 05:30 06/02/22 05:30 Labs: Laboratory Results - last 24 hr 06/01/22 05:35: Procalcitonin 0.14 H 06/02/22 05:30: WBC 22.9 H, RBC 3.57 L, Hgb 12.2 L, Hct 34.8 L, MCV 97.5 H, MCH 34.2 H, MCHC 35.1, RDW Std Deviation 44.5 H, RDW Coeff of Griffin 12.4, Plt Count 282, MPV 9.2, Neut % (Auto) Not Reportable, Absolute Neuts (auto) 17.1 H, Absolute Lymphs (auto) 2.97, Total Counted 100, Neutrophils % (Manual) 55, Band Neutrophils % 20 H, Lymphocytes % (Manual) 13 L, Monocytes % (Manual) 8, Eosinophils % (Manual) 1, Myelocytes % 3 H, Diff Path Review May foll, Atypical Lymphocytes 1+, Platelet Estimate ADEQUATE, Macrocytosis 1+ 06/02/22 05:30: Sodium 130 L, Potassium 4.6, Chloride 95 L, Carbon Dioxide 31.0, Anion Gap 4 L, BUN 11, Creatinine 0.83, Estim Creat Clear Calc 77.83, Est GFR (MDRD) Af Amer 117, Est GFR (MDRD) Non-Af 97, BUN/Creatinine Ratio 13.3, Glucose 85, Calcium 9.1 Radiography Diagnostic Testing: Radiology Impression Chest X-Ray 06/01/22 07:38 IMPRESSION: Stable right pneumothorax. Stable right pleural effusion. Electronically Signed: Emili Byrne MD at 8:18 EDT , Rhythm Strip Rhythm Strip: Sinus Rhythm Rate: 88 Ectopy: None Physical Exam Const alert and oriented x3 General Appearance: cooperative and comfortable HEENT head/scalp atraumatic Eyes EOMs intact bilaterally Neck supple Resp normal respiratory effort Resp Narrative: Improving aeration Cardio regular rate and regular rhythm GI non-distended Extremity Extremity Narrative: Moving all extremities Neuro Neuro Narrative: No overt focal deficits noted Psych affect normal Assessment & Plan Assessment/Plan (1) Lung cancer, primary, with metastasis from lung to other site: QUALIFIERS: Laterality: left Qualified Code(s): C34.92 - Malignant neoplasm of unspecified part of left bronchus or lung (2) Pneumothorax after biopsy: PLAN: Plan 71-year-old male with history of COPD, hypertension, lung cancer with metastasis and OA who presented to the hospital 05/29 with increased shortness of breath.? Had thoracentesis 05/25 due to malignant effusion from stage IV lung cancer secondary to adenocarcinoma.? He had a pneumothorax at the time was discharged home but was told if he had increased shortness of breath to return the hospital.? On day of presentation had increased chest pain on the right side and his pneumothorax was found to be increased.? Pigtail catheter placed by ED. #1 right-sided pneumothorax secondary to thoracentesis for 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 09/01 adenocarcinoma Had chest tube that was replaced yesterday by surgery A.m. chest x-ray pending Chest tube management per surgery Appreciate recommendations Did speak with his oncologist yesterday about plan, will follow up with him upon discharge 06/01/2022: Beginning to do better today, chest tube in place. Will be left on suction overnight and reevaluate tomorrow a.m. He is aware of the plan and is agreeable 06/29/2022: Awaiting a.m. x-ray and surgery recommendations. Has been in proving. #Leukocytosis Count 17.2 today, no new signs or symptoms of infection, afebrile. Vitally stable. Will obtain Pro-Yaakov to assess for underlying infection. Low threshold to start antibiotics 06/29: Discussed with his outpatient oncologist who reported based on medication given with chemo this response would be expected and with no overt signs or symptoms of infection would recommend against starting empiric antibiotic therapy. No signs or symptoms of infection had been noted, would hold off on antibiotics at this time #2 hypertension Blood pressure currently stable Continue lisinopril, metoprolol, Aldactone #Chronic hyponatremia Sodium at baseline Continue home salt tabs #DVT ppx: Lovenox Anushka Gonzalez MD Charges/Coding Visit Charges Inpatient E&M: 01284 Subs Hosp L2
--- NOTE | 2022-06-02 07:35 | PN.SURG_ITS ---
Subjective Subjective Patient's morning chest x-ray lungs still well-expanded. Patient has no leak with coughing did have some random bubbles when straightening out the tubing however continue to monitor and no further bubbles even with a deep cough Objective Data Objective Data Vital Signs: Vital Signs Temp Pulse Resp BP Pulse Ox O2 Del Method 97.9 F 72 16 123/66 H 97 Room Air 06/02/22 03:00 06/02/22 03:00 06/02/22 03:00 06/02/22 03:00 06/02/22 03:00 06/02/22 03:00 Oxygen Delivery Method Room Air Weight: 175 lb 0.012 oz Body Mass Index (BMI) 26.6 Intake & Output: Intake and Output for Last 24 Hours 05/31/22 06/01/22 06/02/22 23:59 23:59 23:59 Intake Total 1250 / 1250 Output Total Balance -71 / -71 1220 / 1220 Lab / Micro Data Result Diagrams: 06/02/22 05:30 06/02/22 05:30 Labs: Laboratory Results - last 24 hr 06/01/22 05:35: Procalcitonin 0.14 H 06/02/22 05:30: WBC 22.9 H, RBC 3.57 L, Hgb 12.2 L, Hct 34.8 L, MCV 97.5 H, MCH 34.2 H, MCHC 35.1, RDW Std Deviation 44.5 H, RDW Coeff of Griffin 12.4, Plt Count 282, MPV 9.2, Neut % (Auto) Not Reportable, Absolute Neuts (auto) 17.1 H, Absolute Lymphs (auto) 2.97, Total Counted 100, Neutrophils % (Manual) 55, Band Neutrophils % 20 H, Lymphocytes % (Manual) 13 L, Monocytes % (Manual) 8, Eosinophils % (Manual) 1, Myelocytes % 3 H, Diff Path Review May foll, Atypical Lymphocytes 1+, Platelet Estimate ADEQUATE, Macrocytosis 1+ 06/02/22 05:30: Sodium 130 L, Potassium 4.6, Chloride 95 L, Carbon Dioxide 31.0, Anion Gap 4 L, BUN 11, Creatinine 0.83, Estim Creat Clear Calc 77.83, Est GFR (MDRD) Af Amer 117, Est GFR (MDRD) Non-Af 97, BUN/Creatinine Ratio 13.3, Glucose 85, Calcium 9.1 Radiography Diagnostic Testing: Radiology Impression Chest X-Ray 06/01/22 07:38 IMPRESSION: Stable right pneumothorax. Stable right pleural effusion. Electronically Signed: Emili Byrne MD at 8:18 EDT , Rhythm Strip Rhythm Strip: Sinus Rhythm Rate: 88 Ectopy: None Physical Exam Const oriented x3 and no apparent distress Resp normal respiratory effort Resp Narrative: Right chest tube no leak with coughing, -20 Assessment & Plan Assessment/Plan (1) Pneumothorax after biopsy: (2) Lung cancer, primary, with metastasis from lung to other site: QUALIFIERS: Laterality: left Qualified Code(s): C34.92 - Malignant neoplasm of unspecified part of left bronchus or lung (3) Pleural effusion, right: PLAN: Plan Patient had no leak with coughing did have some random bubbles when straightening out the tubing initially but with watching for several minutes and deep coughing- no leak. We will plan to try to waterseal and get two-view chest x-ray downstairs at 10 AM. If pneumo increases we will put him back to suction otherwise we will keep to waterseal today. Patient was agreeable plan. Addendum: two-view chest x-ray at 10 AM did not show any change from a.m. x-ray. We will continue on waterseal today and if tomorrow morning x-ray is similar we will plan to DC chest tube. Rhonda Rose M.D. Pager: [phone] [facility] [address] [place] [address], [facility], [address] [place] [address] Office: [phone] Charges/Coding Visit Charges Inpatient E&M: 79987 Subs Hosp L2
[2022-06-02 08:00] VITALS: BP 140/92; PULSE 84; RESP 16; TEMP 37; O2SAT 94
[2022-06-02] MEDS: Acetaminophen 325 MG Tablet 650 MG PO ×3 (08:22→21:28)
[2022-06-02 08:23] VITALS: BP 140/92; PULSE 84; RESP 16; TEMP 37; O2SAT 94
[2022-06-02 08:31] VITALS: BP 140/92; PULSE 84
[2022-06-02] MEDS: Spironolactone 50 MG Tablet PO (08:31)
[2022-06-02] MEDS: Lisinopril 10 MG Tablet PO (08:31)
[2022-06-02] MEDS: Metoprolol(XL)Succ 25 MG Tablet PO (08:31)
[2022-06-02] MEDS: Sodium Chloride 1 GM Tablet PO ×2 (08:32→21:27)
[2022-06-02] MEDS: Enoxaparin 40 MG/0.4 ML Syringe SC (08:32)
[2022-06-02 10:02] LABS: Pathologist Review Reviewed
--- NOTE | 2022-06-02 10:11 | RAD_ITS ---
STUDY: X-RAY CHEST REASON FOR EXAM: Male, 71 years old. EVALUATE PNEUMOTHORAX -- WET READ DR. LINDER TECHNIQUE: PA and lateral views of the chest. COMPARISON: Comparison is made with prior study dated 06/02/2022. FINDINGS: Stable small right apical pneumothorax. Tiny pneumothorax seen along the right cardiac phrenic angle. Improved aeration at the right lung base. Residual blunting of the right costophrenic angle. RAD/Chest PA and Lateral IMPRESSION: Essentially stable chest radiograph. Electronically Signed: Wiblerto Powell MD at 10:38 EDT ,
[2022-06-02] MEDS: 0.9% Saline Lock 10 ML Syringe IV (11:55)
[2022-06-02 14:01] VITALS: BP 116/64; PULSE 90; RESP 18; TEMP 36.7; O2SAT 95
[2022-06-02 15:34] LABS: Pathologist Review Reviewed
[2022-06-02 21:00] VITALS: BP 138/81; PULSE 86; RESP 16; TEMP 37.4; O2SAT 96
[2022-06-02] MEDS: MELATONIN 3 MG TABLET PO (21:27)
[2022-06-02] MEDS: oxyCODONE 5 MG Tablet PO (21:27)
[2022-06-02] MEDS: Mirtazapine 15 MG Tablet PO (21:27)
[2022-06-03 02:45] VITALS: BP 136/81; PULSE 82; RESP 16; TEMP 36.7; O2SAT 97
[2022-06-03 07:19] LABS: Absolute Lymphocyte Count 1.33 X10^3/uL (0.83-4.51); Absolute Neutrophil Count 18.4 X10^3/uL (2.0-7.7); Basophil# 0.08 X10^3/uL; Basophil% 0.3 % (0-1); Eosinophil# 0.14 X10^3/uL; Eosinophils% 0.6 % (0-5); Hematocrit 37.8 % (40-54); Hemoglobin 13.2 g/dL (13.0-16.5); Lymphocyte # 1.33 X10^3/ul (0.83-4.51); Lymphocyte % 5.7 % (19-41); Mean Corp Hgb Conc 34.9 g/dL (32-36); Mean Corpuscular Volume 97.4 fL (80-94); Mean Platelet Vol. 9.2 fl (6.2-12.0); Monocyte# 1.03 X10^3/uL; Monocyte% 4.4 % (0-10); NRBC Flagged by Analyzer 0.1 % (0-5); Neutrophil # 18.38 X10^3/uL (2.7-7.7); Neutrophil % 79.5 % (47-70); POSITIVE COUNT YES; POSITIVE MORPHOLOGY YES; Platelet Count 312 K/mm3 (150-450); RBC Distribution Width CV 12.7 % (11.6-14.6); RBC Distribution Width SD 45.1 fl (35.1-43.9); Red Blood Count 3.88 M/mm3 (4.6-6.2); White Blood Count 23.2 K/mm3 (4.4-11.0)
--- NOTE | 2022-06-03 07:40 | RAD_ITS ---
EXAM: XR CHEST, 2 VIEWS CLINICAL INDICATION: chest tube TECHNIQUE: Frontal and lateral views of the chest. This report was created using [employer] report generation technology. COMPARISON: 06/02/2022. FINDINGS: LUNGS AND PLEURAL SPACES: The size of pneumothorax in the right lower peripheral lung zone has decreased but the right apical pneumothorax is unchanged. The right pleural fluid is unchanged. The subpleural infiltrate within the right upper lobe/middle is unchanged. Normal left lung. HEART: Unremarkable. Cardiac silhouette not enlarged. MEDIASTINUM: Central airways and mediastinal contour are unremarkable. BONES/JOINTS: Unremarkable. SOFT TISSUES: Unremarkable. TUBES, LINES AND DEVICES: Small [place] right bilateral percutaneous drain catheter in the right chest is unchanged. Right IJ approach portacatheter tip remains in the mid SVC. RAD/Chest PA and Lateral IMPRESSION: Minimal decrease in right pneumothorax but the right apical pneumothorax is unchanged in the right pleural fluid is also unchanged. Electronically Signed: Magdaleno Parish MD at 8:08 EDT ,
[2022-06-03 07:44] LABS: Anion Gap 6 (5-15); BUN 11 mg/dL (7-18); BUN/Creat Ratio 14.9 RATIO (10-20); Calcium,Total 9.2 mg/dL (8.5-10.1); Chloride 96 mmol/L (98-107); Creatinine, Serum 0.74 mg/dL (0.70-1.30); EST Glomerular Filtration Rate 111 mL/min (>60); Est Glom Filt Rate - Afr Amer 134 mL/min (>60); Glucose 72 mg/dL (74-106); Potassium 4.1 mmol/L (3.5-5.1); Sodium Level 133 mmol/L (136-145)
[2022-06-03 07:49] VITALS: O2SAT 95
[2022-06-03 08:12] LABS: Differential Indicated SCAN CRITERIA MET
[2022-06-03 08:15] LABS: Platelet Estimate ADEQUATE (ADEQ); Red Cell Morphology NORM C+C NORMAL (NORM C&C)
--- NOTE | 2022-06-03 08:20 | NURSING ---
Chest tube removed at this time by Dr. Rose. Orders obtained for chest xray in 2 hours. Pt tolerated procedure well, sitting up on edge of bed to eat breakfast.
[2022-06-03 08:30] VITALS: O2SAT 96
--- NOTE | 2022-06-03 08:41 | PCM.PN.SRG ---
Subjective Subjective Patient did state he had some sharp right upper chest pain similar to when he came in last night/early this morning. Patient's chest x-ray is unchanged from yesterday. And patient has been satting well on room air. Objective Data Objective Data Vital Signs: Vital Signs Temp Pulse Resp BP Pulse Ox O2 Del Method 98.0 F 82 16 136/81 H 95 Room Air 06/03/22 02:45 06/03/22 02:45 06/03/22 02:45 06/03/22 02:45 06/03/22 07:49 06/03/22 07:49 Oxygen Delivery Method Room Air Weight: 175 lb 0.012 oz Body Mass Index (BMI) 26.6 Intake & Output: Intake and Output for Last 24 Hours 06/01/22 06/02/22 06/03/22 23:59 23:59 23:59 Intake Total 1250 / 1250 Output Total Balance 1220 / 1220 Lab / Micro Data Result Diagrams: 06/03/22 05:30 06/03/22 06:50 Labs: Laboratory Results - last 24 hr 06/01/22 05:35: Diff Path Review Reviewed 06/02/22 05:30: Diff Path Review Reviewed 06/03/22 05:30: WBC 23.2 H, RBC 3.88 L, Hgb 13.2, Hct 37.8 L, MCV 97.4 H, MCH 34.0 H, MCHC 34.9, RDW Std Deviation 45.1 H, RDW Coeff of Griffin 12.7, Plt Count 312, MPV 9.2, Immature Gran % (Auto) 9.500 H, Neut % (Auto) 79.5 H, Lymph % (Auto) 5.7 L, [place] % (Auto) 4.4, Eos % (Auto) 0.6, Baso % (Auto) 0.3, Absolute Neuts (auto) 18.4 H, Absolute Lymphs (auto) 1.33, Nucleated RBC % 0.1, Platelet Estimate ADEQUATE, RBC Morphology NORM C+C 06/03/22 06:50: Sodium 133 L, Potassium 4.1, Chloride 96 L, Carbon Dioxide 31.0, Anion Gap 6, BUN 11, Creatinine 0.74, Estim Creat Clear Calc 64.60, Est GFR (MDRD) Af Amer 134, Est GFR (MDRD) Non-Af 111, BUN/Creatinine Ratio 14.9, Glucose 72 L, Calcium 9.2 Radiography Diagnostic Testing: Radiology Impression Chest X-Ray 06/02/22 05:55 IMPRESSION: Tiny residual right apical pneumothorax. Small right pleural effusion with bibasilar atelectasis slightly worse on the right side Electronically Signed: Wilberto Powell MD at 8:43 EDT , Chest X-Ray 06/02/22 10:11 IMPRESSION: Essentially stable chest radiograph. Electronically Signed: Wilberto Powell MD at 10:38 EDT , Chest X-Ray 06/03/22 07:40 IMPRESSION: Minimal decrease in right pneumothorax but the right apical pneumothorax is unchanged in the right pleural fluid is also unchanged. Electronically Signed: Magdaleno Parish MD at 8:08 EDT , Rhythm Strip Rhythm Strip: Sinus Rhythm Rate: 88 Ectopy: None Physical Exam Const oriented x3 and no apparent distress Resp normal respiratory effort Resp Narrative: Right chest tube on waterseal Assessment & Plan Assessment/Plan (1) Pneumothorax after biopsy: (2) Lung cancer, primary, with metastasis from lung to other site: QUALIFIERS: Laterality: left Qualified Code(s): C34.92 - Malignant neoplasm of unspecified part of left bronchus or lung (3) Pleural effusion, right: PLAN: Plan Patient's x-ray from this morning looks unchanged from yesterday. Chest tube was removed we will check a two-view chest x-ray in 2 hours. If remains stable okay to DC home. Discussed with patient that due to his collapse lung from cancer he will likely have evidence of a small pneumothorax on chest x-ray if he has no fluid pleural effusion. Rhonda Rose M.D. Pager: [phone] [facility] [address] [place] [address], [facility], [address] [place] [address] Office: [phone] Charges/Coding Visit Charges Inpatient E&M: 11183 Subs Hosp L2
[2022-06-03 08:45] VITALS: BP 141/83; PULSE 86; RESP 16; TEMP 36.6; O2SAT 96
[2022-06-03 10:17] VITALS: BP 141/83; PULSE 86
[2022-06-03] MEDS: Spironolactone 50 MG Tablet PO (10:17)
[2022-06-03] MEDS: Metoprolol(XL)Succ 25 MG Tablet PO (10:17)
[2022-06-03] MEDS: Lisinopril 10 MG Tablet PO (10:17)
[2022-06-03] MEDS: Enoxaparin 40 MG/0.4 ML Syringe SC (10:18)
[2022-06-03] MEDS: Sodium Chloride 1 GM Tablet PO (10:18)
[2022-06-03] MEDS: Acetaminophen 325 MG Tablet 650 MG PO (10:26)
--- NOTE | 2022-06-03 10:35 | RAD_ITS ---
EXAM: XR CHEST, 2 VIEWS CLINICAL INDICATION: Follow-up right chest tube removal. TECHNIQUE: Frontal and lateral views of the chest. This report was created using [employer] report generation technology. COMPARISON: 06/03/2022 at 7:50 AM. FINDINGS: LUNGS AND PLEURAL SPACES: Minimal increase in the lateral aspect of the right apical pneumothorax. In the right lower peripheral pneumothorax. Right pleural fluid is unchanged. Subsegmental atelectatic changes in the right midlung are unchanged. HEART: Metallic stent across aortic valve is unchanged. Cardiac silhouette not enlarged. MEDIASTINUM: Central airways and mediastinal contour are unremarkable. BONES/JOINTS: Unremarkable. SOFT TISSUES: Small subcutaneous emphysema in the right lateral chest wall following removal of the straight small [place] drain catheter in the right chest. RAD/Chest PA and Lateral IMPRESSION: Minimal increase in right pneumothorax in the right costophrenic angle and in the lateral aspect of the right apical pneumothorax following removal of small [place] straight drain catheter and small soft tissue air emphysema in the in the right lower lateral chest wall. Electronically Signed: Magdaleno Parish MD at 10:59 EDT ,
--- NOTE | 2022-06-03 11:16 | NURSING ---
Dressing to right chest reinforced, corner of opsite had lifted.
--- NOTE | 2022-06-03 12:13 | DS.PCM_ITS ---
Providers Date of Admission: 05/29/22 Date of Discharge: 06/03/22 Primary Care Physician: Dr. Rosemary Warren, DO Consultations 05/29/22 18:15 Consult: Gastroenterology Routine Consulting Provider: [facility] Reason for Consult: Right pneumo EMERGENT Consult: No MD Notified: Yes Date Notified: 05/29/22 Time Notified: 17:03 Method of Notification: ED Physician Initiated Reason For Visit: RIGHT PNEUMOTHORAX Diagnosis Discharge Diagnosis (1) Pneumothorax after biopsy: Status: Acute Code(s): J95.811 - Postprocedural pneumothorax (2) Lung cancer, primary, with metastasis from lung to other site: Status: Chronic Code(s): C34.90 - Malignant neoplasm of unspecified part of unspecified bronchus or lung Qualifiers: Laterality: left Qualified Code(s): C34.92 - Malignant neoplasm of unspecified part of left bronchus or lung (3) Pleural effusion, right: Status: Acute Code(s): J90 - Pleural effusion, not elsewhere classified Plan #1 right-sided pneumothorax secondary to thoracentesis for 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 2/2 adenocarcinoma #Leukocytosis #2 hypertension #Chronic hyponatremia Medications at Discharge Home Medications ascorbic acid (vitamin C) 1,000 mg tablet 1,000 mg PO DAILY 03/09/20 multivitamin with minerals 1 ea PO DAILY 06/01/20 aspirin 81 mg tablet,delayed release (Adult Low Dose Aspirin) 81 mg PO DAILY 09/15/21 metoprolol succinate 25 mg tablet,extended release 24 hr 25 mg PO DAILY #90 tabs 09/20/21 umeclidinium 62.5 mcg-vilanterol 25 mcg/actuation powdr for inhalation 1 ea inhalation DAILY 12/01/21 clobetasol 0.05 % topical ointment 1 applic topical QAM AND QPM #60 grams 02/02/22 lisinopril 10 mg tablet 10 mg PO DAILY 02/23/22 sotorasib 120 mg tablet (Lumakras) 960 mg PO DAILY 02/23/22 spironolactone 50 mg tablet 50 mg PO DAILY #30 tabs 04/13/22 sodium chloride 1 gram tablet 1,000 mg PO BID electrolyte replenishment #90 tabs 04/20/22 mirtazapine 15 mg tablet (Remeron) 15 mg PO QHS 30 days #30 tabs 05/25/22 Hospital Course Procedures - (Chest Tube Placement) Summary of Care Provided Minutes Spent on Discharge: 32 Hospital Course: Mr. Gonzáles is a 71-year-old male with history of COPD, hypertension, lung cancer with metastasis and OA who presented to the hospital 05/29 with increased shortness of breath. Had thoracentesis 05/25 due to malignant effusion from stage IV lung cancer secondary to adenocarcinoma. He had a pneumothorax at the time was discharged home but was told if he had increased shortness of breath to return the hospital. On day of presentation had increased chest pain on the right side and his pneumothorax was found to be increased. Pigtail catheter placed by ED. surgery was consulted and initially there was a leak, he had his tube exchanged over a wire and serial chest x-rays, slowly improved and leak improved. Chest tube pulled and he was monitored for several hours, repeat chest x-ray obtained. Did well and was discharged home in stable condition. Of note did have leukocytosis while admitted, spoke with his oncologist and based on the medication he receives with chemo it is to be expected, no signs or symptoms of infection and therefore antibiotics were not started. This was discussed with both oncology and the patient. Discharge instructions provided for the patient as below: *Please take this with you to your next doctors appointment* -You take Remington as an outpatient, please discuss with Dr. Morejon prior to resuming this - Please continue to follow with Dr. Morejon on discharge -Please call your primary care provider's office upon discharge to schedule a hospital follow up within 1 week. -For any concerning signs or symptoms please call [phone] or proceed to the nearest emergency department Physical Exam Const alert and oriented x3 General Appearance: cooperative and comfortable HEENT head/scalp atraumatic Eyes EOMs intact bilaterally Neck supple Resp normal respiratory effort Resp Narrative: Improving aeration Cardio regular rate and regular rhythm GI non-distended Extremity Extremity Narrative: Moving all extremities Neuro Neuro Narrative: No overt focal deficits noted Psych affect normal Weight / BMI Weight Weight: 79.379 kg Body Mass Index (BMI) 26.6 ABG / Lab / Microbiology Data Result Diagrams: 06/03/22 05:30 06/03/22 06:50 Laboratory: Laboratory Results - last 24 hr 06/02/22 05:30: Diff Path Review Reviewed 06/03/22 05:30: WBC 23.2 H, RBC 3.88 L, Hgb 13.2, Hct 37.8 L, MCV 97.4 H, MCH 34.0 H, MCHC 34.9, RDW Std Deviation 45.1 H, RDW Coeff of Griffin 12.7, Plt Count 312, MPV 9.2, Immature Gran % (Auto) 9.500 H, Neut % (Auto) 79.5 H, Lymph % (Auto) 5.7 L, [place] % (Auto) 4.4, Eos % (Auto) 0.6, Baso % (Auto) 0.3, Absolute Neuts (auto) 18.4 H, Absolute Lymphs (auto) 1.33, Nucleated RBC % 0.1, Platelet Estimate ADEQUATE, RBC Morphology NORM C+C 06/03/22 06:50: Sodium 133 L, Potassium 4.1, Chloride 96 L, Carbon Dioxide 31.0, Anion Gap 6, BUN 11, Creatinine 0.74, Estim Creat Clear Calc 64.60, Est GFR (MDRD) Af Amer 134, Est GFR (MDRD) Non-Af 111, BUN/Creatinine Ratio 14.9, Glucose 72 L, Calcium 9.2 Radiography Diagnostic Testing: Radiology Impression Chest X-Ray 06/03/22 07:40 IMPRESSION: Minimal decrease in right pneumothorax but the right apical pneumothorax is unchanged in the right pleural fluid is also unchanged. Electronically Signed: Magdaleno Parish MD at 8:08 EDT , Chest X-Ray 06/03/22 10:35 IMPRESSION: Minimal increase in right pneumothorax in the right costophrenic angle and in the lateral aspect of the right apical pneumothorax following removal of small [place] Island[place] straight drain catheter and small soft tissue air emphysema in the in the right lower lateral chest wall. Electronically Signed: Magdaleno Parish MD at 10:59 EDT , D/C Instructions Discharge Diet: No restrictions Meaningful Use Info Meaningful Use Diagnoses (Choose all that apply): None applicable Discharge Plan Admission Admit Date/Time: 05/29/22 16:57 Primary Reason for Your Visit: Collapsed lung Attending Provider: Anushka Gonzalez Primary Care Provider: Rosemary Warren Consulting Providers: Aston Teixeira Instructions Patient Instructions: Pneumothorax (Collapsed Lung) Additional Instructions / Restrictions: *Please take this with you to your next doctors appointment* ?You take Lumakras as an outpatient, please discuss with Dr. Morejon prior to resuming this ? Please continue to follow with Dr. Morejon on discharge -Please call your primary care provider's office upon discharge to schedule a hospital follow up within 1 week. -For any concerning signs or symptoms please call 911 or proceed to the nearest emergency department Discharge Orders/Prescriptions Prescriptions: Continued clobetasol 0.05 % ointment 1 applic topical QAM AND QPM Qty: 60 0RF lisinopril 10 mg tablet 10 mg PO DAILY spironolactone 50 mg tablet 50 mg PO DAILY Qty: 30 1RF sodium chloride 1 gram tablet 1,000 mg PO BID Qty: 90 2RF mirtazapine [Remeron] 15 mg tablet 15 mg PO QHS 30 Days Qty: 30 0RF Rx Instructions: 15mg every other day for 2-3 days then daily. ascorbic acid (vitamin C) 1,000 MG tablet 1,000 mg PO DAILY multivitamin with minerals 1 EACH tablet 1 ea PO DAILY umeclidinium-vilanterol 62.5-25 mcg/actuation blister with device 1 ea inhalation DAILY metoprolol succinate 25 mg tablet extended release 24 hr 25 mg PO DAILY Qty: 90 3RF Held Lumakras 120 mg tablet 960 mg PO DAILY Hold Instructions: Resume on 06/15/22. Please discuss with Dr. Morejon upon discharge for optimal timing of resuming your Lumakras aspirin [Adult Low Dose Aspirin] 81 mg tablet,delayed release (DR/EC) 81 mg PO DAILY Hold Instructions: Resume on 06/15/22. Please discuss with Dr. Morejon upon discharge for optimal timing of resuming your aspirin. Referrals / Follow Up: Rosemary Warren, [Primary Care Provider] - Within 1 Week Morris Morejon MD [Med Staff - Active Staff] - See Referral Note (Please follow-up with your oncologist upon discharge) Disposition Disposition (needs filled in before D/C Order can be placed): Home, Self Care Charges/Coding Visit Charges Inpatient E&M: 61363 Disch Hosp
[2022-06-03 12:57] VITALS: BP 146/85; PULSE 87; RESP 18; TEMP 36.6; O2SAT 96
--- NOTE | 2022-06-03 13:45 | CASEMGMT ---
RN CM in to pt room, pt dressed and ready for dc. Pt denies any homegoing needs.
[2022-06-06 12:54] LABS: Pathologist Review Reviewed
== END 2022-06-03 14:00 | disposition home or self-care (01) | DRG 200 ==
LOC: ED 16:36 → MS3 17:20
PROVIDERS: Admitting Provider Family Medicine; Emergency Provider Emergency Medicine; PCP Family Medicine; Visit Provider Internal Medicine
DX: J95.811 Postprocedural pneumothorax (principal); C34.92 Malignant neoplasm of unspecified part of left bronchus or lung; J94.8 Other specified pleural conditions; C79.9 Secondary malignant neoplasm of unspecified site; E87.1 Hypo-osmolality and hyponatremia; J91.0 Malignant pleural effusion; J43.9 Emphysema, unspecified; E78.5 Hyperlipidemia, unspecified; I10 Essential (primary) hypertension; I25.10 Atherosclerotic heart disease of native coronary artery without angina pectoris; G62.9 Polyneuropathy, unspecified; T45.1X5A Adverse effect of antineoplastic and immunosuppressive drugs, initial encounter; Z79.82 Long term (current) use of aspirin; Z79.899 Other long term (current) drug therapy; Z87.891 Personal history of nicotine dependence; Z96.651 Presence of right artificial knee joint
CPT/HCPCS: 32551; 36415; 36591; 71045; 71046; 71250; 80048; 80053; 84145; 84484; 85025; 93005; 94640; 99251; 99283; J7030; A4216; C1769; G0463; J2405

== ENCOUNTER → 2022-06-13 | Outpatient (CLI) | payer MEDICARE, SELFPAY ==
--- NOTE | 2022-06-13 14:30 | MRI_ITS ---
EXAM: MR HEAD WITHOUT AND WITH INTRAVENOUS CONTRAST CLINICAL INDICATION: NSCLC, r/o brain metastasis. TECHNIQUE: Multiplanar and multisequence MR images of the brain were obtained without and with intravenous contrast. This report was created using [employer] report [employer] technology. CONTRAST: IV 15cc Clariscan COMPARISON: MRI brain with and without contrast 07/05/2021. FINDINGS: BRAIN AND EXTRA-AXIAL SPACES: No abnormal enhancing lesions intra-axially and extra-axially. No communicating or noncommunicating hydrocephalus. Few T2 FLAIR white matter hyperintensity foci in both cerebral hemispheres are chronic white matter ischemic changes. They are unchanged. No intra- or extra-axial hemorrhage. No intracranial mass or mass effect. Posterior fossa structures are unremarkable. Basal cisterns are patent. SELLA: Unremarkable. Normal sella turcica, pituitary gland, infundibular stalk, optic chiasm and hypothalamus. AUDITORY SYSTEM: Unremarkable. The internal auditory canals are patent. BONES/JOINTS: Unremarkable. No discrete lytic or blastic abnormalities. SINUSES: Unremarkable as visualized. Clear. MASTOID AIR CELLS: Unremarkable as visualized. Clear. ORBITS: Unremarkable as visualized. Both globes, extraocular muscles, optic nerves and retrobulbar fat appear unremarkable. VASCULATURE: Unremarkable as visualized. Normal flow voids in the major intracranial circulation. MRI/Brain W/WO Contrast IMPRESSION: 1. No MRI evidence of intracranial metastatic disease or acute intracranial abnormality or any abnormally enhancing lesions intra-axially and extra-axially. 2. Few chronic white matter ischemic changes in both cerebral hemispheres. 3. No interval change when compared to 07/05/2021. Electronically Signed: Magdaleno Parish MD at 15:44 EST ,
[2022-06-13] MEDS: 0.9% Saline Lock 10 ML Syringe IV (15:09)
== END | disposition home or self-care (01) ==
PROVIDERS: PCP Family Medicine; Referring Provider Nurse Practitioner Family; Visit Provider Nurse Practitioner Family
DX: R51.9 Headache, unspecified (principal); C34.92 Malignant neoplasm of unspecified part of left bronchus or lung; H53.9 Unspecified visual disturbance
CPT/HCPCS: 70553; A9575; A4216

== ENCOUNTER → 2022-07-20 | Outpatient (CLI) | payer MEDICARE, SELFPAY ==
--- NOTE | 2022-07-20 13:00 | CT_ITS ---
STUDY: CT CHEST T ABDOMEN WITH CONTRAST REASON FOR EXAM: Male, 72 years old. IV ONLEY-ASSESS TREATMENT RESPONSE RADIATION DOSAGE (If Supplied By Facility): CTDIvol = ( 12.19 ) mGy, DLP = ( 880.81 ) mGycm TECHNIQUE: Transaxial imaging was performed following intravenous administration of IV 100mL Isovue-370. Multiplanar coronal and sagittal images were reformatted. Individualized dose optimization techniques were used for this CT. COMPARISON: Comparison is made with prior examination 05/30/2022. FINDINGS: CHEST A right-sided Port-A-Cath is seen with the tip in the superior vena cava. The right-sided pneumothorax as clear. Moderate-sized right pleural effusion. Fluid is also seen in the major fissure. Persistent 2.6 cm x 2.8 cm mass in the right upper lobe. There is a 1.4 cm x 3.2 cm soft tissue density in the anterior medial aspect of the right middle lobe as seen on axial image #65 and coronal image #70. This may represent focal area of scarring and loculated fluid. Prior aortic valve replacement. There are calcifications of the coronary arteries. Normal mediastinum. Normal hilar regions. Normal unenhanced pulmonary arteries. There is atherosclerotic calcification of the aortic arch with tortuosity and elongation of the aortic arch and descending thoracic aorta. There are multi-level degenerative changes of the thoracic spine. ABDOMEN There is a 1.1 cm hypodensity with peripheral enhancement in the anterior aspect of the left lobe of the liver. This most likely represents a small hemangioma. Normal gallbladder and extrahepatic biliary system. Normal spleen. Normal pancreas. Normal bilateral adrenal glands. Normal right kidney. Normal left kidney. Normal visualized stomach. Normal small intestine. Normal colon. The appendix is visualized and appears normal. There is diffuse atherosclerotic calcification of the abdominal aorta, without a demonstrated aneurysm. Normal inferior vena cava. Normal retroperitoneum. Normal abdominal wall. There are diffuse degenerative changes of the visualized lumbar spine. CT/CT Chest AND Abd W/ Contrast IMPRESSION: Resolution of the previously seen right-sided hydropneumothorax. Moderate-sized right pleural effusion. Stable mass in the right upper lobe. Electronically Signed: Wilberto Powell MD at 13:56 EST ,
[2022-07-20] MEDS: 0.9% Saline Lock 10 ML Syringe IV (13:25)
== END | disposition home or self-care (01) ==
LOC: CT 12:59
PROVIDERS: PCP Family Medicine; Referring Provider Internal Medicine Medical Oncology; Visit Provider Internal Medicine Medical Oncology
DX: C34.90 Malignant neoplasm of unspecified part of unspecified bronchus or lung (principal)
CPT/HCPCS: 71260; 74160; Q9967; A4216

== ENCOUNTER → 2022-09-05 | Outpatient (CLI) | payer MEDICARE, SELFPAY ==
--- NOTE | 2022-09-05 12:24 | ECHOD_ITS ---
Version 2 Reason For Study: VALVE REPLACEMENT EVAL Procedure This was a 2D Doppler, Color Flow transthoracic echocardiogram. Exam performed in department. Left Ventricle Normal LV size. Mild concentric left ventricular hypertrophy. Left ventricular systolic function is normal. The estimated ejection fraction is 55 %. Stage 1 diastolic dysfunction. No regional wall motion abnormalities noted. Right Ventricle Normal RV size. Normal systolic function. Atria Normal left atrium. Normal right atrium. Mitral Valve Normal mitral valve. Tricuspid Valve Normal tricuspid valve. Mild (1+) tricuspid valve insufficiency. Pulmonary artery systolic pressure is 24 mmHg. Aortic Valve Peak aortic valve gradient 16 mmHg. Mean aortic valve gradient 10 mmHg. Bioprosthetic aortic valve functioning normally. Pulmonic Valve Normal pulmonic valve. Great Vessels Normal aortic root. The pulmonary artery is normal size. Normal inferior vena cava. Pericardium/Pleural No pericardial effusion. MMode/2D Measurements & Calculations LVIDd: 4.4 cm IVSd: 1.3 cm LVOT diam: 2.0 cm LVIDs: 3.4 cm LVPWd: 1.2 cm LVOT area: 3.0 cm2 RVDd: 2.9 cm FS: 21.8 % Ao root diam: 3.3 cm LAV(MOD-bp): 30.5 ml LVAd ap4: 31.1 cm2 LAV(MOD-bp) Indexed: 15.8 ml/m2 LVLd ap4: 8.5 cm LAV(MOD-sp2): 31.7 ml EDV(MOD-sp4): 93.5 ml LAV(MOD-sp4): 29.1 ml EDV(sp4-el): 96.9 ml LVAs ap4: 20.4 cm2 LVLs ap4: 7.5 cm ESV(MOD-sp4): 47.5 ml ESV(sp4-el): 47.4 ml EF(MOD-sp4): 49.2 % EF(sp4-el): 51.0 % SV(MOD-sp4): 46.0 ml SV(sp4-el): 49.5 ml LA A4 area: 12.6 cm2 LA dimension(2D): 3.5 cm RA A4 area: 11.8 cm2 Time Measurements MV dec time: 0.17 sec Doppler Measurements & Calculations MV E max ryan: 48.5 cm/sec Lat Peak E' Ryan: 8.1 cm/sec Med Peak E' Ryan: 5.6 cm/sec MV A max ryan: 73.0 cm/sec E/E' lat: 6.0 E/E' med: 8.6 MV E/A: 0.66 Ao V2 max: 203.1 cm/sec LV V1 max: 85.2 cm/sec SV(LVOT): 50.4 ml Ao max P.5 mmHg LV V1 max P.9 mmHg Ao V2 mean: 147.2 cm/sec LV V1 mean P.6 mmHg Ao mean P.7 mmHg LV V1 mean: 57.9 cm/sec Ao V2 VTI: 38.4 cm LV V1 VTI: 16.7 cm AV (velocity ratio): 0.44 SAYDA(I,D): 1.3 cm2 SAYDA(V,D): 1.3 cm2 PA V2 max: 87.5 cm/sec TR max ryan: 230.7 cm/sec TR max P.3 mmHg ECHO/Echo Complete Interpretation Summary Normal LV size. Left ventricular systolic function is normal. The estimated ejection fraction is 55 %. Stage 1 diastolic dysfunction. Mean aortic valve gradient 10 mmHg. Bioprosthetic aortic valve functioning normally. Ordering Physician: Ryan Benson Referring Physician: ERIC ALSTON Performed By: Mamta Hurst RDCS
--- NOTE | 2022-09-05 13:05 | EKG12_ITS ---
Test Reason : AVR Blood Pressure : / mmHG Vent. Rate : 072 BPM Atrial Rate : 072 BPM P-R Int : 138 ms QRS Dur : 140 ms QT Int : 412 ms P-R-T Axes : 026 -20 080 degrees QTc Int : 451 ms Normal sinus rhythm Left bundle branch block Abnormal ECG Confirmed by PRESLEY PONCE, RYAN ([id number]), design editor RAFA CORONA ([id number]) on 09/06/2022 8:37:42 AM Referred By: Ryan Benson Confirmed By:RYAN BENSON MD
== END | disposition home or self-care (01) ==
LOC: CVS 12:23
PROVIDERS: PCP Family Medicine; Referring Provider Internal Medicine Cardiovascular Disease; Visit Provider Internal Medicine Cardiovascular Disease
DX: Z95.2 Presence of prosthetic heart valve (principal)
CPT/HCPCS: 93005; 93306

== ENCOUNTER → 2022-09-19 | Outpatient (CLI) | payer MEDICARE, SELFPAY ==
--- NOTE | 2022-09-19 11:00 | RAD_ITS ---
EXAM: XR CHEST, 2 VIEWS CLINICAL INDICATION: DISCOMFORT ON RIGHT SIDE CHEST TECHNIQUE: Frontal and lateral views of the chest. This report was created using [employer] report generation technology. COMPARISON: 06/15/2022. FINDINGS: LUNGS AND PLEURAL SPACES: Clearing of right pneumothorax but there is moderate amount of right subpulmonic fluid. Compressive atelectasis of right lung base. No suspicious infiltrates. Normal left lung. No left pleural fluid. HEART: Metallic stent across the aortic valve is unchanged. MEDIASTINUM: Central airways and mediastinal contour are unremarkable. BONES/JOINTS: Unremarkable. SOFT TISSUES: Unremarkable. TUBES, LINES AND DEVICES: Right IJ approach portacatheter tip remains in the mid SVC. RAD/Chest PA and Lateral IMPRESSION: Persistent chronic moderate right subpulmonic fluid with compressive atelectasis of right lung base but there is clearing of right pneumothorax when compared to 06/15/2022. Electronically Signed: Magdaleno Parish MD at 11:39 EST ,
--- NOTE | 2022-10-11 10:00 | PET_ITS ---
EXAMINATION: FDG PET-CT INDICATIONS: A 72-year-old male with history of primary lung carcinoma presenting for restaging examination. COMPARISON EXAMINATION: Prior FDG PET study dated 01/26/22 INDEX LESION SIZE SUV INTERPRETATION PERSISTENT: right mid medial lung field, right thoracic perihilum 42.9-mm comp to 44.5-mm (01/26/22) 6.8 comp to 2.8 (01/26/22) Fulfills quantitative criteria for viable neoplasm, interim metabolic progression PERSISTENT: right hemithorax pleural interface 4.6 (max) comp to 4.0 (01/26/22) Fulfills quantitative criteria for viable neoplasm, minimal interim metabolic change, relative quantitative metabolic stability TECHNIQUE: Following the intravenous administration of 14.02 mCi of F-18 deoxyglucose via the right hand, multiplanar image acquisitions of the neck, chest, abdomen and pelvis to level of mid thigh, obtained at one hour post radiopharmaceutical administration contemporaneously interpreted with the current CT of the neck, chest, abdomen and pelvis, to level of mid thigh, dated 10/11/22 via coregistration and FDG PET study dated 01/26/22 reveals: BLOOD GLUCOSE LEVEL:?? 85 mg/dl?HEIGHT:?68 inches?WEIGHT: 174 lbs. FINDINGS: Head/Neck: There is no evidence of abnormal increased glucose metabolism in the pharyngeal mucosal space, parapharyngeal space, bilateral-lateral and anterior neck, hypopharynx and distribution of the laryngeal structures. The visualized portion of the cerebral cortical-subcortical structures demonstrate symmetric and preserved glucose metabolism. CHEST: Redefined increased radiopharmaceutical concentration is noted in the right mid medial lung zone, right thoracic perihilum with a calculated maximal standard uptake value of 6.8, compared to 2.8 defined on the prior examination dated 01/26/22. The maximal axial diameter of the metabolic, morphologic abnormality is 42.9-mm, compared to 44.5-mm. Redefined increased radiopharmaceutical concentration is noted in the right hemithorax at the pleural interface with a current calculated maximal standard uptake value of 4.6, compared to 4.0 defined on the prior examination. Prominent radiopharmaceutical concentration is identified in the left ventricular myocardium commensurate with the [place]. Pertinent chest CT findings are as follows. Jerson-cath placement is noted. There is atherosclerotic calcification defined in the thoracic aorta without evidence of dilatation-aneurysm formation. Coronary arterial calcification is observed. There is apparent evidence of prior aortic valve replacement. There are no additional parenchymal densities-nodules noted in the right and left hemithorax with quantitatively significant increased FDG uptake. A right hemithorax pleural effusion is non-glucose avid. Abdomen/Pelvis: Normal physiologic distribution of the radiopharmaceutical is apparent in the hepatic (2.7/3.1) and splenic parenchyma, both renal units, bladder and visualized intestinal tract. Diffuse radiopharmaceutical concentration is noted in all four quadrants of the abdomen and pelvis. Prominent ureteric activity is noted in the bilateral renal units extending from the right-left renal pelvis to the ureterovesical junction bilaterally. Pertinent abdomen and pelvis CT findings are as follows. There is atherosclerotic calcification defined in the abdominal aorta without evidence of dilatation-aneurysm formation. Pelvic arterial calcification is observed. Fat containing left inguinal hernia is noted. Right and left inguinal subcentimeter soft tissue densities are non-glucose avid. Calcification is noted within the hepatic parenchyma. Dense calcification is noted within the prostate gland. Skeletal: Degenerative changes are noted in the cervical, thoracic and lumbar spine without evidence of increased radiopharmaceutical concentration. There are no well-defined sclerotic-lytic changes manifest on review of the appendicular-axial skeletal structures PET/PET/CT Tumor Base -Thigh Subs IMPRESSION: 1. ABNORMAL EXAMINATION INDICATIVE OF MALIGNANT VIABLE NEOPLASM. 2. Increased radiopharmaceutical concentration noted in the right mid medial hemithorax pulmonary parenchyma, right thoracic perihilum fulfills quantitative criteria for viable neoplasm. 3. Enhanced tracer uptake noted throughout the right hemithorax at the pleural interface fulfills quantitative criteria for viable neoplasm. (Murillo, et al, Chest 122:1918, 2002). 4. Overall, compared to the prior FDG PET study dated 01/26/22, there is interim metabolic progression of defined viable neoplastic disease within the context of the right mid medial lung zone, right thoracic perihilum and overall quantitative metabolic stability within the right hemithorax at the pleural interface. Electronic Signature Foster Francisco D.O. Accurate Quantification of SUVs for this report are calculated using the exclusive [employer] Technology. ([place] Patent No. [id number] B2 [phone] [place] patent [phone]). Standardization and correction of the FDG SUV metric via [employer] technology allow for vendor non-specific objective quantitative examination comparison and optimization of the sensitivity and specificity of the FDG PET-CT examination. Electronically Signed: Foster Francisco, at 18:49 EDT ,
== END | disposition home or self-care (01) ==
LOC: RAD 10:44
PROVIDERS: PCP Family Medicine; Visit Provider Internal Medicine Medical Oncology
DX: C34.92 Malignant neoplasm of unspecified part of left bronchus or lung (principal)
CPT/HCPCS: 71046

== ENCOUNTER 2022-11-03 12:12 | Emergency (ER) | payer MEDICARE, SELFPAY ==
[2022-11-03 12:13] VITALS: BP 122/68; PULSE 72; RESP 16; TEMP 36.3; O2SAT 100; BMI 26.7
--- NOTE | 2022-11-03 12:20 | CT_ITS ---
EXAM: CT ANGIOGRAPHY CHEST WITHOUT AND WITH INTRAVENOUS CONTRAST CLINICAL INDICATION: Dyspnea. TECHNIQUE: Helically acquired angiography images were obtained of the chest without and with intravenous contrast. This CT exam was performed using one or more of the following dose reduction techniques: automated exposure control, adjustment of the mA and/or kV according to patient size, and/or use of iterative reconstruction technique. This report was created using [employer] report generation technology. MIP reconstructed images were created and reviewed. CONTRAST: IV 75mL Isovue-370 RADIATION DOSE: CTDIvol = 12.99 mGy, DLP = 569.14 mGy-cm COMPARISON: 07/20/2022. FINDINGS: PULMONARY ARTERIES: Less than optimal contrast enhancement of the central pulmonary arteries. Suboptimal contrast enhancement of the peripheral pulmonary arteries. Normal in caliber. AORTA: Unremarkable. Normal in caliber. No evidence of dissection. GREAT VESSELS OF AORTIC ARCH: Unremarkable. Normal in caliber. No evidence of dissection. LUNGS AND PLEURAL SPACES: Near complete atelectasis of the entire right lung secondary to malignant right lung mass as seen on whole-body PET CT fusion scan. Large right pleural fluid is most likely malignant pleural fluid. No pneumothorax. Normal left lung. HEART: Unremarkable. Heart size is normal. No pericardial effusion. No signs of right heart strain, ratio of right ventricle to left ventricle measures less than 1. MEDIASTINUM: Unremarkable. No mediastinal or hilar adenopathy. Esophagus is unremarkable. No hiatal hernia. THYROID: Unremarkable. No thyroid lesions. BONES/JOINTS: Old anterior wedge compression fracture of the upper L2 vertebral body is unchanged. No suspicious lytic or blastic abnormality. CT/CTA Chest W/WO Contrast IMPRESSION: 1. Suboptimal contrast enhancement of the peripheral pulmonary arteries. Peripheral pulmonary thromboemboli cannot be evaluated. 2. Normal thoracic aorta without aneurysmal dilatation or dissection. 3. Near complete atelectasis of the entire right lung, worse since 07/20/2022. This is most likely secondary to the known malignant right lung mass confirmed on recent whole body PET/CT fusion scan of 10/11/2022. Additionally, large volume right pleural fluid is most likely malignant fluid. 4. No other additional findings or changes. Electronically Signed: Magdaleno Parish MD at 14:08 EDT ,
--- NOTE | 2022-11-03 12:43 | EDS_ITS ---
HPI History of Present Illness Chief Complaint: Shortness of Breath Narrative Narrative: 72-year-old male with history of non-small cell lung cancer presenting with right-sided chest pain. She states has had this pain for quite a while. Has been doing chemotherapy. The pain has changed a little bit and he states that he has a new tumor that is directly behind the old tumor in his right mid lung he states at times it does take his breath away. He describes it as a dull aching most of the time but sometimes is sharp and stabbing. Patient has history of DVT which was provoked by leg surgery. This was before he had a cancer diagnosis. Patient is not anticoagulated. Patient was seeing oncology today for follow-up and was referred to the ER out of concern for PE. [facility] Medical History Abnormal CT scan of lung AC (acromioclavicular) joint bone spurs Calcific tendonitis of left shoulder Cancer Chemotherapy management, encounter for CINV (chemotherapy-induced nausea and vomiting) Constipation COPD (chronic obstructive pulmonary disease) Depression Disseminated malignancy Emphysema of lung Epistaxis Essential (primary) hypertension Former smoker Hand foot syndrome Headache Hearing loss, left Hearing loss, right Hydropneumothorax Hyperlipidemia Hypertension Hyponatremia Impingement syndrome, shoulder, left Left bundle branch block Lung cancer, primary, with metastasis from lung to other site Lung mass Mucositis (ulcerative) due to antineoplastic therapy Nonobstructive atherosclerosis of coronary artery Nonrheumatic aortic (valve) stenosis with insufficiency Nonspecific abnormal unspecified cardiovascular function study Osteoarthritis Pleural effusion, right Sinusitis, bacterial Spinal stenosis in cervical region Trigger finger of both hands Vision changes Xerostomia Home Medications ascorbic acid (vitamin C) 1,000 mg tablet 1,000 mg PO DAILY 03/09/20 [History Last Taken 08/10/20] multivitamin with minerals 1 ea PO DAILY 06/01/20 [History Last Taken 08/10/20] aspirin 81 mg tablet,delayed release (Adult Low Dose Aspirin) 81 mg PO DAILY 09/15/21 [History Last Taken Unknown] umeclidinium 62.5 mcg-vilanterol 25 mcg/actuation powdr for inhalation 1 ea inhalation DAILY 12/01/21 [History Last Taken Unknown] clobetasol 0.05 % topical ointment 1 applic topical QAM AND QPM #60 grams 02/02/22 [Rx Last Taken Unknown] melatonin 5 mg capsule 5 mg PO QHS 06/08/22 [History Last Taken Unknown] sodium chloride 1 gram tablet 1,000 mg PO TID electrolyte replenishment #90 tabs 06/15/22 [Rx Last Taken Unknown] prochlorperazine maleate 10 mg tablet 10 mg PO Q6H PRN nausea and vomiting #30 tabs 06/29/22 [Rx Last Taken Unknown] lisinopril 10 mg tablet See Rx Instructions .Route .COMPLEX #90 TABLETS 07/21/22 [Rx Last Taken Unknown] mirtazapine 15 mg tablet (Remeron) 30 mg PO QHS #90 tabs 08/10/22 [Rx Last Taken Unknown] metoprolol succinate 25 mg tablet,extended release 24 hr 25 mg PO DAILY #90 tabs 09/19/22 [Rx Last Taken Unknown] spironolactone 50 mg tablet 100 mg PO DAILY #60 tabs 10/13/22 [Rx Last Taken Unknown] dexamethasone 4 mg tablet 4 mg PO DAILY #7 tabs 10/24/22 [Rx Last Taken Unknown] ondansetron HCl 8 mg tablet 8 mg PO Q8H PRN PRN Nausea #30 tabs 10/27/22 [Rx Last Taken Unknown] oxycodone-acetaminophen 5 mg-325 mg tablet (Percocet) 1 tab PO Q6H PRN pain 30 days #60 tabs 11/03/22 [Rx Last Taken Unknown] Allergy/AdvReac Type Severity Reaction Status Date / Time adhesive tape Allergy Rash Verified 11/03/22 12:15 bee venom protein (honey bee) Allergy Anaphylaxis Verified 11/03/22 12:15 Family History Father , age 90, complications of dementia Dementia Mother Cardiac pacemaker in situ Surgical History H/O arthroscopic knee surgery History of back surgery History of basal cell carcinoma (BCC) excision History of carpal tunnel release History of herniorrhaphy History of left heart catheterization (08/02/21) History of right knee joint replacement History of transcatheter aortic valve replacement (TAVR) (09/13/21) Social History Smoking Status: Former smoker quit date: 07/31/04 Tobacco: How many years used: 30 ROS ROS ED Constitutional Constitutional ED: Denies chills, fever(s) or sweats Eyes Eyes: Denies blurry vision or change in vision ENT ENT ED: Denies ear pain or sore throat Cardiovascular Cardiovascular: Reports chest pain; Denies palpitations or racing heartbeat Respiratory/Chest Respiratory/Chest: Reports dyspnea; Denies cough or sputum Gastrointestinal Gastrointestinal: Denies abdominal pain, constipation, diarrhea, nausea or vomiting Genitourinary Genitourinary ED: Denies dysuria, hematuria or urinary frequency Musculoskeletal Musculoskeletal: Denies arthralgias, myalgias or neck pain Integumentary Denies abscess, Abrasions or rash Neurologic Neurologic: Denies headache(s), paresthesias or weakness Psychiatric Psychiatric: Denies anxiety, depression, suicidal ideation or suicidal thoughts Endocrine Endocrinology: Denies polydipsia or polyuria EXAM Physical Exam Const Vital Signs: 11/03/22 12:13 11/03/22 12:27 11/03/22 12:27 Temperature 97.4 F L Temperature Source Temporal Pulse Rate 72 Respiratory Rate 16 Respiratory Effort Normal Respiratory Depth Normal Respiratory Pattern Normal Blood Pressure 122/68 H Blood Pressure Mean 86 Pulse Ox 100 Oxygen Delivery Method Room Air Room Air Room Air Positive well nourished General Appearance ED: NAD HEENT Reports moist mucous membranes Eyes PERRL and EOMs intact bilaterally Neck no lymphadenopathy and supple Resp normal respiratory effort Auscultation: Negative for wheezes Cardio regular rate and regular rhythm Neuro oriented x3 and CN's II-XII intact bilaterally Sensorium / Orientation: alert Motor Exam: strength 5/5 throughout Psych mental status grossly normal Skin no wounds MDM MDM MDM Narrative Medical decision making narrative: Patient presenting with with right-sided chest pain. He states been present for a while but is now changing. Does admit to some shortness of breath at times. Differential includes but is not limited to ACS, PE, aortic dissection, pneumonia, pneumothorax, muscle strain, costochondritis, worsening malignancy. Patient had CBC and BMP done earlier as an outpatient today. I did order a high-sensitivity troponin to assess for ischemia. EKG shows a sinus rhythm with a ventricular of 73 beats a minute without ischemic change. Left bundle branch block noted. High-sensitivity troponin 37. Patient has had chronic constant pain. I do not believe he needs a delta troponin. CTA of the chest was performed and does show suboptimal enhancement of the peripheral pulmonary arteries but there are no large central pulmonary emboli. This also shows worsening of the malignancy in the right lung. Patient was discussed with Dr. Evangelista. He recommended outpatient follow-up with Dr. Morejon. Patient amenable to this. Discharged home in stable condition. Impression: 1. Chest pain 2. Non-small cell carcinoma Lab Data Attestation: I reviewed the patient's lab results. Labs: Laboratory Results - last 24 hr 11/03/22 13:20 Troponin I High Sens 37 Radiography Diagnostic Testing: Clinical Impression(s) from Imaging Studies Chest CTA 11/03/22 12:20 IMPRESSION: 1. Suboptimal contrast enhancement of the peripheral pulmonary arteries. Peripheral pulmonary thromboemboli cannot be evaluated. 2. Normal thoracic aorta without aneurysmal dilatation or dissection. 3. Near complete atelectasis of the entire right lung, worse since 07/20/2022. This is most likely secondary to the known malignant right lung mass confirmed on recent whole body PET/CT fusion scan of 10/11/2022. Additionally, large volume right pleural fluid is most likely malignant fluid. 4. No other additional findings or changes. Electronically Signed: Magdaleno Parish MD at 14:08 EDT , Discharge Plan Triage Chief Complaint: Shortness of Breath ED Provider: Lei Schmidt Dx/Rx/DC Orders Instructions: ED Chest Pain, Noncardiac Prescriptions: No Action clobetasol 0.05 % ointment 1 applic topical QAM AND QPM Qty: 60 0RF melatonin 5 mg capsule 5 mg PO QHS sodium chloride 1 gram tablet 1,000 mg PO TID Qty: 90 2RF prochlorperazine maleate 10 mg tablet 10 mg PO Q6H PRN (Reason: nausea and vomiting) Qty: 30 2RF mirtazapine [Remeron] 15 mg tablet 30 mg PO QHS Qty: 90 0RF spironolactone 50 mg tablet 100 mg PO DAILY Qty: 60 3RF dexamethasone 4 mg tablet 4 mg PO DAILY Qty: 7 1RF oxycodone-acetaminophen [Percocet] 5-325 mg tablet 1 tab PO Q6H PRN (Reason: pain) 30 Days Qty: 60 0RF ascorbic acid (vitamin C) 1,000 MG tablet 1,000 mg PO DAILY multivitamin with minerals 1 EACH tablet 1 ea PO DAILY ondansetron HCl 8 mg tablet 8 mg PO Q8H PRN PRN (Reason: Nausea) Qty: 30 0RF umeclidinium-vilanterol 62.5-25 mcg/actuation blister with device 1 ea inhalation DAILY aspirin [Adult Low Dose Aspirin] 81 mg tablet,delayed release (DR/EC) 81 mg PO DAILY Hold Instructions: Resume on 06/15/22. Please discuss with Dr. Morejon upon discharge for optimal timing of resuming your aspirin. lisinopril 10 mg tablet See Rx Instructions .ROUTE .COMPLEX Qty: 90 3RF Dose Instruction: TAKE ONE TABLET BY MOUTH EVERY DAY Rx Instructions: TAKE ONE TABLET BY MOUTH EVERY DAY metoprolol succinate 25 mg tablet extended release 24 hr 25 mg PO DAILY Qty: 90 3RF Primary Care Provider: Rosemary Warren Referrals: Rosemary Warren DO [Primary Care Provider] - Morris Morejon MD [Med Staff - Active Staff] - As Needed Disposition Disposition: Home, Self Care
[2022-11-03 13:43] LABS: Troponin-I HS 37 pg/mL (3.0-78.0)
[2022-11-03] MEDS: oxyCODONE 5 MG Tablet PO (13:50)
[2022-11-03 15:23] VITALS: BP 124/75; PULSE 81; RESP 12; O2SAT 97
== END 2022-11-03 15:26 | disposition home or self-care (01) ==
PROVIDERS: Emergency Provider Student in an Organized Health Care Education/Training Program; PCP Family Medicine; Visit Provider Student in an Organized Health Care Education/Training Program
DX: R07.9 Chest pain, unspecified (principal); C34.90 Malignant neoplasm of unspecified part of unspecified bronchus or lung; J43.9 Emphysema, unspecified; I10 Essential (primary) hypertension; I44.7 Left bundle-branch block, unspecified; G89.29 Other chronic pain; Z87.891 Personal history of nicotine dependence; E78.5 Hyperlipidemia, unspecified; I25.10 Atherosclerotic heart disease of native coronary artery without angina pectoris; R06.02 Shortness of breath
CPT/HCPCS: 36591; 71275; 84484; 93005; 99285; Q9967; A4216

== ENCOUNTER 2022-11-09 08:55 | Inpatient (IN) | payer MEDICARE, OTHER, SELFPAY ==
[2022-11-09] VITALS (8 sets, daily range): BP systolic 96–149; BP diastolic 64–96; PULSE 76–96; RESP 14–18; TEMP 36–37.1; O2SAT 94–100; BMI 26.4; BMI 25.7
--- NOTE | 2022-11-09 09:14 | EDS_ITS ---
HPI History of Present Illness Chief Complaint: Shortness of Breath Informant: patient and spouse/S.O. Onset/Context/Timing Onset: Today Context: sudden Timing: Continuous Current Severity: Mild Maximum Severity: Mild Worsened by: Nothing Relieved by: Nothing Associated Symptoms cough Chest Pain: Positive for Pleuritic Narrative Narrative: 32-year-old male known history of lung cancer for which she has been treated for over 4 years. Today was having a thoracentesis to remove a large pleural effusion that he gets frequently and has drainage of this weekly almost. They did a thoracentesis in radiology and he developed a pneumothorax postprocedure on the right. Says breathing is actually better than it was preprocedure. He has about a 50% pneumothorax on chest x-ray. He denies any recent illness. He is not on any blood thinners. He is needed chest tubes for iatrogenic pneumothoraces before. PE Risk Factors: Positive for Cancer; Negative for OCP + Smoking + > 35, Prior DVT or PE, Recent immobilization, Recent surgery or Recent travel Prior similar symptoms: Yes Recent Illness/Hospitalization: Yes [facility] Medical History Abnormal CT scan of lung AC (acromioclavicular) joint bone spurs Calcific tendonitis of left shoulder Cancer Chemotherapy management, encounter for CINV (chemotherapy-induced nausea and vomiting) Constipation COPD (chronic obstructive pulmonary disease) Depression Disseminated malignancy Emphysema of lung Epistaxis Essential (primary) hypertension Former smoker Hand foot syndrome Headache Hearing loss, left Hearing loss, right Hydropneumothorax Hyperlipidemia Hypertension Hyponatremia Impingement syndrome, shoulder, left Left bundle branch block Lung cancer, primary, with metastasis from lung to other site Lung mass Mucositis (ulcerative) due to antineoplastic therapy Nonobstructive atherosclerosis of coronary artery Nonrheumatic aortic (valve) stenosis with insufficiency Nonspecific abnormal unspecified cardiovascular function study Osteoarthritis Pleural effusion, right Sinusitis, bacterial Spinal stenosis in cervical region Trigger finger of both hands Vision changes Xerostomia Home Medications ascorbic acid (vitamin C) 1,000 mg tablet 1,000 mg PO DAILY 03/09/20 [History Last Taken 11/08/22] multivitamin with minerals 1 ea PO DAILY 06/01/20 [History Last Taken 11/08/22] aspirin 81 mg tablet,delayed release (Adult Low Dose Aspirin) 81 mg PO DAILY 09/15/21 [History Last Taken 11/08/22] umeclidinium 62.5 mcg-vilanterol 25 mcg/actuation powdr for inhalation 1 ea inhalation DAILY 12/01/21 [History Last Taken 11/08/22] prochlorperazine maleate 10 mg tablet 10 mg PO Q6H PRN nausea and vomiting #30 tabs 06/29/22 [Rx Last Taken Unknown] metoprolol succinate 25 mg tablet,extended release 24 hr 25 mg PO DAILY #90 tabs 09/19/22 [Rx Last Taken 11/08/22] spironolactone 50 mg tablet 100 mg PO DAILY #60 tabs 10/13/22 [Rx Last Taken 11/08/22] ondansetron HCl 8 mg tablet 8 mg PO Q8H PRN PRN Nausea #30 tabs 10/27/22 [Rx Last Taken Unknown] oxycodone-acetaminophen 5 mg-325 mg tablet (Percocet) 1 tab PO Q6H PRN pain 30 days #60 tabs 11/03/22 [Rx Last Taken 11/09/22 05:00] lisinopril 10 mg tablet 10 mg PO DAILY BP 11/09/22 [History Last Taken 11/08/22] melatonin 10 mg tablet 10 mg PO QHS SLEEP 11/09/22 [History Last Taken 11/08/22] mirtazapine 15 mg tablet (Remeron) 15 mg PO QHS 11/09/22 [History Last Taken 11/08/22] sodium chloride 1,000 mg soluble tablet 1,000 mg PO 4X/DAY SUPPLEMENT 11/09/22 [History Last Taken 11/08/22] Allergy/AdvReac Type Severity Reaction Status Date / Time adhesive tape Allergy Rash Verified 11/09/22 08:56 bee venom protein (honey bee) Allergy Anaphylaxis Verified 11/09/22 08:56 Family History Father , age 90, complications of dementia Dementia Mother Cardiac pacemaker in situ Surgical History H/O arthroscopic knee surgery History of back surgery History of basal cell carcinoma (BCC) excision History of carpal tunnel release History of herniorrhaphy History of left heart catheterization (08/02/21) History of right knee joint replacement History of transcatheter aortic valve replacement (TAVR) (09/13/21) Social History Smoking Status: Former smoker quit date: 07/31/04 Tobacco: How many years used: 30 ROS ROS ED ROS Narrative Shortness of breath. Review of Systems ROS Unobtainable: Denies due to encephalopathy Constitutional Constitutional ED: Denies chills or fever(s) Eyes Eyes: Denies blurry vision ENT ENT ED: Denies ear pain Cardiovascular Cardiovascular: Reports chest pain; Denies palpitations or racing heartbeat Respiratory/Chest Respiratory/Chest: Reports cough and dyspnea Gastrointestinal Gastrointestinal: Denies abdominal pain Genitourinary Genitourinary ED: Denies dysuria or hematuria Musculoskeletal Musculoskeletal: Denies arthralgias Integumentary Denies abscess Neurologic Neurologic: Denies headache(s) Psychiatric Psychiatric: Denies anxiety or depression Endocrine Endocrinology: Denies cold intolerance or heat intolerance Hematologic/Lymphatic Hematologic/Lymphatic: Denies easy bleeding Allergic/Immunologic Allergic/Immunologic ED: Denies mouth swelling EXAM Physical Exam Narrative Exam Narrative: 72-year-old male no acute distress. Vital signs stable afebrile. Initial blood pressure 140s over 96. Pulse ox 94% on room air no hypoxia. H EENT exam unremarkable. Moist with membranes. Neck nontender. Lungs diminished breath sounds on the right. Heart regular rhythm rate about 90 no murmur. Chest wall nontender. He has a med port on the right. Abdomen soft nontender. Moving all 4 extremities. Calves are nontender without edema. Neurologically is awake and alert with no focal motor deficits. Const Vital Signs: 11/09/22 08:57 11/09/22 09:00 11/09/22 09:35 Temperature 97.8 F Temperature Source Oral Pulse Rate 90 83 Respiratory Rate 17 14 Respiratory Effort Normal Non-Labored Respiratory Depth Normal Respiratory Pattern Normal Blood Pressure 147/96 H 122/71 H Blood Pressure Mean 113 88 Pulse Ox 94 96 Oxygen Delivery Method Room Air Room Air Positive well nourished and well developed; Negative for obese, cachectic, contractures or unkempt General Appearance ED: well developed and NAD; Negative for unkempt, cachectic, contractures or pallor Nutritional Appearance: Negative for cachectic or obese HEENT Reports moist mucous membranes; Denies dry mucous membranes atraumatic; Negative for trauma or tenderness Mouth ED: No dry mucous membranes Mouth: No dry mucous membranes Eyes PERRL and EOMs intact bilaterally General Eye ED: Negative for pale conjunctiva or scleral icterus Neck no lymphadenopathy, supple, no meningeal signs and no JVD General: Negative for tenderness Resp normal respiratory effort and clear to auscultation bilaterally Resp Narrative: Diminished breath sounds on the right. Auscultation: diminished lung sounds Cardio Rate: Negative for bradycardia or tachycardic Rhythm: Negative for abnormal rhythm GI non-tender, non-distended and no masses Inspection: Negative for other Auscultation: normoactive bowel sounds Palpation: soft Back/Spine no CVA tenderness and normal to inspection General Back: Negative for CVA tenderness Extremity normal to inspection General Extremety ED: Negative for edema or tenderness General Extremity: Negative for edema Neuro oriented x3, CN's II-XII intact bilaterally and no sensory deficits noted Sensorium / Orientation: alert, oriented to person, oriented to place and oriented to time; Negative for orientation impaired or confused Speech: speech normal Motor Exam: strength 5/5 throughout and general weakness Psych mental status grossly normal Appearance: Negative for unkempt Attitude: No agitated Mood & Affect: Negative for depressed Thought Process: normal thought process Skin no wounds and skin turgor normal General Skin Exam: Negative for jaundice or pallor Rashes: no rashes Trauma: Negative for abrasion MDM MDM MDM Narrative Medical decision making narrative: 72-year-old male right-sided pneumothorax after a therapeutic drainage of a right-sided pleural effusion for known lung cancer. We will place a thoracostomy tube in his right lateral chest wall to try to reexpand his pneumothorax. He did not anything for pain. Patient doing well post procedure. Chest x-ray was obtained and shows a thoracostomy tube in place that is in the lower third of the chest cavity on the right. There is a malignant pleural effusion. We are getting air return and bubbling. He was placed to suction. Low intermittent. Patient is doing well postprocedure on reevaluation at 11:05 AM. History & Record Review Discussion w/independent historian: Patient and Family Radiography Chest X-Ray - ED: 1 View and Read by ED Physician Diagnostic Testing: Clinical Impression(s) from Imaging Studies Chest X-Ray 11/09/22 10:20 IMPRESSION: Partial resolution of the right-sided pneumothorax with persistent incomplete collapse of the right lung following small-caliber right chest tube placement. Electronically Signed: Ant Manley MD at 10:51 EDT , Chest x-ray 2 views AP and lateral post thoracostomy tube placed. Persistent pneumothorax. Small to moderate right pleural effusion. Thoracostomy tube in place. Interpreted both by myself and the radiologist. Management Discussion w/another healthcare provider: Hospitalist Procedures Other Procedures Procedure(s): Patient had a right-sided 50% pneumothorax after a drainage of a large right pleural effusion. This was a malignant effusion. He and I discussed the procedure. We cleaned his right lateral chest wall. Local anesthetized with lidocaine. And placed a thoracostomy tube. Without difficulty. I did go just below his nipple level due to is a med port in. Air came out immediately. We placed it to suction. It was sewn in place. Patient tolerated procedure well. Vaseline gauze was placed. And a dressing. Patient is doing well post procedure. Chest x-ray shows pleural effusion and the thoracostomy tube in place but no significant reexpansion of the lung as of this time. Patient is doing well at 11:07 AM. Discharge Plan Triage Chief Complaint: Shortness of Breath ED Provider: Gabriel Tilley Dx/Rx/DC Orders Clinical Impression: Pneumothorax, Malignant pleural effusion, History of lung cancer, S/P thoracostomy tube placement Prescriptions: No Action prochlorperazine maleate 10 mg tablet 10 mg PO Q6H PRN (Reason: nausea and vomiting) Qty: 30 2RF spironolactone 50 mg tablet 100 mg PO DAILY Qty: 60 3RF oxycodone-acetaminophen [Percocet] 5-325 mg tablet 1 tab PO Q6H PRN (Reason: pain) 30 Days Qty: 60 0RF ascorbic acid (vitamin C) 1,000 MG tablet 1,000 mg PO DAILY multivitamin with minerals 1 EACH tablet 1 ea PO DAILY ondansetron HCl 8 mg tablet 8 mg PO Q8H PRN PRN (Reason: Nausea) Qty: 30 0RF umeclidinium-vilanterol 62.5-25 mcg/actuation blister with device 1 ea inhalation DAILY sodium chloride 1,000 mg tablet,soluble 1,000 mg PO 4X/DAY Label Comments: TAKE ONE TABLET BY MOUTH THREE TIMES DAILY FOR electrolyte replenishment lisinopril 10 mg tablet 10 mg PO DAILY Rx Instructions: TAKE ONE TABLET BY MOUTH EVERY DAY mirtazapine [Remeron] 15 mg tablet 15 mg PO QHS melatonin 10 mg Tablet 10 mg PO QHS aspirin [Adult Low Dose Aspirin] 81 mg tablet,delayed release (DR/EC) 81 mg PO DAILY Hold Instructions: Resume on 06/15/22. Please discuss with Dr. Morejon upon discharge for optimal timing of resuming your aspirin. metoprolol succinate 25 mg tablet extended release 24 hr 25 mg PO DAILY Qty: 90 3RF Primary Care Provider: Rosemary Warren Referrals: Rosemary Warren DO [Primary Care Provider] - Disposition Disposition: Acute Care Hospital [facility]
[2022-11-09] MEDS: Morphine 4 MG/ML Syringe IV (10:16)
--- NOTE | 2022-11-09 10:20 | RAD_ITS ---
EXAM: XR CHEST, 2 VIEWS CLINICAL INDICATION: post thoracostomy tube placed on right TECHNIQUE: Frontal and lateral views of the chest. This report was created using [employer] report generation technology. COMPARISON: XR Chest dated 11/09/2022 FINDINGS: LUNGS AND PLEURAL SPACES: See below. HEART: Normal heart size. MEDIASTINUM: No mediastinal or hilar mass. BONES/JOINTS: No acute abnormality. TUBES, LINES AND DEVICES: Interval placement of a small-caliber right chest tube with partial resolution of the large right-sided pneumothorax. Persistent significant collapse of the right lung. Persistent small right pleural effusion. Left lung is clear. Transcatheter aortic valve replacement (TAVR) noted. Right internal jugular central venous catheter tip in the proximal superior vena cava. RAD/Chest PA and Lateral IMPRESSION: Partial resolution of the right-sided pneumothorax with persistent incomplete collapse of the right lung following small-caliber right chest tube placement. Electronically Signed: Ant Manley MD at 10:51 EDT ,
[2022-11-09] MEDS: Ondansetron 4 MG/2 ML Vial IV (10:23)
--- NOTE | 2022-11-09 10:55 | NURSING ---
DR MARIAN SALAZAR
--- NOTE | 2022-11-09 11:01 | NURSING ---
MED SURG TERELETSKY PNEUMOTHORAX, LUNG CA, PL EFFSUION, THORACOSTOMY TUBE
--- NOTE | 2022-11-09 12:41 | CON.PCM.SX_ITS ---
Assessment & Plan Assessment/Plan (1) History of lung cancer: PLAN: Patient has lung cancer on the right which is stage IV. Apparently this lung cancer has invaded his bronchus and he does not have full inflation of his lung. I reviewed his post drainage x-rays and it appears that his lung is the same size as it was during CT scan on November 03 approximately 6 days ago. He may have trapped lung and his lung may not fully inflate. Patient is doing well after his chest tube dislodged. I would recommend observing the patient and darci cking his pulse oximeter for the next few hours. Repeat chest x-ray in 4 hours. If his pulse ox stays stable and he is not short of breath or exhibiting any signs of tension pneumothorax and his chest x-ray is stable I would be comfortable discharging him home. He reports last time he was here for 6 days and they could not figure out why his lung would not expand and they remove the chest tube and send him home last time. If the patient develops any signs of tension pneumothorax or increased shortness of breath or the chest x-ray looks worse I will replace the chest tube. Darian Ambrose MD Pager: [facility] [address] [place] [address], [address] [place] [address] Office: HPI Consult Data Date of Consult: 11/09/22 HPI Narrative HPI Narrative: SYL MENDEZ, is a 72 M who presents after thoracentesis. Patient has stage IV lung cancer and was having some shortness of breath so he was sent for thoracentesis. He had an apparent and a chest tube was placed. Before I was able to assess the patient and the chest tube had dislodged itself. Patient does not complain of any shortness of breath or chest pain at this time. [facility] Medical History Abnormal CT scan of lung AC (acromioclavicular) joint bone spurs Calcific tendonitis of left shoulder Cancer Chemotherapy management, encounter for CINV (chemotherapy-induced nausea and vomiting) Constipation COPD (chronic obstructive pulmonary disease) Depression Disseminated malignancy Emphysema of lung Epistaxis Essential (primary) hypertension Former smoker Hand foot syndrome Headache Hearing loss, left Hearing loss, right Hydropneumothorax Hyperlipidemia Hypertension Hyponatremia Impingement syndrome, shoulder, left Left bundle branch block Lung cancer, primary, with metastasis from lung to other site Lung mass Mucositis (ulcerative) due to antineoplastic therapy Nonobstructive atherosclerosis of coronary artery Nonrheumatic aortic (valve) stenosis with insufficiency Nonspecific abnormal unspecified cardiovascular function study Osteoarthritis Pleural effusion, right Sinusitis, bacterial Spinal stenosis in cervical region Trigger finger of both hands Vision changes Xerostomia Home Medications ascorbic acid (vitamin C) 1,000 mg tablet 1,000 mg PO DAILY 03/09/20 [History Last Taken 11/08/22] multivitamin with minerals 1 ea PO DAILY 06/01/20 [History Last Taken 11/08/22] aspirin 81 mg tablet,delayed release (Adult Low Dose Aspirin) 81 mg PO DAILY 09/15/21 [History Last Taken 11/08/22] umeclidinium 62.5 mcg-vilanterol 25 mcg/actuation powdr for inhalation 1 ea inhalation DAILY 12/01/21 [History Last Taken 11/08/22] prochlorperazine maleate 10 mg tablet 10 mg PO Q6H PRN nausea and vomiting #30 tabs 06/29/22 [Rx Last Taken Unknown] metoprolol succinate 25 mg tablet,extended release 24 hr 25 mg PO DAILY #90 tabs 09/19/22 [Rx Last Taken 11/08/22] spironolactone 50 mg tablet 100 mg PO DAILY #60 tabs 10/13/22 [Rx Last Taken 11/08/22] ondansetron HCl 8 mg tablet 8 mg PO Q8H PRN PRN Nausea #30 tabs 10/27/22 [Rx Last Taken Unknown] oxycodone-acetaminophen 5 mg-325 mg tablet (Percocet) 1 tab PO Q6H PRN pain 30 days #60 tabs 11/03/22 [Rx Last Taken 11/09/22 05:00] lisinopril 10 mg tablet 10 mg PO DAILY BP 11/09/22 [History Last Taken 11/08/22] melatonin 10 mg tablet 10 mg PO QHS SLEEP 11/09/22 [History Last Taken 11/08/22] mirtazapine 15 mg tablet (Remeron) 15 mg PO QHS 11/09/22 [History Last Taken 11/08/22] sodium chloride 1,000 mg soluble tablet 1,000 mg PO 4X/DAY SUPPLEMENT 11/09/22 [History Last Taken 11/08/22] Allergy/AdvReac Type Severity Reaction Status Date / Time adhesive tape Allergy Rash Verified 11/09/22 08:56 bee venom protein (honey bee) Allergy Anaphylaxis Verified 11/09/22 08:56 Family History Father , age 90, complications of dementia Dementia Mother Cardiac pacemaker in situ Surgical History H/O arthroscopic knee surgery History of back surgery History of basal cell carcinoma (BCC) excision History of carpal tunnel release History of herniorrhaphy History of left heart catheterization (08/02/21) History of right knee joint replacement History of transcatheter aortic valve replacement (TAVR) (09/13/21) Social History Smoking Status: Former smoker quit date: 07/31/04 Tobacco: How many years used: 30 ROS Constitutional Constitutional: Reports anorexia; Denies chills or fatigue Eyes Eyes: Denies blurry vision ENT HEENT: Denies abnormal hearing Cardiovascular Cardiovascular: Denies chest pain Respiratory/Chest Respiratory/Chest: Denies cough or dyspnea Gastrointestinal Gastrointestinal: Denies abdominal pain or bloating Genitourinary Genitourinary: Denies change in urinary stream Musculoskeletal Musculoskeletal: Denies abnormal gait Physical Exam Const alert and oriented x3 HEENT normocephalic Head and Scalp: normal to inspection Eyes PERRL Neck General: normal visual inspection Resp normal respiratory effort Cardio Rate: regular rate Rhythm: regular rhythm GI soft to palpation, non-tender and non-distended Radiology Impression Chest X-Ray 11/09/22 10:20 IMPRESSION: Partial resolution of the right-sided pneumothorax with persistent incomplete collapse of the right lung following small-caliber right chest tube placement. Electronically Signed: Ant Manley MD at 10:51 EDT ,
--- NOTE | 2022-11-09 13:13 | NURSING ---
1230 when went to assess pleurex chest tube catheter site rt chest was found laying next to pt on recliner chair. drsg to rt side intact. immediate pressure held. tape applied and pt with no crepitis felt. lungs dim rt base and some insp crackles mid post. spo2 96% . previously during admission vitals pt reported that breathing much easier and that felt great after thoracentesis. dr. mckinney in to discuss post chemo plans with. unknown how pt had pulled out accidentally or when. suspected that when put recliner feet up that tubing pulled too taught and that had came out then? dr. neely texted and clinic charge nurse made aware
--- NOTE | 2022-11-09 13:19 | NURSING ---
1235 dr martínez to floor and was going to dc ct anyways order to check spot spo2 on ra hourly and to monitor for sob. will repeat cxr in 4hr and if unchanged will be dc'd as in agreement with dr. mckinney in that is not pneumo but 'trapped lung'/ pt resting in recliner with no sign of distress. spo2 on ra continues at 96%. aware of new orders. instructed to call if any sob .
[2022-11-09] MEDS: Sodium Chloride 1 GM Tablet PO ×2 (14:07→17:00)
[2022-11-09] MEDS: Metoprolol(XL)Succ 25 MG Tablet PO (14:08)
[2022-11-09] MEDS: Aspirin E.C. 81 MG Tablet PO (14:08)
[2022-11-09] MEDS: Lisinopril 10 MG Tablet PO (14:09)
[2022-11-09] MEDS: Spironolactone 50 MG Tablet 100 MG PO (14:10)
--- NOTE | 2022-11-09 17:15 | RAD_ITS ---
We are attempting to reach an attending provider to discuss findings. An addendum with communication details will be sent when the communication is complete. INDICATION: post chest tube removal -- hx lung ca, pneumo EXAMINATION/TECHNIQUE: X-RAY - XR Chest 2 Views COMPARISON: Series of examinations including most recent of 11/09/2022 at 10:08 AM FINDINGS: LIFE-SUPPORT AND LINES: 1. RIGHT IJ Port-A-Cath without change. 2. Interval removal of the previous small caliber RIGHT chest tube. 3. Persistent large RIGHT pneumothorax, currently measuring approximately 4.8 cm at the RIGHT apex, and 3.0 cm along the lateral chest wall. There is layering fluid consistent with hydropneumothorax. Pneumothorax is estimated at greater than 50% volume loss. There is collapse of the visualized RIGHT upper lobe and RIGHT lower lobe. Size of the pneumothorax is not substantially changed in the interval. 4. No mediastinal shift. HEART AND VESSELS: The cardiac silhouette, pulmonary vasculature have normal appearance. No evidence of congestive failure. LUNGS AND PLEURAL SPACES: LEFT lung is clear. Large RIGHT hydropneumothorax with consolidation and subtotal collapse of the RIGHT lung. No mediastinal shift. No pulmonary mass is noted. MEDIASTINUM AND HILAR REGIONS: No masses adenopathy noted. No areas of calcification. Visualized upper airway is normal in position. BONY ELEMENTS: No acute bony changes noted. RAD/Chest PA and Lateral IMPRESSION: 1. Interval removal of the previous small caliber RIGHT chest tube. 2. Persistent large RIGHT pneumothorax/RIGHT hydropneumothorax with estimated volume loss of greater than 50%. Subtotal collapse/consolidation of the visualized RIGHT lung. 3. LEFT lung is clear. 4. No congestive failure. NSC (nonstandard communication) notification was initiated at 4:58 PM HEAD MACHINIST Electronically Signed: Foster Arthur MD at 17:59 EDT ,
--- NOTE | 2022-11-09 20:53 | DCINST_ITS ---
Discharge Instructions Diet Discharge Diet: No restrictions Activity Discharge Activity: Return to Normal Activity Weight Bearing Status: Full weight bearing Follow Up Care Test Results: Test results from this visit will be discussed in further detail at your follow- up appointment, if applicable. Discharge Plan Admission Admit Date/Time: 11/09/22 11:10 Primary Reason for Your Visit: hydropneumothorax Attending Provider: Kaleb Suarez Primary Care Provider: Rosemary Warren Consulting Providers: Darian Ambrose Discharge Orders/Prescriptions Prescriptions: Continued prochlorperazine maleate 10 mg tablet 10 mg PO Q6H PRN (Reason: nausea and vomiting) Qty: 30 2RF spironolactone 50 mg tablet 100 mg PO DAILY Qty: 60 3RF oxycodone-acetaminophen [Percocet] 5-325 mg tablet 1 tab PO Q6H PRN (Reason: pain) 30 Days Qty: 60 0RF ascorbic acid (vitamin C) 1,000 MG tablet 1,000 mg PO DAILY multivitamin with minerals 1 EACH tablet 1 ea PO DAILY ondansetron HCl 8 mg tablet 8 mg PO Q8H PRN PRN (Reason: Nausea) Qty: 30 0RF umeclidinium-vilanterol 62.5-25 mcg/actuation blister with device 1 ea inhalation DAILY sodium chloride 1,000 mg tablet,soluble 1,000 mg PO 4X/DAY Label Comments: TAKE ONE TABLET BY MOUTH THREE TIMES DAILY FOR electrolyte replenishment lisinopril 10 mg tablet 10 mg PO DAILY Rx Instructions: TAKE ONE TABLET BY MOUTH EVERY DAY mirtazapine [Remeron] 15 mg tablet 15 mg PO QHS melatonin 10 mg Tablet 10 mg PO QHS aspirin [Adult Low Dose Aspirin] 81 mg tablet,delayed release (DR/EC) 81 mg PO DAILY Hold Instructions: Resume on 06/15/22. Please discuss with Dr. Morejon upon discharge for optimal timing of resuming your aspirin. metoprolol succinate 25 mg tablet extended release 24 hr 25 mg PO DAILY Qty: 90 3RF Referrals / Follow Up: Rosemary Warren DO [Primary Care Provider] - Morris Morejon MD [Med Staff - Active Staff] - See Referral Note (as scheduled) Disposition Disposition (needs filled in before D/C Order can be placed): Home, Self Care
--- NOTE | 2022-11-09 20:56 | PCM.HP.STD ---
HPI - General General Date of Admission: 11/09/22 Date of Service: 11/09/22 Chief Complaint: Right hydropneumothorax HPI Narrative SYL MENDEZ, is a 72 M who presents to the emergency room at [facility] for evaluation of a pneumothorax which was detected after the patient underwent a right thoracentesis today for a chronic malignant pleural effusion. Chest x-ray showed approximately 50% hydropneumothorax, a small bore thoracostomy tube was placed in the right lateral chest wall to try to reexpand his hydropneumothorax. Patient will be admitted to PCU, he will be seen in consultation by general surgery, patient is not on any oxygen presently. [facility] Medical History Abnormal CT scan of lung AC (acromioclavicular) joint bone spurs Calcific tendonitis of left shoulder Cancer Chemotherapy management, encounter for CINV (chemotherapy-induced nausea and vomiting) Constipation COPD (chronic obstructive pulmonary disease) Depression Disseminated malignancy Emphysema of lung Epistaxis Essential (primary) hypertension Former smoker Hand foot syndrome Headache Hearing loss, left Hearing loss, right Hydropneumothorax Hyperlipidemia Hypertension Hyponatremia Impingement syndrome, shoulder, left Left bundle branch block Lung cancer, primary, with metastasis from lung to other site Lung mass Mucositis (ulcerative) due to antineoplastic therapy Nonobstructive atherosclerosis of coronary artery Nonrheumatic aortic (valve) stenosis with insufficiency Nonspecific abnormal unspecified cardiovascular function study Osteoarthritis Pleural effusion, right Sinusitis, bacterial Spinal stenosis in cervical region Trigger finger of both hands Vision changes Xerostomia Home Medications ascorbic acid (vitamin C) 1,000 mg tablet 1,000 mg PO DAILY 03/09/20 [History Last Taken 11/08/22] multivitamin with minerals 1 ea PO DAILY 06/01/20 [History Last Taken 11/08/22] aspirin 81 mg tablet,delayed release (Adult Low Dose Aspirin) 81 mg PO DAILY 09/15/21 [History Last Taken 11/08/22] umeclidinium 62.5 mcg-vilanterol 25 mcg/actuation powdr for inhalation 1 ea inhalation DAILY 12/01/21 [History Last Taken 11/08/22] prochlorperazine maleate 10 mg tablet 10 mg PO Q6H PRN nausea and vomiting #30 tabs 06/29/22 [Rx Last Taken Unknown] metoprolol succinate 25 mg tablet,extended release 24 hr 25 mg PO DAILY #90 tabs 09/19/22 [Rx Last Taken 11/08/22] spironolactone 50 mg tablet 100 mg PO DAILY #60 tabs 10/13/22 [Rx Last Taken 11/08/22] ondansetron HCl 8 mg tablet 8 mg PO Q8H PRN PRN Nausea #30 tabs 10/27/22 [Rx Last Taken Unknown] oxycodone-acetaminophen 5 mg-325 mg tablet (Percocet) 1 tab PO Q6H PRN pain 30 days #60 tabs 11/03/22 [Rx Last Taken 11/09/22 05:00] lisinopril 10 mg tablet 10 mg PO DAILY BP 11/09/22 [History Last Taken 11/08/22] melatonin 10 mg tablet 10 mg PO QHS SLEEP 11/09/22 [History Last Taken 11/08/22] mirtazapine 15 mg tablet (Remeron) 15 mg PO QHS 11/09/22 [History Last Taken 11/08/22] sodium chloride 1,000 mg soluble tablet 1,000 mg PO 4X/DAY SUPPLEMENT 11/09/22 [History Last Taken 11/08/22] Allergy/AdvReac Type Severity Reaction Status Date / Time adhesive tape Allergy Rash Verified 11/09/22 08:56 bee venom protein (honey bee) Allergy Anaphylaxis Verified 11/09/22 08:56 Family History Father , age 90, complications of dementia Dementia Mother Cardiac pacemaker in situ Surgical History H/O arthroscopic knee surgery History of back surgery History of basal cell carcinoma (BCC) excision History of carpal tunnel release History of herniorrhaphy History of left heart catheterization (08/02/21) History of right knee joint replacement History of transcatheter aortic valve replacement (TAVR) (09/13/21) Social History Smoking Status: Former smoker quit date: 07/31/04 Tobacco: How many years used: 30 ROS Constitutional Constitutional: Denies anorexia, change in weight, fever(s), night sweats or weakness Eyes Eyes: Denies blurry vision, change in vision, discharge from eye(s) or eye pain Cardiovascular Cardiovascular: Denies chest pain, claudication, edema or palpitations Respiratory/Chest Respiratory/Chest: Denies cough, hemoptysis, shortness of breath at rest or shortness of breath with exertion Gastrointestinal Gastrointestinal: Denies abdominal pain, constipation, diarrhea, hematemesis, hematochezia, melena, nausea or vomiting Genitourinary Genitourinary: Denies dysuria, hematuria, urinary frequency, urinary hesitancy, urinary incontinence or urinary urgency Musculoskeletal Musculoskeletal: Denies back pain, joint pain, joint stiffness, joint swelling, myalgias or neck pain Neurologic Neurologic: Denies abnormal gait, abnormal speech, dizziness, focal weakness, headache(s), loss of vision, numbness, other visual disturbances, paresthesias, syncope or tingling Psychiatric Psychiatric: Denies anxiety, cognitive impairment, depression, irritability, mood swings or suicidal ideation Endocrine Endocrinology: Denies change in body appearance, cold intolerance, excessive sweating, heat intolerance, polydipsia or polyuria Hematologic/Lymphatic Hematologic/Lymphatic: Denies none, anemia, easy bleeding, easy bruising or lymphadenopathy Allergic/Immunologic Allergic/Immunologic: Denies rhinitis, urticaria, eczemia or asthma Vital Signs Vital Signs Vital Signs: 11/09/22 08:57 11/09/22 09:00 11/09/22 09:35 Temperature 97.8 F Temperature Source Oral Pulse Rate 90 83 Respiratory Rate 17 14 Respiratory Effort Normal Non-Labored Respiratory Depth Normal Respiratory Pattern Normal Blood Pressure 147/96 H 122/71 H Blood Pressure Mean 113 88 Blood Pressure Source Blood Pressure Position Blood Pressure Location Pulse Ox 94 96 Oxygen Delivery Method Room Air Room Air 11/09/22 11:01 11/09/22 11:27 11/09/22 14:08 Temperature 96.8 F L 97.4 F L Temperature Source Temporal Temporal Pulse Rate 76 87 95 Respiratory Rate 18 18 Respiratory Effort Respiratory Depth Respiratory Pattern Blood Pressure 137/64 H 137/64 H 124/65 H Blood Pressure Mean 88 88 Blood Pressure Source Blood Pressure Position Blood Pressure Location Pulse Ox 96 96 Oxygen Delivery Method Room Air Room Air 11/09/22 11:30 11/09/22 17:00 11/09/22 17:00 Temperature 98.7 F Temperature Source Oral Pulse Rate 90 Respiratory Rate 18 Respiratory Effort Normal Non-Labored Normal Non-Labored Respiratory Depth Normal Normal Respiratory Pattern Normal Normal Blood Pressure 149/78 H Blood Pressure Mean 101 Blood Pressure Source Monitor Blood Pressure Position Sitting Blood Pressure Location Left Arm Pulse Ox 96 100 98 Oxygen Delivery Method Room Air Room Air Room Air 11/09/22 20:55 Temperature 97.6 F L Temperature Source Temporal Pulse Rate 96 Respiratory Rate 18 Respiratory Effort Respiratory Depth Respiratory Pattern Blood Pressure 96/85 H Blood Pressure Mean 88 Blood Pressure Source Monitor Blood Pressure Position Sitting Blood Pressure Location Left Arm Pulse Ox 98 Oxygen Delivery Method Room Air Weight Weight: 76.9 kg Body Mass Index (BMI) 25.7 Physical Exam Const alert, oriented x3, no apparent distress and healthy appearing General Appearance: cooperative, well kempt and well developed Orientation / Consciousness: awake, oriented to person, oriented to place and oriented to time HEENT normocephalic, head/scalp atraumatic, hearing grossly normal bilaterally and moist oral mucous membranes Eyes PERRL, EOMs intact bilaterally and conjunctivae normal Neck supple, no JVD, thyroid normal and no carotid bruits General: trachea midline Resp normal respiratory effort, no retractions and no use of accessory muscles Resp Narrative: Decreased breath sounds are noted over the right lung field Auscultation: Negative for rales, rhonchi or wheezes Cardio regular rate, regular rhythm, no murmurs, no rub and no gallops GI normal to inspection, nondistended, normoactive bowel sounds, soft to palpation, non-tender and non-distended Extremity no clubbing, cyanosis or edema Skin no rashes or lesions noted General Skin Exam: no breakdown Neuro oriented x3, CN's II-XII intact bilaterally, no focal motor deficits and no sensory deficits noted Sensorium / Orientation: awake and alert Speech: speech normal Psych affect normal Results Radiology Impression Chest X-Ray 11/09/22 10:20 IMPRESSION: Partial resolution of the right-sided pneumothorax with persistent incomplete collapse of the right lung following small-caliber right chest tube placement. Electronically Signed: Ant Manley MD at 10:51 EDT Reading Location ID and State: [facility] / [place] Tel , Service support , Chest X-Ray 11/09/22 17:15 IMPRESSION: 1. Interval removal of the previous small caliber RIGHT chest tube. 2. Persistent large RIGHT pneumothorax/RIGHT hydropneumothorax with estimated volume loss of greater than 50%. Subtotal collapse/consolidation of the visualized RIGHT lung. 3. LEFT lung is clear. 4. No congestive failure. NSC (nonstandard communication) notification was initiated at 4:58 PM BLINTZE ROLLER Electronically Signed: Foster Arthur MD at 17:59 EDT , ADDENDUM: 11/09/22 1830 IMPRESSION: 1. Interval removal of the previous small caliber RIGHT chest tube. 2. Persistent large RIGHT pneumothorax/RIGHT hydropneumothorax with estimated volume loss of greater than 50%. Subtotal collapse/consolidation of the visualized RIGHT lung. 3. LEFT lung is clear. 4. No congestive failure. NSC (nonstandard communication) notification was initiated at 4:58 PM BLINTZE ROLLER N.B. : The above Results were Read Back by Foster Arthur MD to Lisa Montenegro, Charge Nurse , RN, and understanding confirmed on 11/09/2022 18:23:58 (ET). Electronically Signed: Foster Arthur MD at 17:59 EDT , Assessment & Plan Assessment/Plan (1) History of lung cancer: PLAN: Plan 1. 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 #2 metastatic lung [id number] cell 3 essential hypertension Total clinical time spent by myself addressing the patient's medical issues, reviewing all of his data, and collaborating with the patient's care team: 75 minutes Charges/Coding Visit Charges Inpatient E&M: 58707 Init Hosp L3
--- NOTE | 2022-11-09 20:59 | PCM.DC.SUM ---
Providers Date of Admission: 11/09/22 Date of Discharge: 11/09/22 Primary Care Physician: Dr. Rosemary Warren, Consultations 11/09/22 11:32 Consult: General Surgery Routine Consulting Provider: Darian Ambrose Reason for Consult: pneumothorax EMERGENT Consult: No MD Notified: Yes Date Notified: 11/09/22 Time Notified: 11:21 Method of Notification: Verbal Reason For Visit: PNEUMOTHORAX, LUNGA CA, PL EFFUSION, THORACOSTOMY Diagnosis Discharge Diagnosis (1) History of lung cancer: Status: Acute Code(s): Z85.118 - Personal history of other malignant neoplasm of bronchus and lung Plan 1. 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 #2 metastatic non-small cell lung cancer #3 essential hypertension Medications at Discharge Home Medications ascorbic acid (vitamin C) 1,000 mg tablet 1,000 mg PO DAILY 03/09/20 multivitamin with minerals 1 ea PO DAILY 06/01/20 aspirin 81 mg tablet,delayed release (Adult Low Dose Aspirin) 81 mg PO DAILY 09/15/21 umeclidinium 62.5 mcg-vilanterol 25 mcg/actuation powdr for inhalation 1 ea inhalation DAILY 12/01/21 prochlorperazine maleate 10 mg tablet 10 mg PO Q6H PRN nausea and vomiting #30 tabs 06/29/22 metoprolol succinate 25 mg tablet,extended release 24 hr 25 mg PO DAILY #90 tabs 09/19/22 spironolactone 50 mg tablet 100 mg PO DAILY #60 tabs 10/13/22 ondansetron HCl 8 mg tablet 8 mg PO Q8H PRN PRN Nausea #30 tabs 10/27/22 oxycodone-acetaminophen 5 mg-325 mg tablet (Percocet) 1 tab PO Q6H PRN pain 30 days #60 tabs 11/03/22 lisinopril 10 mg tablet 10 mg PO DAILY BP 11/09/22 melatonin 10 mg tablet 10 mg PO QHS SLEEP 11/09/22 mirtazapine 15 mg tablet (Remeron) 15 mg PO QHS 11/09/22 sodium chloride 1,000 mg soluble tablet 1,000 mg PO 4X/DAY SUPPLEMENT 11/09/22 Hospital Course Operations None Procedures None Summary of Care Provided Minutes Spent on Discharge: 31 Hospital Course: This 72-year-old white male was seen in the emergency room at [facility] after being sent over from radiology, patient had undergone and elective right thoracentesis due to chronic right pleural effusion, after the procedure was performed, follow-up chest x-ray showed a large pneumothorax on the right and he was sent over to ER for evaluation. In the ER, a small thoracostomy tube was placed, I contacted general surgery to see the patient in consultation and I talked with the patient's pulpit operator. In the meantime, patient was transferred over to PCU and I learned from the patient's pulpit operator/oncologist that the patient has a chronic right pneumothorax and that this is a result of trapped lung, this means that the patient has a chronic right pneumothorax and further attempts at drainage of his right pleural fluid would be unnecessary. The time the patient was admitted over to PCU, on movement over to his bed, his chest tube fell out, patient was kept in the hospital for several hours and repeat chest x-ray showed no change in the patient's pneumothorax. On the evening of 11/09/2022, patient was seen and examined: On examination he appeared in good health and spirits. Vital signs as documented. Skin warm and dry and without overt rashes. Neck without JVD, neck was supple, trachea midline, thyroid was normal. Lungs-breath sounds were decreased over the right lung. Heart exam notable for regular rhythm, normal sounds and absence of murmurs, rubs or gallops. Abdomen unremarkable and without evidence of organomegaly, masses, or abdominal aortic enlargement. Bowel sounds are present, abdomen is not distended. Extremities nonedematous, no cyanosis was noted, no clubbing was noted. Neuro: Cranial nerves II through XII are grossly intact, no focal motor deficits were noted, sensation to light touch and pinprick intact, motor exam 5/5 throughout. Psych: Patient is alert and oriented x3, he does not appear anxious or depressed, he does not appear agitated. Patient was discharged home in stable condition on 11/09/2022. Total clinical time spent by myself addressing the patient's medical problems, reviewing all of his data, and collaborating with patient's care team: 70 minutes Weight / BMI Weight Weight: 76.9 kg Body Mass Index (BMI) 25.7 Radiography Diagnostic Testing: Radiology Impression Chest X-Ray 11/09/22 10:20 IMPRESSION: Partial resolution of the right-sided pneumothorax with persistent incomplete collapse of the right lung following small-caliber right chest tube placement. Electronically Signed: Ant Manley MD at 10:51 EDT , Chest X-Ray 11/09/22 17:15 IMPRESSION: 1. Interval removal of the previous small caliber RIGHT chest tube. 2. Persistent large RIGHT pneumothorax/RIGHT hydropneumothorax with estimated volume loss of greater than 50%. Subtotal collapse/consolidation of the visualized RIGHT lung. 3. LEFT lung is clear. 4. No congestive failure. NSC (nonstandard communication) notification was initiated at 4:58 PM ENVIRONMENTAL FIELD PROFESSIONAL Electronically Signed: Foster Arthur MD at 17:59 EDT , ADDENDUM: 11/09/22 1830 IMPRESSION: 1. Interval removal of the previous small caliber RIGHT chest tube. 2. Persistent large RIGHT pneumothorax/RIGHT hydropneumothorax with estimated volume loss of greater than 50%. Subtotal collapse/consolidation of the visualized RIGHT lung. 3. LEFT lung is clear. 4. No congestive failure. NSC (nonstandard communication) notification was initiated at 4:58 PM ENVIRONMENTAL FIELD PROFESSIONAL N.B. : The above Results were Read Back by Foster Arthur MD to Lisa Montenegro, Charge Nurse , RN, and understanding confirmed on 11/09/2022 18:23:58 (ET). Electronically Signed: Foster Arthur MD at 17:59 EDT , D/C Instructions Discharge Diet: No restrictions Weight Bearing Status: Full weight bearing Meaningful Use Info Meaningful Use Diagnoses (Choose all that apply): None applicable Discharge Plan Admission Admit Date/Time: 11/09/22 11:10 Primary Reason for Your Visit: hydropneumothorax Attending Provider: Kaleb Suarez Primary Care Provider: Rosemary Warren Consulting Providers: Darian Ambrose Discharge Orders/Prescriptions Prescriptions: Continued prochlorperazine maleate 10 mg tablet 10 mg PO Q6H PRN (Reason: nausea and vomiting) Qty: 30 2RF spironolactone 50 mg tablet 100 mg PO DAILY Qty: 60 3RF oxycodone-acetaminophen [Percocet] 5-325 mg tablet 1 tab PO Q6H PRN (Reason: pain) 30 Days Qty: 60 0RF ascorbic acid (vitamin C) 1,000 MG tablet 1,000 mg PO DAILY multivitamin with minerals 1 EACH tablet 1 ea PO DAILY ondansetron HCl 8 mg tablet 8 mg PO Q8H PRN PRN (Reason: Nausea) Qty: 30 0RF umeclidinium-vilanterol 62.5-25 mcg/actuation blister with device 1 ea inhalation DAILY sodium chloride 1,000 mg tablet,soluble 1,000 mg PO 4X/DAY Label Comments: TAKE ONE TABLET BY MOUTH THREE TIMES DAILY FOR electrolyte replenishment lisinopril 10 mg tablet 10 mg PO DAILY Rx Instructions: TAKE ONE TABLET BY MOUTH EVERY DAY mirtazapine [Remeron] 15 mg tablet 15 mg PO QHS melatonin 10 mg Tablet 10 mg PO QHS aspirin [Adult Low Dose Aspirin] 81 mg tablet,delayed release (DR/EC) 81 mg PO DAILY Hold Instructions: Resume on 06/15/22. Please discuss with Dr. Morejon upon discharge for optimal timing of resuming your aspirin. metoprolol succinate 25 mg tablet extended release 24 hr 25 mg PO DAILY Qty: 90 3RF Referrals / Follow Up: Rosemary Warren DO [Primary Care Provider] - Morris Morejon MD [Med Staff - Active Staff] - See Referral Note (as scheduled) Disposition Disposition (needs filled in before D/C Order can be placed): Home, Self Care Charges/Coding Visit Charges OBSV E&M: 01399 Observ/hosp same date L2
--- NOTE | 2022-11-14 12:15 | NURSING ---
RAFAEL CM Discharge Follow-up Phone Call: ZAHRAALiyah:Sylvie Strata:3 Date of Call:11/14/22 Time of Call:1216 Admitting Diagnosis:Pneumothorax, Lung Ca, Pl Effusion, Thoracostomy Summary of Call: Patient feeling good. Removed dressings, no signs or symptoms of infection per patient. Awaiting phone call today for his follow up appt. no questions at this time.
== END 2022-11-09 21:08 | disposition home or self-care (01) | DRG 200 ==
LOC: ED 11:10 → PCU 11:33
PROVIDERS: Admitting Provider Internal Medicine; Emergency Provider Emergency Medicine; PCP Family Medicine; Referring Provider Emergency Medicine; Visit Provider Internal Medicine
DX: J93.81 Chronic pneumothorax (principal); C34.91 Malignant neoplasm of unspecified part of right bronchus or lung; J91.0 Malignant pleural effusion; J98.19 Other pulmonary collapse; J43.9 Emphysema, unspecified; I10 Essential (primary) hypertension; E78.5 Hyperlipidemia, unspecified; I25.10 Atherosclerotic heart disease of native coronary artery without angina pectoris; Z79.82 Long term (current) use of aspirin; Z79.899 Other long term (current) drug therapy; Z87.891 Personal history of nicotine dependence
CPT/HCPCS: 32551; 32555; 36591; 71046; 99285; A4216; J2405

== ENCOUNTER → 2022-11-09 | Outpatient (CLI) | payer MEDICARE, SELFPAY ==
--- NOTE | 2022-11-09 08:02 | US_ITS ---
EXAM: Ultrasound-guided right thoracentesis HISTORY: malignant effusion -- Pain COMPARISON: None FINDINGS: After informed consent was obtained, including discussion of risks and benefits of the procedure including possible pneumothorax and chest tube insertion, an appropriate site for right thoracentesis was determined using sonographic guidance. The area was prepped and draped in a sterile manner, and 2% Xylocaine was used as local anesthetic. Under sonographic guidance, a valved drainage catheter was advanced into the right hemithorax with free return of straw-colored serous fluid. Approximately 1290 mL of fluid was withdrawn from the right hemithorax. However, post procedural chest x-ray showed a 50% right pneumothorax without mediastinal shift. Findings were discussed with the patient and the patient was sent to the ER for evaluation, management, and possible chest tube placement. US/Thoracentesis W US IMPRESSION: 1290 mL of straw-colored serous fluid was withdrawn from the right hemithorax, however, post procedural chest x-ray showed a 50% right pneumothorax, patient was sent to the emergency room for evaluation and management. Electronically Signed: Efrain Nava MD at 9:07 EDT ,
[2022-11-09] MEDS: Lidocaine 2% (20 ml mdv) 20 ML Vial INFILT (08:25)
--- NOTE | 2022-11-09 08:45 | RAD_ITS ---
STUDY: X-RAY CHEST REASON FOR EXAM: Male, 72 years old. POST THORA TECHNIQUE: Portable inspiratory and expiratory AP images COMPARISON: 09/19/2022 FINDINGS: A large postthoracentesis pneumothorax is noted. There is approximately 50% pneumothorax of the right hemithorax without mediastinal shift. Despite patient oxygenating at 99% on room air, patient will be sent to the emergency room for management and likely chest tube placement. Left lung is clear and normally expanded without evidence of a superimposed process. Normal size heart. Normal mediastinum and merlyn. Normal visualized pulmonary arteries. Normal visualized aortic arch and descending thoracic aorta. There are diffuse degenerative changes of the visualized thoracic spine. Normal visualized ribs, clavicles, and shoulders. There is no demonstrated abnormality of the visualized soft tissue structures of the upper abdomen. RAD/Chest Insp/Exp 2 View IMPRESSION: Approximately 50% right pneumothorax after thoracentesis without mediastinal shift. Patient will be sent to the ER for management and likely chest tube placement. Left lung normally expanded without evidence of a superimposed process Electronically Signed: Efrain Nava MD at 8:57 EDT ,
[2022-11-09 09:24] VITALS: BP 133/83; BP 144/70; BP 144/81; BP 149/74; BP 158/79; PULSE 81; PULSE 84; PULSE 89; PULSE 93; PULSE 95; RESP 18; RESP 20; TEMP 36.4; O2SAT 97; O2SAT 98; O2SAT 99
--- NOTE | 2022-11-10 09:38 | NURSING ---
follow up phone call attempted. msg left. pt was admitted after thoracentesis 11/09/22 and then discharged 11/09/22.
== END | disposition home or self-care (01) ==
LOC: US 08:02
PROVIDERS: PCP Family Medicine; Referring Provider Student in an Organized Health Care Education/Training Program; Visit Provider Student in an Organized Health Care Education/Training Program
DX: J91.0 Malignant pleural effusion (principal); J95.811 Postprocedural pneumothorax
CPT/HCPCS: 32551; 32555; 36591; 71046; A4216; J2405

== ENCOUNTER → 2022-12-13 | Outpatient (CLI) | payer MEDICARE, SELFPAY ==
--- NOTE | 2022-12-13 07:45 | CT_ITS ---
STUDY: CT CHEST WITH CONTRAST REASON FOR EXAM: Male, 72 years old. ASSESS TREATMENT RESPONCE-LUNG CA RADIATION DOSAGE (If Supplied By Facility): CTDIvol = ( 10.06 ) mGy, DLP = ( 416.41 ) mGycm TECHNIQUE: Transaxial imaging was performed following intravenous administration of IV 100mL Isovue-300. Multiplanar coronal and sagittal images were reformatted. Individualized dose optimization techniques were used for this CT. COMPARISON: Comparison is made with prior examination dated November 03, 2022. FINDINGS: CHEST There is almost complete collapse of the right lung. There is a 5.8 cm x 3.1 cm mass in the right upper lobe adjacent to the right side of the mediastinum. There is narrowing of the right upper lobe pulmonary artery. The left lung is unremarkable. Once again, there is a large right sided hydropneumothorax. Prior aortic valve replacement. Normal mediastinum. Normal aorta arch and descending thoracic aorta. There are multi-level degenerative changes of the thoracic spine. There is no demonstrated abnormality of the visualized upper abdomen. CT/Chest WITH Contrast IMPRESSION: Essentially stable examination with a right upper lobe mass and near complete collapse of the right lung. Large right hydropneumothorax. Narrowing of the right upper lobe pulmonary artery branches. Electronically Signed: Wilberto Powell MD at 8:52 EDT ,
[2022-12-13] MEDS: 0.9% Saline Lock 10 ML Syringe IV (08:00)
== END | disposition home or self-care (01) ==
LOC: CT 07:44
PROVIDERS: PCP Nurse Practitioner Family; Referring Provider Internal Medicine Medical Oncology; Visit Provider Internal Medicine Medical Oncology
DX: C34.11 Malignant neoplasm of upper lobe, right bronchus or lung (principal)
CPT/HCPCS: 71260; Q9967; A4216

== ENCOUNTER → 2023-01-05 | Outpatient (CLI) | payer MEDICARE, SELFPAY ==
--- NOTE | 2023-01-05 14:47 | CT_ITS ---
STUDY: CT Abdomen And Pelvis W/ Contrast Injection 01/05/2023 3:28 PM REASON FOR EXAM: Male, 72 years old. Abdominal pain RUQ;r/o mets to abd;met NSCLC Individualized dose optimization techniques were used for this CT. COMPARISON: 07.20.[address] chest of 11.03.22 TECHNIQUE: CT Abdomen And Pelvis W/ Contrast Injection IV 100mL Isovue-300 FINDINGS: There are atherosclerotic calcifications of visualized coronary arteries. Large right hydropneumothorax. TAVR noted. Stable possible hemangioma in the left lobe of the liver. Normal gallbladder and extrahepatic biliary system. Normal spleen. Normal pancreas. Normal bilateral adrenal glands. No acute findings of the right kidney. No acute findings of the left kidney. Normal visualized stomach. Normal small intestine. Stool throughout the colon. The appendix is visualized and appears normal. There are calcifications of the abdominal aorta. This is consistent for atherosclerotic disease. There is NO abdominal aortic aneurysm. Vascular workup can be obtained based on clinical correlation. Normal inferior vena cava. Subcentimeter mesenteric lymph nodes. Normal urinary bladder. There are prostatic calcifications. There is a left-sided inguinal hernia containing adipose tissue. There are diffuse degenerative changes of the visualized lumbar spine. There is a stable L2 compression deformity. There is a Grade 1 anterolisthesis of L5 on S1. CT/Abdomen/Pelvis W IV Cont ONLY IMPRESSION: (NOT LISTED IN ORDER OF SIGNIFICANCE) Large right hydropneumothorax. Other findings as above. Electronically Signed: Dev Medrano MD at 15:34 EDT ,
[2023-01-05] MEDS: 0.9% Saline Lock 10 ML Syringe IV (15:10)
== END | disposition home or self-care (01) ==
LOC: CT 14:45
PROVIDERS: PCP Nurse Practitioner Family; Referring Provider Nurse Practitioner Family; Visit Provider Nurse Practitioner Family
DX: R10.11 Right upper quadrant pain (principal); C34.90 Malignant neoplasm of unspecified part of unspecified bronchus or lung
CPT/HCPCS: 74177; Q9967; A4216

== ENCOUNTER → 2023-02-10 | Outpatient (CLI) | payer MEDICARE, SELFPAY ==
--- NOTE | 2023-02-10 09:30 | RAD_ITS ---
STUDY: X-RAY CHEST REASON FOR EXAM: Male, 72 years old. Several day history of fever left back pain. TECHNIQUE: PA and lateral views of the chest. COMPARISON: Comparison is made with prior study dated November 17, 2022. FINDINGS: A right-sided portacatheter seen with the tip in the midportion of the superior vena cava. There now is evidence of complete opacification of the right hemithorax. This most likely secondary to a large pleural effusion. The left lung is clear. Status post mitral valve replacement. Normal mediastinum and merlyn. Normal visualized pulmonary arteries. Normal visualized aortic arch and descending thoracic aorta. There are diffuse degenerative changes of the visualized thoracic spine. Normal visualized ribs, clavicles, and shoulders. There is no demonstrated abnormality of the visualized soft tissue structures of the upper abdomen. RAD/Chest PA and Lateral IMPRESSION: Complete opacification of the right hemithorax suggestive of a large pleural effusion. The left lung is clear. Electronically Signed: Wilberto Powell MD at 10:44 EDT ,
--- NOTE | 2023-02-10 09:30 | RAD_ITS ---
STUDY: X-RAY - PELVIS REASON FOR EXAM: Male, 72 years old. Back pain TECHNIQUE: One view of the pelvis was obtained. COMPARISON: None. FINDINGS: Large amount of fecal material seen in the colon. Evidence of prior left inguinal hernia repair. Prostatic calcifications. There is narrowing with cortical sclerosis and osteophyte formation of the sacroiliac joint consistent with degenerative osteoarthritic changes. Normal visualized bilateral superior and inferior pubic rami. Normal pubic symphysis. Normal ischial tuberosities. Normal visualized right femoral head. Normal right acetabulum. There is mild articular joint space narrowing of the right hip. Normal visualized left femoral head. Normal left acetabulum. There is mild articular joint space narrowing of the left hip. RAD/Pelvis 1 or 2 Views IMPRESSION: Degenerative changes. Large amount of fecal material is seen in the colon. Prostatic calcifications. Electronically Signed: Wilberto Powell MD at 10:46 EDT ,
== END | disposition home or self-care (01) ==
LOC: RAD 09:22
PROVIDERS: PCP Nurse Practitioner Family; Referring Provider Internal Medicine Medical Oncology; Visit Provider Internal Medicine Medical Oncology
DX: M54.9 Dorsalgia, unspecified (principal); Z85.118 Personal history of other malignant neoplasm of bronchus and lung
CPT/HCPCS: 71046; 72170

== ENCOUNTER → 2023-02-20 | Outpatient (CLI) | payer MEDICARE, SELFPAY ==
--- NOTE | 2023-02-20 14:06 | CT_ITS ---
INDICATION: MONITOR LUNG CA/R SIDED CHEST PAIN EXAMINATION: - CT Chest W/ Contrast Injection A radiation dose optimization technique was used for this scan. COMPARISON: Abdominal CT 01/05/[address] 12/27/2022. FINDINGS: Contrast enhanced serial CT axial images through the chest with coronal and sagittal reformatted series. IV Contrast dosage and agent: IV 100mL Isovue-300 IV. Radiation CTDIvol 10.07 Radiation DLP 409.59 MEDIASTINUM: No acute thoracic aortic abnormality. No pulmonary artery filling defects. Again noted aortic valve endovascular stent material. Mediastinal adenopathy. Right chest port catheter tip terminates within the superior vena cava. LUNG PARENCHYMA/PLEURA: Again is noted large right pleural effusion with pleural enhancement consistent with inflammatory change, to include empyema. Associated complete collapse of remaining right lung. No pneumothorax. BONES: New right T9 vertebral body lytic lesion with associated compression deformity. Interval worsening of right lateral fourth through sixth rib bony metastases. UPPER ABDOMEN: Unremarkable. CT/Chest WITH Contrast IMPRESSION: New right T9 vertebral body lytic lesion with associated compression deformity from 2 months prior. Interval worsening of right lateral fourth through sixth rib bony metastases. Otherwise, stable chest as above. Electronically Signed: Darian Hansen MD at 3:18 EDT ,
[2023-02-20] MEDS: 0.9 % NaCl (Sterile) Posiflush 10 mL IV (14:25)
[2023-02-20 14:34] LABS: CREATININE FINGERSTICK 1.1 mg/dL (0.70-1.30); EGFR FINGERSTICK > 60.0000 mL/min (>60)
== END | disposition home or self-care (01) ==
LOC: CT 14:04
PROVIDERS: PCP Nurse Practitioner Family; Referring Provider Internal Medicine Medical Oncology; Visit Provider Internal Medicine Medical Oncology
DX: C34.91 Malignant neoplasm of unspecified part of right bronchus or lung (principal); R07.9 Chest pain, unspecified
CPT/HCPCS: 71260; Q9967; A4216

== ENCOUNTER 2023-03-24 11:21 | Inpatient (IN) | payer MEDICARE, SELFPAY ==
[2023-03-24 11:21] VITALS: BP 159/141; PULSE 104; RESP 20; TEMP 35.8; O2SAT 93; BMI 24.8
--- NOTE | 2023-03-24 12:11 | CT_ITS ---
STUDY: CT ABDOMEN AND PELVIS WITH CONTRAST - URINARY TRACT REASON FOR EXAM: Male, 72 years old. Abdominal pain RADIATION DOSAGE (If Supplied By Facility): CTDIvol = ( 12.17 ) mGy, DLP = ( 746.75 ) mGycm TECHNIQUE: IV 100mL Isovue-370 was administered. Transaxial images were obtained from the dome of the diaphragm to the symphysis pubis in the arterial, nephrographic and excretory phases. Multiplanar coronal and sagittal images were reformatted. Individualized Dose Optimization Techniques Were Used For This CT. COMPARISON: Prior studies dated: January 05, [address] of the chest dated February 20, 2023 FINDINGS: There is complete opacification of the visualized right lung secondary to an effusion and right basilar consolidation. There is a lytic right posterior rib lesion associated with a soft tissue component. There is a right sixth rib lytic lesion associated with a soft tissue component as well. There is a radiolucency within the right seventh rib as well. There is a lytic lesion within the left posterior 12th rib as well. There is a enhancing subcutaneous nodule within the right lower back. The visualized portions of the heart are within normal limits. There is circumferential wall thickening of the distal esophagus. There are scattered slightly ill-defined stable low-attenuation foci within the liver. The liver is diffusely heterogenous.. Normal gallbladder and extrahepatic biliary system. Normal spleen. Normal pancreas. Normal bilateral adrenal glands. Normal visualized stomach. There are mildly dilated fluid-filled loops of small bowel. Normal colon. The appendix is visualized and appears normal. There is diffuse atherosclerotic calcification of the abdominal aorta, without a demonstrated aneurysm. No retroperitoneal adenopathy. Normal right kidney. Normal left kidney. Normal urinary bladder. There are prostatic calcifications. Normal abdominal wall. There is a new expansile lytic lesion within the left iliac wing. There is a new lytic lesion within the inferior endplate of L3 associated with a pathologic fracture. There are additional new lytic lesions throughout the visualized thoracic and lumbosacral spine. There is a grade 1 anterior spondylolisthesis of L5 on S1. CT/Abdomen/Pelvis W IV Cont ONLY IMPRESSION: Dilated and fluid-filled loops of small bowel concerning for an ileus. Lytic lesions throughout the visualized bony thorax, lumbosacral spine and left iliac wing consistent with metastases. Opacification of the visualized right lung secondary to an effusion and right basilar consolidation, likely secondary to some combination of atelectasis, pneumonia and/or neoplastic processes. Low-attenuation foci within the liver, may reflect metastases or cysts. Heterogenous liver may be secondary to hepatic congestion. Segmental wall thickening of the esophagus suggestive of esophagitis. Electronically Signed: Emili Byrne MD at 14:34 EDT ,
--- NOTE | 2023-03-24 12:16 | EX.ED.DYSGE1 ---
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 Patient states last evening after dinner, his belly felt distended, bloating. He has had pain throughout the night. He did have 2 small bowel movements today. He did get an increase in his morphine 30 mg to 3 times a day from 2 times a day. He states he is no longer passing gas, he did have a small bowel movement this morning. He states whenever he burps he has significant pain. His abdomen is hard and he has difficulty moving. Patient did receive immunotherapy yesterday which she receives every 3 weeks. PFS <VAISHNAVI Hamilton - Last Filed: 03/24/23 16:33> [facility] Medical History Abnormal CT scan of lung AC (acromioclavicular) joint bone spurs Acid reflux Anemia Back pain Bowel movement symptom Calcific tendonitis of left shoulder Cancer Chemotherapy management, encounter for CINV (chemotherapy-induced nausea and vomiting) Constipation COPD (chronic obstructive pulmonary disease) Depression Disseminated malignancy Elevated BUN Elevated serum creatinine Elevated TSH Emphysema of lung Epistaxis Essential (primary) hypertension Former smoker Hand foot syndrome Headache Hearing loss, left Hearing loss, right Hydropneumothorax Hyperlipidemia Hypertension Hyponatremia Impingement syndrome, shoulder, left Left bundle branch block Lung cancer, primary, with metastasis from lung to other site Lung mass Mucositis (ulcerative) due to antineoplastic therapy Neuropathy Nonobstructive atherosclerosis of coronary artery Nonrheumatic aortic (valve) stenosis with insufficiency Nonspecific abnormal unspecified cardiovascular function study Oral candidiasis Osteoarthritis Pleural effusion, right RUQ pain Sinusitis, bacterial Spinal stenosis in cervical region Trigger finger of both hands Vision changes Xerostomia Home Medications ascorbic acid (vitamin C) 1,000 mg tablet 1,000 mg PO DAILY 03/09/20 [History Last Taken 11/08/22] multivitamin with minerals 1 ea PO DAILY 06/01/20 [History Last Taken 11/08/22] aspirin 81 mg tablet,delayed release (Adult Low Dose Aspirin) 81 mg PO DAILY 09/15/21 [History Last Taken 11/08/22] umeclidinium 62.5 mcg-vilanterol 25 mcg/actuation powdr for inhalation 1 ea inhalation DAILY 12/01/21 [History Last Taken 11/08/22] prochlorperazine maleate 10 mg tablet 10 mg PO Q6H PRN nausea and vomiting #30 tabs 06/29/22 [Rx Last Taken Unknown] metoprolol succinate 25 mg tablet,extended release 24 hr 25 mg PO DAILY #90 tabs 09/19/22 [Rx Last Taken 11/08/22] lisinopril 10 mg tablet 10 mg PO DAILY BP 11/09/22 [History Last Taken 11/08/22] melatonin 10 mg tablet 10 mg PO QHS SLEEP 11/09/22 [History Last Taken 11/08/22] mirtazapine 15 mg tablet (Remeron) 15 mg PO QHS #30 tabs 01/05/23 [Rx Last Taken Unknown] umeclidinium 62.5 mcg-vilanterol 25 mcg/actuation powdr for inhalation 1 inh inhalation DAILY #60 ea 01/12/23 [Rx Last Taken Unknown] spironolactone 50 mg tablet 100 mg (2 x 50 mg) PO DAILY #60 tabs 02/06/23 [Rx Last Taken Unknown] sodium chloride 1,000 mg soluble tablet 1,000 mg PO 4X/DAY SUPPLEMENT #120 tabs 02/15/23 [Rx Last Taken Unknown] oxycodone-acetaminophen 5 mg-325 mg tablet (Percocet) 1 tab PO Q6H PRN pain 30 days #60 tabs 02/23/23 [Rx Last Taken Unknown] ondansetron HCl 8 mg tablet 8 mg PO Q8H PRN PRN Nausea #30 tabs 03/07/23 [Rx Last Taken Unknown] dexamethasone 4 mg tablet 4 mg PO DAILY #30 tabs 03/23/23 [Rx Last Taken Unknown] gabapentin 600 mg tablet 600 mg PO QHS #30 tabs 03/23/23 [Rx Last Taken Unknown] morphine 30 mg tablet,extended release 30 mg PO Q8H 30 days #90 tabs 03/23/23 [Rx Last Taken Unknown] Allergy/AdvReac Type Severity Reaction Status Date / Time adhesive tape Allergy Rash Verified 03/23/23 09:08 bee venom protein (honey bee) Allergy Anaphylaxis Verified 03/23/23 09:08 Family History Father , age 90, complications of dementia Dementia Mother Cardiac pacemaker in situ Surgical History H/O arthroscopic knee surgery History of back surgery History of basal cell carcinoma (BCC) excision History of carpal tunnel release History of herniorrhaphy History of left heart catheterization (08/02/21) History of right knee joint replacement History of transcatheter aortic valve replacement (TAVR) (09/13/21) S/P thoracostomy tube placement Social History Smoking Status: Former smoker quit date: 07/31/04 Tobacco: How many years used: 30 ROS <VAISHNAVI Hamilton - Last Filed: 03/24/23 16:33> ROS ED ROS Narrative Constitutional: Negative for fever, chills, weight loss. Positive generalized weakness Eyes: Negative for vision loss, vision change, double vision ENT: Negative for any sore throat, ear pain, congestion Cardiovascular: Negative for any chest pain, tightness, palpitations Respiratory: Negative for any cough, sputum production, hemoptysis, dyspnea, dyspnea on exertion, orthopnea Gastrointestinal: Negative for any nausea, vomiting, diarrhea, blood in stool, blood in vomit. Positive for abdominal pain, constipation : Negative for any urinary frequency, dysuria, retention, blood in urine Muscle skeletal: Negative for any muscle joint pain, stiffness, myalgias, arthralgias, neck pain, back pain Neurological: Negative for any headache, syncope, numbness or tingling, dizziness Skin: Negative for any rashes, lumps, itching, abrasions, lacerations Psychiatric: Negative for any depression, anxiety, stress, suicidal ideation, homicidal ideation Hematologic: Negative for any easy bruising, excessive bruising, easy bleeding Allergies: Negative for any eczema, hives, rash EXAM <VAISHNAVI Hamilton - Last Filed: 03/24/23 16:33> Physical Exam Narrative Exam Narrative: Vital signs reviewed. Patient appears to be in mild to moderate discomfort. HEET: Head normocephalic atraumatic, TMs clear bilaterally. Posterior pharynx is clear, moist mucous membranes. Nares clear bilaterally. Neck: Supple with no lymphadenopathy or tenderness. No signs of meningismus, negative jolt sign. Cardiac: Regular rate and rhythm no murmurs gallops or rubs, equal peripheral pulses bilaterally. Respiratory: Lungs clear to auscultation bilaterally. No chest tenderness. Abdomen: No abdominal bruit or pulsatile masses. No hepatosplenomegaly. Patient's abdomen is distended, firm, pain throughout palpation. Slight concern for peritoneal signs. Hypoactive bowel sounds. Extremities: No peripheral edema, no signs of gross trauma or deformity. Active full range of motion of all extremities. Neuro: Cranial nerves II through XII intact, no focal neurological deficits. Skin: Clean dry and intact with no rash, purpura, petechiae, vesicles or pustules. Backs/flank: No CVA tenderness, no midline spinal tenderness, no deformity. Psych: Normal mood and affect. No SI, HI or acute psychosis. Const Vital Signs: 03/24/23 11:21 03/24/23 14:18 Temperature 96.5 F L Temperature Source Temporal Pulse Rate 104 H 64 Respiratory Rate 20 H 15 Blood Pressure 159/141 H 131/69 H Blood Pressure Mean 147 89 Pulse Ox 93 96 Oxygen Delivery Method Room Air <Dr. Oleg Roque MD - Last Filed: 03/24/23 19:06> Physical Exam Const Vital Signs: 03/24/23 11:21 03/24/23 14:18 Temperature 96.5 F L Temperature Source Temporal Pulse Rate 104 H 64 Respiratory Rate 20 H 15 Blood Pressure 159/141 H 131/69 H Blood Pressure Mean 147 89 Pulse Ox 93 96 Oxygen Delivery Method Room Air [facility] <VAISHNAVI Hamilton - Last Filed: 03/24/23 16:33> [facility] Lab Data Labs: Laboratory Results - last 24 hr 03/24/23 12:51 WBC 11.6 H RBC 3.51 L Hgb 11.1 L Hct 32.5 L MCV 92.6 MCH 31.6 MCHC 34.2 RDW Std Deviation 55.7 H RDW Coeff of Griffin 16.3 H Plt Count 236 MPV 8.9 Immature Gran % (Auto) 0.700 Neut % (Auto) 86.2 H Lymph % (Auto) 5.0 L [place] % (Auto) 6.2 Eos % (Auto) 1.4 Baso % (Auto) 0.5 Absolute Neuts (auto) 10.0 H Absolute Lymphs (auto) 0.58 L Nucleated RBC % 0 Sodium 124 L Potassium 4.8 Chloride 88 L Carbon Dioxide 30.0 Anion Gap 6 BUN 40 H Creatinine 1.60 H Estim Creat Clear Calc 39.78 Est GFR (MDRD) Af Amer 55 L Est GFR (MDRD) Non-Af 45 L BUN/Creatinine Ratio 25.0 H Glucose 116 H Lactic Acid 1.4 Calcium 10.6 H Total Bilirubin 1.00 AST 19 ALT 37 Alkaline Phosphatase 189 H Total Protein 7.0 Albumin 3.1 L Globulin 3.9 Albumin/Globulin Ratio 0.8 L Lipase 27 Radiography Diagnostic Testing: Clinical Impression(s) from Imaging Studies Abdomen/Pelvis CT 03/24/23 12:11 IMPRESSION: Dilated and fluid-filled loops of small bowel concerning for an ileus. Lytic lesions throughout the visualized bony thorax, lumbosacral spine and left iliac wing consistent with metastases. Opacification of the visualized right lung secondary to an effusion and right basilar consolidation, likely secondary to some combination of atelectasis, pneumonia and/or neoplastic processes. Low-attenuation foci within the liver, may reflect metastases or cysts. Heterogenous liver may be secondary to hepatic congestion. Segmental wall thickening of the esophagus suggestive of esophagitis. Electronically Signed: Emili Byrne MD at 14:34 EDT , KUB X-Ray 03/24/23 15:55 IMPRESSION: Dilated gas-filled loops of small bowel which may reflect an ileus. Enteric tube terminating within the expected region of the gastric fundus. Complete opacification of the visualized right lung may be secondary to an effusion and/or malignant process. Electronically Signed: Emili Byrne MD at 16:23 EDT , Treatment and Re-Evaluation :: Patient appears to be in mild distress secondary to abdominal pain. Patient's abdomen is hard, positive peritoneal signs, hypoactive bowel sounds. He will receive IV fluids, IV morphine Zofran. He will receive a CT scan of the abdomen pelvis concerning for any mass, perforation, diverticulitis, bowel obstruction, constipation. Patient is here with his . Patient was given IV morphine, patient did have some relief. Patient's laboratory values showed slight leukocytosis white white blood count 11.6. Patient's chemistry showed slight hyponatremia with a sodium of 124, this is baseline for the patient. Patient's creatinine is 1.6, this is a significant jump from the creatinine of 1.17 yesterday. Patient patient's GFR is 45. Patient did receive a CT scan of the abdomen pelvis that showed dilated and fluid filled loops of small bowel concerning for ileus. Lytic lesions throughout the visualized bony thorax, lumbosacral spine and left iliac wing consistent with metastasis. Esophagitis. Secondary to continued abdominal bloating, patient did have an NG tube placed, immediate 1700 gastric content out. Patient felt much better. Patient will need to be admitted to the hospital for full admission. Questions answered, patient stable for admission. <Dr. Oleg Roque MD - Last Filed: 03/24/23 19:06> [facility] Narrative Medical decision making narrative: I have personally performed a face to face assessment of the patient and have reviewed the ALONDRA Note. I performed a substantive portion of the visit including all aspects of the following. 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 Last bowel movement within the last 12 hours. He states he went a small amount. He has not flagellated today. He had a bowel obstruction at the age of 19. He denies any other symptoms or complaint Exam is remarkable distended tympanitic abdomen with tenderness, guarding and mild peritoneal findings. Heart is regular and rapid. Lungs reveal diminished breath sounds on the right. Lower extremity exam is mild edema. Medical Decision Making concern patient may have metastasis to peritoneum with obstruction. CTA was obtained because he has significant tenderness with peritoneal findings. Appropriate blood work was ordered as well. Other additions or changes: Radiology report read ileus. Concern patient has early partial bowel obstruction. When NG was placed 1700 cc of gastric fluid was drained. This is more concerning for obstruction versus ileus since his occurred abruptly. Case was discussed with hospitalist for admission. Lab Data Attestation: I reviewed the patient's lab results. Lab results narrative: White count is slightly elevated. There is a shift. There is no bandemia. There is evidence of anemia which is chronic. BUN and creatinine are elevated at 40 and 1.6 with a GFR of 45. Glucose is slightly elevated 116 with a normal CO2 anion gap. Lipase is normal. Labs: Laboratory Results - last 24 hr 03/24/23 12:51 WBC 11.6 H RBC 3.51 L Hgb 11.1 L Hct 32.5 L MCV 92.6 MCH 31.6 MCHC 34.2 RDW Std Deviation 55.7 H RDW Coeff of Griffin 16.3 H Plt Count 236 MPV 8.9 Immature Gran % (Auto) 0.700 Neut % (Auto) 86.2 H Lymph % (Auto) 5.0 L [place] % (Auto) 6.2 Eos % (Auto) 1.4 Baso % (Auto) 0.5 Absolute Neuts (auto) 10.0 H Absolute Lymphs (auto) 0.58 L Nucleated RBC % 0 Sodium 124 L Potassium 4.8 Chloride 88 L Carbon Dioxide 30.0 Anion Gap 6 BUN 40 H Creatinine 1.60 H Estim Creat Clear Calc 39.78 Est GFR (MDRD) Af Amer 55 L Est GFR (MDRD) Non-Af 45 L BUN/Creatinine Ratio 25.0 H Glucose 116 H Lactic Acid 1.4 Calcium 10.6 H Total Bilirubin 1.00 AST 19 ALT 37 Alkaline Phosphatase 189 H Total Protein 7.0 Albumin 3.1 L Globulin 3.9 Albumin/Globulin Ratio 0.8 L Lipase 27 Radiography Chest X-Ray - ED: 1 View and Read by ED Physician (KUB confirms proper position of the NG. Of note 1700 cc of gastric fluid was evacuated upon insertion.) Diagnostic Testing: Clinical Impression(s) from Imaging Studies Abdomen/Pelvis CT 03/24/23 12:11 IMPRESSION: Dilated and fluid-filled loops of small bowel concerning for an ileus. Lytic lesions throughout the visualized bony thorax, lumbosacral spine and left iliac wing consistent with metastases. Opacification of the visualized right lung secondary to an effusion and right basilar consolidation, likely secondary to some combination of atelectasis, pneumonia and/or neoplastic processes. Low-attenuation foci within the liver, may reflect metastases or cysts. Heterogenous liver may be secondary to hepatic congestion. Segmental wall thickening of the esophagus suggestive of esophagitis. Electronically Signed: Emili Byrne MD at 14:34 EDT , KUB X-Ray 03/24/23 15:55 IMPRESSION: Dilated gas-filled loops of small bowel which may reflect an ileus. Enteric tube terminating within the expected region of the gastric fundus. Complete opacification of the visualized right lung may be secondary to an effusion and/or malignant process. Electronically Signed: Emili Byrne MD at 16:23 EDT , Discharge Plan Dx/Rx/DC Orders Clinical Impression: Ileus, Lung cancer metastatic to bone, Acute kidney injury Disposition Disposition: Acute Care Hospital [facility] Discharge Date/Time: 03/24/23 17:42
[2023-03-24] MEDS: 0.9% Normal Saline 1,000 ML 1000 ML IV (12:56)
[2023-03-24] MEDS: Ondansetron 4 MG/2 ML Vial IV (12:57)
[2023-03-24] MEDS: Morphine 4 MG/ML Syringe IV (12:57)
[2023-03-24 12:59] LABS: Absolute Lymphocyte Count 0.58 X10^3/uL (0.83-4.51); Basophil# 0.06 X10^3/uL; Basophil% 0.5 % (0-1); Eosinophil# 0.16 X10^3/uL; Eosinophils% 1.4 % (0-5); Hematocrit 32.5 % (40-54); Hemoglobin 11.1 g/dL (13.0-16.5); Lymphocyte # 0.58 X10^3/ul (0.83-4.51); Mean Corp Hgb Conc 34.2 g/dL (32-36); Mean Corpuscular Hgb 31.6 pg (27.0-32.0); Mean Corpuscular Volume 92.6 fL (80-94); Mean Platelet Vol. 8.9 fl (6.2-12.0); Monocyte# 0.72 X10^3/uL; Monocyte% 6.2 % (0-10); NRBC Flagged by Analyzer 0 % (0-5); Neutrophil # 10.03 X10^3/uL (2.7-7.7); Neutrophil % 86.2 % (47-70); POSITIVE DIFFERENTIAL YES; Platelet Count 236 K/mm3 (150-450); RBC Distribution Width CV 16.3 % (11.6-14.6); RBC Distribution Width SD 55.7 fl (35.1-43.9); Red Blood Count 3.51 M/mm3 (4.6-6.2); White Blood Count 11.6 K/mm3 (4.4-11.0)
[2023-03-24 13:08] LABS: Differential Indicated SCAN CRITERIA MET
[2023-03-24 13:13] LABS: ALB/GLOB Ratio 0.8 RATIO (0.9-2.4); AST(SGOT) 19 U/L (15-37); Alanine Aminotransfer ALT/SGPT 37 U/L (16-61); Albumin, Serum 3.1 g/dL (3.2-5.0); Alkaline Phosphatase 189 U/L (45-117); Anion Gap 6 (5-15); BUN 40 mg/dL (7-18); Calcium,Total 10.6 mg/dL (8.5-10.1); Chloride 88 mmol/L (98-107); EST Glomerular Filtration Rate 45 mL/min (>60); Est Glom Filt Rate - Afr Amer 55 mL/min (>60); Estimated Creatinine Clearance 39.78 ml/min; Globulin 3.9 g/dL (2.2-4.2); Glucose 116 mg/dL (74-106); Lipase 27 U/L (13-75); Potassium 4.8 mmol/L (3.5-5.1); Sodium Level 124 mmol/L (136-145)
[2023-03-24 13:20] LABS: Lactic Acid 1.4 mmol/L (0.4-1.9)
[2023-03-24] MEDS: 0.9% Normal Saline 1,000 ML 250 ML IV (14:17)
[2023-03-24 14:18] VITALS: BP 131/69; PULSE 64; RESP 15; O2SAT 96
--- NOTE | 2023-03-24 15:32 | NURSING ---
DR TARIQ FOR DR KATE
--- NOTE | 2023-03-24 15:34 | PCM.HP.STD ---
HPI - General General Date of Admission: 03/24/23 Date of Service: 03/24/23 Chief Complaint: Abdominal pain, ileus HPI Narrative SYL EMNDEZ is a 72 M with history of metastatic lung cancer and hypertension who presented to [facility] ED on 03/24/2023 with worsening abdominal pain and distention. Patient seen at bedside, present. Patient seen shortly after NG tube was placed. He had already had 1700 cc of dark bilious fluid removed from the NG tube. Patient reported moderate improvement in his abdominal distention and discomfort since NG tube placement. Patient states that his abdominal distention and discomfort developed over the last few days. He notably has had his opiate pain regimen increased due to ongoing pain. Has previously taken MiraLAX and senna at home with good control of constipation. Has never had severe constipation or abdominal distention legs before. Patient denies any previous intra-abdominal surgeries. He denies any fevers or chills. He denies any chest pain or shortness of breath. Patient notably follows with Dr. Morejon with oncology. Last office visit on 03/23. Was originally diagnosed with lung cancer back in 2019. Lung cancer was metastasized to the liver on diagnosis. Initial biopsy showed poorly differentiated non-small cell carcinoma. Has completed multiple rounds of chemotherapy with different agents since then, unfortunately with progression of his disease. Was also on Keytruda at 1 time, now discontinued. Most recently was on palliative chemotherapy with cisplatin and Gemzar started in 09/2022. Also received radiation therapy to a hilar mass from 01/12 to 01/25/2023. Began palliative dual immunotherapy with ipilimumab/nivolumab on 03/02/23. Plan after this visit was to change his MS Contin to 30 mg every 8 hours scheduled plus Percocet 5 mg every 6 hours as needed for breakthrough pain. Was also to continue senna/Colace and prunes for constipation prophylaxis, as well as gabapentin at night for pain. Labs in the ED were notable for WBC count of 11.6, hemoglobin 11.1 (at baseline), sodium 124, potassium 4.8, chloride 88, creatinine 1.60, BUN 40, calcium 10.6. CT abdomen pelvis with IV contrast showed dilated and fluid-filled loops of small bowel concerning for ileus, no evidence of obstruction. CT also notable for lytic lesions throughout the thorax, L-spine and left iliac wing, as well as opacification of the visualized right lung secondary to effusion and right basilar consolidation. [facility] Medical History Abnormal CT scan of lung AC (acromioclavicular) joint bone spurs Acid reflux Anemia Back pain Bowel movement symptom Calcific tendonitis of left shoulder Cancer Chemotherapy management, encounter for CINV (chemotherapy-induced nausea and vomiting) Constipation COPD (chronic obstructive pulmonary disease) Depression Disseminated malignancy Elevated BUN Elevated serum creatinine Elevated TSH Emphysema of lung Epistaxis Essential (primary) hypertension Former smoker Hand foot syndrome Headache Hearing loss, left Hearing loss, right Hydropneumothorax Hyperlipidemia Hypertension Hyponatremia Impingement syndrome, shoulder, left Left bundle branch block Lung cancer, primary, with metastasis from lung to other site Lung mass Mucositis (ulcerative) due to antineoplastic therapy Neuropathy Nonobstructive atherosclerosis of coronary artery Nonrheumatic aortic (valve) stenosis with insufficiency Nonspecific abnormal unspecified cardiovascular function study Oral candidiasis Osteoarthritis Pleural effusion, right RUQ pain Sinusitis, bacterial Spinal stenosis in cervical region Trigger finger of both hands Vision changes Xerostomia Home Medications ascorbic acid (vitamin C) 1,000 mg tablet 1,000 mg PO DAILY 03/09/20 [History Last Taken 11/08/22] multivitamin with minerals 1 ea PO DAILY 06/01/20 [History Last Taken 11/08/22] aspirin 81 mg tablet,delayed release (Adult Low Dose Aspirin) 81 mg PO DAILY 09/15/21 [History Last Taken 11/08/22] umeclidinium 62.5 mcg-vilanterol 25 mcg/actuation powdr for inhalation 1 ea inhalation DAILY 12/01/21 [History Last Taken 11/08/22] prochlorperazine maleate 10 mg tablet 10 mg PO Q6H PRN nausea and vomiting #30 tabs 06/29/22 [Rx Last Taken Unknown] metoprolol succinate 25 mg tablet,extended release 24 hr 25 mg PO DAILY #90 tabs 09/19/22 [Rx Last Taken 11/08/22] lisinopril 10 mg tablet 10 mg PO DAILY BP 11/09/22 [History Last Taken 11/08/22] melatonin 10 mg tablet 10 mg PO QHS SLEEP 11/09/22 [History Last Taken 11/08/22] mirtazapine 15 mg tablet (Remeron) 15 mg PO QHS #30 tabs 01/05/23 [Rx Last Taken Unknown] umeclidinium 62.5 mcg-vilanterol 25 mcg/actuation powdr for inhalation 1 inh inhalation DAILY #60 ea 01/12/23 [Rx Last Taken Unknown] spironolactone 50 mg tablet 100 mg (2 x 50 mg) PO DAILY #60 tabs 02/06/23 [Rx Last Taken Unknown] sodium chloride 1,000 mg soluble tablet 1,000 mg PO 4X/DAY SUPPLEMENT #120 tabs 02/15/23 [Rx Last Taken Unknown] oxycodone-acetaminophen 5 mg-325 mg tablet (Percocet) 1 tab PO Q6H PRN pain 30 days #60 tabs 02/23/23 [Rx Last Taken Unknown] ondansetron HCl 8 mg tablet 8 mg PO Q8H PRN PRN Nausea #30 tabs 03/07/23 [Rx Last Taken Unknown] dexamethasone 4 mg tablet 4 mg PO DAILY #30 tabs 03/23/23 [Rx Last Taken Unknown] gabapentin 600 mg tablet 600 mg PO QHS #30 tabs 03/23/23 [Rx Last Taken Unknown] morphine 30 mg tablet,extended release 30 mg PO Q8H 30 days #90 tabs 03/23/23 [Rx Last Taken Unknown] Allergy/AdvReac Type Severity Reaction Status Date / Time adhesive tape Allergy Rash Verified 03/23/23 09:08 bee venom protein (honey bee) Allergy Anaphylaxis Verified 03/23/23 09:08 Family History Father , age 90, complications of dementia Dementia Mother Cardiac pacemaker in situ Surgical History H/O arthroscopic knee surgery History of back surgery History of basal cell carcinoma (BCC) excision History of carpal tunnel release History of herniorrhaphy History of left heart catheterization (08/02/21) History of right knee joint replacement History of transcatheter aortic valve replacement (TAVR) (09/13/21) S/P thoracostomy tube placement Social History Smoking Status: Former smoker quit date: 07/31/04 Tobacco: How many years used: 30 ROS Constitutional Constitutional: Reports fatigue and weakness; Denies chills or fever(s) Cardiovascular Cardiovascular: Denies chest pain or dyspnea on exertion Respiratory/Chest Respiratory/Chest: Denies cough Gastrointestinal Gastrointestinal: Reports abdominal pain, constipation and nausea; Denies diarrhea, loose stools or vomiting Genitourinary Genitourinary: Denies dysuria Vital Signs Vital Signs Vital Signs: 03/24/23 11:21 03/24/23 14:18 Temperature 96.5 F L Temperature Source Temporal Pulse Rate 104 H 64 Respiratory Rate 20 H 15 Blood Pressure 159/141 H 131/69 H Blood Pressure Mean 147 89 Pulse Ox 93 96 Oxygen Delivery Method Room Air Weight Weight: 74.162 kg Body Mass Index (BMI) 24.8 Physical Exam Const alert and oriented x3 Constitutional Narrative: Pleasant male, sitting fairly comfortably in bed, conversing normally, no acute distress. NG tube in place, patient tolerating well at this time. General Appearance: cooperative and comfortable HEENT normocephalic, head/scalp atraumatic, hearing grossly normal bilaterally, nasal mucous membranes and turbinates normal and moist oral mucous membranes Eyes PERRL, EOMs intact bilaterally and conjunctivae normal Neck full ROM, no lymphadenopathy and supple Lymph Lymphatic: no lymphadenopathy noted Chest inspection of chest normal Resp normal respiratory effort Resp Narrative: Satting well on room air. Decreased breath sounds at bilateral lung bases. Otherwise good air movement throughout. No increased work of breathing noted. Cardio regular rate, regular rhythm, no murmurs and peripheral pulses 2+ throughout GI GI Narrative: Distended but soft on palpation after NG tube placement. Nontender to palpation. Back/Spine normal ROM Extremity normal to inspection, full ROM and no pedal edema Skin no rashes or lesions noted Psych mental status grossly normal Results Lab / Micro Data 03/24/23 12:51 03/24/23 12:51 Labs: Laboratory Results - last 24 hr 03/24/23 12:51: WBC 11.6 H, RBC 3.51 L, Hgb 11.1 L, Hct 32.5 L, MCV 92.6, MCH 31.6, MCHC 34.2, RDW Std Deviation 55.7 H, RDW Coeff of Griffin 16.3 H, Plt Count 236, MPV 8.9, Immature Gran % (Auto) 0.700, Neut % (Auto) 86.2 H, Lymph % (Auto) 5.0 L, [place] % (Auto) 6.2, Eos % (Auto) 1.4, Baso % (Auto) 0.5, Absolute Neuts (auto) 10.0 H, Absolute Lymphs (auto) 0.58 L, Nucleated RBC % 0, Sodium 124 L, Potassium 4.8, Chloride 88 L, Carbon Dioxide 30.0, Anion Gap 6, BUN 40 H, Creatinine 1.60 H, Estim Creat Clear Calc 39.78, Est GFR (MDRD) Af Amer 55 L, Est GFR (MDRD) Non-Af 45 L, BUN/Creatinine Ratio 25.0 H, Glucose 116 H, Lactic Acid 1.4, Calcium 10.6 H, Total Bilirubin 1.00, AST 19, ALT 37, Alkaline Phosphatase 189 H, Total Protein 7.0, Albumin 3.1 L, Globulin 3.9, Albumin/Globulin Ratio 0.8 L, Lipase 27 Radiology Impression Abdomen/Pelvis CT 03/24/23 12:11 IMPRESSION: Dilated and fluid-filled loops of small bowel concerning for an ileus. Lytic lesions throughout the visualized bony thorax, lumbosacral spine and left iliac wing consistent with metastases. Opacification of the visualized right lung secondary to an effusion and right basilar consolidation, likely secondary to some combination of atelectasis, pneumonia and/or neoplastic processes. Low-attenuation foci within the liver, may reflect metastases or cysts. Heterogenous liver may be secondary to hepatic congestion. Segmental wall thickening of the esophagus suggestive of esophagitis. Electronically Signed: Emili Byrne MD at 14:34 EDT , Assessment & Plan Assessment/Plan (1) Ileus: PLAN: Plan Patient is a 72-year-old male with history of metastatic lung cancer and hypertension who presented to [facility] ED on 03/24/2023 with worsening abdominal pain and distention. 1. Ileus Very likely secondary to heavy opiate regimen for his cancer related pain. Low concern for bowel obstruction given CT findings as noted above, had air present throughout the entire colon and patient reports small bowel movements and passing gas very recently. Also has no overt risk factors for bowel obstruction, has no history of intra-abdominal surgery, no abdominal cancer metastases. NG tube placed in the ED with 1700 ML of dark, bilious output within the first 15 minutes of placement. Patient with moderate improvement of his abdominal discomfort and nausea. -Continue NG for now, consider serial KUBs to monitor for improvement. Can consider surgery consult as needed, although patient is poor surgical candidate. Pain regimen as noted below. Dulcolax suppository ordered as needed. Can consider enemas as needed as well. 2. Hyponatremia -Acute on chronic. May be secondary to poor p.o. intake at home, but cannot rule out SIADH due to cancer related pain. Sodium 124 on admit, baseline appears to be in the high 120s. Urine sodium, urine osmolality and serum osmolality ordered. Started on normal saline 50 mL/hour, will recheck BMP tomorrow morning. Consider nephrology consult as needed. 3. CHARISSE ? Very likely prerenal in setting of poor p.o. intake. Creatinine 1.60 on admit, baseline around 1-1.2. Gentle IV fluid replacement as noted above. Monitor BMP. 4. Metastatic lung cancer - Follows with oncology as noted in HPI. Only on IV immunotherapy every 3 weeks at this time. Also on Decadron 4 mg daily. Poor prognosis. Patient currently lives at home with his , has no other caregiver assistance at home. PT/OT/case management consulted. Patient and have no interest in a rehab facility, but may have interest in home health care. Continue home inhalers. 5. Cancer related pain ? Pain regimen at home prescribed by patient's PCP and oncologist. Has been increased recently. Currently taking extended release morphine 30 mg every 8 hours scheduled, Percocet 5-325 mg every 6 hours as needed. Patient notes he has been taking Percocet more frequently recently, with improvement in his pain. We will continue home morphine and start oxycodone 5 to 10 mg every 4 hours as needed for pain control for now. Continue home mirtazapine and gabapentin. 6. Hypertension ? Home regimen of spironolactone 50 mg daily, lisinopril 10 mg daily, Toprol 25 mg daily. Continue home Toprol, hold spironolactone and lisinopril, restart as needed. DVT prophylaxis: Lovenox CODE STATUS: DNR CCA, DO NOT INTUBATE. Confirmed with family on admission. Expected disposition: Home with home health care, TBD Total clinical time spent by myself addressing the patient's medical issues, reviewing all the data, and collaborating with patient's care team: 55 minutes. Charges/Coding Visit Charges Inpatient E&M: 75041 Init Hosp L2
--- NOTE | 2023-03-24 15:55 | RAD_ITS ---
INDICATION: NG Insertion EXAMINATION/TECHNIQUE: X-RAY - XR Abdomen 1 View COMPARISON: Prior study dated: CT dated March 24, 2023 FINDINGS: BOWEL GAS PATTERN: There is an enteric tube in place terminating within the expected region of the gastric fundus. There are dilated gas-filled loops of small bowel. There is gas within the visualized colon. FREE AIR: Not assessed on a single supine view. LOWER CHEST: There is opacification of the visualized right lung. BONES AND SOFT TISSUES: There is a radiolucency within the right posterior 10th rib. There are fractures within the right lateral sixth and ninth ribs. RAD/Abdomen Single View (Portable) IMPRESSION: Dilated gas-filled loops of small bowel which may reflect an ileus. Enteric tube terminating within the expected region of the gastric fundus. Complete opacification of the visualized right lung may be secondary to an effusion and/or malignant process. Electronically Signed: Emili Byrne MD at 16:23 EDT ,
[2023-03-24] MEDS: Oxymetazoline 0.05% 1 SPRAY SPRAY.BTL 2 SPRAY NASAL (15:59)
[2023-03-24 17:46] LABS: Osmolality, Serum 282 mOsm/KG (280-301)
[2023-03-24 17:56] VITALS: BMI 24.7
[2023-03-24] MEDS: 0.9% Normal Saline 1,000 ML 100 ML IV (19:03)
[2023-03-24 19:52] VITALS: O2SAT 96
[2023-03-24 21:21] VITALS: BP 113/71; PULSE 100; RESP 18; TEMP 36.4; O2SAT 98
[2023-03-24] MEDS: MELATONIN 10 MG TABLET PO (21:22)
[2023-03-24] MEDS: Gabapentin 600 MG Tablet PO (21:23)
[2023-03-24] MEDS: morphine SR 15 MG Tablet 30 MG PO (21:23)
[2023-03-24] MEDS: Mirtazapine 15 MG Tablet PO (21:23)
[2023-03-24 22:05] LABS: Urine Sodium 59 mmol/L (Not Establ.)
[2023-03-24 22:07] LABS: Osmolality, Urine 610 mOsm/KG
[2023-03-24 23:45] LABS: Magnesium 1.4 mg/dL (1.6-2.6)
[2023-03-25 03:20] VITALS: BP 125/82; PULSE 102; RESP 18; TEMP 36.2; O2SAT 95
[2023-03-25] MEDS: 0.9% Normal Saline 1,000 ML 100 ML IV (03:42)
--- NOTE | 2023-03-25 05:36 | PCM.PN.HOSP ---
Reason for Visit Reason for Visit: Diagnoses Ileus, unspecified (03/24/23) Subjective Subjective Patient status post NG tube placement in the ED given intractable discomfort, emesis with NG tube still in place although not marked output in the canister but he notes feeling significantly improved with lessened abdominal pain, resolved distention. He notes he has been passing flatus. He is interested in transitioning to sips and chips which will be initiated. Discussed his chronic pain at length and he notes that he had been doing well on the regimen he had been on but he is interested in at least getting information on palliative but not necessarily talking to anyone about it at this time. Patient denies fevers, chills, any recurrent nausea, emesis or worsened abdominal pain, chest pain or dyspnea. Objective Data Objective Data Vital Signs: Vital Signs Temp Pulse Resp BP Pulse Ox O2 Del Method 97.2 F L 102 H 18 125/82 H 95 Room Air 03/25/23 03:20 03/25/23 03:20 03/25/23 03:20 03/25/23 03:20 03/25/23 03:20 03/25/23 03:20 Oxygen Delivery Method Room Air Weight: 163 lb 7.987 oz Body Mass Index (BMI) 24.7 Intake & Output: Intake and Output for Last 24 Hours 03/23/23 03/24/23 03/25/23 23:59 23:59 23:59 Intake Total 2110 / 2140 1031.67 / 1031.67 Output Total 200 / 200 Balance 1910 / 1940 1031.67 / 1031.67 Lab / Micro Data 03/25/23 05:40 03/25/23 05:40 Labs: Laboratory Results - last 24 hr 03/24/23 12:51: WBC 11.6 H, RBC 3.51 L, Hgb 11.1 L, Hct 32.5 L, MCV 92.6, MCH 31.6, MCHC 34.2, RDW Std Deviation 55.7 H, RDW Coeff of Griffin 16.3 H, Plt Count 236, MPV 8.9, Immature Gran % (Auto) 0.700, Neut % (Auto) 86.2 H, Lymph % (Auto) 5.0 L, [place] % (Auto) 6.2, Eos % (Auto) 1.4, Baso % (Auto) 0.5, Absolute Neuts (auto) 10.0 H, Absolute Lymphs (auto) 0.58 L, Nucleated RBC % 0, Sodium 124 L, Potassium 4.8, Chloride 88 L, Carbon Dioxide 30.0, Anion Gap 6, BUN 40 H, Creatinine 1.60 H, Estim Creat Clear Calc 39.78, Est GFR (MDRD) Af Amer 55 L, Est GFR (MDRD) Non-Af 45 L, BUN/Creatinine Ratio 25.0 H, Glucose 116 H, Lactic Acid 1.4, Calcium 10.6 H, Total Bilirubin 1.00, AST 19, ALT 37, Alkaline Phosphatase 189 H, Total Protein 7.0, Albumin 3.1 L, Globulin 3.9, Albumin/Globulin Ratio 0.8 L, Lipase 27 03/24/23 17:07: Serum Osmolality 282, Magnesium 1.4 L 03/24/23 21:00: Urine Osmolality 610, Ur Random Sodium 59, Urine Creatinine 79.40 Radiography Diagnostic Testing: Radiology Impression Abdomen/Pelvis CT 03/24/23 12:11 IMPRESSION: Dilated and fluid-filled loops of small bowel concerning for an ileus. Lytic lesions throughout the visualized bony thorax, lumbosacral spine and left iliac wing consistent with metastases. Opacification of the visualized right lung secondary to an effusion and right basilar consolidation, likely secondary to some combination of atelectasis, pneumonia and/or neoplastic processes. Low-attenuation foci within the liver, may reflect metastases or cysts. Heterogenous liver may be secondary to hepatic congestion. Segmental wall thickening of the esophagus suggestive of esophagitis. Electronically Signed: Emili Byrne MD at 14:34 EDT Reading Location ID and State: [facility] / [place] Tel , Service support , KUB X-Ray 03/24/23 15:55 IMPRESSION: Dilated gas-filled loops of small bowel which may reflect an ileus. Enteric tube terminating within the expected region of the gastric fundus. Complete opacification of the visualized right lung may be secondary to an effusion and/or malignant process. Electronically Signed: Emili Byrne MD at 16:23 EDT , Physical Exam Narrative Physical Examination: General: Awake, alert, oriented x 3 and cooperative, seated upright in PCU bed, no acute distress, notes feeling improved since initial presentation to the ED. Skin: Normal color, normal turgor, no icterus, no cyanosis. HEENT: AT/NC, EOMI, PERRLA, mildly dry MM, NG tube in place. Lungs: Mildly diminished, greater bases, right greater than left with known trapped lung, no appreciated rales, ronchi or wheezing. Heart: Regular rate and rhythm; no gallop, rub audible. Abdomen: Soft, no severe tenderness to palpation or any rebound or guarding, he notes is feeling much improved, no marked distention, mildly hypoactive bowel sounds. Extremities: No cyanosis, clubbing, or edema. Neurological: Patient awake, alert, oriented as noted, cognitive function intact; pupils equally reactive to light and accommodation, cranial nerves II-XII grossly normal, moving all 4 extremities, no focal deficits, strength improving, moderately global decrease secondary to acute presentation. Psychiatric: Affect appears fatigued otherwise normal, no acute evidence of depressive or anxiety feelings. 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 ED on 03/24/23 with abdominal pain, distention, nausea and emesis without ability to maintain appropriate oral intake. #1. Intractable Abdominal pain, nausea, emesis, distention secondary to Acute Ileus likely in part secondary to chronic pain regimen: Admitted to medical surgical floor, will maintain on IVFs, continue NGT to suction, strict I&Os, IV pain/anti-emetics PRN, serial KUB as needed to montior bowel function, PPI, maintained NPO on bowel rest until clinically improving, if necessary may involve general surgery, once resolving would be appropriate for aggressive bowel regimen given ongoing significant narcotic regimen for severe pain associated with his underlying metastatic cancer. 03/25/23 KUB pending upon evaluation. Patient however does report improvement with passing flatus, abdomen less distended although not marked output in the canister. He is currently asking for sips and chips and given his symptomatic improvement with no obvious SBO upon presentation will allow this but if any concerns on KUB then may certainly hold. If KUB is well-appearing and he seems to continue to improve, passing more flatus and BM would discontinue NG and initiate on clears. #2. Acute hyponatremia, hypochloremia, suspect hypovolemic especially given recent decreased intake and intractable nausea/emesis as noted #1: Admission CMP with sodium 124, chloride 88, BUN/creatinine 40/1.60, continued hydration, vitamin physician obtained urine osmolality 610, urine creatinine 79.40, urine sodium 59, repeat 03/25/2023 BMP with sodium 127, chloride 94, improving slowly. #3. Hyperkalemia, mild: Admission potassium 5.3, only mildly elevated, continue hydration and will repeat BMP later in the day with interventions if remains elevated or further elevated. #4. Acute kidney injury: Secondary to decreased oral intake, intractable nausea and emesis. Admission BUN/Cr 40/1.60, prior baseline creatinine noted to be primarily 1.0-1.1 therefore increased upon presentation greater than 1.5 times normal, administer judicious IV fluids, 03/25/2020 3 repeat BUN/creatinine 36/1.23, improving, continue to monitor. #5. Metastatic lung cancer, NSCLC-adenocarcinoma type stage IV(cT2 cN2 M1c): Patient with metastatic cancer to the thorax/lumbosacral spine/iliac wing, possibly liver as well as known malignant pleural effusion status post prior thoracenteses with now hydropneumothorax secondary to trapped lung on the right with progressing disease with most recent evaluation 03/23/2023 with elected immunotherapy at that time with ongoing palliative Nivolumab and Yervoy starting 03/02/23, following with Dr. Morejon, will obtain mag and phos with repletion as needed, continue alteration to pain regimen as noted given severe pain associated, encourage palliative/hospice consideration. #6. Chronic pain syndrome secondary to metastatic cancer as noted: Patient on morphine 30 mg extended release p.o. every 8 hours, gabapentin 600 mg nightly, dexamethasone 4 mg p.o. daily as well as every 6 hours as needed Percocet regimen with ongoing persistent pain, will increase gabapentin to 3 times daily regimen although positive for sedation, may need to consider transition to methadone and de-escalation off of morphine with breakthrough pain with Percocet. Currently patient does have some interested in at least getting palliative information but does not want to talk with anyone and requested that no further case management/social visits or care today therefore will discuss with case management/social work 03/26/2023 for information to be given. #7. Chronic COPD: Will maintain on oxygen with wean as tolerated to room air, continue home Anora Ellipta treatments, PRN albuterol, HOB, IS parameters. #8. Hypertension: Continue home regimen including lisinopril, metoprolol, spironolactone, PRN hydralazine. #9. Hyperlipidemia: Not on statin therapy, defer. #10. Former tobacco use: Encourage continued tobacco cessation. #11. Anxiety depression: We will continue patient home mirtazapine regimen. #12. Chronic anemia: Admission CBC with hemoglobin 11.1, MCV 92.6, baseline hemoglobin primarily more recently 03-09, repeat 03/25/2023 hemoglobin 10.3, will continue to trend. #13. GERD: Given especially CT findings with possibly evidence of esophagitis will place on PPI. #14. DVT prophylaxis: Heparin. #15. CODE STATUS: DNR CCA, no intubation. Charges/Coding Visit Charges Inpatient E&M: 95757 Subs Hosp L2
[2023-03-25] MEDS: morphine SR 15 MG Tablet 30 MG PO ×3 (05:39→21:19)
--- NOTE | 2023-03-25 06:15 | RAD_ITS ---
STUDY: X-RAY - ABDOMEN/PELVIS REASON FOR EXAM: Male, 72 years old. Ileus TECHNIQUE: Single AP view of the abdomen / pelvis. COMPARISON: 03/24/2023 FINDINGS: Nasogastric tube with the tip in the left upper quadrant likely in the body the stomach. Excreted contrast within the bladder. There is an unremarkable bowel gas pattern. The visualized liver, spleen and kidneys are grossly normal in size and morphology. Normal soft tissue structures. Mild levoscoliosis of the thoracic lumbar spine. RAD/Abdomen Single View (Portable) IMPRESSION: No bowel obstruction. Electronically Signed: Foster Prasad MD at 16:47 EDT ,
[2023-03-25 08:04] LABS: Absolute Lymphocyte Count 0.55 X10^3/uL (0.83-4.51); Basophil# 0.05 X10^3/uL; Basophil% 0.5 % (0-1); Eosinophil# 0.16 X10^3/uL; Eosinophils% 1.7 % (0-5); Hematocrit 31.5 % (40-54); Hemoglobin 10.3 g/dL (13.0-16.5); Lymphocyte # 0.55 X10^3/ul (0.83-4.51); Lymphocyte % 5.8 % (19-41); Mean Corp Hgb Conc 32.7 g/dL (32-36); Mean Corpuscular Hgb 30.9 pg (27.0-32.0); Mean Corpuscular Volume 94.6 fL (80-94); Mean Platelet Vol. 9.3 fl (6.2-12.0); Monocyte# 0.67 X10^3/uL; Monocyte% 7.1 % (0-10); NRBC Flagged by Analyzer 0 % (0-5); Neutrophil # 8.01 X10^3/uL (2.7-7.7); Neutrophil % 84.4 % (47-70); POSITIVE DIFFERENTIAL YES; Platelet Count 195 K/mm3 (150-450); RBC Distribution Width CV 16.5 % (11.6-14.6); RBC Distribution Width SD 57.4 fl (35.1-43.9); Red Blood Count 3.33 M/mm3 (4.6-6.2); White Blood Count 9.5 K/mm3 (4.4-11.0)
[2023-03-25 08:09] LABS: ALB/GLOB Ratio 0.7 RATIO (0.9-2.4); AST(SGOT) 16 U/L (15-37); Alanine Aminotransfer ALT/SGPT 29 U/L (16-61); Albumin, Serum 2.8 g/dL (3.2-5.0); Alkaline Phosphatase 157 U/L (45-117); Anion Gap 7 (5-15); BUN 36 mg/dL (7-18); BUN/Creat Ratio 29.3 RATIO (10-20); Calcium,Total 9.9 mg/dL (8.5-10.1); Chloride 94 mmol/L (98-107); Creatinine, Serum 1.23 mg/dL (0.70-1.30); EST Glomerular Filtration Rate 61 mL/min (>60); Est Glom Filt Rate - Afr Amer 74 mL/min (>60); Estimated Creatinine Clearance 51.75 ml/min; Globulin 3.8 g/dL (2.2-4.2); Glucose 94 mg/dL (74-106); Phosphorus 3.1 mg/dL (2.5-4.9); Potassium 5.3 mmol/L (3.5-5.1); Protein, Total 6.6 g/dL (6.4-8.2); Sodium Level 127 mmol/L (136-145)
[2023-03-25 08:21] LABS: Differential Indicated SCAN CRITERIA MET
[2023-03-25 09:20] VITALS: BP 109/68; PULSE 105; RESP 16; TEMP 37.1; O2SAT 95
[2023-03-25 09:25] VITALS: PULSE 105
[2023-03-25] MEDS: Aspirin E.C. 81 MG Tablet PO (09:25)
[2023-03-25] MEDS: dexAMETHasone 4 MG Tablet PO (09:25)
[2023-03-25] MEDS: Metoprolol(XL)Succ 25 MG Tablet PO (09:25)
--- NOTE | 2023-03-25 10:15 | CASEMGMT ---
RAFAEL HUBBARD DC Planning Assessment: Face to Face with patient for initial transition planning/care coordination assessment.? RAFAEL HUBBARD introduced self and role at [facility], pt with opened eyes then closed them again. Pt did voices understanding and is agreeable to participating in assessment although kept eyes closed throughout. Pt's answered questions appropriately.? Care providers, pharmacy,?and demographics verified. ? Admitting dx: ileus PCP: BISHNU Martinez Specialists: Kelley (web development intern), Darleen (oncologist) Preferred Pharmacy: [facility] Insurance: [employer] Prescription Benefit:?yes LNOK: Odalys Living Arrangements: Pt lives with his in a single story home with one step to enter. Pt states he is independent with ADLs. Transportation: Pt's provides transportation as pt has not been driving lately. DME: built in shower bench, hand held shower HHC/SNF: denies previous Plan: Pt plans to return home with the support of his and denies any dc needs at this time. Pt states he has a [employer] insurance policy he can use if home care is needed so he does not need to go to a SNF. Florentino Baumann RN CM
[2023-03-25] MEDS: oxyCODONE 5 MG Tablet PO ×2 (10:44→22:50)
[2023-03-25] MEDS: Acetaminophen 325 MG Tablet 650 MG PO ×2 (10:45→22:50)
[2023-03-25 10:55] LABS: Differential Comment SCANNED
[2023-03-25 15:20] VITALS: BP 111/72; PULSE 86; RESP 16; TEMP 36.7; O2SAT 94
[2023-03-25 19:18] VITALS: PULSE 85; RESP 16; O2SAT 94
[2023-03-25] MEDS: Ipratropium/Albuterol Sulfate 3 ML AMPUL.NEB INHALATION (19:19)
[2023-03-25 21:17] VITALS: BP 129/73; PULSE 94; RESP 18; TEMP 36.8; O2SAT 95
[2023-03-25] MEDS: Gabapentin 600 MG Tablet PO (21:18)
[2023-03-25] MEDS: MELATONIN 10 MG TABLET PO (21:19)
[2023-03-25] MEDS: Mirtazapine 15 MG Tablet PO (21:19)
[2023-03-25] MEDS: 0.9% Saline Lock 10 ML Syringe IV (21:33)
[2023-03-26 03:30] VITALS: BP 126/79; PULSE 83; RESP 18; TEMP 36.9; O2SAT 97
[2023-03-26 05:38] LABS: Absolute Lymphocyte Count 0.76 X10^3/uL (0.83-4.51); Absolute Neutrophil Count 8.3 X10^3/uL (2.0-7.7); Basophil# 0.03 X10^3/uL; Basophil% 0.3 % (0-1); Eosinophil# 0.06 X10^3/uL; Eosinophils% 0.6 % (0-5); Hematocrit 28.2 % (40-54); Hemoglobin 9.2 g/dL (13.0-16.5); Lymphocyte # 0.76 X10^3/ul (0.83-4.51); Lymphocyte % 7.6 % (19-41); Mean Corp Hgb Conc 32.6 g/dL (32-36); Mean Corpuscular Hgb 30.7 pg (27.0-32.0); Mean Platelet Vol. 9.2 fl (6.2-12.0); Monocyte# 0.78 X10^3/uL; Monocyte% 7.8 % (0-10); NRBC Flagged by Analyzer 0 % (0-5); Neutrophil # 8.27 X10^3/uL (2.7-7.7); Neutrophil % 83.1 % (47-70); Platelet Count 172 K/mm3 (150-450); RBC Distribution Width CV 16.4 % (11.6-14.6); RBC Distribution Width SD 56.3 fl (35.1-43.9)
--- NOTE | 2023-03-26 05:40 | RAD_ITS ---
EXAM: XR ABDOMEN, 1 VIEW CLINICAL INDICATION: Ileus TECHNIQUE: Frontal supine view of the abdomen/pelvis. COMPARISON: 03/25/2023. FINDINGS: LOWER THORAX: Massive right pleural fluid and complete atelectasis of right lung. GASTROINTESTINAL TRACT: Unremarkable. Non-obstructive. No bowel or stomach distention. ORGANS: Unremarkable as visualized. No organomegaly. No abnormal calcifications. BONES/JOINTS: Multiple right rib fractures, masses right pleural fluid and complete atelectasis of right lung are unchanged. SOFT TISSUES: Metallic stent across the aortic valve is unchanged. TUBES, LINES AND DEVICES: NG tube tip and sidehole remains inside the left gastric cavity. RAD/Abdomen Single View (Portable) IMPRESSION: 1. No acute findings in the abdomen and pelvis. 2. NG tube tip and sidehole remains inside the left gastric cavity. 3. Multiple right rib fractures, massive right pleural fluid and complete atelectasis of right lung. 4. No interval change when compared to 03/25/2023. Electronically Signed: Magdaleno Parish MD at 10:43 EDT ,
[2023-03-26 06:03] LABS: ALB/GLOB Ratio 0.7 RATIO (0.9-2.4); AST(SGOT) 12 U/L (15-37); Alanine Aminotransfer ALT/SGPT 25 U/L (16-61); Albumin, Serum 2.7 g/dL (3.2-5.0); Alkaline Phosphatase 139 U/L (45-117); Anion Gap 11 (5-15); BUN 37 mg/dL (7-18); BUN/Creat Ratio 32.7 RATIO (10-20); Calcium,Total 9.8 mg/dL (8.5-10.1); Chloride 94 mmol/L (98-107); Creatinine, Serum 1.13 mg/dL (0.70-1.30); EST Glomerular Filtration Rate 68 mL/min (>60); Est Glom Filt Rate - Afr Amer 82 mL/min (>60); Estimated Creatinine Clearance 56.33 ml/min; Globulin 3.8 g/dL (2.2-4.2); Glucose 83 mg/dL (74-106); Protein, Total 6.5 g/dL (6.4-8.2); Sodium Level 129 mmol/L (136-145)
[2023-03-26] MEDS: morphine SR 15 MG Tablet 30 MG PO ×2 (06:09→13:49)
[2023-03-26] MEDS: Heparin Injection (Vial) 5,000 UNIT/ML VIAL 5000 UNIT SC (06:15)
--- NOTE | 2023-03-26 06:37 | PN.HOSP_ITS ---
Reason for Visit Reason for Visit: Diagnoses Ileus, unspecified (03/24/23) Subjective Subjective And with no acute events overnight per self and per nursing report tolerating chips and sips. Repeat KUB similar to prior and patient fortunately with large bowel movement this morning following Dulcolax suppository. Patient amenable to NG to see and initiate on clear liquids with toleration and advancement of diet at lunch. Per discussion with hematology/oncology patient to be discharged on Movantik in addition to a low-dose amount of Dulcolax on top of his chronic regimen if necessary. Patient denies any severe pain today and notes pain is improved especially with bowel movement. Patient denies fevers, chills, nausea, emesis, abdominal pain, chest pain or dyspnea. Objective Data Objective Data Vital Signs: Vital Signs Temp Pulse Resp BP Pulse Ox O2 Del Method 98.4 F 83 18 126/79 H 97 Room Air 03/26/23 03:30 03/26/23 03:30 03/26/23 03:30 03/26/23 03:30 03/26/23 03:30 03/26/23 03:30 Oxygen Delivery Method Room Air Weight: 163 lb 7.987 oz Body Mass Index (BMI) 24.7 Intake & Output: Intake and Output for Last 24 Hours 03/24/23 03/25/23 03/26/23 23:59 23:59 23:59 Intake Total 2110 / 2140 2164.00 / 2164.00 125 / 125 Output Total 200 / 600 1100 / 1100 400 / 400 Balance 1910 / 1540 1064.00 / 1064.00 -275 / -275 Lab / Micro Data 03/26/23 05:05 03/26/23 05:05 Labs: Laboratory Results - last 24 hr 03/25/23 05:40: WBC 9.5, RBC 3.33 L, Hgb 10.3 L, Hct 31.5 L, MCV 94.6 H, MCH 30.9, MCHC 32.7, RDW Std Deviation 57.4 H, RDW Coeff of Griffin 16.5 H, Plt Count 195, MPV 9.3, Immature Gran % (Auto) 0.500, Neut % (Auto) 84.4 H, Lymph % (Auto) 5.8 L, [place] % (Auto) 7.1, Eos % (Auto) 1.7, Baso % (Auto) 0.5, Absolute Neuts (auto) 8.0 H, Absolute Lymphs (auto) 0.55 L, Nucleated RBC % 0, Differential Comment SCANNED, Sodium 127 L, Potassium 5.3 H, Chloride 94 L, Carbon Dioxide 26.0, Anion Gap 7, BUN 36 H, Creatinine 1.23, Estim Creat Clear Calc 51.75, Est GFR (MDRD) Af Amer 74, Est GFR (MDRD) Non-Af 61, BUN/Creatinine Ratio 29.3 H, Glucose 94, Calcium 9.9, Phosphorus 3.1, Magnesium 2.0, Total Bilirubin 1.10 H, AST 16, ALT 29, Alkaline Phosphatase 157 H, Total Protein 6.6, Albumin 2.8 L, Globulin 3.8, Albumin/Globulin Ratio 0.7 L 03/26/23 05:05: WBC 10.0, RBC 3.00 L, Hgb 9.2 L, Hct 28.2 L, MCV 94.0, MCH 30.7, MCHC 32.6, RDW Std Deviation 56.3 H, RDW Coeff of Griffin 16.4 H, Plt Count 172, MPV 9.2, Immature Gran % (Auto) 0.600, Neut % (Auto) 83.1 H, Lymph % (Auto) 7.6 L, [place] % (Auto) 7.8, Eos % (Auto) 0.6, Baso % (Auto) 0.3, Absolute Neuts (auto) 8.3 H, Absolute Lymphs (auto) 0.76 L, Nucleated RBC % 0, Sodium 129 L, Potassium 5.0, Chloride 94 L, Carbon Dioxide 24.0, Anion Gap 11, BUN 37 H, Creatinine 1.13, Estim Creat Clear Calc 56.33, Est GFR (MDRD) Af Amer 82, Est GFR (MDRD) Non-Af 68, BUN/Creatinine Ratio 32.7 H, Glucose 83, Calcium 9.8, Total Bilirubin 1.10 H, AST 12 L, ALT 25, Alkaline Phosphatase 139 H, Total Protein 6.5, Albumin 2.7 L, Globulin 3.8, Albumin/Globulin Ratio 0.7 L Radiography Diagnostic Testing: Radiology Impression KUB X-Ray 03/25/23 06:15 IMPRESSION: No bowel obstruction. Electronically Signed: Foster Prasad MD at 16:47 EDT , Physical Exam Narrative Physical Examination: General: Awake, alert, oriented x 3 and cooperative, seated upright in PCU bed, NG tube now discontinued as patient with large BM status post clears toleration and now transitioning to regular diet Skin: Normal color, normal turgor, no icterus, no cyanosis. HEENT: AT/NC, EOMI, PERRLA, improved MMM, NG tube status post DC. Lungs: Mildly diminished, greater bases, right greater than left with known trapped lung, no appreciated rales, ronchi or wheezing. Heart: Regular rate and rhythm; no gallop, rub audible. Abdomen: Soft, NTTP, ND, improved normalizing BS. Extremities: No cyanosis, clubbing, or edema. Neurological: Patient awake, alert, oriented as noted, cognitive function intact; pupils equally reactive to light and accommodation, cranial nerves II- XII grossly normal, moving all 4 extremities, no focal deficits, strength improving, mildly to moderately globally decreased secondary to acute presentation. Psychiatric: Affect appears fatigued otherwise normal, more talkative today, no acute evidence of depressive or anxiety feelings. Assessment & Plan Assessment/Plan (1) Ileus: (2) Lung cancer, primary, with metastasis from lung to other site: QUALIFIERS: Laterality: left Qualified Code(s): C34.92 - Malignant neoplasm of unspecified part of left bronchus or lung PLAN: Plan The patient is a 72 y/o M w/ PMHx: Metastatic lung cancer to thorax/lumbosacral spine/iliac wing, possibly liver as well as known malignant pleural effusion status post prior thoracenteses with now hydropneumothorax secondary to trapped lung on the right with progressing disease with most recent evaluation 03/23/2023 with elected immunotherapy at that time with ongoing palliative Nivolumab and Yervoy starting 03/02/23 on notable chronic pain regimen, Former tobacco use, COPD, Chronic anemia, GERD, Chronic hyponatremia, HTN, HLD, Chronic neuropathy, Anxiety and Depression who presents to the [facility] ED on 03/24/23 with abdominal pain, distention, nausea and emesis without ability to maintain appropriate oral intake. #1. Intractable Abdominal pain, nausea, emesis, distention secondary to Acute Ileus likely in part secondary to chronic pain regimen: Admitted to medical surgical floor, will maintain on IVFs, continue NGT to suction, strict I&Os, IV pain/anti-emetics PRN, serial KUB as needed to montior bowel function, PPI, maintained NPO on bowel rest until clinically improving, if necessary may involve general surgery, once resolving would be appropriate for aggressive noe wel regimen given ongoing significant narcotic regimen for severe pain associated with his underlying metastatic cancer. 03/25/23 KUB not marked appearing. 03/25/23 improvement with passing flatus, abdomen less distended although not marked output in the canister. 03/25/23 sips/chips which were tolerated. 03/25/23-03/26/23 passing flatus but no BM. 03/26/23 KUB pending but similar appearing to day prior, no obvious SBO and also 03/26/23 AM large BM following dulcolax supp x 1 now, 03/26/2023 early a.m. d/c NG and allow clears with ADAT lunch and if tolerates plan discharge. Per discussion with hemato logy/oncology who is technically not consulted but follows with the patient will provide prescription for Movantik at discharge per their request. Also patient will be given a load amount of Dulcolax suppositories. #2. Acute hyponatremia, hypochloremia, suspect hypovolemic especially given recent decreased intake and intractable nausea/emesis as noted #1: Admission CMP with sodium 124, chloride 88, BUN/creatinine 40/1.60, admitting physician obtained urine osmolality 610, urine creatinine 79.40, urine sodium 59, repeat 03/25/2023 BMP with sodium 127, chloride 94-->03/26/23 CMP w/ Na 129, Chl 94, this is his baseline. #3. Hyperkalemia, mild: Admission potassium 5.3, only mildly elevated, c ontinued hydration, 03/26/23 K 5.0, stable. #4. Acute kidney injury: Secondary to decreased oral intake, intractable nausea and emesis. Admission BUN/Cr 40/1.60, prior baseline creatinine noted to be primarily 1.0-1.1 therefore increased upon presentation greater than 1.5 times normal, administer judicious IV fluids, 03/25/2020 3 repeat BUN/creatinine 36/1.23-->03/26/23 BUN/Cr 37/1.13, resolved, continue to monitor. #5. Metastatic lung cancer, NSCLC-adenocarcinoma type stage IV(cT2 cN2 M1c): Alon corrales with metastatic cancer to the thorax/lumbosacral spine/iliac wing, possibly liver as well as known malignant pleural effusion status post prior thoracenteses with now hydropneumothorax secondary to trapped lung on the right with progressing disease with most recent evaluation 03/23/2023 with elected immunotherapy at that time with ongoing palliative Nivolumab and Yervoy starting 03/02/23, following with Dr. Morejon, will obtain mag and phos with repletion as needed, continue alteration to pain regimen as noted given severe pain associated, encourage palliative/hospice consideration. #6. Chronic pain syndrome secondary to metastatic cancer as noted: Patient on morphine 30 mg extended release p.o. every 8 hours, gabapentin 600 mg nightly, dexamethasone 4 mg p.o. daily as well as every 6 hours as needed Percocet regimen with ongoing persistent pain, will increase gabapentin to 3 times daily regimen although positive for sedation, may need to consider transition to methadone and de-escalation off of morphine with breakthrough pain with Percocet. Currently patient does have some interested in at least getting palliative information but does not want to talk with anyone and requested that no further case management/social visits or care today therefore will discuss with case management/social work 03/26/2023 for information to be given. #7. Chronic COPD: Will maintain on oxygen with wean as tolerated to room air, continue home Anora Ellipta treatments, PRN albuterol, HOB, IS parameters. #8. Hypertension: Continue home regimen including lisinopril, metoprolol, spironolactone, PRN hydralazine. #9. Hyperlipidemia: Not on statin therapy, defer. #10. Former tobacco use: Encourage continued tobacco cessation. #11. Anxiety depression: We will continue patient home mirtazapine regimen. #12. Chronic anemia: Admission CBC with hemoglobin 11.1, MCV 92.6, baseline hemoglobin primarily more recently 8, repeat 03/26/2023 hemoglobin 9.2, will continue to trend. #13. GERD: Given especially CT findings with possibly evidence of esophagitis will place on PPI. #14. DVT prophylaxis: Heparin. #15. CODE STATUS: DNR CCA, no intubation. Charges/Coding Visit Charges Inpatient E&M: 44865 Subs Hosp L2
[2023-03-26] MEDS: Acetaminophen 325 MG Tablet 650 MG PO (06:53)
[2023-03-26] MEDS: oxyCODONE 5 MG Tablet PO ×2 (06:53→12:41)
[2023-03-26] MEDS: Bisacodyl 10 MG Suppository RC (06:55)
[2023-03-26 09:30] VITALS: BP 138/74; PULSE 86; RESP 16; TEMP 36.6; O2SAT 100
[2023-03-26 09:32] VITALS: PULSE 86
[2023-03-26] MEDS: Aspirin E.C. 81 MG Tablet PO (09:32)
[2023-03-26] MEDS: Metoprolol(XL)Succ 25 MG Tablet PO (09:32)
[2023-03-26] MEDS: dexAMETHasone 4 MG Tablet PO (09:32)
[2023-03-26] MEDS: Pantoprazole Sodium 40 MG Tablet PO (10:03)
--- NOTE | 2023-03-26 10:37 | PCM.DC.SUM ---
Providers Date of Admission: 03/24/23 Date of Discharge: 03/26/23 Primary Care Physician: Anita Martinez, [employer] Reason For Visit: ILEUS Diagnosis Discharge Diagnosis (1) Ileus: Status: Acute Code(s): K56.7 - Ileus, unspecified Plan: Discharge Diagnoses: #1. Intractable Abdominal pain, nausea, emesis, distention secondary to Acute Ileus likely in part secondary to chronic pain regimen #2. Acute hyponatremia, hypochloremia, suspect hypovolemic especially given recent decreased intake and intractable nausea/emesis as noted #1 #3. Hyperkalemia, mild #4. Acute kidney injury secondary to decreased oral intake, intractable nausea and emesis #5. Metastatic lung cancer, NSCLC-adenocarcinoma type stage IV(cT2 cN2 M1c) #6. Chronic pain syndrome secondary to metastatic cancer as noted #7. Chronic COPD #8. Hypertension #9. Hyperlipidemia #10. Former tobacco use #11. Anxiety and depression #12. Chronic anemia/AOCD #13. GERD #14. CODE STATUS: DNR CCA, no intubation. Medications at Discharge Home Medications ascorbic acid (vitamin C) 1,000 mg tablet 1,000 mg PO DAILY 03/09/20 multivitamin with minerals 1 ea PO DAILY 06/01/20 aspirin 81 mg tablet,delayed release (Adult Low Dose Aspirin) 81 mg PO DAILY 09/15/21 umeclidinium 62.5 mcg-vilanterol 25 mcg/actuation powdr for inhalation 1 ea inhalation DAILY 12/01/21 prochlorperazine maleate 10 mg tablet 10 mg PO Q6H PRN nausea and vomiting #30 tabs 06/29/22 metoprolol succinate 25 mg tablet,extended release 24 hr 25 mg PO DAILY #90 tabs 09/19/22 lisinopril 10 mg tablet 10 mg PO DAILY BP 11/09/22 melatonin 10 mg tablet 10 mg PO QHS SLEEP 11/09/22 mirtazapine 15 mg tablet (Remeron) 15 mg PO QHS #30 tabs 01/05/23 umeclidinium 62.5 mcg-vilanterol 25 mcg/actuation powdr for inhalation 1 inh inhalation DAILY #60 ea 01/12/23 spironolactone 50 mg tablet 100 mg (2 x 50 mg) PO DAILY #60 tabs 02/06/23 sodium chloride 1,000 mg soluble tablet 1,000 mg PO 4X/DAY SUPPLEMENT #120 tabs 02/15/23 oxycodone-acetaminophen 5 mg-325 mg tablet (Percocet) 1 tab PO Q6H PRN pain 30 days #60 tabs 02/23/23 ondansetron HCl 8 mg tablet 8 mg PO Q8H PRN PRN Nausea #30 tabs 03/07/23 dexamethasone 4 mg tablet 4 mg PO DAILY #30 tabs 03/23/23 gabapentin 600 mg tablet 600 mg PO QHS #30 tabs 03/23/23 morphine 30 mg tablet,extended release 30 mg PO Q8H 30 days #90 tabs 03/23/23 bisacodyl 10 mg rectal suppository (Dulcolax (bisacodyl)) 10 mg OK DAILY PRN constipation #12 ea 03/26/23 naloxegol 12.5 mg tablet (Movantik) 12.5 mg PO DAILY Constipation prevention #30 tabs 03/26/23 Hospital Course Operations None Procedures EKG Summary of Care Provided Minutes Spent on Discharge: 35 Hospital Course: The patient is a 72 y/o M w/ PMHx: Metastatic lung cancer to thorax/lumbosacral spine/iliac wing, possibly liver as well as known malignant pleural effusion status post prior thoracenteses with now hydropneumothorax secondary to trapped lung on the right with progressing disease with most recent evaluation 03/23/2023 with elected immunotherapy at that time with ongoing palliative Nivolumab and Yervoy starting 03/02/23 on notable chronic pain regimen, Former tobacco use, COPD, Chronic anemia, GERD, Chronic hyponatremia, HTN, HLD, Chronic neuropathy, Anxiety and Depression who presented to the [facility] ED on 03/24/23 with abdominal pain, distention, nausea and emesis without ability to maintain appropriate oral intake. Admitted to medical surgical floor, will maintain on IVFs, continue NGT to suction, strict I&Os, IV pain/anti-emetics PRN, serial KUB as needed to montior bowel function, PPI, maintained NPO on bowel rest until clinically improving, if necessary may involve general surgery, once resolving would be appropriate for aggressive bowel regimen given ongoing significant narcotic regimen for severe pain associated with his underlying metastatic cancer. 03/25/23 KUB not marked appearing. 03/25/23 improvement with passing flatus, abdomen less distended although not marked output in the canister. 03/25/23 sips/chips which were tolerated. 03/25/23-03/26/23 passing flatus but no BM. 03/26/23 KUB pending but similar appearing to day prior, no obvious SBO and also 03/26/23 AM large BM following dulcolax supp x 1-->d/c NG w/ clears-->ADAT. Per discussion with hematology/oncology who is technically not consulted but follows with the patient will provide prescription for Movantik at discharge per their request. Also patient will be given a load amount of Dulcolax suppositories. Admission CMP with sodium 124, chloride 88, BUN/creatinine 40/1.60, admitting physician obtained urine osmolality 610, urine creatinine 79.40, urine sodium 59, repeat 03/25/2023 BMP with sodium 127, chloride 94-->03/26/23 CMP w/ Na 129, Chl 94, this is his baseline. During admission noted CHARISSE, secondary to decreased oral intake, intractable nausea and emesis. Admission BUN/Cr 40/1.60, prior baseline creatinine noted to be primarily 1.0-1.1 therefore increased upon presentation greater than 1.5 times normal, administer judicious IV fluids, 03/25/23 repeat BUN/creatinine 36/1.23-->03/26/23 BUN/Cr 37/1.13, resolved. Given clinical improvement patient discharged to home in improved condition with follow-up outpatient with PCP and Hem/Onc. Weight / BMI Weight Weight: 163 lb 7.987 oz Body Mass Index (BMI) 24.7 ABG / Lab / Microbiology Data 03/26/23 05:05 03/26/23 05:05 Laboratory: Laboratory Results - last 24 hr 03/25/23 05:40: Differential Comment SCANNED 03/26/23 05:05: WBC 10.0, RBC 3.00 L, Hgb 9.2 L, Hct 28.2 L, MCV 94.0, MCH 30.7, MCHC 32.6, RDW Std Deviation 56.3 H, RDW Coeff of Griffin 16.4 H, Plt Count 172, MPV 9.2, Immature Gran % (Auto) 0.600, Neut % (Auto) 83.1 H, Lymph % (Auto) 7.6 L, [place] % (Auto) 7.8, Eos % (Auto) 0.6, Baso % (Auto) 0.3, Absolute Neuts (auto) 8.3 H, Absolute Lymphs (auto) 0.76 L, Nucleated RBC % 0, Sodium 129 L, Potassium 5.0, Chloride 94 L, Carbon Dioxide 24.0, Anion Gap 11, BUN 37 H, Creatinine 1.13, Estim Creat Clear Calc 56.33, Est GFR (MDRD) Af Amer 82, Est GFR (MDRD) Non-Af 68, BUN/Creatinine Ratio 32.7 H, Glucose 83, Calcium 9.8, Total Bilirubin 1.10 H, AST 12 L, ALT 25, Alkaline Phosphatase 139 H, Total Protein 6.5, Albumin 2.7 L, Globulin 3.8, Albumin/Globulin Ratio 0.7 L Radiography Diagnostic Testing: Radiology Impression KUB X-Ray 03/25/23 06:15 IMPRESSION: No bowel obstruction. Electronically Signed: Foster Prasad MD at 16:47 EDT , D/C Instructions Discharge Diet: No restrictions (Do encourage also high fiber diet.) Call your doctor if you observe: Fever of 101 or Higher, Numbness or Tingling, Inability to urinate, Inability to have a bowel movement, Shortness of breath, Dizziness, Chest pain, Increased palpitations (irregular heartbeat) and Uncontrolled pain Meaningful Use Info Meaningful Use Diagnoses (Choose all that apply): None applicable Discharge Plan Admission Admit Date/Time: 03/24/23 16:38 Primary Reason for Your Visit: Ileus, Acute on Chronic constipation, CHARISSE, Electrolyte disturbances Attending Provider: Jeanne Magana Primary Care Provider: Anita Martinez NP Consulting Providers: Niranjan Prescott Instructions Patient Instructions: Cancer Constipation Tips, Eating a High-Fiber Diet Additional Instructions / Restrictions: ADDITIONAL FOLLOW-UP/INSTRUCTIONS: Per Dr. Morejon prescription for Movantik for cancer prevention related constipation has been initiated; however, if there is any issue with filling this medication please do not hesitate to contact his office as he can continue to work on this outpatient. Prescription for a small amount of Dulcolax suppositories have also been given if constipation becomes severe. Please have repeat basic metabolic panel at follow-up with primary care physician to assure continued improvement of electrolyte disturbances and kidney function. Discharge Orders/Prescriptions Prescriptions: New Movantik 12.5 mg tablet 12.5 mg PO DAILY Qty: 30 0RF Rx Instructions: must be taken on empty stomach; no food 1 hr after or 2-3 hrs before dose bisacodyl [Dulcolax (bisacodyl)] 10 mg suppository 10 mg OK DAILY PRN (Reason: constipation) Qty: 12 0RF Continued prochlorperazine maleate 10 mg tablet 10 mg PO Q6H PRN (Reason: nausea and vomiting) Qty: 30 2RF umeclidinium-vilanterol 62.5-25 mcg/actuation blister with device 1 inh inhalation DAILY Qty: 60 2RF oxycodone-acetaminophen [Percocet] 5-325 mg tablet 1 tab PO Q6H PRN (Reason: pain) 30 Days Qty: 60 0RF dexamethasone 4 mg tablet 4 mg PO DAILY Qty: 30 1RF gabapentin 600 mg tablet 600 mg PO QHS Qty: 30 2RF morphine 30 mg tablet extended release 30 mg PO Q8H 30 Days Qty: 90 0RF ascorbic acid (vitamin C) 1,000 MG tablet 1,000 mg PO DAILY multivitamin with minerals 1 EACH tablet 1 ea PO DAILY umeclidinium-vilanterol 62.5-25 mcg/actuation blister with device 1 ea inhalation DAILY melatonin 10 mg Tablet 10 mg PO QHS aspirin [Adult Low Dose Aspirin] 81 mg tablet,delayed release (DR/EC) 81 mg PO DAILY Hold Instructions: Resume on 06/15/22. Please discuss with Dr. Morejon upon discharge for optimal timing of resuming your aspirin. metoprolol succinate 25 mg tablet extended release 24 hr 25 mg PO DAILY Qty: 90 3RF mirtazapine [Remeron] 15 mg tablet 15 mg PO QHS Qty: 30 2RF sodium chloride 1,000 mg tablet,soluble 1,000 mg PO 4X/DAY Qty: 120 3RF ondansetron HCl 8 mg tablet 8 mg PO Q8H PRN PRN (Reason: Nausea) Qty: 30 0RF Held lisinopril 10 mg tablet 10 mg PO DAILY Hold Instructions: Resume on 03/27/23. May restart if BP remains stable, SBP > 110. Rx Instructions: TAKE ONE TABLET BY MOUTH EVERY DAY spironolactone 50 mg tablet 100 mg PO DAILY Qty: 60 3RF Hold Instructions: Resume on 03/27/23. May restart if BP remains appropriate, SBP > 110. Referrals / Follow Up: Morris Morejon MD [Med Staff - Active Staff] - (Please follow-up within 1-2 weeks to review admission and have re-assess to assure continued improvment.) Anita Martinez PROF[employer], [employer] [Primary Care Provider] - (Follow-up within 3-5 days to review admission.) Disposition Disposition (needs filled in before D/C Order can be placed): Home, Self Care Charges/Coding Visit Charges Inpatient E&M: 55050 Disch Hosp >30min
[2023-03-26 13:48] VITALS: BP 133/81; PULSE 91; RESP 16; TEMP 36.6; O2SAT 95
[2023-03-26] MEDS: 0.9 % NaCl (Sterile) Posiflush 10 mL IV (13:50)
== END 2023-03-26 14:44 | disposition home or self-care (01) | DRG 389 ==
LOC: ED 16:48 → PCU 17:02
PROVIDERS: Nurse Practitioner; Admitting Provider Hospitalist; Emergency Provider Emergency Medicine; PCP Nurse Practitioner Family; Visit Provider Family Medicine
DX: K56.7 Ileus, unspecified (principal); C79.51 Secondary malignant neoplasm of bone; N17.9 Acute kidney failure, unspecified; C41.2 Malignant neoplasm of vertebral column; E87.1 Hypo-osmolality and hyponatremia; C34.92 Malignant neoplasm of unspecified part of left bronchus or lung; C78.7 Secondary malignant neoplasm of liver and intrahepatic bile duct; E87.8 Other disorders of electrolyte and fluid balance, not elsewhere classified; J44.9 Chronic obstructive pulmonary disease, unspecified; I10 Essential (primary) hypertension; F32.A Depression, unspecified; D63.0 Anemia in neoplastic disease; E86.1 Hypovolemia; K21.00 Gastro-esophageal reflux disease with esophagitis, without bleeding; F41.9 Anxiety disorder, unspecified; G62.9 Polyneuropathy, unspecified; E87.5 Hyperkalemia; E78.5 Hyperlipidemia, unspecified; I25.10 Atherosclerotic heart disease of native coronary artery without angina pectoris; G89.3 Neoplasm related pain (acute) (chronic); G89.4 Chronic pain syndrome; Z66 Do not resuscitate; Z79.82 Long term (current) use of aspirin; Z79.891 Long term (current) use of opiate analgesic; Z79.899 Other long term (current) drug therapy; Z87.891 Personal history of nicotine dependence
CPT/HCPCS: 36415; 36591; 74018; 74177; 80053; 82570; 83605; 83690; 83735; 83930; 83935; 84100; 84300; 85025; 94640; 97161; 97166; 97802; 99284; J7030; Q9967; A4216; J2405